=== PATIENT | female | born 1945 | race Two or more races ===

== ENCOUNTER 2016-10-02 12:48 | Emergency (ER) | payer OTHER ==
--- NOTE | 2016-10-02 13:08 | PDOC ---
History of Present Illness - General Chief Complaint: Lethargy Stated Complaint: WEAKNESS Time Seen by Provider: 10/02/16 13:06 History Source: Patient Exam Limitations: No Limitations - History of Present Illness Initial Comments: 10/02/16 13:20 71y F hx of dm, hl, arthritis presents with lethargy. Per son, the pt had been complaining of L leg pain for the past 2 days (consistent with chronic arthritic pain), and has bee nhaving difficulty sleeping, he saw her around 9am and she made breakfast and was ok, later, she called and was crying, and his sister went to find her very lethargic. The pt states she is sleepy because she hasnt slept in 2 days - denies taking any medications prior to coming in, denies any current pain/discofmort including headache, dizziness, n/v, cp, abd pain, bcak pain, dirrhea, melena, bpr. Past History - Past Medical History Allergies/Adverse Reactions: Allergies Allergy/AdvReac Type Severity Reaction Status Date / Time No Known Allergies Allergy Verified 03/20/16 17:01 Home Medications: Ambulatory Orders Albuterol Sulfate [Proair Hfa -] 1 - 2 inh PO TID PRN 04/20/15 Ropinirole HCl 2 tab PO BID 04/20/15 Rosuvastatin Calcium [Crestor] 10 mg PO DAILY 04/20/15 Aspirin Coated [Ecotrin -] 81 mg PO DAILY tablet.ec 03/22/16 Gabapentin 100 mg PO DAILY 10/02/16 Prednisone [Deltasone] 20 mg PO DAILY 10/02/16 Quetiapine Fumarate [Seroquel] 100 tab PO DAILY 10/02/16 Sitagliptin Phos/Metformin HCl [Janumet 50-1,000 mg Tablet] 1 each PO DAILY 06/10 Zolpidem Tartrate 10 mg PO HS PRN 10/02/16 Anemia: No Asthma: No Cancer: No Cardiac Disorders: Yes CVA: No COPD: No CHF: No Dementia: No Diabetes: Yes GI Disorders: No Disorders: No HTN: Yes Hypercholesterolemia: Yes Liver Disease: No Suicide Attempt (Hx): No Seizures: No Thyroid Disease: No - Surgical History Abdominal Surgery: No Appendectomy: No Cardiac Surgery: No Cholecystectomy: No Lung Surgery: No Neurologic Surgery: No Orthopedic Surgery: Yes (r knee replacement 03/11/14) - Psycho/Social/Smoking Cessation Hx Anxiety: No Suicidal Ideation: No Smoking Status: No Smoking History: Never smoked Have you smoked in the past 12 months: No Number of Cigarettes Smoked Daily: 0 Hx Alcohol Use: No Drug/Substance Use Hx: No Substance Use Type: None Hx Substance Use Treatment: No Review of Systems - Review of Systems Able to Perform ROS?: Yes Comments:: 10/02/16 13:23 limited due to the patients clinical condition, but pt has no complaints Constitutional - reported: sleepiness no reported Fever, Chills, weakness, HEENT: no reported vision changes, sore throat Respiratory: no reported cough, sob, hemoptysis Cardiac: no reported chest pain, palpitations, light headedness, leg swelling Abd/GI: no reported abd pain, nausea, vomiting, blood per rectum, melena, diarrhea : no reported dysuria, frequency, discharge Musculskelatal - no reported back pain, joint swelling skin - no reported bruising, erythema, rash neurological: no reported headache, numbness, focal weakness, tingling, ataxia, weakness hematologic: no reported anemia, easy bruising, easy bleeding *Physical Exam - Physical Exam Comments: 10/02/16 13:23 GENERAL: The patient is somnolent but easily arousable to verbal stimulus. HEAD: Normocephalic, atraumatic. EYES: extraocular movements intact, sclera anicteric, conjunctiva clear, pupils 2mm and eaqually reqctive to light ENT: Normal voice, dry mucous membranes. NECK: Normal range of motion, supple LUNGS: Breath sounds equal, clear to auscultation bilaterally. No wheezes, no rhonchi, no rales. HEART: Regular rate and rhythm, normal S1 and S2 without murmur, rub or gallop. ABDOMEN: Soft, nontender, normoactive bowel sounds. No guarding, no rebound. . No CVA tenderness EXTREMITIES: Normal range of motion, no edema. No clubbing or cyanosis. No cords, erythema, or tenderness. NEUROLOGICAL: No facial assymetry, Normal speech, movin gall 4 extremities spontaneously and symmetrically, sensatio nintact and symmetric bilaterally. PSYCH: Normal mood, normal affect. SKIN: Warm, Dry, normal turgor, Heart Score/ECG Review - ECG Impressions Comment:: 10/02/16 18:00 Twelve-lead EKG was performed and reviewed by me. There is normal sinus rhythm with a normal rate. Rate of 85 The axis is normal. The intervals are normal. There is normal R wave progression There are no ST or T wave abnormalities. Impression: Normal twelve-lead EKG ED Treatment Course - LABORATORY CBC & Chemistry Diagram: 10/02/16 13:27 10/02/16 13:27 Medical Decision Making - Medical Decision Making 10/02/16 13:24 differential for sypmtoms include sleepy due to lack of sleep - also consider possible intracranial event, will obtian ct head to r/o cva/hemorrhage will give fluids will ck labs including cbc, cmp, ammonia, vbg will send tox screen maria ines give pt narcan as pt does take percocet for her pain. 10/02/16 16:11 no response to narcan pt alittle bit more awake now - states she took an extra dose of ropiranol for restless leg syndrome. (took 4mg once around 10 and once around 12) - labs reviewed and are normal vitals normal case reported to OR [facility] spoke to marcia santillan recommended supportive care, observation for 6 hrs after ingestion if still ams will admit for obs, 10/02/16 17:41 pt alert and oriented now will d/c the pt with pmd fu return precuation swerediscussed instructions not to take extra doses of meds I discussed the physical exam findings, ancillary test results and final diagnoses with the patient. I answered all of the patient's questions. The patient was satisfied with the care received and felt comfortable with the discharge plan and treatment plan. The patient will call their primary care physician within 24 hours to arrange follow-up and will return to the Emergency Department with any new, persistent or worsening symptoms. 10/02/16 17:44 *DC/Admit/Observation/Transfer Diagnosis at time of Disposition: Medication overdose Qualifiers: Encounter type: initial encounter Injury intent: accidental or unintentional Qualified Code(s): T50.901A - Poisoning by unspecified drugs, medicaments and biological substances, accidental (unintentional), initial encounter - Discharge Dispostion Disposition: HOME Condition at time of disposition: Improved Admit: No - Referrals Referrals: Basilio Machado MD [Primary Care Provider] - - Patient Instructions Printed Discharge Instructions: DI for Safely Taking and Storing Medications - - Adults Additional Instructions: Do not take extra doses of medications without instruction from your physician follow up with dr. Sevilla for reevalutaion of your restless leg syndrome
[2016-10-02 13:09] VITALS: TEMP 97.6
[2016-10-02 13:10] VITALS: BMI 36.6
[2016-10-02] MEDS ORDERED: SODIUM CHLORIDE 500 ML IV STA (13:19)
[2016-10-02] MEDS ORDERED: NALOXONE HCL 0.4 MG/ML VIAL IVPUSH ONE (13:25)
[2016-10-02] MEDS ORDERED: NALOXONE HCL 0.4 MG/ML VIAL ONE (13:49)
[2016-10-02 14:00] LABS: VENOUS PH 7.36 (7.31-7.41)
[2016-10-02 14:04] LABS: BASOPHIL 0.9 % (0-2.0); EOSINOPHIL 1.5 % (0-4.5); MCH 28.9 pg (25.7-33.7); MCHC 32.7 g/dl (32.0-36.0); MEAN CELL VOLUME 88.2 fl (80-96); MEAN PLT VOLUME 8.3 fl (7.5-11.1); NEUTROPHILS 66.8 % (42.8-82.8); PLATELET COUNT 201 K/MM3 (134-434); RDW 16.2 % (11.6-15.6); WHITE BLOOD COUNT 6.5 K/mm3 (4.0-10.0)
[2016-10-02 14:23] LABS: INR 0.96 (0.82-1.09); PROTHROMBIN TIME (PATIENT) 10.6 SEC (9.98-11.88)
[2016-10-02 14:28] LABS: URINE APPEARANCE CLEAR; URINE BILIRUBIN NEGATIVE (NEGATIVE); URINE BLOOD NEGATIVE (NEGATIVE); URINE COLOR STRAW; URINE GLUCOSE (UA) NEGATIVE (NEGATIVE); URINE KETONE NEGATIVE (NEGATIVE); URINE LEUK ESTERASE NEGATIVE (NEGATIVE); URINE NITRITE NEGATIVE (NEGATIVE); URINE PROTEIN NEGATIVE (NEGATIVE); URINE UROBILINOGEN NEGATIVE E.U./dl (0.2-1.0)
[2016-10-02 14:32] LABS: ALBUMIN 3.4 g/dl (3.4-5.0); ANION GAP 10 (8-16); BILIRUBIN,TOTAL 0.2 mg/dL (0.2-1.0); CALCIUM 8.4 mg/dL (8.5-10.1); CO2 27 mmol/L (21-32); CREATININE 0.6 mg/dL (0.55-1.02); GLUCOSE,RANDOM 144 mg/dL (74-106); SGOT/AST 14 U/L (15-37); SGPT/ALT 20 U/L (12-78); TOT PROT 6.4 g/dl (6.4-8.2)
[2016-10-02 14:34] LABS: ALK PHOS 76 U/L (45-117); TROPONIN I < 0.02 ng/ml (0.00-0.05)
[2016-10-02 14:43] LABS: URINE MARIJUANA THC NEGATIVE ng/ml (CUTOFF=50)
[2016-10-02 17:06] VITALS: BP 110/69; PULSE 81
--- NOTE | 2016-10-02 17:19 | EKG ---
Test Reason : Blood Pressure : / mmHG Vent. Rate : 085 BPM Atrial Rate : 085 BPM P-R Int : 158 ms QRS Dur : 084 ms QT Int : 384 ms P-R-T Axes : 040 005 022 degrees QTc Int : 456 ms NORMAL SINUS RHYTHM NORMAL ECG WHEN COMPARED WITH ECG OF 21-MAR-2016 11:48, NO SIGNIFICANT CHANGE WAS FOUND Confirmed by SHANNAN REICO MD ([id number]) on 10/02/2016 5:19:07 PM Referred By: Confirmed By:SHANNAN RECIO MD
== END 2016-10-02 18:14 | disposition home or self-care (01) ==
LOC: JER 12:48
PROC: 3E033GC Introduction of Other Therapeutic Substance into Peripheral Vein, Percutaneous Approach (ICD-10-PCS; principal; 2016-10-02)
DX: T42.8X1A Poisoning by antiparkinsonism drugs and other central muscle-tone depressants, accidental (unintentional), initial encounter (principal); R53.1 Weakness; I10 Essential (primary) hypertension; E11.9 Type 2 diabetes mellitus without complications; Z79.84 Long term (current) use of oral hypoglycemic drugs; E78.00 Pure hypercholesterolemia, unspecified; Y92.018 Other place in single-family (private) house as the place of occurrence of the external cause
CPT/HCPCS: 36415; 70450-TC; 80053; 80307; 81003; 82140; 82550; 82803; 84484; 85025; 85610; 93005; 93010; 96374; 99283-25

== ENCOUNTER 2017-02-05 14:45 | Emergency (ER) | payer OTHER ==
--- NOTE | 2017-02-05 14:56 | PDOC ---
History of Present Illness - General Chief Complaint: Urinary Problem Stated Complaint: HEMATURIA, BURNING ON URINATION Time Seen by Provider: 02/05/17 14:51 History Source: Patient Exam Limitations: No Limitations - History of Present Illness Initial Comments: 02/05/17 16:26 71y F hx of dm, hl, arthritis presents with suprapubicpain. Pt endorses some dysuria since yesteday w/o associated fever/chills. pt does endorse chronic L back pain and L leg pain but this is chronic and attributed to her arthritis. pt denies any n/v, cp, sob, cough, diarrhea. Past History - Past Medical History Allergies/Adverse Reactions: Allergies Allergy/AdvReac Type Severity Reaction Status Date / Time No Known Allergies Allergy Verified 02/05/17 14:54 Home Medications: Ambulatory Orders Ropinirole HCl 2 tab PO TID 04/20/15 Rosuvastatin Calcium [Crestor] 10 mg PO DAILY 04/20/15 Aspirin Coated [Ecotrin -] 81 mg PO DAILY tablet.ec 03/22/16 Prednisone [Deltasone] 5 mg PO ASDIR 10/02/16 Sitagliptin Phos/Metformin HCl [Janumet 50-1,000 mg Tablet] 1 each PO BID Nitrofurantoin Monohyd/M-Cryst [Macrobid -] 100 mg PO BID #10 capsule 02/05/17 Anemia: No Asthma: No Cancer: No Cardiac Disorders: Yes CVA: No COPD: No CHF: No Dementia: No Diabetes: Yes GI Disorders: No Disorders: No HTN: Yes Hypercholesterolemia: Yes Liver Disease: No Suicide Attempt (Hx): No Seizures: No Thyroid Disease: No - Surgical History Abdominal Surgery: No Appendectomy: No Cardiac Surgery: No Cholecystectomy: No Lung Surgery: No Neurologic Surgery: No Orthopedic Surgery: Yes (r knee replacement 03/11/14) - Psycho/Social/Smoking Cessation Hx Anxiety: No Suicidal Ideation: No Smoking Status: No Smoking History: Never smoked Have you smoked in the past 12 months: No Number of Cigarettes Smoked Daily: 0 Hx Alcohol Use: No Drug/Substance Use Hx: No Substance Use Type: None Hx Substance Use Treatment: No Review of Systems - Review of Systems Able to Perform ROS?: Yes Comments:: 02/05/17 16:27 Constitutional - no reported Fever, Chills, HEENT: no reported vision changes, sore throat Respiratory: no reported cough, sob, hemoptysis Cardiac: no reported chest pain, palpitations, light headedness, leg swelling Abd/GI: no reported abd pain, nausea, vomiting, blood per rectum, melena, diarrhea : + dysuria, frequency no reporteddischarge Musculskelatal - no reported back pain, joint swelling skin - no reported bruising, erythema, rash neurological: no reported headache, numbness, focal weakness, tingling, ataxia, hematologic: no reported anemia, easy bruising, easy bleeding *Physical Exam - Physical Exam Comments: 02/05/17 16:28 GENERAL: The patient is awake, alert, and fully oriented, Nontoxic - in no acute distress. HEAD: Normocephalic, atraumatic. EYES: extraocular movements intact, sclera anicteric, conjunctiva clear. ENT: Normal voice, Moist mucous membranes. NECK: Normal range of motion, supple LUNGS: Breath sounds equal, clear to auscultation bilaterally. No wheezes, no rhonchi, no rales. HEART: Regular rate and rhythm, normal S1 and S2 without murmur, rub or gallop. ABDOMEN: mild suprapubic tenderness, no CVA tenderness, no erbound/guarding EXTREMITIES: Normal range of motion, no edema. No clubbing or cyanosis. No cords, erythema, or tenderness. NEUROLOGICAL: No facial assymetry, Normal speech, PSYCH: Normal mood, normal affect. SKIN: Warm, Dry, normal turgor, Medical Decision Making - Medical Decision Making 02/05/17 16:28 ua c/w uti no systenomic complaints will dc with macrobid and pmd fu return percautions were discussed I discussed the physical exam findings, ancillary test results and final diagnoses with the patient. I answered all of the patient's questions. The patient was satisfied with the care received and felt comfortable with the discharge plan and treatment plan. The patient will call their primary care physician within 24 hours to arrange follow-up and will return to the Emergency Department with any new, persistent or worsening symptoms. *DC/Admit/Observation/Transfer Diagnosis at time of Disposition: Urinary tract infection Qualifiers: Urinary tract infection type: acute cystitis Hematuria presence: with hematuria Qualified Code(s): N30.01 - Acute cystitis with hematuria - Discharge Dispostion Disposition: HOME Condition at time of disposition: Improved Admit: No - Prescriptions Prescriptions: Nitrofurantoin Monohyd/M-Cryst [Macrobid -] 100 mg PO BID #10 capsule - Referrals Referrals: Kaiser Bertrand MD [Staff Physician] - - Patient Instructions Printed Discharge Instructions: DI for Urinary Tract Infection (UTI) Additional Instructions: Return to the emergency department immediately with ANY new, persistent or worsening symptoms including any back pain, fevers, chills or any other concerns. Take antibiotics as prescribed You MUST call and follow up with your doctor tomorrow for further evaluation of your symptoms. Results were discussed with you. Please make sure your doctor reviews the results of your emergency evaluation. If you had any xrays during your visit, it was read preliminarily by myself, a Radiologist will review it and if there are any additional findings we will call you. Print Language: SETSWANA
[2017-02-05 15:02] VITALS: BP 154/81; PULSE 93; TEMP 99.2; BMI 38.4
[2017-02-05 15:09] LABS: URINE APPEARANCE Slightly; URINE BILIRUBIN Negative (NEGATIVE); URINE GLUCOSE (UA) Negative (NEGATIVE); URINE KETONE Negative (NEGATIVE); URINE NITRITE Negative (NEGATIVE); URINE PROTEIN Trace (NEGATIVE); URINE UROBILINOGEN 0.2 E.U/dl (0.2-1.0)
[2017-02-05 15:10] LABS: URINE BLOOD 3+ (NEGATIVE); URINE COLOR YELLOW; URINE LEUK ESTERASE 2+ (NEGATIVE)
[2017-02-05 15:28] LABS: URINE RBC 50-80 /hpf (0-3)
[2017-02-05] MEDS ORDERED: NITROFURANTOIN MACROCRYSTAL 50 MG CAPSULE (FP) ONE (16:26)
[2017-02-05] MEDS ORDERED: NITROFURANTOIN MACROCRYSTAL 50 MG CAPSULE (FP) PO SCH (16:30)
== END 2017-02-05 16:40 | disposition home or self-care (01) ==
LOC: FER 14:45
DX: N30.01 Acute cystitis with hematuria (principal); I10 Essential (primary) hypertension
CPT/HCPCS: 81003; 81015; 87086; 87186; 99284-25

== ENCOUNTER 2017-02-13 20:38 | Emergency (ER) | payer OTHER ==
[2017-02-13 20:44] VITALS: TEMP 97.6; BMI 38.4
--- NOTE | 2017-02-13 21:13 | PDOC ---
History of Present Illness - General History Source: Patient Exam Limitations: No Limitations - History of Present Illness Initial Comments: 02/13/17 21:18 Patient is a 71 year old female with a significant medical history of DM, hypertension, hyperlipidemia and arthritis who presents to the ED with bilateral lower extremity pain. Patient reports squeezing and stabbing pain. She states that she has been taking tylenol and motrin without any relief. Patient states that the pain radiates to the lower back. No fever, chills, nausea, vomiting or abdominal pain. No recent trauma or recent travel. PCP - Dr. Machado <Peg Lo - Last Filed: 02/13/17 21:24> - General History Source: Patient <Santana Burroughs - Last Filed: 02/14/17 00:59> - General Chief Complaint: Pain, Acute Stated Complaint: PAIN Time Seen by Provider: 02/13/17 21:11 Past History <Peg Lo - Last Filed: 02/13/17 21:24> - Past Medical History Anemia: No Asthma: No Cancer: No Cardiac Disorders: Yes CVA: No COPD: No CHF: No Dementia: No Diabetes: Yes GI Disorders: No Disorders: No HTN: Yes Hypercholesterolemia: Yes Liver Disease: No Suicide Attempt (Hx): No Seizures: No Thyroid Disease: No Other medical history: arthritis - Surgical History Abdominal Surgery: No Appendectomy: No Cardiac Surgery: No Cholecystectomy: No Lung Surgery: No Neurologic Surgery: No Orthopedic Surgery: Yes (r knee replacement 03/11/14) - Psycho/Social/Smoking Cessation Hx Anxiety: No Suicidal Ideation: No Smoking Status: No Smoking History: Former smoker Have you smoked in the past 12 months: No Number of Cigarettes Smoked Daily: 0 If you are a former smoker, when did you quit?: 15 yrs Information on smoking cessation initiated: No Hx Alcohol Use: No Drug/Substance Use Hx: No Substance Use Type: None Hx Substance Use Treatment: No <Santana Burroughs - Last Filed: 02/14/17 00:59> - Past Medical History Allergies/Adverse Reactions: Allergies Allergy/AdvReac Type Severity Reaction Status Date / Time No Known Allergies Allergy Verified 02/13/17 20:45 Home Medications: Ambulatory Orders Ropinirole HCl 2 tab PO TID 04/20/15 Rosuvastatin Calcium [Crestor] 10 mg PO DAILY 04/20/15 Aspirin Coated [Ecotrin -] 81 mg PO DAILY tablet.ec 03/22/16 Prednisone [Deltasone] 5 mg PO ASDIR 10/02/16 Sitagliptin Phos/Metformin HCl [Janumet 50-1,000 mg Tablet] 1 each PO BID Nitrofurantoin Monohyd/M-Cryst [Macrobid -] 100 mg PO BID #10 capsule 02/05/17 Ibuprofen 800 mg PO TID #30 tablet 02/14/17 Oxycodone HCl/Acetaminophen [Percocet 5-325 mg Tablet] 1 - 2 tab PO Q6H #20 tablet MDD 4 02/14/17 Review of Systems - Review of Systems Able to Perform ROS?: Yes Comments:: 02/13/17 21:18 CONSTITUTIONAL: Absent: fever, chills, diaphoresis, generalized weakness, malaise, loss of appetite HEENT: Absent: rhinorrhea, nasal congestion, throat pain, throat swelling, difficulty swallowing, mouth swelling, ear pain, eye pain, visual Changes CARDIOVASCULAR: Absent: chest pain, syncope, palpitations, irregular heart rate, lightheadedness , peripheral edema RESPIRATORY: Absent: cough, shortness of breath, dyspnea with exertion, orthopnea, wheezing, stridor, hemoptysis GASTROINTESTINAL: Absent: abdominal pain, abdominal distension, nausea, vomiting, diarrhea, constipation, melena, hematochezia GENITOURINARY: Absent: dysuria, frequency, urgency, hesitancy, hematuria, flank pain, genital pain MUSCULOSKELETAL: Present: lower extremity pain, back pain Absent: myalgia, arthralgia, joint swelling SKIN: Absent: rash, itching, pallor HEMATOLOGIC/IMMUNOLOGIC: Absent: easy bleeding, easy bruising, lymphadenopathy, frequent infections ENDOCRINE: Absent: unexplained weight gain, unexplained weight loss, heat intolerance, cold intolerance NEUROLOGIC: Absent: headache, focal weakness or paresthesias, dizziness, unsteady gait, seizure, mental status changes, bladder or bowel incontinence PSYCHIATRIC: Absent: anxiety, depression, suicidal or homicidal ideation, hallucinations. <Peg Lo - Last Filed: 02/13/17 21:24> *Physical Exam - Vital Signs Last Vital Signs Temp Pulse Resp BP Pulse Ox 97.6 F 102 H 20 161/119 98 02/13/17 20:39 02/13/17 20:39 02/13/17 20:39 02/13/17 20:39 02/13/17 20:39 - Physical Exam Comments: 02/13/17 21:18 GENERAL: Well developed, well nourished. Awake and alert. In no acute distress. HEENT: Normocephalic, atraumatic. PERRLA, EOMI. No conjunctival pallor. Sclerae are non -icteric. Moist mucous membranes. Oropharynx is clear. NECK: Supple. Full ROM. No JVD. Carotid pulses 2+ and symmetric, without bruits. No thyromegaly. No lymphadenopathy. CARDIOVASCULAR: Regular rate and rhythm. No murmurs, rubs, or gallops. Distal pulses are 2+ and symmetric. PULMONARY: No evidence of respiratory distress. Lungs clear to auscultation bilaterally. No wheezing, rales or rhonchi. ABDOMINAL: (+)Morbidly obese. Soft. Non-tender. Non-distended. No rebound or guarding. No organomegaly. Normoactive bowel sounds. MUSCULOSKELETAL (+)Midline tenderness region LS 3-4-5. Normal range of motion at all joints. No bony deformities. No CVA tenderness. EXTREMITIES: (+)Neither leg is erythematous, no ecchymosis, (+)Non pitting edema bilaterally at the ankles No cyanosis. No clubbing. No calf tenderness. SKIN: Warm and dry. Normal capillary refill. No rashes. No jaundice. NEUROLOGICAL: Alert, awake, appropriate. Cranial nerves 2-12 intact. No deficits to light touch and temperature in face, upper extremities and lower extremities. No motor deficits in the in face, upper extremities and lower extremities. Normoreflexic in the upper and lower extremities. Normal speech. Toes are downgoing bilaterally. PSYCHIATRIC: Cooperative. Good eye contact. Appropriate mood and affect. <Peg Lo - Last Filed: 02/13/17 21:24> - Vital Signs Last Vital Signs Temp Pulse Resp BP Pulse Ox 97.6 F 102 H 20 161/119 98 02/13/17 20:39 02/13/17 20:39 02/13/17 20:39 02/13/17 20:39 02/13/17 20:39 <Santana Burroughs - Last Filed: 02/14/17 00:59> ED Treatment Course - LABORATORY CBC & Chemistry Diagram: 02/13/17 21:42 02/13/17 21:42 <Santana Burroughs - Last Filed: 02/14/17 00:59> Medical Decision Making - Medical Decision Making 02/14/17 00:57 Dr. Burroughs: The scribe's documentation has been prepared under my direction and personally reviewed by me in its entirery. I confirm that the note above accurately reflects all work, treatment, procedures, and medical decision making performed by me. PT with multiple herniated / bulging disc. Pt advised to follow up with her pcp for documentation improvement specialist <Santana Burroughs - Last Filed: 02/14/17 00:59> *DC/Admit/Observation/Transfer - Attestations Scribe Attestion: 02/13/17 21:24 Documentation prepared by DELMAR Booth, acting as medical administrative for Santana Burroughs DO. <Peg Lo - Last Filed: 02/13/17 21:24> - Discharge Dispostion Admit: No <Santana Burroughs - Last Filed: 02/14/17 00:59> Diagnosis at time of Disposition: Lumbar herniated disc - Discharge Dispostion Disposition: HOME Condition at time of disposition: Stable - Prescriptions Prescriptions: Ibuprofen 800 mg PO TID #30 tablet Oxycodone HCl/Acetaminophen [Percocet 5-325 mg Tablet] 1 - 2 tab PO Q6H #20 tablet MDD 4 - Referrals Referrals: Basilio Machado MD [Primary Care Provider] - Kristian Arzate MD [Staff Physician] - - Patient Instructions Printed Discharge Instructions: DI for Herniated Disc Additional Instructions: Please follow up with your pcp for a spine doctor. TAke medication as directed. Avoid alcohol when taking Percocet
[2017-02-13] MEDS ORDERED: GABAPENTIN 300 MG CAPSULE (FP) PO ONE (21:19)
[2017-02-13] MEDS ORDERED: GABAPENTIN 100 MG CAPSULE (FP) ONE (22:09)
[2017-02-13 22:17] LABS: BASOPHIL 0.8 % (0-2.0); EOSINOPHIL 1.1 % (0-4.5); MCH 28.7 pg (25.7-33.7); MCHC 32.5 g/dl (32.0-36.0); MEAN CELL VOLUME 88.1 fl (80-96); MEAN PLT VOLUME 8.5 fl (7.5-11.1); NEUTROPHILS 66.6 % (42.8-82.8); PLATELET COUNT 245 K/MM3 (134-434); RDW 16.6 % (11.6-15.6)
[2017-02-13 22:20] LABS: URINE APPEARANCE CLEAR; URINE BILIRUBIN NEGATIVE (NEGATIVE); URINE COLOR STRAW; URINE GLUCOSE (UA) NEGATIVE (NEGATIVE); URINE KETONE NEGATIVE (NEGATIVE); URINE NITRITE NEGATIVE (NEGATIVE); URINE PROTEIN NEGATIVE (NEGATIVE); URINE UROBILINOGEN NEGATIVE E.U./dl (0.2-1.0)
[2017-02-13 22:22] LABS: URINE BLOOD 1+ (NEGATIVE); URINE LEUK ESTERASE 2+ (NEGATIVE)
[2017-02-13 22:24] LABS: URINE RBC 6 /hpf (0-3); URINE WBC 8 /hpf (3-5)
[2017-02-13 22:26] LABS: INR 0.95 (0.82-1.09); PROTHROMBIN TIME (PATIENT) 10.4 SEC (9.98-11.88)
[2017-02-13 23:03] LABS: ALBUMIN 3.5 g/dl (3.4-5.0); ANION GAP 9 (8-16); CALCIUM 8.1 mg/dL (8.5-10.1); CO2 25 mmol/L (21-32); CREATININE 0.8 mg/dL (0.55-1.02); GLUCOSE,RANDOM 173 mg/dL (74-106); MAGNESIUM 1.9 mg/dL (1.8-2.4); SGOT/AST 18 U/L (15-37); SGPT/ALT 25 U/L (12-78)
[2017-02-13 23:07] LABS: ALK PHOS 87 U/L (45-117); BILIRUBIN,TOTAL 0.2 mg/dL (0.2-1.0); TOT PROT 6.9 g/dl (6.4-8.2); TROPONIN I < 0.02 ng/ml (0.00-0.05)
[2017-02-13] MEDS ORDERED: IBUPROFEN 400 MG TABLET (FP) PO ONE ×2 (23:55→23:59)
[2017-02-14 01:13] VITALS: BP 143/87; PULSE 78
== END 2017-02-14 01:13 | disposition home or self-care (01) ==
LOC: JER 20:38
DX: M51.26 Other intervertebral disc displacement, lumbar region (principal); I10 Essential (primary) hypertension; E11.9 Type 2 diabetes mellitus without complications; Z79.84 Long term (current) use of oral hypoglycemic drugs; E78.5 Hyperlipidemia, unspecified; M12.9 Arthropathy, unspecified
CPT/HCPCS: 36415; 72131-TC; 80053; 81003; 81015; 82550; 83735; 84484; 85025; 85610; 93970-TC; 99282-25

== ENCOUNTER → 2017-05-05 | Emergency (ER) | payer OTHER ==
[~2017-05-05] MED LIST: ACETAMINOPHEN 325 MG TABLET (FP) ONE; ACETAMINOPHEN 325 MG TABLET (FP) PO ONE; SODIUM CHLORIDE 0.9% 500 ML INFUS.BAG IV ONE; VALSARTAN 80 MG TABLET (UD) PO ONE
[2017-05-05 02:06] VITALS: TEMP 98; BMI 40.2
--- NOTE | 2017-05-05 02:19 | PDOC ---
History of Present Illness - General History Source: Patient, Old Records Exam Limitations: No Limitations - History of Present Illness Initial Comments: 05/05/17 03:00 The patient is a 71 year old female with a significant PMH of diabetes, hypertension, and hyperlipidemia, who presents to the emergency department with a racing heart and chest pain beginning at approximately 1:00AM. She describes the chest pain as non-radiating. The patient reports she tried going to sleep by laying on her side and felt her heart racing. The patient also reports noting a lesion under her left breast which she describes as painful. She discovered the lesion tonight while in the shower after awaking from the racing heart. She drove herself to the ED after becoming concerned. The patient denies cough, shortness of breath, headache and dizziness. Denies fever, chills, nausea, vomit, diarrhea and constipation. Denies dysuria, frequency, urgency and hematuria. Allergies: NKA Past surgical history: Joint replacement. Social history: No alcohol or drug use. Former cigarette use (Quit more than 12 months ago) PCP: Dr. Machado <Fabricio Mayo - Last Filed: 05/05/17 03:00> <Mesha Stevenson - Last Filed: 05/05/17 05:16> - General Chief Complaint: Chest Pain Stated Complaint: PAIN TO CHEST Time Seen by Provider: 05/05/17 02:02 Past History <Fabricio Mayo - Last Filed: 05/05/17 03:00> - Past Medical History Anemia: No Asthma: No Cancer: No Cardiac Disorders: Yes CVA: No COPD: No CHF: No Dementia: No Diabetes: Yes GI Disorders: No Disorders: No HTN: Yes Hypercholesterolemia: Yes Liver Disease: No Suicide Attempt (Hx): No Seizures: No Thyroid Disease: No - Surgical History Abdominal Surgery: No Appendectomy: No Cardiac Surgery: No Cholecystectomy: No Lung Surgery: No Neurologic Surgery: No Orthopedic Surgery: Yes (r knee replacement 03/11/14) - Immunization History Immunization Up to Date: Yes - Psycho/Social/Smoking Cessation Hx Anxiety: No Suicidal Ideation: No Smoking Status: No Smoking History: Former smoker Have you smoked in the past 12 months: No Number of Cigarettes Smoked Daily: 0 If you are a former smoker, when did you quit?: 15 yrs Information on smoking cessation initiated: No Hx Alcohol Use: No Drug/Substance Use Hx: No Substance Use Type: None Hx Substance Use Treatment: No <Lori Stevensonreen - Last Filed: 05/05/17 05:16> - Past Medical History Allergies/Adverse Reactions: Allergies Allergy/AdvReac Type Severity Reaction Status Date / Time No Known Allergies Allergy Verified 05/05/17 02:06 Home Medications: Ambulatory Orders Aspirin [Aspirin EC] 81 mg PO DAILY 05/05/17 Atorvastatin Ca [Lipitor] 40 mg PO HS 05/05/17 Gabapentin 100 mg PO BID 05/05/17 Glimepiride [Amaryl -] 4 mg PO BID 05/05/17 Prednisone 5 mg PO TID 05/05/17 Ropinirole HCl [Ropinirole ER] 4 mg PO BID 05/05/17 Tramadol HCl [Ultram] 50 mg PO TID 05/05/17 Review of Systems - Review of Systems Comments:: 05/05/17 03:00 CONSTITUTIONAL: Absent: Fevers, chills, diaphoresis, generalized weakness, malaise, loss of appetite HEENT: Absent: rhinorrhea, nasal congestion, throat pain, throat swelling, difficulty swallowing, mouth swelling, ear pain, eye pain, visual changes CARDIOVASCULAR: (+) Racing heart, (+) Chest pain. Absent: syncope, lightheadedness, peripheral edema RESPIRATORY: Absent: cough, shortness of breath, dyspnea with exertion, orthopnea, wheezing, stridor, hemoptysis GASTROINTESTINAL: Absent: abdominal pain, abdominal distension, nausea, vomiting, diarrhea, constipation, melena, hematochezia GENITOURINARY: Absent: dysuria, frequency, urgency, hesitancy, hematuria, flank pain, genital pain MUSCULOSKELETAL: Absent: myalgia, arthralgia, joint swelling SKIN: (+) Left breast lesion Absent: rash, itching, pallor HEMATOLOGIC/IMMUNOLOGIC: Absent: easy bleeding, easy bruising, lymphadenopathy, frequent infections ENDOCRINE: Absent: unexplained weight gain, unexplained weight loss, heat intolerance, cold intolerance NEUROLOGIC: Absent: headache, focal weakness or paresthesias, dizziness, unsteady gait, seizure, mental status changes, bladder or bowel incontinence PSYCHIATRIC: Absent: anxiety, depression, suicidal or homicidal ideation, hallucinations. <Fabricio Mayo - Last Filed: 05/05/17 03:00> *Physical Exam - Vital Signs Last Vital Signs Temp Pulse Resp BP Pulse Ox 98.0 F 105 H 16 182/91 100 05/05/17 02:02 05/05/17 02:02 05/05/17 02:02 05/05/17 02:02 05/05/17 02:02 - Physical Exam Comments: 05/05/17 03:01 GENERAL: Well developed, well nourished. Awake and alert. No acute distress. HEENT: (+) Dry mucous membranes Normocephalic, atraumatic. PERRLA, EOMI. No conjunctival pallor. Sclera are non- icteric. . Oropharynx is clear. NECK: Supple. Full ROM. No JVD. Carotid pulses 2+ and symmetric, without bruits. No thyromegaly. No lymphadenopathy. CARDIOVASCULAR: Regular rate and rhythm. No murmurs, rubs, or gallops. Distal pulses are 2+ and symmetric. PULMONARY: No evidence of respiratory distress. Lungs clear to auscultation bilaterally. No wheezing, rales or rhonchi. ABDOMINAL: Soft. Non-tender. Non-distended. No rebound or guarding. No organomegaly. Normoactive bowel sounds. MUSCULOSKELETAL Normal range of motion at all joints. No bony deformities or tenderness. No CVA tenderness. EXTREMITIES: No cyanosis. No clubbing. No edema. No calf tenderness. SKIN: (+) Left breast 1 cm. diameter red pimple Warm and dry. Normal capillary refill. No rashes. No jaundice. NEUROLOGICAL: Alert, awake, appropriate. Cranial nerves 2-12 intact. No deficits to light touch and temperature in face, upper extremities and lower extremities. No motor deficits in the in face, upper extremities and lower extremities. Normoreflexic in the upper and lower extremities. Normal speech. Toes are downgoing bilaterally. PSYCHIATRIC: Cooperative. Good eye contact. Appropriate mood and affect. <Fabricio Mayo - Last Filed: 05/05/17 03:00> - Vital Signs Last Vital Signs Temp Pulse Resp BP Pulse Ox 98.0 F 105 H 16 182/91 100 05/05/17 02:02 05/05/17 02:02 05/05/17 02:02 05/05/17 02:02 05/05/17 02:02 <Mesha Stevenson - Last Filed: 05/05/17 05:16> ED Treatment Course - LABORATORY CBC & Chemistry Diagram: 05/05/17 02:35 05/05/17 02:35 <Fabricio Mayo - Last Filed: 05/05/17 03:00> - LABORATORY CBC & Chemistry Diagram: 05/05/17 02:35 05/05/17 02:35 <Mesha Stevenson - Last Filed: 05/05/17 05:16> Medical Decision Making - Medical Decision Making 05/05/17 05:12 Pt comes with CP and palpitations that started tonight. She came to the ER and her HR and BP dropped here once we reassured her that her exam is normal. Pt has a small pimple/growth beneath her left breast that is stressing her out. We asked her to apply warm compresses to it. Pt has a normal (unchanged pattern on) EKG. SHe has normal labs. Her exam is also normal. Pt will be discharged home and asked to follow with PMD. <Mesha Stevenson - Last Filed: 05/05/17 05:16> *DC/Admit/Observation/Transfer - Attestations Scribe Attestion: 05/05/17 03:02 Documentation prepared by Fabricio Mayo, acting as medical device assembler for Mesha Stevenson MD. <Fabricio Mayo - Last Filed: 05/05/17 03:00> - Discharge Dispostion Admit: No <Mesha Stevenson - Last Filed: 05/05/17 05:16> Diagnosis at time of Disposition: Heart palpitations, Anxiousness - Discharge Dispostion Disposition: HOME Condition at time of disposition: Improved - Patient Instructions Printed Discharge Instructions: DI for Atypical Chest Pain, DI for Palpitations
[2017-05-05 02:59] LABS: EOSINOPHIL 1.3 % (0-4.5); INR 0.96 (0.82-1.09); MCH 29.5 pg (25.7-33.7); MCHC 32.9 g/dl (32.0-36.0); MEAN CELL VOLUME 89.5 fl (80-96); MEAN PLT VOLUME 8.6 fl (7.5-11.1); NEUTROPHILS 65.1 % (42.8-82.8); PLATELET COUNT 236 K/MM3 (134-434); PROTHROMBIN TIME (PATIENT) 10.5 SEC (9.98-11.88); RDW 15.6 % (11.6-15.6)
[2017-05-05 03:10] LABS: ALBUMIN 3.9 g/dl (3.4-5.0); ANION GAP 7 (8-16); BILIRUBIN,TOTAL 0.4 mg/dL (0.2-1.0); CALCIUM 8.5 mg/dL (8.5-10.1); CO2 32 mmol/L (21-32); GLUCOSE,RANDOM 208 mg/dL (74-106); SGOT/AST 18 U/L (15-37); SGPT/ALT 32 U/L (12-78); TOT PROT 7.2 g/dl (6.4-8.2)
[2017-05-05 03:12] LABS: ALK PHOS 91 U/L (45-117); CPK 99 IU/L (26-192); TROPONIN I < 0.02 ng/ml (0.00-0.05)
[2017-05-05 03:21] LABS: ACETONE SERUM NEGATIVE (NEGATIVE)
[2017-05-05 06:42] VITALS: BP 134/81; PULSE 97
--- NOTE | 2017-05-05 13:25 | EKG ---
Test Reason : Blood Pressure : / mmHG Vent. Rate : 102 BPM Atrial Rate : 102 BPM P-R Int : 162 ms QRS Dur : 094 ms QT Int : 362 ms P-R-T Axes : 034 -11 -01 degrees QTc Int : 471 ms SINUS TACHYCARDIA POSSIBLE LEFT ATRIAL ENLARGEMENT INFERIOR INFARCT , AGE UNDETERMINED ABNORMAL ECG WHEN COMPARED WITH ECG OF 02-OCT-2016 14:06, INFERIOR INFARCT IS NOW PRESENT NON-SPECIFIC CHANGE IN ST SEGMENT IN LATERAL LEADS CLINICAL CORRELATION IS RECOMMENDED Confirmed by TONYA HENNING MD ([id number]) on 05/05/2017 1:24:47 PM Referred By: Confirmed By:TONYA HENNING MD
== END | disposition home or self-care (01) ==
LOC: JER 01:51
PROC: 3E0337Z Introduction of Electrolytic and Water Balance Substance into Peripheral Vein, Percutaneous Approach (ICD-10-PCS; principal; 2017-05-05)
DX: R00.2 Palpitations (principal); F41.0 Panic disorder [episodic paroxysmal anxiety]; I51.9 Heart disease, unspecified; E11.9 Type 2 diabetes mellitus without complications; I10 Essential (primary) hypertension; E78.00 Pure hypercholesterolemia, unspecified; Z87.891 Personal history of nicotine dependence
CPT/HCPCS: 36415; 80053; 82009; 84443; 84484; 85025; 85610; 93005; 93010; 99282-25

== ENCOUNTER 2017-09-30 13:04 | Inpatient (IN) | payer OTHER ==
--- NOTE | 2017-09-30 13:50 | PDOC ---
History of Present Illness - General Chief Complaint: Chest Pain Stated Complaint: CHEST PAIN Time Seen by Provider: 09/30/17 13:21 History Source: Patient Exam Limitations: No Limitations - History of Present Illness Initial Comments: 09/30/17 13:56 CHIEF COMPLAINT: Chest pain HISTORY OF PRESENT ILLNESS: This is a 72-year-old female with a history of an IDDM, HTN, HLD, and obesity who presents to the ED complaining of chest pain. Pain started about one hour ago while she was at rest. She describes it as pressure. Pain originates in the left side of the chest and radiates up to the jaw and down the left arm. She denies any associated shortness of breath, diaphoresis, nausea, or any other symptoms. She took 2 x 81mg ASA priorShe reports that she last had a exercise stress test [address] Flores's office. Vital signs on arrival notable for P 99. PCP [address] Machado. Patient is a non-smoker. REVIEW OF SYSTEMS: GENERAL/CONSTITUTIONAL: No fever or chills. No weakness. No weight change. HEAD, EYES, EARS, NOSE AND THROAT: No change in vision. No ear pain or discharge. No sore throat. CARDIOVASCULAR: See HPI. RESPIRATORY: No cough, wheezing, or shortness of breath. GASTROINTESTINAL: No nausea, vomiting, diarrhea or constipation. GENITOURINARY: No dysuria, frequency, or change in urination. MUSCULOSKELETAL: No joint or muscle swelling or pain. No neck or back pain. SKIN: No rash or easy bruising. NEUROLOGIC: No headache, vertigo, loss of consciousness, or loss of sensation. PSYCHIATRIC: No depression or anxiety. ENDOCRINE: No increased thirst. No abnormal weight change. HEMATOLOGIC/LYMPHATIC: No anemia, easy bleeding, or history of blood clots. ALLERGIC/IMMUNOLOGIC: No hives or skin allergy. No latex allergy. PHYSICAL EXAM: GENERAL: The patient is awake, alert, and fully oriented, in no acute distress. ENT: Pupils equal, round and reactive to light, extraocular movements intact, sclera anicteric, conjunctiva clear. Neck supple. LUNGS: Clear to auscultation bilaterally. Normal excursion. No respiratory distress or use of accessory muscles. CV: RRR, S1/S2, no MRG. Cap refill < 2 sec. ABDOMEN: Soft, non-distended, non-tender. EXTREMITIES: Normal range of motion, no edema. No calf tenderness. NEUROLOGICAL: Normal speech, normal gait. CN II-XII grossly intact. PSYCH: Normal mood, normal affect. SKIN: Warm, dry, normal turgor, no rashes or lesions noted. Past History - Past Medical History Allergies/Adverse Reactions: Allergies Allergy/AdvReac Type Severity Reaction Status Date / Time No Known Allergies Allergy Verified 09/30/17 13:16 Home Medications: Ambulatory Orders Aspirin [Aspirin EC] 81 mg PO DAILY 05/05/17 Tramadol HCl [Ultram] 50 mg PO BID 05/05/17 Sitagliptin Phosphate [Januvia] 50 mg PO TID 09/30/17 Anemia: No Asthma: No Cancer: No Cardiac Disorders: Yes CVA: No COPD: No CHF: No Dementia: No Diabetes: Yes GI Disorders: No Disorders: No HTN: Yes Hypercholesterolemia: Yes Liver Disease: No Seizures: No Thyroid Disease: No Other medical history: arthritis - Surgical History Abdominal Surgery: No Appendectomy: No Cardiac Surgery: No Cholecystectomy: No GI Surgery: Yes (bladder 15 years ago) Lung Surgery: No Neurologic Surgery: No Orthopedic Surgery: Yes (r knee replacement 03/11/14) - Immunization History Immunization Up to Date: Yes - Suicide/Smoking/Psychosocial Hx Smoking Status: No Smoking History: Never smoked Have you smoked in the past 12 months: No Number of Cigarettes Smoked Daily: 0 If you are a former smoker, when did you quit?: 15 yrs Information on smoking cessation initiated: No Hx Alcohol Use: No Drug/Substance Use Hx: No Substance Use Type: None Hx Substance Use Treatment: No *Physical Exam - Vital Signs Last Vital Signs Temp Pulse Resp BP Pulse Ox 97.5 F L 99 H 18 123/64 99 09/30/17 13:14 09/30/17 13:14 09/30/17 13:14 09/30/17 13:14 09/30/17 13:14 Heart Score/ECG Review - History History: Moderately suspicious - Electrocardiogram EKG: Normal - Age Age: >/= 65 - Risk Factors Risk Factors Heart Score: Yes Hx Hypercholesterolemia, Yes Hx Hypertension, Yes Hx Diabetes, Yes Positive family hx of cardiac disease, Yes Hx Obesity Based on the list above the patient has:: >/=3 risk factors or Hx atherosclerotic disease - Troponin Troponin: </= normal limit - Score Heart Score - Total: 5 - ECG Intrepretation Comment:: 09/30/17 14:20 NSR, rate of 97bpm. Possible let atrial enlargement. ED Treatment Course - LABORATORY CBC & Chemistry Diagram: 09/30/17 13:51 09/30/17 13:51 - RADIOLOGY Radiology Studies Ordered: Category Date Time Status CHEST X-RAY PORTABLE* [RAD] Stat Radiology 09/30/17 13:25 Ordered Medical Decision Making - Medical Decision Making 09/30/17 14:15 A/P: 72 year old female with multiple cardiac risk factors presenting with chest pain. 1. EKG and phototypesetting equipment monitor 2. Labs including CBC, CMP, cardiac profile, PT/INR, BNP 3. CXR 4. Took ASA prior to arrival 5. Ntg paste 6. Re-assess 09/30/17 14:36 Trop neg x 1. 09/30/17 15:37 CXR: Large heart, no acute pathology. Patient continues to complain of 6/10 pain after ntg paste application. Morphine 2mg IVP given. Discussed with Dr. Flores- will place in observation with cardiology consultation. Discussed with Dr. Arzate, cardiology. 09/30/17 17:41 Patient complaining of headache. Suspect ntg side effect - Tylenol given. *DC/Admit/Observation/Transfer Diagnosis at time of Disposition: Chest pain Qualifiers: Chest pain type: unspecified Qualified Code(s): R07.9 - Chest pain, unspecified - Discharge Dispostion Condition at time of disposition: Guarded Admit: Yes - Referrals - Patient Instructions - Post Discharge Activity
[2017-09-30 13:55] LABS: BASO % 0.7 % (0-2.0); EOS % 1.4 % (0-4.5); HEMATOCRIT 37.4 % (32.4-45.2); HEMOGLOBIN 12.1 GM/dL (10.7-15.3); LYMPH % 22.6 % (8-40); MCH 29.5 pg (25.7-33.7); MCHC 32.4 g/dl (32.0-36.0); MEAN CELL VOLUME 91.2 fl (80-96); MEAN PLT VOLUME 8.6 fl (7.5-11.1); NEUT % 69.3 % (42.8-82.8); PLATELET COUNT 228 K/MM3 (134-434); WHITE BLOOD COUNT 6.3 K/mm3 (4.0-10.0)
[2017-09-30] MEDS ORDERED: NITROGLYCERIN 2% OINTMENT - 1GM PACKET TD ONE (13:56)
[2017-09-30 14:08] LABS: INR 0.98 (0.82-1.09); PROTHROMBIN TIME (PATIENT) 11.1 SEC (9.98-11.88)
[2017-09-30 14:26] LABS: ALBUMIN 3.4 g/dl (3.4-5.0); ANION GAP 8 (8-16); BILIRUBIN,TOTAL 0.3 mg/dL (0.2-1.0); BLOOD UREA NITROGEN 19 mg/dL (7-18); CALCIUM 8.4 mg/dL (8.5-10.1); CHLORIDE 102 mmol/L (98-107); CO2 28 mmol/L (21-32); CREATININE 0.8 mg/dL (0.55-1.02); GLUCOSE,RANDOM 191 mg/dL (74-106); SGPT/ALT 22 U/L (12-78); SODIUM 138 mmol/L (136-145); TOT PROT 6.6 g/dl (6.4-8.2)
[2017-09-30 14:28] LABS: ALK PHOS 68 U/L (45-117); N-TERMINAL BNP 28.97 pg/ml (5-125)
[2017-09-30 14:33] LABS: POTASSIUM 4.7 mmol/L (3.5-5.1); SGOT/AST 20 U/L (15-37)
[2017-09-30] MEDS ORDERED: morphine CARPU-JECT 4 MG/1 ML DISP.SYRIN IVPUSH ONE (14:47)
[2017-09-30] MEDS ORDERED: morphine CARPU-JECT 10 MG/1 ML DISP.SYRIN ONE (14:49)
[2017-09-30] MEDS ORDERED: ACETAMINOPHEN 325 MG TABLET (FP) PO ONE (17:41)
[2017-09-30 17:45] VITALS: BMI 37.2
[2017-09-30] MEDS ORDERED: ACETAMINOPHEN 325 MG TABLET (FP) ONE (18:07)
[2017-09-30] MEDS ORDERED: ATORVASTATIN CA 40 MG TABLET (FP) PO ONE (23:45)
[2017-09-30] MEDS: traMADol HCL 50 MG TABLET PO PRN (23:55)
--- NOTE | 2017-10-01 00:25 | CONSULT ---
Consult Consult Specialty:: endocrine Referred by:: dr.iyad ca Reason for Consultation:: diabetes mellitus - History of Present Illness Chief Complaint: chest pain History of Present Illness: 72-year-old female with a history of an IDDM, HTN, HLD, and obesity who presents to the ED complaining of chest pain. Pain started about one hour ago while she was at rest. She describes it as pressure. Pain originates in the left side of the chest and radiates up to the jaw and down the left arm. She denies nausea or vomiting hypoglycemia,blurred vision. 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 Cardio/Vascular: Yes: CAD, HTN, Hyperlipdemia Pulmonary: Yes: COPD Gastrointestinal: Yes: Gastritis, GERD Musculoskeletal: Yes: Other (S/P right total knee replacement) Endocrine: Yes: Diabetes Mellitus - Past Surgical History Past Surgical History: Yes: Joint Replacement - Alcohol/Substance Use Hx Alcohol Use: No - Smoking History Smoking history: Never smoked Have you smoked in the past 12 months: No Aproximately how many cigarettes per day: 0 If you are a former smoker, when did you quit?: 15 yrs - Social History Usual Living Arrangement: Other (lives with son in house with 12 steps to enter but none inside; she reports being previously Independent in ADLs/ IADLs without Assistive Device) Home Medications - Allergies Allergies/Adverse Reactions: Allergies Allergy/AdvReac Type Severity Reaction Status Date / Time No Known Allergies Allergy Verified 09/30/17 13:16 - Home Medications Home Medications: Ambulatory Orders Aspirin [Aspirin EC] 81 mg PO DAILY 05/05/17 Tramadol HCl [Ultram] 50 mg PO BID 05/05/17 Sitagliptin Phosphate [Januvia] 50 mg PO TID 09/30/17 Review of Systems - Review of Systems Constitutional: reports: Lethargy, Weakness HENT: reports: No Symptoms Neck: reports: Pain on Movement Cardiovascular: reports: Palpitations Respiratory: reports: Orthopnea Gastrointestinal: reports: Bloating Genitourinary: reports: Flank Pain Breasts: reports: No Symptoms Reported Musculoskeletal: reports: Joint Swelling, Muscle Cramps Integumentary: reports: No Symptoms Neurological: reports: Unsteady Gait, Weakness Endocrine: reports: Unexplained Weight Gain Physical Exam Vital Signs: Vital Signs Temperature 98.1 F 09/30/17 19:28 Pulse Rate 82 09/30/17 19:28 Respiratory Rate 18 09/30/17 19:28 Blood Pressure 107/68 09/30/17 19:28 O2 Sat by Pulse Oximetry (%) 100 09/30/17 19:28 Constitutional: Yes: Anxious Eyes: Yes: EOM Intact HENT: Yes: Normocephalic Neck: Yes: Trachea Midline Cardiovascular: Yes: Regular Rate and Rhythm Respiratory: Yes: CTA Bilaterally Gastrointestinal: Yes: Normal Bowel Sounds ...Rectal Exam: Yes: Deferred Renal/: Yes: WNL Breast(s): Yes: WNL Musculoskeletal: Yes: Joint Stiffness, Joint Swelling, Muscle Pain, Muscle Weakness Integumentary: Yes: WNL Neurological: Yes: Alert, Oriented ...Motor Strength: WNL Labs: CBC, BMP 09/30/17 13:51 09/30/17 13:51 Problem List - Problems (1) Chest pain Code(s): R07.9 - CHEST PAIN, UNSPECIFIED Qualifiers: Chest pain type: unspecified Qualified Code(s): R07.9 - Chest pain, unspecified (2) Cellulitis Code(s): L03.90 - CELLULITIS, UNSPECIFIED (3) Chest wall contusion Code(s): S20.219A - CONTUSION OF UNSPECIFIED FRONT WALL OF THORAX, INIT ENCNTR (4) Diabetes Code(s): E11.9 - TYPE 2 DIABETES MELLITUS WITHOUT COMPLICATIONS (5) HLD (hyperlipidemia) Code(s): E78.5 - HYPERLIPIDEMIA, UNSPECIFIED (6) HTN (hypertension) Code(s): I10 - ESSENTIAL (PRIMARY) HYPERTENSION (7) Heart palpitations Code(s): R00.2 - PALPITATIONS Assessment/Plan Current Active Problems Chest pain (Acute) diabetes mellitus hyperglycemia morbid obesity arthropathy diabetic Abnormal Lab Results 09/30/17 13:51 BUN 19 H D Random Glucose 191 H D Calcium 8.4 L Laboratory Results - last 24 hr 09/30/17 09/30/17 09/30/17 13:51 13:51 13:51 WBC 6.3 RBC 4.10 Hgb 12.1 Hct 37.4 MCV 91.2 MCH 29.5 MCHC 32.4 RDW 15.0 Plt Count 228 MPV 8.6 Neutrophils % 69.3 Lymphocytes % 22.6 D Monocytes % 6.0 Eosinophils % 1.4 Basophils % 0.7 PT with INR 11.10 INR 0.98 Sodium 138 Potassium 4.7 Chloride 102 Carbon Dioxide 28 Anion Gap 8 BUN 19 H D Creatinine 0.8 Creat Clearance w eGFR > 60 Random Glucose 191 H D Calcium 8.4 L Total Bilirubin 0.3 D AST 20 D ALT 22 D Alkaline Phosphatase 68 Creatine Kinase 79 Troponin I < 0.02 B-Natriuretic Peptide 28.97 Total Protein 6.6 Albumin 3.4 09/30/17 21:45 WBC RBC Hgb Hct MCV MCH MCHC RDW Plt Count MPV Neutrophils % Lymphocytes % Monocytes % Eosinophils % Basophils % PT with INR INR Sodium Potassium Chloride Carbon Dioxide Anion Gap BUN Creatinine Creat Clearance w eGFR Random Glucose Calcium Total Bilirubin AST ALT Alkaline Phosphatase Creatine Kinase 58 Troponin I < 0.02 B-Natriuretic Peptide Total Protein Albumin plan: bgma qid novolog coverage ck hbaic ck troponin as ordered othopedic consulit foot pain Current Medications Generic Name Dose Route Start Last Admin Trade Name Freq PRN Reason Stop Dose Admin Aspirin 81 mg 10/01/17 10:00 Ecotrin - PO DAILY [facility] Atorvastatin Calcium 40 mg 10/01/17 22:00 Lipitor - PO HS [facility] Heparin Sodium (Porcine) 5,000 unit 10/01/17 10:00 Heparin - SQ BID [facility] Insulin Aspart 1 vial 10/01/17 07:00 Novolog Vial Sliding Scale - SQ ACHS [facility] Protocol Metoprolol Tartrate 25 mg 10/01/17 10:00 Lopressor - PO BID [facility] Sitagliptin Phosphate 50 mg 10/01/17 06:00 Januvia - PO TID [facility] Sitagliptin Phosphate 50 mg 10/01/17 07:00 Januvia - PO 10/01/17 07:01 ONCE ONE Tramadol HCl 50 mg 09/30/17 23:18 09/30/17 23:55 Ultram - PO 50 mg BID PRN Administration PAIN
[2017-10-01] MEDS ORDERED: KETOROLAC TROMETHAMINE 30 MG/1 ML VIAL IVPUSH ONE (01:23)
[2017-10-01] MEDS ORDERED: sitaGLIPtin PHOSPHATE 50 MG TABLET PO SCH (06:00)
[2017-10-01] MEDS: INSULIN SLIDING SCALE (NOVOLOG) 1 VIAL SQ SCH ×4 (06:22→21:20)
[2017-10-01] MEDS ORDERED: sitaGLIPtin PHOSPHATE 50 MG TABLET PO ONE (07:00)
[2017-10-01 07:37] LABS: ALBUMIN 3.2 g/dl (3.4-5.0); ANION GAP 6 (8-16); BLOOD UREA NITROGEN 18 mg/dL (7-18); CALCIUM 8.2 mg/dL (8.5-10.1); CHLORIDE 106 mmol/L (98-107); CHOLESTEROL 166 mg/dL (50-200); CO2 29 mmol/L (21-32); CREATININE 0.7 mg/dL (0.55-1.02); GLUCOSE,RANDOM 119 mg/dL (74-106); POTASSIUM 4.3 mmol/L (3.5-5.1); SGOT/AST 18 U/L (15-37); SGPT/ALT 21 U/L (12-78); SODIUM 141 mmol/L (136-145); TRIGLYCERIDES 369 mg/dL (35-160)
[2017-10-01 07:44] LABS: ALK PHOS 66 U/L (45-117); BILIRUBIN,TOTAL 0.4 mg/dL (0.2-1.0); HDL CHOLESTEROL 35 mg/dL (40-60); LDL CHOLESTEROL (ONLY SJRH) 78 mg/dL (5-100); TOT PROT 6.3 g/dl (6.4-8.2)
[2017-10-01 08:05] LABS: EOS % 1.6 % (0-4.5); HEMATOCRIT 37.1 % (32.4-45.2); HEMOGLOBIN 11.8 GM/dL (10.7-15.3); LYMPH % 35.4 % (8-40); MCH 28.8 pg (25.7-33.7); MCHC 31.7 g/dl (32.0-36.0); MEAN CELL VOLUME 90.8 fl (80-96); MEAN PLT VOLUME 8.8 fl (7.5-11.1); MONO % 5.8 % (3.8-10.2); NEUT % 56.2 % (42.8-82.8); PLATELET COUNT 210 K/MM3 (134-434); RBC 4.09 M/mm3 (3.60-5.2); RDW 14.9 % (11.6-15.6); WHITE BLOOD COUNT 5.5 K/mm3 (4.0-10.0)
--- NOTE | 2017-10-01 08:42 | CON.ORTH ---
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 Cardio/Vascular: Yes: CAD, HTN, Hyperlipdemia Pulmonary: Yes: COPD Gastrointestinal: Yes: Gastritis, GERD Musculoskeletal: Yes: Other (S/P right total knee replacement) Endocrine: Yes: Diabetes Mellitus - Past Surgical History Past Surgical History: Yes: Joint Replacement - Alcohol/Substance Use Hx Alcohol Use: No - Smoking History Smoking history: Never smoked Have you smoked in the past 12 months: No Aproximately how many cigarettes per day: 0 If you are a former smoker, when did you quit?: 15 yrs - Social History Usual Living Arrangement: Other (lives with son in house with 12 steps to enter but none inside; she reports being previously Independent in ADLs/ IADLs without Assistive Device) Home Medications - Allergies Allergies/Adverse Reactions: Allergies Allergy/AdvReac Type Severity Reaction Status Date / Time No Known Allergies Allergy Verified 09/30/17 13:16 - Home Medications Home Medications: Ambulatory Orders Aspirin [Aspirin EC] 81 mg PO DAILY 05/05/17 Tramadol HCl [Ultram] 50 mg PO BID 05/05/17 Sitagliptin Phosphate [Januvia] 50 mg PO TID 09/30/17 Physical Exam for Ortho Vital Signs: Vital Signs Temperature 97.9 F 10/01/17 06:00 Pulse Rate 78 10/01/17 06:00 Respiratory Rate 20 10/01/17 06:00 Blood Pressure 106/72 10/01/17 06:00 O2 Sat by Pulse Oximetry (%) 100 10/01/17 03:09 Labs: CBC, BMP 10/01/17 05:40 10/01/17 05:40 INR, PTT INR 0.98 (0.82-1.09) 09/30/17 13:51 - Lower Extremity Foot: Yes: Left, Pain, Tenderness, Other (noted numbness/tingling in left foot) Assessment/Plan 72-year-old female with a history of an IDDM, HTN, HLD, and obesity admitted for chest pain. c/o left foot pain for the [past month. No history of trauma or injury. Also notes numbness and tingling into left foot. a/p- left foot pain- diabetic xrays of left foot Podiatry consult PT joanne cantor d/w Dr. Lassiter
[2017-10-01] MEDS: traMADol HCL 50 MG TABLET PO PRN ×2 (09:23→21:20)
[2017-10-01] MEDS ORDERED: REGADENOSON 0.4 MG/5 ML PRE-FILLED SYRINGE IVPUSH ONE ×2 (10:45→11:16)
--- NOTE | 2017-10-01 12:12 | EKG ---
Test Reason : Blood Pressure : / mmHG Vent. Rate : 083 BPM Atrial Rate : 083 BPM P-R Int : 176 ms QRS Dur : 092 ms QT Int : 372 ms P-R-T Axes : 040 003 017 degrees QTc Int : 437 ms NORMAL SINUS RHYTHM NORMAL ECG WHEN COMPARED WITH ECG OF 30-SEP-2017 13:10, NO SIGNIFICANT CHANGE WAS FOUND Confirmed by SHANNAN RECIO MD ([id number]) on 10/01/2017 12:11:55 PM Referred By: NYASIA STAFFORD Confirmed By:SHANNAN RECIO MD
[2017-10-01] MEDS: HEPARIN NA (PORCINE) 5,000 UNITS/ML 1ML VIAL SQ SCH ×2 (12:23→21:19)
[2017-10-01] MEDS: ASPIRIN COATED 81 MG TABLET.EC PO SCH (12:23)
[2017-10-01] MEDS: METOPROLOL TARTRATE 25 MG TABLET (FP) PO SCH ×2 (12:23→21:18)
--- NOTE | 2017-10-01 12:37 | EKG ---
Test Reason : Blood Pressure : / mmHG Vent. Rate : 097 BPM Atrial Rate : 097 BPM P-R Int : 152 ms QRS Dur : 088 ms QT Int : 354 ms P-R-T Axes : 036 004 021 degrees QTc Int : 449 ms NORMAL SINUS RHYTHM POSSIBLE LEFT ATRIAL ENLARGEMENT BORDERLINE ECG WHEN COMPARED WITH ECG OF 05-MAY-2017 02:03, NO SIGNIFICANT CHANGE WAS FOUND Confirmed by SHANNAN RECIO MD ([id number]) on 10/01/2017 12:37:13 PM Referred By: Confirmed By:SHANNAN RECIO MD
--- NOTE | 2017-10-01 14:11 | HP ---
Admitting History and Physical - Admission History of Present Illness: - History of Present Illness Chief Complaint: chest pain History of Present Illness: 72-year-old female with a history of an IDDM, HTN, HLD, and obesity who presents to the ED complaining of chest pain. Pain started about one hour ago while she was at rest. She describes it as pressure. Pain originates in the left side of the chest and radiates up to the jaw and down the left arm. She denies nausea or vomiting hypoglycemia,blurred vision. 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 Cardio/Vascular: Yes: CAD, HTN, Hyperlipdemia Pulmonary: Yes: COPD Gastrointestinal: Yes: Gastritis, GERD Musculoskeletal: Yes: Other (S/P right total knee replacement) Endocrine: Yes: Diabetes Mellitus - Past Surgical History Past Surgical History: Yes: Joint Replacement patient admitted to telemetry floor and to got a stress test History Source: Patient - Past Medical History HAND BENDER: Yes: Vertigo Cardiovascular: Yes: CAD, HTN, Hyperlipdemia Pulmonary: Yes: COPD Gastrointestinal: Yes: Gastritis, GERD Musculoskeletal: Yes: Other (S/P right total knee replacement) Endocrine: Yes: Diabetes Mellitus - Past Surgical History Past Surgical History: Yes: Joint Replacement - Smoking History Smoking history: Never smoked Have you smoked in the past 12 months: No Aproximately how many cigarettes per day: 0 If you are a former smoker, when did you quit?: 15 yrs - Alcohol/Substance Use Hx Alcohol Use: No Home Medications - Allergies Allergies/Adverse Reactions: Allergies Allergy/AdvReac Type Severity Reaction Status Date / Time No Known Allergies Allergy Verified 09/30/17 13:16 - Home Medications Home Medications: Ambulatory Orders Aspirin [Aspirin EC] 81 mg PO DAILY 05/05/17 Tramadol HCl [Ultram] 50 mg PO BID 05/05/17 Sitagliptin Phosphate [Januvia] 50 mg PO TID 09/30/17 Review of Systems - Review of Systems Cardiovascular: reports: Other (no chest pain no SOB) Physical Examination Vital Signs: Vital Signs Temperature 97.5 F L 10/01/17 08:00 Pulse Rate 86 10/01/17 12:31 Respiratory Rate 18 10/01/17 12:31 Blood Pressure 148/86 10/01/17 12:31 O2 Sat by Pulse Oximetry (%) 100 10/01/17 03:09 Constitutional: Yes: Calm Neck: Yes: Trachea Midline Cardiovascular: Yes: Regular Rate and Rhythm, S1, S2 Respiratory: Yes: CTA Bilaterally Gastrointestinal: Yes: Normal Bowel Sounds, Soft Neurological: Yes: Alert, Oriented Labs: CBC, BMP 10/01/17 05:40 10/01/17 05:40 Imaging - Results Chest X-ray: Report Reviewed X-ray: Report Reviewed Problem List - Problems (1) Chest pain Assessment/Plan: telemetry stres test done - possible subtle mild intensity ischemia awaiting cardio to see patient asa,liptor and metoprolol Code(s): R07.9 - CHEST PAIN, UNSPECIFIED Qualifiers: Chest pain type: unspecified Qualified Code(s): R07.9 - Chest pain, unspecified (2) HLD (hyperlipidemia) Assessment/Plan: statin Code(s): E78.5 - HYPERLIPIDEMIA, UNSPECIFIED (3) HTN (hypertension) Assessment/Plan: continue current medication Code(s): I10 - ESSENTIAL (PRIMARY) HYPERTENSION (4) Diabetes Assessment/Plan: hgba1c noted endo consult bgm insulin januvia 100mg daily left foot numbness -podiatry to see patent Code(s): E11.9 - TYPE 2 DIABETES MELLITUS WITHOUT COMPLICATIONS
--- NOTE | 2017-10-01 14:53 | CON.CARD ---
Consult Consult Specialty:: Cardiology Referred by:: Dr Flores Reason for Consultation:: cp - History of Present Illness Chief Complaint: chest pain History of Present Illness: She is a 72 year old woman history of HTN, NIDDM, obesity, chol, exsmoker who presented to the ER 09/30/17 with chest pain at rest lasting over an hour left upper chest, shoulder, upper arm, and back. ECG and jana were negative. now without symptoms, exercise tolerance is good. Nuclear Stress test 10/01/17 small area of inferobasal ischemia EF 72%. 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 Cardio/Vascular: Yes: CAD, HTN, Hyperlipdemia Pulmonary: Yes: COPD Gastrointestinal: Yes: Gastritis, GERD Musculoskeletal: Yes: Other (S/P right total knee replacement) Endocrine: Yes: Diabetes Mellitus - Past Surgical History Past Surgical History: Yes: Joint Replacement - Alcohol/Substance Use Hx Alcohol Use: No - Smoking History Smoking history: Never smoked Have you smoked in the past 12 months: No Aproximately how many cigarettes per day: 0 If you are a former smoker, when did you quit?: 15 yrs - Social History Usual Living Arrangement: Other (lives with son in house with 12 steps to enter but none inside; she reports being previously Independent in ADLs/ IADLs without Assistive Device) Home Medications - Allergies Allergies/Adverse Reactions: Allergies Allergy/AdvReac Type Severity Reaction Status Date / Time No Known Allergies Allergy Verified 09/30/17 13:16 - Home Medications Home Medications: Ambulatory Orders Aspirin [Aspirin EC] 81 mg PO DAILY 05/05/17 Tramadol HCl [Ultram] 50 mg PO BID 05/05/17 Sitagliptin Phosphate [Januvia] 50 mg PO TID 09/30/17 Family Disease History - Family Disease History Family History: Unable to Obtain Review of Systems - Review of Systems Constitutional: reports: No Symptoms HENT: reports: No Symptoms Neck: reports: No Symptoms Cardiovascular: reports: Chest Pain Respiratory: reports: No Symptoms Gastrointestinal: reports: No Symptoms Genitourinary: reports: No Symptoms Vital Signs: Vital Signs Temperature 97.9 F 10/01/17 13:25 Pulse Rate 77 10/01/17 13:25 Respiratory Rate 20 10/01/17 13:25 Blood Pressure 115/67 10/01/17 13:25 O2 Sat by Pulse Oximetry (%) 96 10/01/17 11:09 Constitutional: Yes: No Distress, Obese Eyes: Yes: Conjunctiva Clear, EOM Intact HENT: Yes: Atraumatic, Normocephalic Neck: Yes: Supple, Trachea Midline Respiratory: Yes: CTA Bilaterally Gastrointestinal: Yes: Normal Bowel Sounds, Soft JVD: No Carotid Bruit: No PMI: Non-Displaced Heart Sounds: Yes: S1, S2 Musculoskeletal: Yes: WNL Edema: No Peripheral Pulses WNL: Yes - Other Data Labs, Other Data: CBC, BMP 10/01/17 05:40 10/01/17 05:40 INR, PTT INR 0.98 (0.82-1.09) 09/30/17 13:51 Troponin, BNP 09/30/17 10/01/17 21:45 05:40 Troponin I < 0.02 < 0.02 Troponin, BNP 09/30/17 10/01/17 21:45 05:40 Troponin I < 0.02 < 0.02 Imaging - Results Chest X-ray: Report Reviewed (holly) EKG: Report Reviewed (normal ECG) Problem List - Problems (1) Chest pain Assessment/Plan: the pain is atypical for angina, ECG negative. Troponin negative for ACS. The small area of ischemia likely represents artifact. There is no need for further cardiac testing. Will follow as outpatient. Code(s): R07.9 - CHEST PAIN, UNSPECIFIED Qualifiers: Chest pain type: unspecified Qualified Code(s): R07.9 - Chest pain, unspecified
[2017-10-01] MEDS ORDERED: ATORVASTATIN CA 40 MG TABLET (FP) PO SCH (22:00)
[2017-10-02] MEDS ORDERED: ACETAMINOPHEN 325 MG TABLET (FP) PO ONE (04:16)
[2017-10-02] MEDS: traMADol HCL 50 MG TABLET PO PRN (05:48)
[2017-10-02] MEDS: INSULIN SLIDING SCALE (NOVOLOG) 1 VIAL SQ SCH ×2 (06:03→11:08)
[2017-10-02] MEDS ORDERED: sitaGLIPtin PHOSPHATE 100 MG TABLET (FP) PO SCH (07:00)
--- NOTE | 2017-10-02 09:36 | DS ---
Physical Examination Vital Signs: Vital Signs Temperature 98.1 F 10/02/17 05:53 Pulse Rate 80 10/02/17 05:53 Respiratory Rate 16 10/02/17 05:53 Blood Pressure 112/65 10/02/17 05:53 O2 Sat by Pulse Oximetry (%) 96 10/02/17 03:00 Cardiovascular: Yes: Regular Rate and Rhythm Respiratory: Yes: Regular, CTA Bilaterally Gastrointestinal: Yes: Normal Bowel Sounds, Soft Labs: CBC, BMP 10/01/17 05:40 10/01/17 05:40 Discharge Summary Reason For Visit: CHEST PAIN Current Active Problems Chest pain (Acute) Hospital Course: - Problems (1) Chest pain Assessment/Plan: telemetry stres test done - possible subtle mild intensity ischemia cardio CONSULT NOTED--NO FURTHER TESTING asa,liptor and metoprolol Code(s): R07.9 - CHEST PAIN, UNSPECIFIED Qualifiers: Chest pain type: unspecified Qualified Code(s): R07.9 - Chest pain, unspecified (2) HLD (hyperlipidemia) Assessment/Plan: statin Code(s): E78.5 - HYPERLIPIDEMIA, UNSPECIFIED (3) HTN (hypertension) Assessment/Plan: continue current medication Code(s): I10 - ESSENTIAL (PRIMARY) HYPERTENSION (4) Diabetes Assessment/Plan: hgba1c noted endo consult bgm insulin januvia 100mg daily left foot numbness -podiatry to see patent Code(s): E11.9 - TYPE 2 DIABETES MELLITUS WITHOUT COMPLICATIONS (5) Discogenic Disease Assessment/Plan: increase pain meds gabapentin outpatient follow up Condition: Improved - Instructions Referrals: Basilio Machado MD [Primary Care Provider] - Disposition: HOME - Home Medications Comprehensive Discharge Medication List: Ambulatory Orders Aspirin [Aspirin EC] 81 mg PO DAILY 05/05/17 Tramadol HCl [Ultram] 50 mg PO BID 05/05/17 Sitagliptin Phosphate [Januvia] 50 mg PO TID 09/30/17
[2017-10-02] MEDS ORDERED: traMADol HCL 50 MG TABLET PO PRN (09:41)
[2017-10-02] MEDS: METOPROLOL TARTRATE 25 MG TABLET (FP) PO SCH (09:41)
[2017-10-02] MEDS: ASPIRIN COATED 81 MG TABLET.EC PO SCH (09:41)
[2017-10-02] MEDS: HEPARIN NA (PORCINE) 5,000 UNITS/ML 1ML VIAL SQ SCH (09:42)
[2017-10-02 10:28] VITALS: BP 118/78; PULSE 76; TEMP 97.5
[2017-10-02] MEDS ORDERED: GABAPENTIN 100 MG CAPSULE (FP) PO SCH (14:00)
== END 2017-10-02 12:13 | disposition home or self-care (01) | DRG 313 ==
LOC: JER 13:04 → JERBED 15:47 → J4S 21:28 → OBSVTOIN 23:19
PROVIDERS: ADMIT Family Medicine; ATTEND Family Medicine
DX: R07.9 Chest pain, unspecified (principal); E78.5 Hyperlipidemia, unspecified; I10 Essential (primary) hypertension; Z68.37 Body mass index [BMI] 37.0-37.9, adult; E66.01 Morbid (severe) obesity due to excess calories; E11.65 Type 2 diabetes mellitus with hyperglycemia; E11.618 Type 2 diabetes mellitus with other diabetic arthropathy; R00.2 Palpitations
CPT/HCPCS: 36415; 71045-TC; 72125-TC; 73630-TC-LT; 78452-TC; 80053; 80061; 82550; 82962; 83036; 83721; 83880; 84443; 84484; 85025; 85610; 93005; 93010; 93017; 99284-25; A9502; G0378; J1644

== ENCOUNTER 2018-01-19 07:49 | Observation (INO) | payer OTHER | END 2018-01-21 15:22 | disposition home or self-care (01) | LOC: FER 07:49 → FM/S 14:27 | PROVIDERS: ADMIT Hospitalist | PROC: 3E0333Z Introduction of Anti-inflammatory into Peripheral Vein, Percutaneous Approach (ICD-10-PCS; principal; 2018-01-19) | PROC: 3E033GC Introduction of Other Therapeutic Substance into Peripheral Vein, Percutaneous Approach (ICD-10-PCS; 2018-01-19) | PROC: 3E0337Z Introduction of Electrolytic and Water Balance Substance into Peripheral Vein, Percutaneous Approach (ICD-10-PCS; 2018-01-19) | PROC: 3E013VG Introduction of Insulin into Subcutaneous Tissue, Percutaneous Approach (ICD-10-PCS; 2018-01-19) | PROC: 3E013GC Introduction of Other Therapeutic Substance into Subcutaneous Tissue, Percutaneous Approach (ICD-10-PCS; 2018-01-19) | CPT/HCPCS: 36415; 70450-TC; 70544-TC; 70547-TC; 70551-TC; 80053; 81003; 81015; 82962; 83735; 84484; 85025; 87086; 93005; 96361; 96365; 96372; 96375; 97116-GP; 97161-GP; 99284-25; G0378; J7030 ==

== ENCOUNTER 2018-01-31 15:26 | Emergency (ER) | payer OTHER ==
[2018-01-31 15:35] VITALS: BP 118/71; PULSE 68; TEMP 98.2; BMI 37.8
--- NOTE | 2018-01-31 15:36 | PDOC ---
Rapid Medical Evaluation Chief Complaint: Eye Problem Time Seen by Provider: 01/31/18 15:33 Medical Evaluation: Allergies Allergy/AdvReac Type Severity Reaction Status Date / Time No Known Allergies Allergy Verified 01/19/18 07:51 01/31/18 15:33 Pt c/o: right eye with possible piece of glass. no blurry vision pt on exam: noted tearing from right eye. No visible foreign body Pt ordered for: none p to proceed to the ED Discharge Disposition - Diagnosis Eye pain - Referrals - Patient Instructions - Post Discharge Activity
[2018-01-31] MEDS ORDERED: ERYTHROMYCIN 0.5% OPHTHALMIC OINTMENT 3.5 GM TUBE OS ONE (16:29)
[2018-01-31] MEDS ORDERED: ERYTHROMYCIN 0.5% OPHTHALMIC OINTMENT 3.5 GM TUBE ONE (16:31)
--- NOTE | 2018-01-31 16:51 | PDOC ---
History of Present Illness - General Chief Complaint: Eye Problem Stated Complaint: EYE INJURY Time Seen by Provider: 01/31/18 15:33 History Source: Patient Exam Limitations: No Limitations - History of Present Illness Initial Comments: 01/31/18 16:59 Patient states was washing a glass yesterday when it broke and states felt something bowels up and strike her right eye. States washed with water but woke up this morning with some erythema and some foreign body sensation. States feels something at approximately 11:00 however visual acuity is within normal limits. No drainage from eye, not exquisite pain. 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 Timing/Duration: unsure Severity: moderate Associated Symptoms: reports: denies symptoms Past History - Travel Traveled outside of the country in the last 30 days: No Close contact w/someone who was outside of country & ill: No - Past Medical History Allergies/Adverse Reactions: Allergies Allergy/AdvReac Type Severity Reaction Status Date / Time No Known Allergies Allergy Verified 01/31/18 15:35 Home Medications: Ambulatory Orders Aspirin [Aspirin EC] 81 mg PO DAILY 05/05/17 Gabapentin [Neurontin -] 100 mg PO TID #90 capsule 10/02/17 Metoprolol Tartrate [Lopressor -] 25 mg PO BID #60 tablet 10/02/17 Sitagliptin Phosphate [Januvia -] 100 mg PO DAILY@0700 #30 ud 10/02/17 Atorvastatin Ca [Lipitor] 80 mg PO HS 01/19/18 Ropinirole HCl 2 mg PO PRN 01/19/18 traMADol HCL [Ultram -] 50 mg PO TID PRN MDD 4 01/19/18 Meclizine HCl [Antivert -] 25 mg PO Q8H PRN #30 tablet 01/21/18 Polyethylene Glycol 3350 [Miralax 119 gm Btl -] 17 gm PO DAILY bottle 01/21/18 Erythromycin 0.5% Eye Ointment [Erythromycin 0.5% Eye Ointment -] 1 applic OD TID #1 tube 01/31/18 Ibuprofen 400 mg PO Q6H PRN #30 tablet 01/31/18 Anemia: No Asthma: No Cancer: No Cardiac Disorders: Yes CVA: No COPD: No CHF: No Dementia: No Diabetes: Yes GI Disorders: No Disorders: No HTN: Yes Hypercholesterolemia: Yes Liver Disease: No Seizures: No Thyroid Disease: No - Surgical History Abdominal Surgery: No Appendectomy: No Cardiac Surgery: No Cholecystectomy: No GI Surgery: Yes (bladder 15 years ago) Lung Surgery: No Neurologic Surgery: No Orthopedic Surgery: Yes (r knee replacement 03/11/14) - Immunization History Immunization Up to Date: Yes - Suicide/Smoking/Psychosocial Hx Smoking Status: No Smoking History: Never smoked Have you smoked in the past 12 months: No Number of Cigarettes Smoked Daily: 0 If you are a former smoker, when did you quit?: 15 yrs Information on smoking cessation initiated: No Hx Alcohol Use: No Drug/Substance Use Hx: No Substance Use Type: None Hx Substance Use Treatment: No Review of Systems - Review of Systems Able to Perform ROS?: Yes Is the patient limited Greenlandic proficient: Yes Constitutional: Yes: Symptoms Reported HEENTM: Yes: See HPI, Eye Pain, Tearing. No: Symptoms Reported, Recent change in vision, Double Vision Respiratory: Yes: See HPI. No: Symptoms reported All Other Systems: Reviewed and Negative *Physical Exam - Vital Signs Last Vital Signs Temp Pulse Resp BP Pulse Ox 98.2 F 68 16 118/71 100 01/31/18 15:30 01/31/18 15:30 01/31/18 15:30 01/31/18 15:30 01/31/18 15:30 - Physical Exam General Appearance: Yes: Nourished, Appropriately Dressed. No: Apparent Distress HEENT: positive: DAMARIS, Normal ENT Inspection, TMs Normal, Pharynx Normal Neck: positive: Supple, Carotid bruit. 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 Sleep of eyelid did not reveal any foreign body. Erythromycin ointment applied, and patient encouraged to follow up tomorrow with ophthalmology for thorough evaluation and examination. 01/31/18 17:06 *DC/Admit/Observation/Transfer Diagnosis at time of Disposition: Eye pain Qualifiers: Laterality: right Qualified Code(s): H57.11 - Ocular pain, right eye - Discharge Dispostion Disposition: HOME Condition at time of disposition: Stable Decision to Admit order: No - Referrals Referrals: Zaheer Burr MD [Non Staff, Medical] - Nabil Chinchilla MD [Staff Physician] - - Patient Instructions Printed Discharge Instructions: DI for Corneal Foreign Body-Eye Additional Instructions: Rest, avoid rubbing eyes Wash hands, use eye drops as directed, wash hands after use May use eye lubricating drops as often as needed erythromycin ointment, one thin film 3 times a day for 5 days Tylenol or ibuprofen for pain relief Followup with ophthalmology in one to 2 days for thorough exam Return to emergency department for worsened pain, swelling, vision problems. - Post Discharge Activity
[2018-01-31] MEDS ORDERED: TETANUS AND DIPHTHERIA TOXOID 0.5 ML DISP.SYRIN IM ONE (16:52)
== END 2018-01-31 17:12 | disposition home or self-care (01) ==
LOC: JERFT 15:26
PROC: 3E0234Z Introduction of Serum, Toxoid and Vaccine into Muscle, Percutaneous Approach (ICD-10-PCS; principal; 2018-01-31)
PROC: 4A07X0Z Measurement of Visual Acuity, External Approach (ICD-10-PCS; 2018-01-31)
DX: H57.11 Ocular pain, right eye (principal); I10 Essential (primary) hypertension; E11.9 Type 2 diabetes mellitus without complications; Z79.84 Long term (current) use of oral hypoglycemic drugs; E78.00 Pure hypercholesterolemia, unspecified; Z96.651 Presence of right artificial knee joint
CPT/HCPCS: 99281-25

== ENCOUNTER 2018-10-30 03:00 | Emergency (ER) | payer OTHER ==
[2018-10-30 03:46] VITALS: TEMP 97.9; BMI 36.6
--- NOTE | 2018-10-30 04:34 | PDOC ---
Attending Attestation - HPI HPI: 10/30/18 05:22 The patient is a 73 year old female, with a significant past medical history of HTN, HLD, DM, and discogenic disease, who presents to the emergency department with, right flank pain radiating to the right groin and down the right leg onsetting suddenly at 1:30am. Patient endorses recent diagnosis of UTI and is currently on Augmentin. She denies recent hematuria. She denies recent chest pain or shortness of breath. Allergies: NKDA Past surgical history: Joint replacement. Primary Care Physician: Dr. Machado. - Physicial Exam PE: 10/30/18 05:22 Agree with resident exam. - Medical Decision Making 10/30/18 06:53 EXAM: CT abdomen and pelvis without contrast HISTORY: Right flank and right lower quadrant pain COMPARISON: None. FINDINGS: No bowel obstruction or inflammation. Sigmoid diverticulosis. Negative for diverticulitis or colitis. There is some sludge or small stones in a noninflamed appendix. Abundant stool noted in the colon particularly the right colon. No urinary tract stone or obstruction. Mildly enlarged borderline fatty fatty liver. Normal spleen. Normal pancreas No obvious gallbladder abnormalities. There is some calcification in the right adrenal gland. Normal left adrenal. No free intraperitoneal air or free fluid. Osseous structures are intact. There is scoliosis. One or more of the following dose reduction techniques were used: automated exposure control, adjustment of the mA and/or kV according to patient size, use of iterative reconstructive technique. Read by: Wellington Vogt MD <Trey Virk - Last Filed: 10/30/18 06:53> - Resident Resident Name: Alex Subramanian - ED Attending Attestation I have performed the following: I have examined & evaluated the patient, The case was reviewed & discussed with the resident, I agree w/resident's findings & plan - Medical Decision Making 73-year-old female complaining of right flank pain radiating into the right thigh There is no associated trauma CT scan noted as above Patient did drive to the emergency department, steroids given for likely musculoskeletal/radicular cause of pain with a prescription for Valium and PCP follow-up Patient agrees with the plan 10/30/18 19:46 <Liz Luu - Last Filed: 10/30/18 19:47> Attestations - Attestations 10/30/18 05:22 Documentation prepared by Trey Virk, acting as medical center director for Liz Luu DO. <Trey Virk - Last Filed: 10/30/18 06:53>
--- NOTE | 2018-10-30 04:37 | PDOC ---
History of Present Illness - General Chief Complaint: Pain, Acute Stated Complaint: R SIDED PAIN Time Seen by Provider: 10/30/18 04:27 History Source: Patient Exam Limitations: No Limitations - History of Present Illness Initial Comments: 10/30/18 04:37 The patient is a 73F with a PMH hypertension, diabetes, hyperlipidemia, discogenic disease who presents to the ER with sudden onset R flank pain. The patient states that she woke up this morning around 0130 with sharp R flank pain which radiates to her pelvis. She states the pain is constant, atraumatic, with intermittent spurts of increasing pain severity. She denies any exacerbating or alleviating factors. She denies pain like this in the past, hematuria, dysuria. Past History - Past Medical History Allergies/Adverse Reactions: Allergies Allergy/AdvReac Type Severity Reaction Status Date / Time No Known Allergies Allergy Verified 10/30/18 03:46 Home Medications: Ambulatory Orders Aspirin [Aspirin EC] 81 mg PO DAILY 05/05/17 Gabapentin [Neurontin -] 100 mg PO TID #90 capsule 10/02/17 Metoprolol Tartrate [Lopressor -] 25 mg PO BID #60 tablet 10/02/17 Sitagliptin Phosphate [Januvia -] 100 mg PO DAILY@0700 #30 ud 10/02/17 Atorvastatin Ca [Lipitor] 80 mg PO HS 01/19/18 Ropinirole HCl 2 mg PO PRN 01/19/18 traMADol HCL [Ultram -] 50 mg PO TID PRN MDD 4 01/19/18 Meclizine HCl [Antivert -] 25 mg PO Q8H PRN #30 tablet 01/21/18 Polyethylene Glycol 3350 [Miralax 119 gm Btl -] 17 gm PO DAILY bottle 01/21/18 Erythromycin 0.5% Eye Ointment [Erythromycin 0.5% Eye Ointment -] 1 applic OD TID #1 tube 01/31/18 Ibuprofen 400 mg PO Q6H PRN #30 tablet 01/31/18 Diazepam [Valium] 2 mg PO BID PRN 3 Days #6 tablet MDD 2 10/30/18 Methylprednisolone [Medrol Dose Thierry] 4 mg PO ASDIR #21 tablet 10/30/18 Anemia: No Asthma: No Cancer: No Cardiac Disorders: Yes CVA: No COPD: No CHF: No Dementia: No Diabetes: Yes GI Disorders: No Disorders: No HTN: Yes Hypercholesterolemia: Yes Liver Disease: No Seizures: No Thyroid Disease: No - Surgical History Abdominal Surgery: No Appendectomy: No Cardiac Surgery: No Cholecystectomy: No GI Surgery: Yes (bladder 15 years ago) Lung Surgery: No Neurologic Surgery: No Orthopedic Surgery: Yes (r knee replacement 03/11/14) - Immunization History Immunization Up to Date: Yes - Suicide/Smoking/Psychosocial Hx Smoking Status: No Smoking History: Never smoked Have you smoked in the past 12 months: No Number of Cigarettes Smoked Daily: 0 If you are a former smoker, when did you quit?: 15 yrs Information on smoking cessation initiated: No Hx Alcohol Use: No Drug/Substance Use Hx: No Substance Use Type: None Hx Substance Use Treatment: No Review of Systems - Review of Systems Able to Perform ROS?: Yes Comments:: 10/30/18 04:41 GENERAL/CONSTITUTIONAL: No fever or chills. No weakness. HEAD, EYES, EARS, NOSE AND THROAT: No change in vision. No ear pain or discharge. No sore throat. CARDIOVASCULAR: No chest pain, palpitations, or lightheadedness. RESPIRATORY: No cough, wheezing, shortness of breath, or hemoptysis. GASTROINTESTINAL: Positive for nausea and abdominal pain. No vomiting, diarrhea , or constipation. GENITOURINARY: No dysuria, frequency, hematuria, or change in urination. MUSCULOSKELETAL: No joint or muscle swelling or pain. No neck or back pain. SKIN: No rash or lesions. NEUROLOGIC: No headache, numbness, tingling, focal weakness, loss of consciousness, or change in strength/sensation. ENDOCRINE: No increased thirst. No abnormal weight change. HEMATOLOGIC/LYMPHATIC: No anemia, easy bleeding, or history of blood clots. ALLERGIC/IMMUNOLOGIC: No hives or skin allergy. Is the patient limited Telugu proficient: No *Physical Exam - Vital Signs Last Vital Signs Temp Pulse Resp BP Pulse Ox 97.9 F 93 H 19 123/79 97 10/30/18 03:00 10/30/18 03:00 10/30/18 03:00 10/30/18 03:00 10/30/18 03:00 - Physical Exam Comments: 10/30/18 04:42 GENERAL: Well developed, well nourished. Awake and alert. Uncomfortable appearing. HEENT: Normocephalic, atraumatic. Hearing grossly normal. Moist mucous membranes. PERRLA, EOMI. No conjunctival pallor. Sclera are non-icteric. NECK: Supple. Full ROM. No JVD. CARDIOVASCULAR: Regular rate and rhythm. No murmurs, rubs, or gallops. PULMONARY: No evidence of respiratory distress. Lungs clear to auscultation bilaterally. No wheezing, rales or rhonchi. ABDOMINAL: Soft. Non-tender. Non-distended. No rebound or guarding. GENITOURINARY: R CVA tenderness. MUSCULOSKELETAL: Normal range of motion at all joints. No bony deformities or tenderness. EXTREMITIES: No cyanosis. No clubbing. No edema. No calf tenderness or swelling. SKIN: Warm and dry. Normal capillary refill. No rashes. No jaundice. NEUROLOGICAL: Alert, awake, appropriate. Cranial nerves 2-12 grossly intact. Normal speech. PSYCHIATRIC: Cooperative. Good eye contact. Appropriate mood and affect. Moderate Sedation - Procedure Monitoring Vital Signs: Procedure Monitoring Vital Signs Temperature 97.9 F 10/30/18 03:00 Pulse Rate 93 H 10/30/18 03:00 Respiratory Rate 10/30/18 03:00 Blood Pressure 123/79 10/30/18 03:00 O2 Sat by Pulse Oximetry (%) 97 10/30/18 03:00 ED Treatment Course - LABORATORY CBC & Chemistry Diagram: 10/30/18 05:20 10/30/18 05:03 Medical Decision Making - Medical Decision Making 10/30/18 04:44 The patient is a 73F with a PMH of hypertension, diabetes, hyperlipidemia, discogenic disease who presents to the ER with complaints of R flank pain radiating to her pelvis, concerning for AAA, nephrolithiasis, and septic stone. The patient states that she was started on antibiotics "1-3 days ago" for a UTI from her PCP, Dr. Machado. The patient is uncomfortable appearing on exam. Will give pain medication and CTAP to r/o stone and evaluate aorta. Of note, pt is normotensive. 10/30/18 06:22 CBC, CMP WNL. UA shows 1+ LE, but patient is on augmentin currently. Pending CTAP. 10/30/18 07:11 CTAP negative. Pt likely has inflammation of iliopsoas. Will give decadron and d /c with medrol dose pack and valium with PCP f/u. *DC/Admit/Observation/Transfer Diagnosis at time of Disposition: Flank pain - Discharge Dispostion Disposition: HOME Condition at time of disposition: Stable Decision to Admit order: No - Prescriptions Prescriptions: Diazepam [Valium] 2 mg PO BID PRN 3 Days #6 tablet MDD 2 PRN Reason: Lower Back Pain Methylprednisolone [Medrol Dose Thierry] 4 mg PO ASDIR #21 tablet - Referrals Referrals: Basilio Machado MD [Primary Care Provider] - - Patient Instructions Printed Discharge Instructions: DI for Flank Pain Additional Instructions: Please follow up with your primary care physician in 2-3 days. Please return to the ER if you have any signs or symptoms of chest pain, shortness of breath, uncontrollable fever, chills, nausea, vomiting, numbness, tingling, or weakness in any part of your body, changes in vision, or slurred speech. Please take your medications as prescribed. Please return to the ER if symptoms persist, worsen, or new symptoms arise. - Post Discharge Activity
[2018-10-30] MEDS ORDERED: ACETAMINOPHEN 1000 MG/100 ML VIAL (NON FORMULARY) IVPB ONE (04:39)
[2018-10-30] MEDS ORDERED: ACETAMINOPHEN INJECTION 100 ML IVPB ONE (04:57)
[2018-10-30 05:39] LABS: BLOOD UREA NITROGEN 15 mg/dL (7-18); CHLORIDE 105 mmol/L (98-107); CO2 27 mmol/L (21-32); CREATININE 0.6 mg/dL (0.55-1.3); GLUCOSE,RANDOM 122 mg/dL (74-106); POTASSIUM 4.3 mmol/L (3.5-5.1); SODIUM 139 mmol/L (136-145)
[2018-10-30 05:40] LABS: ALBUMIN 3.8 g/dl (3.4-5.0); ALK PHOS 87 U/L (45-117); ANION GAP 7 MMOL/L (8-16); BILIRUBIN,TOTAL 0.4 mg/dL (0.2-1); CALCIUM 8.5 mg/dL (8.5-10.1); SGOT/AST 23 U/L (15-37); SGPT/ALT 17 U/L (13-61); TOT PROT 7.4 g/dl (6.4-8.2)
[2018-10-30 05:54] LABS: URINE APPEARANCE CLEAR; URINE BILIRUBIN NEGATIVE (<2.0 mg/dL); URINE COLOR LTYELLOW; URINE GLUCOSE (UA) 3+ (NEGATIVE); URINE KETONE NEGATIVE (NEGATIVE); URINE LEUK ESTERASE 1+ (NEGATIVE); URINE NITRITE NEGATIVE (NEGATIVE); URINE PROTEIN NEGATIVE (NEGATIVE); URINE UROBILINOGEN NEGATIVE mg/dL (0.2-1.0)
[2018-10-30 05:58] LABS: BASO % 1.1 % (0-2.0); EOS % 1.9 % (0-4.5); LYMPH % 21.8 % (8-40); MCH 30.3 pg (25.7-33.7); MCHC 34.1 g/dl (32.0-36.0); MEAN PLT VOLUME 8.3 fl (7.5-11.1); MONO % 6.8 % (3.8-10.2); NEUT % 68.4 % (42.8-82.8); PLATELET COUNT 236 K/MM3 (134-434); RBC 4.27 M/mm3 (3.60-5.2); WHITE BLOOD COUNT 8.3 K/mm3 (4.0-10.0)
[2018-10-30 05:59] LABS: EPI CELLS RARE /HPF (FEW); URINE BACTERIA RARE /hpf (NONE SEEN); URINE MUCUS RARE
[2018-10-30] MEDS ORDERED: DEXAMETHASONE SOD PHOSPHATE 10 MG/1 ML VIAL IVPUSH ONE (07:03)
[2018-10-30] MEDS ORDERED: DEXAMETHASONE SOD PHOSPHATE 10 MG/1 ML VIAL ONE (07:17)
[2018-10-30 08:10] VITALS: BP 122/70; PULSE 84
--- NOTE | 2018-10-30 11:36 | EKG ---
Test Reason : Blood Pressure : / mmHG Vent. Rate : 087 BPM Atrial Rate : 087 BPM P-R Int : 160 ms QRS Dur : 090 ms QT Int : 380 ms P-R-T Axes : 040 001 020 degrees QTc Int : 457 ms NORMAL SINUS RHYTHM POSSIBLE LEFT ATRIAL ENLARGEMENT BORDERLINE ECG WHEN COMPARED WITH ECG OF 19-JAN-2018 07:58, NO SIGNIFICANT CHANGE WAS FOUND Confirmed by WILDER CABRALES, KOLTON ([id number]) on 10/30/2018 11:36:32 AM Referred By: Confirmed By:KOLTON HDZ MD
== END 2018-10-30 08:10 | disposition home or self-care (01) ==
LOC: JER 03:00
PROC: 3E033NZ Introduction of Analgesics, Hypnotics, Sedatives into Peripheral Vein, Percutaneous Approach (ICD-10-PCS; principal; 2018-10-30)
PROC: 3E0333Z Introduction of Anti-inflammatory into Peripheral Vein, Percutaneous Approach (ICD-10-PCS; 2018-10-30)
DX: R10.31 Right lower quadrant pain (principal); Z87.440 Personal history of urinary (tract) infections; I10 Essential (primary) hypertension; E78.00 Pure hypercholesterolemia, unspecified; E11.9 Type 2 diabetes mellitus without complications; Z79.84 Long term (current) use of oral hypoglycemic drugs
CPT/HCPCS: 36415; 74176-TC; 80053; 81003; 81015; 85025; 93005; 93010; 96374; 96375; 99282-25; J0131; J1100

== ENCOUNTER 2019-02-26 06:23 | Day surgery (SDC) | payer OTHER | END 2019-02-26 11:40 | disposition home or self-care (01) | LOC: JASU-SURG 06:23 ==

== ENCOUNTER 2019-03-24 13:28 | Emergency (ER) | payer OTHER ==
[2019-03-24 13:34] VITALS: BP 122/69; PULSE 88; TEMP 97.8; BMI 34.9
--- NOTE | 2019-03-24 13:35 | PDOC ---
Rapid Medical Evaluation Chief Complaint: Pain, Acute Time Seen by Provider: 03/24/19 13:30 Medical Evaluation: Allergies Allergy/AdvReac Type Severity Reaction Status Date / Time No Known Allergies Allergy Verified 02/26/19 06:55 03/24/19 13:30 I have performed a brief in-person evaluation of this patient. The patient presents with a chief complaint of: left great toe injury- tripped, uncertain mechanism Pertinent physical exam findings: Swollen/ ecchymosis to dorsum great left toe I have ordered the following: Toe Xray The patient will proceed to the ED for further evaluation. Discharge Disposition - Diagnosis Injury of toe Qualifiers: Encounter type: initial encounter Laterality: left Qualified Code(s): S99.922A - Unspecified injury of left foot, initial encounter - Referrals - Patient Instructions - Post Discharge Activity
--- NOTE | 2019-03-24 14:21 | PDOC ---
History of Present Illness - General Chief Complaint: Pain, Acute Stated Complaint: LT. FOOT PAIN/FALL Time Seen by Provider: 03/24/19 13:30 History Source: Patient (Left great toe pain) Exam Limitations: No Limitations - History of Present Illness Associated Symptoms: denies: weakness Past History - Travel Traveled outside of the country in the last 30 days: No Close contact w/someone who was outside of country & ill: No - Past Medical History Allergies/Adverse Reactions: Allergies Allergy/AdvReac Type Severity Reaction Status Date / Time No Known Allergies Allergy Verified 03/24/19 13:34 Home Medications: Ambulatory Orders Amitriptyline HCl [Elavil -] 25 mg PO DAILY 02/26/19 Aspirin [Aspirin EC] 81 mg PO DAILY 02/26/19 Atorvastatin Ca [Lipitor] 40 mg PO HS 02/26/19 Famotidine [Pepcid -] 20 mg PO BID 02/26/19 Hydrocodone/Acetaminophen [Hydrocodone-Acetamin 5-325 mg] 1 - 2 tab PO TID PRN # 25 tablet MDD 6 02/26/19 Meclizine HCl [Antivert -] 25 mg PO TID 02/26/19 Ropinirole HCl [Requip -] 2 mg PO BID 02/26/19 Ropinirole HCl [Requip Xl] 2 mg PO HS 02/26/19 Sitagliptin Phos/Metformin HCl [Janumet 50-500 mg Tablet] 1 each PO BID Tramadol HCl [Ultram] 50 mg PO BID 02/26/19 Anemia: No Asthma: No Cancer: No Cardiac Disorders: Yes CVA: No COPD: No CHF: No Dementia: No Diabetes: Yes GI Disorders: No Disorders: No HTN: Yes Hypercholesterolemia: Yes Kidney Stones: Yes Liver Disease: No Seizures: No Thyroid Disease: No - Surgical History Abdominal Surgery: No Appendectomy: No Cardiac Surgery: No Cholecystectomy: No GI Surgery: Yes (bladder 15 years ago) Lung Surgery: No Neurologic Surgery: No Orthopedic Surgery: Yes (r knee replacement 03/11/14) - Immunization History Immunization Up to Date: Yes - Suicide/Smoking/Psychosocial Hx Smoking Status: No Smoking History: Never smoked Have you smoked in the past 12 months: No Number of Cigarettes Smoked Daily: 0 If you are a former smoker, when did you quit?: 15 yrs Hx Alcohol Use: No Drug/Substance Use Hx: No Substance Use Type: None Hx Substance Use Treatment: No Review of Systems - Review of Systems Constitutional: No: Chills, Fever Musculoskeletal: Yes: Joint Pain (left great toe pain). No: Gout, Joint Swelling, Muscle Pain, Muscle Weakness Neurological: No: Unsteady Gait, Dizziness *Physical Exam - Vital Signs Last Vital Signs Temp Pulse Resp BP Pulse Ox 97.8 F 88 16 122/69 97 03/24/19 13:30 03/24/19 13:30 03/24/19 13:30 03/24/19 13:30 03/24/19 13:30 - Physical Exam General Appearance: Yes: Nourished Extremity: positive: Normal Capillary Refill, Tender (L great toe with ecchymosis in dorsum aspect, FROM but limited d/t pain, distal pulse intact. 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, Fully Oriented, Alert, Normal Mood/ Affect, Normal Response, Motor Strength /5 Medical Decision Making - Medical Decision Making 03/24/19 14:20 Left great toe pain s/p bumped it 2 days ago, no LOC or head trauma exam with contused L great toe xray neg for fx post op shoe given motrin prn pain podiatry number provider *DC/Admit/Observation/Transfer Diagnosis at time of Disposition: Injury of toe Qualifiers: Encounter type: initial encounter Laterality: left Qualified Code(s): S99.922A - Unspecified injury of left foot, initial encounter - Discharge Dispostion Disposition: HOME Condition at time of disposition: Stable Decision to Admit order: No - Referrals Referrals: Neville Carmen MD [Staff Physician] - - Patient Instructions Printed Discharge Instructions: Toe Sprain Additional Instructions: Your preliminary xray report was negative for acute fracture. If the official reports reads otherwise you will be contact wear hard sole shoe that was provided for comfort for a few days Please take Motrin or Tylenol for pain Follow up with podiatry if pain persist more than 2 weeks Return to the ER If worsening symptoms occurs. - Post Discharge Activity
== END 2019-03-24 14:20 | disposition home or self-care (01) ==
LOC: JERFT 13:28
DX: S90.112A Contusion of left great toe without damage to nail, initial encounter (principal); W22.8XXA Striking against or struck by other objects, initial encounter; Y93.89 Activity, other specified; Y92.89 Other specified places as the place of occurrence of the external cause; Y99.8 Other external cause status; I10 Essential (primary) hypertension; E78.00 Pure hypercholesterolemia, unspecified; E11.9 Type 2 diabetes mellitus without complications; Z79.84 Long term (current) use of oral hypoglycemic drugs
CPT/HCPCS: 73660-TC-LT-FY; 99281-25

== ENCOUNTER 2019-05-10 11:51 | Emergency (ER) | payer OTHER | END 2019-05-10 14:59 | disposition home or self-care (01) | LOC: FER 11:51 ==

== ENCOUNTER 2019-05-12 11:43 | Inpatient (IN) | payer OTHER ==
--- NOTE | 2019-05-12 12:33 | PDOC ---
History of Present Illness - General Chief Complaint: Revisit,Wound Recheck Stated Complaint: REVISIT Time Seen by Provider: 05/12/19 12:16 - History of Present Illness Initial Comments: 05/12/19 12:31 73 y/o F on out patient ABX for ingrown toenail which was excised but now starting to drain Past History - Past Medical History Allergies/Adverse Reactions: Allergies Allergy/AdvReac Type Severity Reaction Status Date / Time No Known Allergies Allergy Verified 05/12/19 11:55 Home Medications: Ambulatory Orders Amitriptyline HCl [Elavil -] 25 mg PO DAILY 02/26/19 Aspirin [Aspirin EC] 81 mg PO DAILY 02/26/19 Atorvastatin Ca [Lipitor] 40 mg PO HS 02/26/19 Famotidine [Pepcid -] 20 mg PO BID 02/26/19 Hydrocodone/Acetaminophen [Hydrocodone-Acetamin 5-325 mg] 1 - 2 tab PO TID PRN # 25 tablet MDD 6 02/26/19 Meclizine HCl [Antivert -] 25 mg PO TID 02/26/19 Ropinirole HCl [Requip -] 2 mg PO BID 02/26/19 Ropinirole HCl [Requip Xl] 2 mg PO HS 02/26/19 Sitagliptin Phos/Metformin HCl [Janumet 50-500 mg Tablet] 1 each PO BID Tramadol HCl [Ultram] 50 mg PO BID 02/26/19 Acetaminophen W/ Codeine #3 [Tylenol # 3 -] 1 tab PO Q8H PRN #12 tablet MDD 3 Amoxicillin/Potassium Clav [Augmentin 875-125 Tablet] 1 each PO BID #14 tablet 05/10/19 Bifidobacterium Infantis [Align] 10.5 mg PO DAILY #10 tab.chew 05/10/19 Anemia: No Asthma: No Cancer: No Cardiac Disorders: Yes CVA: No COPD: No CHF: No Dementia: No Diabetes: Yes GI Disorders: No Disorders: No HTN: Yes Hypercholesterolemia: Yes Kidney Stones: Yes Liver Disease: No Seizures: No Thyroid Disease: No - Surgical History Abdominal Surgery: No Appendectomy: No Cardiac Surgery: No Cholecystectomy: No GI Surgery: Yes (bladder 15 years ago) Lung Surgery: No Neurologic Surgery: No Orthopedic Surgery: Yes (r knee replacement 6/18/14) - Immunization History Immunization Up to Date: Yes - Suicide/Smoking/Psychosocial Hx Smoking Status: No Smoking History: Never smoked Have you smoked in the past 12 months: No Number of Cigarettes Smoked Daily: 0 If you are a former smoker, when did you quit?: 15 yrs Hx Alcohol Use: No Drug/Substance Use Hx: No Substance Use Type: None Hx Substance Use Treatment: No Review of Systems - Review of Systems Musculoskeletal: Yes: See HPI *Physical Exam - Vital Signs Last Vital Signs Temp Pulse Resp BP Pulse Ox 97.9 F 88 16 119/64 96 05/12/19 11:51 05/12/19 11:51 05/12/19 11:51 05/12/19 11:51 05/12/19 11:51 - Physical Exam Comments: 05/12/19 12:31 Great toe is erythemic and there is some purulence that may be expressed from the medial aspect of the nail fold no gross sensory motor deficits Medical Decision Making - Medical Decision Making 05/12/19 12:32 And is a 73-year-old diabetic failing outpatient therapy with Augmentin for an ingrown toenail which was excised. She will be admitted to the hospitalist service.I've discussed this case with our emergency room attending who agrees with the plan *DC/Admit/Observation/Transfer Diagnosis at time of Disposition: Toe infection - Referrals Referrals: Basilio Machado MD [Primary Care Provider] - - Patient Instructions - Post Discharge Activity
--- NOTE | 2019-05-12 13:25 | PDOC ---
History of Present Illness - General Chief Complaint: Revisit,Wound Recheck Stated Complaint: REVISIT Time Seen by Provider: 05/12/19 12:16 History Source: Patient Exam Limitations: No Limitations - History of Present Illness Initial Comments: 05/12/19 14:07 Patient is a 73F with history of PMH of HTN, HLD, DM, migraines, RLS, and cervical spinal stenosis/disc disease here today complaining of pain and wound to her left great toe. Patient was seen in the ED two days ago for similar complaint where she denied inpatient treatment and asked to go home. Given augmentin as outpatient, symptoms have continued and the patient has come back for further treatment. Denies nausea, vomiting, fevers, chills. Denies chest pain and shortness of breath. Past History - Past Medical History Allergies/Adverse Reactions: Allergies Allergy/AdvReac Type Severity Reaction Status Date / Time No Known Allergies Allergy Verified 05/12/19 11:55 Home Medications: Ambulatory Orders Amitriptyline HCl [Elavil -] 25 mg PO DAILY 02/26/19 Aspirin [Aspirin EC] 81 mg PO DAILY 02/26/19 Atorvastatin Ca [Lipitor] 40 mg PO HS 02/26/19 Famotidine [Pepcid -] 20 mg PO BID 02/26/19 Hydrocodone/Acetaminophen [Hydrocodone-Acetamin 5-325 mg] 1 - 2 tab PO TID PRN # 25 tablet MDD 6 02/26/19 Meclizine HCl [Antivert -] 25 mg PO TID 02/26/19 Ropinirole HCl [Requip -] 2 mg PO BID 02/26/19 Ropinirole HCl [Requip Xl] 2 mg PO HS 02/26/19 Sitagliptin Phos/Metformin HCl [Janumet 50-500 mg Tablet] 1 each PO BID Tramadol HCl [Ultram] 50 mg PO BID 02/26/19 Acetaminophen W/ Codeine #3 [Tylenol # 3 -] 1 tab PO Q8H PRN #12 tablet MDD 3 Amoxicillin/Potassium Clav [Augmentin 875-125 Tablet] 1 each PO BID #14 tablet 05/10/19 Bifidobacterium Infantis [Align] 10.5 mg PO DAILY #10 tab.chew 05/10/19 Anemia: No Asthma: No Cancer: No Cardiac Disorders: Yes CVA: No COPD: No CHF: No Dementia: No Diabetes: Yes GI Disorders: No Disorders: No HTN: Yes Hypercholesterolemia: Yes Kidney Stones: Yes Liver Disease: No Seizures: No Thyroid Disease: No - Surgical History Abdominal Surgery: No Appendectomy: No Cardiac Surgery: No Cholecystectomy: No GI Surgery: Yes (bladder 15 years ago) Lung Surgery: No Neurologic Surgery: No Orthopedic Surgery: Yes (r knee replacement 03/11/14) - Immunization History Immunization Up to Date: Yes - Suicide/Smoking/Psychosocial Hx Smoking Status: No Smoking History: Never smoked Have you smoked in the past 12 months: No Number of Cigarettes Smoked Daily: 0 If you are a former smoker, when did you quit?: 15 yrs Hx Alcohol Use: No Drug/Substance Use Hx: No Substance Use Type: None Hx Substance Use Treatment: No Review of Systems - Review of Systems Able to Perform ROS?: Yes Comments:: 05/12/19 14:13 GENERAL/CONSTITUTIONAL: No fever or chills. No weakness. HEAD, EYES, EARS, NOSE AND THROAT: No change in vision. No sore throat. CARDIOVASCULAR: No chest pain or shortness of breath RESPIRATORY: No cough, wheezing, or hemoptysis. GASTROINTESTINAL: No nausea, vomiting, diarrhea or constipation. GENITOURINARY: No dysuria, frequency, or change in urination. MUSCULOSKELETAL: +L toe pain. No neck or back pain. SKIN: No rash NEUROLOGIC: No headache, vertigo, loss of consciousness, or change in strength/ sensation. ENDOCRINE: No increased thirst. No abnormal weight change HEMATOLOGIC/LYMPHATIC: No anemia, easy bleeding, or history of blood clots. ALLERGIC/IMMUNOLOGIC: No hives or skin allergy. *Physical Exam - Vital Signs Last Vital Signs Temp Pulse Resp BP Pulse Ox 97.9 F 88 16 119/64 96 05/12/19 11:51 05/12/19 11:51 05/12/19 11:51 05/12/19 11:51 05/12/19 11:51 - Physical Exam Comments: 05/12/19 14:13 GENERAL: Awake, alert, and fully oriented, in no acute distress L FOOT: Erythematous and swollen L great toe, cap refill normal. Sensation intact. HEAD: No signs of trauma, normocephalic, atraumatic EYES: PERRLA, EOMI, sclera anicteric, conjunctiva clear ENT: Auricles normal inspection, hearing grossly normal, nares patent, oropharynx clear without exudates. Moist mucosa NECK: Normal ROM, supple, no lymphadenopathy, JVD, or masses LUNGS: No distress, speaks full sentences, clear to auscultation bilaterally HEART: Regular rate and rhythm, normal S1 and S2, no murmurs, rubs or gallops, peripheral pulses normal and equal bilaterally. ABDOMEN: Soft, nontender, normoactive bowel sounds. No guarding, no rebound. No masses EXTREMITIES: Normal inspection, Normal range of motion, no edema. No clubbing or cyanosis. NEUROLOGICAL: Cranial nerves II through XII grossly intact. Normal speech, no focal sensorimotor deficits SKIN: Warm, Dry, normal turgor, no rashes or lesions noted. Medical Decision Making - Medical Decision Making 05/12/19 14:14 Patient is 73F with history of HTN, HLD, DM, migraines, RLS, and cervical spinal stenosis/disc disease here today with diabetic wound. Vitals normal and stable. Will evaluate with cbc, cmp, x-rays of foot. Will treat with vanc and zosyn. Case d/w Ora, accepted to [facility] service. *DC/Admit/Observation/Transfer Diagnosis at time of Disposition: Toe infection - Discharge Dispostion Condition at time of disposition: Stable Decision to Admit order: Yes - Referrals Referrals: Basilio Machado MD [Primary Care Provider] - - Patient Instructions - Post Discharge Activity
[2019-05-12] MEDS ORDERED: PIPERACILLIN/TAZOB 4.5 GM 4.5 GM in DEXTROSE 5%-WATER 100 ML IVPB ONE (13:29)
[2019-05-12] MEDS ORDERED: VANCOMYCIN 1 GM in D5W (PRE-DOCKED) 1,000 MG/250 ML IVPB ONE (13:29)
--- NOTE | 2019-05-12 13:52 | PDOC ---
Attending Attestation - Resident Resident Name: Kristian Wharton - ED Attending Attestation I have performed the following: I have examined & evaluated the patient, The case was reviewed & discussed with the resident, I agree w/resident's findings & plan, Exceptions are as noted - HPI HPI: 05/12/19 13:54 Ms. Barker is a 73 yo F h/o HTN, HLD, DM, migraines, RLS, and cervical spinal stenosis/disc disease, presented to the ED with a complaint of toe pain. Pt was seen in the ER 2 days ago for the same but was unable to stay for admission She has noted purulent drainage from the left great toe She was started on Augmentin for this Pt continues to note drainage from the toe No fever or chills Toe is swollen and tender PAST MEDICAL HISTORY: Hypertension Hyperlipidemia Diabetes Migraines RLS Cervical spinal stenosis and disc disease PAST SURGICAL HISTORY: None reported Social History: denies ETOH, Drugs, Cigarettes NKDA - Physicial Exam PE: 05/12/19 14:02 PE: GENERAL: The patient is in no acute distress. HEAD: Normal EYES: PERRLA, EOMI, sclera anicteric, conjunctiva clear. ENT: Moist mucous membranes. NECK: Normal range of motion, supple LUNGS: Breath sounds equal, clear to auscultation bilaterally. No wheezes, and no crackles. HEART: Regular rate and rhythm, normal S1 and S2 without murmur, rub or gallop. ABDOMEN: Soft, nontender, no guarding, no rebound EXTREMITIES: Normal range of motion, no edema. No erythema, or tenderness. NEUROLOGICAL: Cranial nerves II through XII grossly intact. Normal speech. No focal neurological deficits. MUSCULOSKELETAL: Great toe swollen, tender to palpation, expressible purulence at the sides of her nails SKIN: No erythema, lacerations, Warm, Dry, normal turgor 05/10/19 12:09 - Medical Decision Making 05/12/19 14:02 73 yo F presenting with a complaint of great toe pain and swelling and drainage Pt could not stay for admission 2 days ago Pt came back to the ER for assessment No systemic signs of illness will do labs Will do EKG will give Vanco and Zosyn Will admit 05/14/19 08:02 Laboratory Tests 05/10/19 05/10/19 05/12/19 13:09 13:09 14:26 WBC 8.4 7.2 Hgb 13.0 12.9 Hct 40.0 39.4 Plt Count 243 245 BUN 20.0 H Creatinine 0.8 05/12/19 14:26 WBC Hgb Hct Plt Count BUN 18.2 H Creatinine 0.7 clinical impression: toe infection in a diabetic, initial presentation failure of outpatient antibiotics, initial presentation *DC/Admit/Observation/Transfer Diagnosis at time of Disposition: Toe infection - Discharge Dispostion Condition at time of disposition: Stable Decision to Admit order: Yes - Referrals - Patient Instructions - Post Discharge Activity
[2019-05-12] MEDS ORDERED: PIPERACILLIN/TAZOB 4.5 GM 4.5 GM/100 ML BAG IVPB ONE (14:06)
[2019-05-12 14:52] LABS: BASO % 0.8 % (0-2.0); EOS % 1.4 % (0-4.5); HEMATOCRIT 39.4 % (32.4-45.2); HEMOGLOBIN 12.9 GM/dL (10.7-15.3); LYMPH % 23.4 % (8-40); MCH 29.4 pg (25.7-33.7); MCHC 32.8 g/dl (32.0-36.0); MEAN CELL VOLUME 89.7 fl (80-96); MEAN PLT VOLUME 8.9 fl (7.5-11.1); MONO % 4.9 % (3.8-10.2); NEUT % 69.5 % (42.8-82.8); PLATELET COUNT 245 K/MM3 (134-434); RDW 15.2 % (11.6-15.6); WHITE BLOOD COUNT 7.2 K/mm3 (4.0-10.0)
--- NOTE | 2019-05-12 14:59 | HP ---
Admitting History and Physical - Primary Care Physician PCP: Basilio Machado - Admission Chief Complaint: came in for toe sweling History of Present Illness: Ms. Barker is a 73 yo F h/o HTN, HLD, DM, migraines, RLS, and cervical spinal stenosis/disc disease, presented to the ED with a complaint of toe pain. 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 Cardiovascular: Yes: CAD, HTN, Hyperlipdemia Pulmonary: Yes: COPD Gastrointestinal: Yes: Gastritis, GERD Musculoskeletal: Yes: Other (S/P right total knee replacement) Endocrine: Yes: Diabetes Mellitus - Past Surgical History Past Surgical History: Yes: Joint Replacement - Smoking History Smoking history: Never smoked Have you smoked in the past 12 months: No Aproximately how many cigarettes per day: 0 If you are a former smoker, when did you quit?: 15 yrs - Alcohol/Substance Use Hx Alcohol Use: No Home Medications - Allergies Allergies/Adverse Reactions: Allergies Allergy/AdvReac Type Severity Reaction Status Date / Time No Known Allergies Allergy Verified 05/12/19 11:55 - Home Medications Home Medications: Ambulatory Orders Amitriptyline HCl [Elavil -] 25 mg PO DAILY 02/26/19 Aspirin [Aspirin EC] 81 mg PO DAILY 02/26/19 Atorvastatin Ca [Lipitor] 40 mg PO HS 02/26/19 Famotidine [Pepcid -] 20 mg PO BID 02/26/19 Hydrocodone/Acetaminophen [Hydrocodone-Acetamin 5-325 mg] 1 - 2 tab PO TID PRN # 25 tablet MDD 6 02/26/19 Meclizine HCl [Antivert -] 25 mg PO TID 02/26/19 Ropinirole HCl [Requip -] 2 mg PO BID 02/26/19 Ropinirole HCl [Requip Xl] 2 mg PO HS 02/26/19 Sitagliptin Phos/Metformin HCl [Janumet 50-500 mg Tablet] 1 each PO BID Tramadol HCl [Ultram] 50 mg PO BID 02/26/19 Acetaminophen W/ Codeine #3 [Tylenol # 3 -] 1 tab PO Q8H PRN #12 tablet MDD 3 Amoxicillin/Potassium Clav [Augmentin 875-125 Tablet] 1 each PO BID #14 tablet 05/10/19 Bifidobacterium Infantis [Align] 10.5 mg PO DAILY #10 tab.chew 05/10/19 Review of Systems - Review of Systems Musculoskeletal: reports: Joint Swelling (erythema) Physical Examination Vital Signs: Vital Signs Temperature 97.9 F 05/12/19 11:51 Pulse Rate 88 05/12/19 11:51 Respiratory Rate 16 05/12/19 11:51 Blood Pressure 119/64 05/12/19 11:51 O2 Sat by Pulse Oximetry (%) 96 05/12/19 11:51 Constitutional: Yes: Calm Cardiovascular: Yes: Regular Rate and Rhythm, S1, S2 Respiratory: Yes: CTA Bilaterally Gastrointestinal: Yes: Normal Bowel Sounds, Soft Extremities: Yes: Other (left great toe swollen erythematous) Problem List - Problems (1) Toe infection Assessment/Plan: iv abx ID mri of foot r/o osteo podairty consult crp ,esr Code(s): L08.9 - LOCAL INFECTION OF THE SKIN AND SUBCUTANEOUS TISSUE, UNSP (2) Diabetes Assessment/Plan: bgm [id number] endocrine sliding scale Code(s): E11.9 - TYPE 2 DIABETES MELLITUS WITHOUT COMPLICATIONS Qualifiers: Diabetes mellitus type: type 2 (3) Hyperlipidemia Assessment/Plan: statin lpid panel check GFR Code(s): E78.5 - HYPERLIPIDEMIA, UNSPECIFIED
[2019-05-12 15:17] LABS: ALBUMIN 3.7 g/dl (3.4-5.0); BILIRUBIN,TOTAL 0.3 mg/dL (0.2-1); BLOOD UREA NITROGEN 18.2 mg/dL (7-18); CALCIUM 8.9 mg/dL (8.5-10.1); CREATININE 0.7 mg/dL (0.55-1.3); POTASSIUM 4.7 mmol/L (3.5-5.1)
[2019-05-12] MEDS ORDERED: VANCOMYCIN 1 GRAM (PRE-DOCKED) 1,000 MG/250 ML BAG IVPB ONE (15:41)
[2019-05-12] MEDS: INSULIN SLIDING SCALE (NOVOLOG) 1 VIAL SQ SCH ×2 (16:44→22:47)
[2019-05-12] MEDS: AMITRIPTYLINE HCL 25 MG TABLET (FP) PO SCH (22:45)
[2019-05-12] MEDS: ATORVASTATIN CA 40 MG TABLET (FP) PO SCH (22:45)
[2019-05-12] MEDS: HEPARIN NA (PORCINE) 5,000 UNITS/ML 1ML VIAL SQ SCH (22:45)
[2019-05-12] MEDS: ACETAMINOPHEN 325 MG TABLET (FP) PO PRN (23:18)
[2019-05-13 02:54] VITALS: BMI 36.9
[2019-05-13] MEDS: INSULIN SLIDING SCALE (NOVOLOG) 1 VIAL SQ SCH ×4 (06:24→22:10)
[2019-05-13] MEDS: ACETAMINOPHEN 325 MG TABLET (FP) PO PRN (06:27)
[2019-05-13 07:48] LABS: HEMATOCRIT 38.6 % (32.4-45.2); HEMOGLOBIN 12.7 GM/dL (10.7-15.3); MCH 29.6 pg (25.7-33.7); MCHC 32.9 g/dl (32.0-36.0); MEAN CELL VOLUME 89.8 fl (80-96); MEAN PLT VOLUME 8.8 fl (7.5-11.1); PLATELET COUNT 210 K/MM3 (134-434); RDW 15.2 % (11.6-15.6); WHITE BLOOD COUNT 5.6 K/mm3 (4.0-10.0)
[2019-05-13 08:11] LABS: ALBUMIN 3.4 g/dl (3.4-5.0); ALK PHOS 74 U/L (45-117); AMYLASE 64 U/L (25-115); ANION GAP 7 MMOL/L (8-16); BILIRUBIN,TOTAL 0.6 mg/dL (0.2-1); BLOOD UREA NITROGEN 17.7 mg/dL (7-18); CHLORIDE 102 mmol/L (98-107); CO2 30 mmol/L (21-32); CREATININE 0.6 mg/dL (0.55-1.3); GLUCOSE,RANDOM 143 mg/dL (74-106); LIPASE 242 U/L (73-393); MAGNESIUM 2.5 mg/dL (1.8-2.4); PHOSPHOROUS 4.4 mg/dL (2.5-4.9); POTASSIUM 4.1 mmol/L (3.5-5.1); SGOT/AST 14 U/L (15-37); SGPT/ALT 17 U/L (13-61); SODIUM 140 mmol/L (136-145); TOT PROT 6.3 g/dl (6.4-8.2)
--- NOTE | 2019-05-13 08:20 | PN ---
Progress Note, Physician Chief Complaint: AWAKE ALERT EVENTS REVIEWED FEELS BETTER - Current Medication List Current Medications: Active Medications Acetaminophen (Tylenol -) 650 mg PO Q6H PRN PRN Reason: PAIN OR FEVER Last Admin: 05/13/19 06:27 Dose: 650 mg Amitriptyline HCl (Elavil -) 25 mg PO HS [facility] Last Admin: 05/12/19 22:45 Dose: 25 mg Atorvastatin Calcium (Lipitor -) 40 mg PO [facility] Last Admin: 05/12/19 22:45 Dose: 40 mg Heparin Sodium (Porcine) (Heparin -) 5,000 unit SQ BID [facility] Last Admin: 05/12/19 22:45 Dose: 5,000 unit Insulin Aspart (Novolog Vial Sliding Scale -) 1 vial SQ ACHS [facility]; Protocol Last Admin: 05/13/19 06:24 Dose: Not Given AWAKE ALERT - Objective Vital Signs: Vital Signs Temperature 97.5 F L 05/13/19 04:00 Pulse Rate 74 05/13/19 04:00 Respiratory Rate 18 05/13/19 04:00 Blood Pressure 124/75 05/13/19 04:00 O2 Sat by Pulse Oximetry (%) 98 05/12/19 20:04 Constitutional: Yes: Mild Distress HENT: Yes: WNL Neck: Yes: WNL Cardiovascular: Yes: Regular Rate and Rhythm Respiratory: Yes: WNL Genitourinary: Yes: WNL Musculoskeletal: Yes: WNL Extremities: Yes: WNL Integumentary: Yes: Other (TOE INFECTION WITH PURELENT PUS DISCHARGE) Neurological: Yes: Numbness ...Motor Strength: LLE, RLE Psychiatric: Yes: WNL Labs: CBC, BMP 05/13/19 05:38 Problem List - Problems (1) Toe infection Code(s): L08.9 - LOCAL INFECTION OF THE SKIN AND SUBCUTANEOUS TISSUE, UNSP (2) Anxiousness Code(s): F41.9 - ANXIETY DISORDER, UNSPECIFIED (3) Cellulitis Code(s): L03.90 - CELLULITIS, UNSPECIFIED (4) Diabetes Code(s): E11.9 - TYPE 2 DIABETES MELLITUS WITHOUT COMPLICATIONS Qualifiers: Diabetes mellitus type: type 2 (5) Neuropathic arthritis Code(s): M14.60 - CHARCOT'S JOINT, UNSPECIFIED SITE Assessment/Plan IV ABX PER ID PODIATRY EVAL AND WORKUP IN PROGRESS XANAX BEFORE MRI FOR ANXIETY DVT PROPHYLAXIS OOB TO CHAIR BGM CHECKS
[2019-05-13] MEDS: traMADol HCL 50 MG TABLET PO PRN ×2 (10:06→23:23)
[2019-05-13] MEDS: HEPARIN NA (PORCINE) 5,000 UNITS/ML 1ML VIAL SQ SCH ×2 (10:08→22:06)
[2019-05-13] MEDS ORDERED: INSULIN (NOVOLOG) ASPART 100 UNITS/ML 10ML VIAL ONE (12:13)
--- NOTE | 2019-05-13 12:40 | PN ---
Progress Note (short form) - Note Progress Note: ID CONSULT DICTATED CELLULITIS L GREAT TOE DIABETES MELLITUS AWAIT C/S PODIATRY EVALUATION EMPIRIC VANCOMYCIN/ CEFTRIAXONE
--- NOTE | 2019-05-13 14:13 | CONS ---
INFECTIOUS DISEASE CONSULTATION DATE OF CONSULTATION: DATE OF DICTATION: 05/13/2019 HISTORY: The patient is a 73-year-old diabetic female who was evaluated for cellulitis of the left great toe. The patient reports sustaining trauma to her left foot approximately 1 month ago. She was seen in the emergency room where an x-ray of the toe was performed and was negative for fracture or dislocation. She reports seeing a vendor quality supervisor in [place] for trimming of her toenails. She subsequently developed erythema, warmth, and swelling of the left great toe. She also noted some purulent drainage from around the toenail bed. She had presented to the emergency room on May 10, 2019. She was advised admission, however, was unable to stay due to personal reasons. She was prescribed Augmentin. Despite the Augmentin, she reports worsening left great toe pain, erythema, and swelling. She is now admitted for further evaluation. She denies prior history of serious soft tissue infection requiring hospitalization or history of MRSA. She denies any associated fever or chills. PAST MEDICAL HISTORY: Positive for diabetes mellitus, peripheral neuropathy, restless leg syndrome, spinal stenosis, hyperlipidemia, migraine headache. PAST SURGICAL HISTORY: Status post right total knee replacement. ALLERGIES: No known allergies. MEDICATIONS: Include Tylenol, Elavil, Lipitor, Tramadol, vancomycin, Zosyn. SOCIAL HISTORY: She lives in the community. Nonsmoker. Nondrinker. No recent hospital admissions. SYSTEMS REVIEW: Neurologic: No loss of consciousness, seizure activity, focal weakness. Cardiac: Negative chest pain or palpitations. Respiratory: Negative cough or sputum production. Gastrointestinal: Negative vomiting or diarrhea. Genitourinary: Negative for urinary tract infection. LABORATORY DATA: White count 5.6, hematocrit 38.6, platelets 210, ESR 22, BUN 17, creatinine 0.6. C-reactive protein 1.2. Cultures pending. X-ray of the toe, no evidence of osteomyelitis. PHYSICAL EXAMINATION: General: On examination, the patient is awake and alert in no acute distress. Vital Signs: Temperature 98.3, blood pressure 110/64, pulse 82 regular, respirations 20 per minute. HEENT: Sclerae anicteric. Heart: Sounds S1, S2. Lungs: Clear. Abdomen: Obese, soft, nontender. Extremities: Examination of the left foot, there is swelling of the left great toe with erythema. It is tender to touch, slightly warm. No purulent drainage is noted. IMPRESSION: 1. Cellulitis, left great toe. 2. Diabetes mellitus. PLAN: Await cultures. Empiric antibiotic coverage with vancomycin, ceftriaxone. Podiatry evaluation. Thank you for the kind referral. VANGIE BRAVO M.D. [id number]
[2019-05-13] MEDS ORDERED: DEXTROSE 5%-WATER 100 ML IVPB ONE (14:17)
[2019-05-13] MEDS: VANCOMYCIN 1 GRAM (PRE-DOCKED) 1,000 MG/250 ML BAG IVPB SCH (14:27)
[2019-05-13] MEDS: CEFTRIAXONE 2 GM in DEXTROSE 5%-WATER 100 ML IVPB SCH (14:27)
--- NOTE | 2019-05-13 20:17 | CONSULT ---
Consult Consult Specialty:: Podiatry Reason for Consultation:: Infected painful big toe left - History of Present Illness Chief Complaint: Left big toe pain. History of Present Illness: Ingrown nail procedure done in [place] 3 weeks ago. No follow up until this Sunday with PMD. Patient states PUS draining from it. 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 Cardio/Vascular: Yes: CAD, HTN, Hyperlipdemia Pulmonary: Yes: COPD Gastrointestinal: Yes: Gastritis, GERD Musculoskeletal: Yes: Other (S/P right total knee replacement) Endocrine: Yes: Diabetes Mellitus - Past Surgical History Past Surgical History: Yes: Joint Replacement - Alcohol/Substance Use Hx Alcohol Use: No - Smoking History Smoking history: Never smoked Have you smoked in the past 12 months: No Aproximately how many cigarettes per day: 0 If you are a former smoker, when did you quit?: 15 yrs - Social History Usual Living Arrangement: Other (lives with son in house with 12 steps to enter but none inside; she reports being previously Independent in ADLs/ IADLs without Assistive Device) Home Medications - Allergies Allergies/Adverse Reactions: Allergies Allergy/AdvReac Type Severity Reaction Status Date / Time No Known Allergies Allergy Verified 05/12/19 11:55 - Home Medications Home Medications: Ambulatory Orders Amitriptyline HCl [Elavil -] 25 mg PO DAILY 02/26/19 Aspirin [Aspirin EC] 81 mg PO DAILY 02/26/19 Atorvastatin Ca [Lipitor] 40 mg PO HS 02/26/19 Famotidine [Pepcid -] 20 mg PO BID 02/26/19 Tramadol HCl [Ultram] 50 mg PO BID 02/26/19 Amoxicillin/Potassium Clav [Augmentin 875-125 Tablet] 1 each PO BID #14 tablet 05/10/19 Glimepiride 2 mg PO DAILY 05/12/19 Physical Exam Vital Signs: Vital Signs Temperature 98.3 F 05/13/19 10:00 Pulse Rate 82 05/13/19 10:00 Respiratory Rate 8 L 05/13/19 10:00 Blood Pressure 110/64 05/13/19 10:00 O2 Sat by Pulse Oximetry (%) 98 05/13/19 09:00 Extremities: Yes: Other (+red swollen left big toe, no pus noted, +weak pulses b /l, -ulceration,) Labs: CBC, BMP 05/13/19 05:37 05/13/19 05:38 Assessment/Plan r/o om left hallux pvd Vascular consult. MRI left foot. ID on case. Will follow.
[2019-05-13] MEDS: ATORVASTATIN CA 40 MG TABLET (FP) PO SCH (22:06)
[2019-05-13] MEDS: AMITRIPTYLINE HCL 25 MG TABLET (FP) PO SCH (22:06)
--- NOTE | 2019-05-13 22:13 | CON.NEURO ---
Consult - History of Present Illness History of Present Illness: Neurology coverage for DR OSEGUERA 73 yo F h/o HTN, HLD, DM, migraines, RLS, and cervical spinal stenosis/disc disease, presented to the ED with a complaint of toe pain. Pt was seen in the ER 2 days ago for the same but was unable to stay for admission and sent home with augmentin She has noted purulent drainage from the left great toe , no fever at home. Admitted for cellulitis, on IVABX; HX of DM , unaware of a1c; =longstanding low back pain ; denies any focal weakness LE; numbness of feet . 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 Cardio/Vascular: Yes: CAD, HTN, Hyperlipdemia Pulmonary: Yes: COPD Gastrointestinal: Yes: Gastritis, GERD Musculoskeletal: Yes: Other (S/P right total knee replacement) Endocrine: Yes: Diabetes Mellitus - Past Surgical History Past Surgical History: Yes: Joint Replacement - Alcohol/Substance Use Hx Alcohol Use: No - Smoking History Smoking history: Never smoked Have you smoked in the past 12 months: No Aproximately how many cigarettes per day: 0 If you are a former smoker, when did you quit?: 15 yrs - Social History Usual Living Arrangement: Other (lives with son in house with 12 steps to enter but none inside; she reports being previously Independent in ADLs/ IADLs without Assistive Device) Home Medications - Allergies Allergies/Adverse Reactions: Allergies Allergy/AdvReac Type Severity Reaction Status Date / Time No Known Allergies Allergy Verified 05/12/19 11:55 - Home Medications Home Medications: Ambulatory Orders Amitriptyline HCl [Elavil -] 25 mg PO DAILY 02/26/19 Aspirin [Aspirin EC] 81 mg PO DAILY 02/26/19 Atorvastatin Ca [Lipitor] 40 mg PO HS 02/26/19 Famotidine [Pepcid -] 20 mg PO BID 02/26/19 Tramadol HCl [Ultram] 50 mg PO BID 02/26/19 Amoxicillin/Potassium Clav [Augmentin 875-125 Tablet] 1 each PO BID #14 tablet 05/10/19 Glimepiride 2 mg PO DAILY 05/12/19 Physical Exam-Neuro Vital Signs: Vital Signs Temperature 97.9 F 05/13/19 20:41 Pulse Rate 86 05/13/19 20:41 Respiratory Rate 16 05/13/19 20:41 Blood Pressure 111/71 05/13/19 20:41 O2 Sat by Pulse Oximetry (%) 98 05/13/19 09:00 Labs: CBC, BMP 05/13/19 05:37 05/13/19 05:38 - Neuro Exam Level Of Consciousness: Yes: Alert, Oriented to Person (eomi, no facila, motor 5 /5, no weakness in TA /EHL, inversion, eversion, reflexes reduced , no sesnory level, + PVD chnages RLE ) Problem List - Problems (1) Diabetic neuropathy Code(s): E11.40 - TYPE 2 DIABETES MELLITUS WITH DIABETIC NEUROPATHY, UNSP (2) Toe infection Code(s): L08.9 - LOCAL INFECTION OF THE SKIN AND SUBCUTANEOUS TISSUE, UNSP (3) Diabetes Code(s): E11.9 - TYPE 2 DIABETES MELLITUS WITHOUT COMPLICATIONS Qualifiers: Diabetes mellitus type: type 2 Assessment/Plan 73 yo F h/o HTN, HLD, DM, migraines, RLS, and cervical spinal stenosis/disc disease, presented to the ED with a complaint of toe pain. Pt was seen in the ER 2 days ago for the same but was unable to stay for admission and sent home with augmentin She has noted purulent drainage from the left great toe , no fever at home. Admitted for cellulitis, on IVABX; HX of DM , unaware of a1c; =longstanding low back pain ; denies any focal weakness LE; numbness of feet . AP : DM , with cellulitis, on IV ABX ID and podiatry FU likely underlying DM neuropathy DM control no acute neurological issues FU DR OSEGUERA as outpt DR SCHUMACHER
--- NOTE | 2019-05-14 01:05 | CONSULT ---
Consult Consult Specialty:: endocrine Referred by:: dr.moizuddin merchant Reason for Consultation:: diabetes mellitus uncontrolled - History of Present Illness Chief Complaint: toe infected History of Present Illness: 73 yo F h/o T2 DM,HTN, HLD, migraines, RLS, and cervical spinal stenosis/disc disease, presented with a complaint of toe pain. Pt was seen in the ER 2 days ago for the same but was unable to stay for admission and sent home with augmentin,how ever pain and swelling as well as purulent drainage was worse which prompted return to ed and admission. she has elevated sugars,muscle and joint pain. 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 Cardio/Vascular: Yes: CAD, HTN, Hyperlipdemia Pulmonary: Yes: COPD Gastrointestinal: Yes: Gastritis, GERD Musculoskeletal: Yes: Other (S/P right total knee replacement) Endocrine: Yes: Diabetes Mellitus - Past Surgical History Past Surgical History: Yes: Joint Replacement - Alcohol/Substance Use Hx Alcohol Use: No - Smoking History Smoking history: Never smoked Have you smoked in the past 12 months: No Aproximately how many cigarettes per day: 0 If you are a former smoker, when did you quit?: 15 yrs - Social History Usual Living Arrangement: Other (lives with son in house with 12 steps to enter but none inside; she reports being previously Independent in ADLs/ IADLs without Assistive Device) Home Medications - Allergies Allergies/Adverse Reactions: Allergies Allergy/AdvReac Type Severity Reaction Status Date / Time No Known Allergies Allergy Verified 05/12/19 11:55 - Home Medications Home Medications: Ambulatory Orders Amitriptyline HCl [Elavil -] 25 mg PO DAILY 02/26/19 Aspirin [Aspirin EC] 81 mg PO DAILY 02/26/19 Atorvastatin Ca [Lipitor] 40 mg PO HS 02/26/19 Famotidine [Pepcid -] 20 mg PO BID 02/26/19 Tramadol HCl [Ultram] 50 mg PO BID 02/26/19 Amoxicillin/Potassium Clav [Augmentin 875-125 Tablet] 1 each PO BID #14 tablet 05/10/19 Glimepiride 2 mg PO DAILY 05/12/19 Review of Systems - Review of Systems Constitutional: reports: Lethargy, Weakness Eyes: reports: No Symptoms HENT: reports: No Symptoms Neck: reports: Pain on Movement Cardiovascular: reports: Edema, Shortness of Breath Gastrointestinal: reports: Bloating, Constipation Genitourinary: reports: No Symptoms Breasts: reports: No Symptoms Reported Musculoskeletal: reports: Extremity Pain, Muscle Pain, Muscle Cramps, Muscle Weakness Neurological: reports: Unsteady Gait, Weakness Endocrine: reports: Unexplained Weight Gain Physical Exam Vital Signs: Vital Signs Temperature 97.9 F 05/13/19 20:41 Pulse Rate 86 05/13/19 20:41 Respiratory Rate 16 05/13/19 20:41 Blood Pressure 111/71 05/13/19 20:41 O2 Sat by Pulse Oximetry (%) 98 05/13/19 21:00 Constitutional: Yes: Anxious Eyes: Yes: EOM Intact HENT: Yes: Normocephalic Neck: Yes: Trachea Midline Cardiovascular: Yes: Regular Rate and Rhythm Respiratory: Yes: CTA Bilaterally Gastrointestinal: Yes: Normal Bowel Sounds ...Rectal Exam: Yes: Deferred Renal/: Yes: WNL Musculoskeletal: Yes: Back Pain, Joint Stiffness, Joint Swelling, Muscle Pain Extremities: Yes: Delayed Capillary Refill Edema: LLE: 1+, RLE: 2+ Neurological: Yes: Alert, Oriented Labs: CBC, BMP 05/13/19 05:37 05/13/19 05:38 Problem List - Problems (1) Diabetic neuropathy Code(s): E11.40 - TYPE 2 DIABETES MELLITUS WITH DIABETIC NEUROPATHY, UNSP (2) Hyperlipidemia Code(s): E78.5 - HYPERLIPIDEMIA, UNSPECIFIED (3) Toe infection Code(s): L08.9 - LOCAL INFECTION OF THE SKIN AND SUBCUTANEOUS TISSUE, UNSP (4) Anxiousness Code(s): F41.9 - ANXIETY DISORDER, UNSPECIFIED (5) Chest pain Code(s): R07.9 - CHEST PAIN, UNSPECIFIED Qualifiers: Chest pain type: unspecified Qualified Code(s): R07.9 - Chest pain, unspecified (6) Chest wall contusion Code(s): S20.219A - CONTUSION OF UNSPECIFIED FRONT WALL OF THORAX, INIT ENCNTR (7) Diabetes Code(s): E11.9 - TYPE 2 DIABETES MELLITUS WITHOUT COMPLICATIONS Qualifiers: Diabetes mellitus type: type 2 Assessment/Plan Current Active Problems Diabetic neuropathy (Acute) Hyperlipidemia (Acute) Toe infection (Acute) Abnormal Lab Results 05/13/19 05/13/19 05:38 05:38 Anion Gap 7 L Random Glucose 143 H Magnesium 2.5 H AST 14 L C-Reactive Protein 1.2 H Total Protein 6.3 L Laboratory Results - last 24 hr 05/13/19 05/13/19 05/13/19 05:37 05:38 05:38 WBC 5.6 RBC 4.30 Hgb 12.7 Hct 38.6 MCV 89.8 MCH 29.6 MCHC 32.9 RDW 15.2 Plt Count 210 MPV 8.8 ESR Sodium 140 Potassium 4.1 Chloride 102 Carbon Dioxide 30 Anion Gap 7 L BUN 17.7 Creatinine 0.6 Est GFR (CKD-EPI)AfAm 104.80 Est GFR (CKD-EPI)NonAf 90.42 POC Glucometer Random Glucose 143 H Calcium 9.0 Phosphorus 4.4 Magnesium 2.5 H Total Bilirubin 0.6 AST 14 L ALT 17 Alkaline Phosphatase 74 Troponin I < 0.02 C-Reactive Protein 1.2 H Total Protein 6.3 L Albumin 3.4 Total Amylase 64 Lipase 242 TSH 1.11 05/13/19 05/13/19 05/13/19 06:23 06:23 12:08 WBC RBC Hgb Hct MCV MCH MCHC RDW Plt Count MPV ESR 22 Sodium Potassium Chloride Carbon Dioxide Anion Gap BUN Creatinine Est GFR (CKD-EPI)AfAm Est GFR (CKD-EPI)NonAf POC Glucometer 152 164 Random Glucose Calcium Phosphorus Magnesium Total Bilirubin AST ALT Alkaline Phosphatase Troponin I C-Reactive Protein Total Protein Albumin Total Amylase Lipase TSH 05/13/19 05/13/19 17:40 20:53 WBC RBC Hgb Hct MCV MCH MCHC RDW Plt Count MPV ESR Sodium Potassium Chloride Carbon Dioxide Anion Gap BUN Creatinine Est GFR (CKD-EPI)AfAm Est GFR (CKD-EPI)NonAf POC Glucometer 179 271 Random Glucose Calcium Phosphorus Magnesium Total Bilirubin AST ALT Alkaline Phosphatase Troponin I C-Reactive Protein Total Protein Albumin Total Amylase Lipase TSH plan: hba1c bgm coverage scale metformin 500mg bid januvia 100mg day glimiperide 4mg day
[2019-05-14] MEDS: VANCOMYCIN 1 GRAM (PRE-DOCKED) 1,000 MG/250 ML BAG IVPB SCH ×2 (01:24→14:07)
[2019-05-14] MEDS: ACETAMINOPHEN 325 MG TABLET (FP) PO PRN (01:25)
[2019-05-14] MEDS ORDERED: PT OWN MED DRAWER 7, Y5N ONE (06:25)
[2019-05-14] MEDS: GLIMEPIRIDE 4 MG TABLET (FP) PO SCH (07:01)
[2019-05-14] MEDS: sitaGLIPtin PHOSPHATE 50 MG TABLET PO SCH (07:01)
[2019-05-14] MEDS: metFORMIN HCL 500 MG TABLET (FP) PO SCH ×2 (07:01→17:48)
[2019-05-14] MEDS: INSULIN SLIDING SCALE (NOVOLOG) 1 VIAL SQ SCH ×4 (07:05→21:34)
--- NOTE | 2019-05-14 08:37 | PN ---
Progress Note, Physician Chief Complaint: AWAKE ALERT C/O PAIN TO TOE - Current Medication List Current Medications: Active Medications Acetaminophen (Tylenol -) 650 mg PO Q6H PRN PRN Reason: PAIN OR FEVER Last Admin: 05/14/19 01:25 Dose: 650 mg Alprazolam (Xanax -) 1 mg PO ONCE ONE Stop: 05/13/19 14:46 Amitriptyline HCl (Elavil -) 25 mg PO [facility] Last Admin: 05/13/19 22:06 Dose: 25 mg Atorvastatin Calcium (Lipitor -) 40 mg PO [facility] Last Admin: 05/13/19 22:06 Dose: 40 mg Glimepiride (Amaryl -) 4 mg PO DAILY@0700 [facility] Last Admin: 05/14/19 07:01 Dose: 4 mg Heparin Sodium (Porcine) (Heparin -) 5,000 unit SQ BID [facility] Last Admin: 05/13/19 22:06 Dose: 5,000 unit Vancomycin HCl (Vancomycin (Pre-Docked)) 1,000 mg in 250 mls @ 166.667 mls/hr IVPB Q12H [facility]; Protocol Last Admin: 05/14/19 01:24 Dose: 166.667 mls/hr Ceftriaxone Sodium 2 gm/ (Dextrose) 100 mls @ 100 mls/hr IVPB DAILY [facility]; Protocol Last Admin: 05/13/19 14:27 Dose: 100 mls/hr Insulin Aspart (Novolog Vial Sliding Scale -) 1 vial SQ ACHS [facility]; Protocol Last Admin: 05/14/19 07:05 Dose: 2 units Metformin HCl (Glucophage -) 500 mg PO BID@0700,1630 [facility] Last Admin: 05/14/19 07:01 Dose: 500 mg Sitagliptin Phosphate (Januvia -) 50 mg PO DAILY@0700 [facility] Last Admin: 05/14/19 07:01 Dose: 50 mg Tramadol HCl (Ultram -) 50 mg PO Q6H PRN PRN Reason: PAIN LEVEL 7 - 10 Last Admin: 05/13/19 23:23 Dose: 50 mg - Objective Vital Signs: Vital Signs Temperature 97.8 F 05/14/19 06:00 Pulse Rate 72 05/14/19 06:00 Respiratory Rate 20 05/14/19 06:00 Blood Pressure 100/60 05/14/19 06:00 O2 Sat by Pulse Oximetry (%) 98 08/20/19 21:00 Constitutional: Yes: Mild Distress Eyes: Yes: WNL HENT: Yes: WNL Neck: Yes: WNL Cardiovascular: Yes: WNL Respiratory: Yes: WNL Gastrointestinal: Yes: WNL Genitourinary: Yes: WNL Musculoskeletal: Yes: Joint Swelling Extremities: Yes: Other Edema: Yes Integumentary: Yes: Other Wound/Incision: Yes: Open to air, Draining, Reddened Neurological: Yes: Numbness, Paresthesia, Pre-Existing Deficit ...Motor Strength: LLE, RLE Psychiatric: Yes: WNL Labs: CBC, BMP 05/13/19 05:37 05/13/19 05:38 Problem List - Problems (1) Toe infection Code(s): L08.9 - LOCAL INFECTION OF THE SKIN AND SUBCUTANEOUS TISSUE, UNSP (2) Anxiousness Code(s): F41.9 - ANXIETY DISORDER, UNSPECIFIED (3) Cellulitis Code(s): L03.90 - CELLULITIS, UNSPECIFIED (4) Diabetes Code(s): E11.9 - TYPE 2 DIABETES MELLITUS WITHOUT COMPLICATIONS Qualifiers: Diabetes mellitus type: type 2 (5) Neuropathic arthritis Code(s): M14.60 - CHARCOT'S JOINT, UNSPECIFIED SITE Assessment/Plan MRI PENDING R/O OSTEOMYELITIS IV ABX PODIATRY F/U DVT PROPHYLAXIS OOB TO CHAIR DM CONTROL PAIN CONTROL
[2019-05-14] MEDS ORDERED: DEXTROSE 5%-WATER 100 ML IVPB ONE (10:31)
[2019-05-14] MEDS: CEFTRIAXONE 2 GM in DEXTROSE 5%-WATER 100 ML IVPB SCH (10:35)
[2019-05-14] MEDS: HEPARIN NA (PORCINE) 5,000 UNITS/ML 1ML VIAL SQ SCH ×2 (10:36→21:23)
--- NOTE | 2019-05-14 11:44 | PN ---
Progress Note, Physician History of Present Illness: C/O L GREAT TOE PAIN NO F/C PODIATRY EVAL APPRECIATED - Current Medication List Current Medications: Active Medications Acetaminophen (Tylenol -) 650 mg PO Q6H PRN PRN Reason: PAIN OR FEVER Last Admin: 05/14/19 01:25 Dose: 650 mg Alprazolam (Xanax -) 1 mg PO ONCE ONE Stop: 05/13/19 14:46 Amitriptyline HCl (Elavil -) 25 mg PO [facility] Last Admin: 05/13/19 22:06 Dose: 25 mg Atorvastatin Calcium (Lipitor -) 40 mg PO [facility] Last Admin: 05/13/19 22:06 Dose: 40 mg Glimepiride (Amaryl -) 4 mg PO DAILY@0700 [facility] Last Admin: 05/14/19 07:01 Dose: 4 mg Heparin Sodium (Porcine) (Heparin -) 5,000 unit SQ BID [facility] Last Admin: 05/14/19 10:36 Dose: 5,000 unit Vancomycin HCl (Vancomycin (Pre-Docked)) 1,000 mg in 250 mls @ 166.667 mls/hr IVPB Q12H [facility]; Protocol Last Admin: 05/14/19 01:24 Dose: 166.667 mls/hr Ceftriaxone Sodium 2 gm/ (Dextrose) 100 mls @ 100 mls/hr IVPB DAILY [facility]; Protocol Last Admin: 05/14/19 10:35 Dose: 100 mls/hr Insulin Aspart (Novolog Vial Sliding Scale -) 1 vial SQ ACHS [facility]; Protocol Last Admin: 05/14/19 07:05 Dose: 2 units Metformin HCl (Glucophage -) 500 mg PO BID@0700,1630 [facility] Last Admin: 05/14/19 07:01 Dose: 500 mg Sitagliptin Phosphate (Januvia -) 50 mg PO DAILY@0700 [facility] Last Admin: 05/14/19 07:01 Dose: 50 mg Tramadol HCl (Ultram -) 50 mg PO Q6H PRN PRN Reason: PAIN LEVEL 7 - 10 Last Admin: 05/13/19 23:23 Dose: 50 mg - Objective Vital Signs: Vital Signs Temperature 97.8 F 05/14/19 06:00 Pulse Rate 72 05/14/19 06:00 Respiratory Rate 20 05/14/19 06:00 Blood Pressure 100/60 05/14/19 06:00 O2 Sat by Pulse Oximetry (%) 98 05/13/19 21:00 Constitutional: Yes: No Distress, Obese Cardiovascular: Yes: Regular Rate and Rhythm, S1, S2 Respiratory: Yes: CTA Bilaterally Gastrointestinal: Yes: Normal Bowel Sounds, Soft. No: Tenderness Extremities: Yes: Other (+ ERYTHEMA L GREAT TOE, MEDIAL ASPECT) Labs: CBC, BMP 05/13/19 05:37 05/13/19 05:38 Assessment/Plan CELLULITIS, GREAT TOE DIABETES MELLITUS CONTINUE CEFTRIAXONE/ VANCOMYCIN
--- NOTE | 2019-05-14 12:33 | CONSULT ---
- Consultation REQUESTING PROVIDER: CONSULT REQUEST: We have been asked to surgically evaluate this patient for (). PCP:Gibson Anderson HISTORY OF PRESENT ILLNESS: 72 y/o F w/ PMHx HTN, HLD, DM, migraines, GERD/gastritis, RLS, and cervical spinal stenosis/disc disease, admitted for evaluation of L toe pain. Pt reports she fell in her home at the end of February causing trauma to her toe. Pt was seen in ED at [facility] on 03/24 at which time an xray did not show a fracture, pt was d/c' ed with an offloading shoe and instructed to f/u with DPM. Pt reports she went to [place] a few days later and began to note worsening erythema and edema. Pt was seen by a DPM in [place] and had intervention on an ingrown toenail on her toe. When she returned she noted further pain and swelling and was again seen in [facility] ED (05/10) at which time she was to be admitted, however pt had family coming to stay with her and declined admission. Pt was d/c'ed with Augmentin 875mg bid x 7 days. Reports taking abx as directed, however developed drainage from toe and returned to ED on 05/12. Denies fever/chills, n/v/d, h/o vascular issues or interventions, tobacco abuse. PMHx: as above PSHx: Other (S/P right total knee replacement) Home Medications Medication Instructions Recorded Amitriptyline HCl [Elavil -] 25 mg PO DAILY 02/26/19 Aspirin [Aspirin EC] 81 mg PO DAILY 02/26/19 Atorvastatin Ca [Lipitor] 40 mg PO HS 02/26/19 Famotidine [Pepcid -] 20 mg PO BID 02/26/19 Tramadol HCl [Ultram] 50 mg PO BID 02/26/19 Amoxicillin/Potassium Clav 1 each PO BID #14 tablet 05/10/19 [Augmentin 875-125 Tablet] Glimepiride 2 mg PO DAILY 05/12/19 Allergies Allergy/AdvReac Type Severity Reaction Status Date / Time No Known Allergies Allergy Verified 05/12/19 11:55 REVIEW OF SYSTEMS: CONSTITUTIONAL: Absent: fever, chills CARDIOVASCULAR: Absent: chest pain, syncope RESPIRATORY: Absent: cough, shortness of breath GASTROINTESTINAL: Absent: abdominal pain PHYSICAL EXAM: GENERAL: Awake, alert, and fully oriented, in no acute distress. HEAD: Normal with no signs of trauma. LUNGS: Unlabored on RA LOWER EXTREMITIES: R foot with no ulcerations. L foot with mild edema of great toe, no open ulcers, no drainage visualized. No ecchymosis noted, mild erythema extending to DIP. + onychomycosis Vasc: 2+ b/l dp, 1+ b/l PT Vital Signs Temperature 97.8 F 05/14/19 06:00 Pulse Rate 72 05/14/19 06:00 Respiratory Rate 20 05/14/19 06:00 Blood Pressure 100/60 05/14/19 06:00 O2 Sat by Pulse Oximetry (%) 98 05/13/19 21:00 Lab Results WBC 5.6 K/mm3 (4.0-10.0) 05/13/19 05:37 RBC 4.30 M/mm3 (3.60-5.2) 05/13/19 05:37 Hgb 12.7 GM/dL (10.7-15.3) 05/13/19 05:37 Hct 38.6 % (32.4-45.2) 05/13/19 05:37 MCV 89.8 fl (80-96) 05/13/19 05:37 MCHC 32.9 g/dl (32.0-36.0) 05/13/19 05:37 RDW 15.2 % (11.6-15.6) 05/13/19 05:37 Plt Count 210 K/MM3 (134-434) 05/13/19 05:37 Sodium 140 mmol/L (136-145) 05/13/19 05:38 Potassium 4.1 mmol/L (3.5-5.1) 05/13/19 05:38 Chloride 102 mmol/L (98-107) 05/13/19 05:38 Carbon Dioxide 30 mmol/L (21-32) 05/13/19 05:38 Anion Gap 7 MMOL/L (8-16) L 05/13/19 05:38 BUN 17.7 mg/dL (7-18) 05/13/19 05:38 Creatinine 0.6 mg/dL (0.55-1.3) 05/13/19 05:38 Random Glucose 143 mg/dL (74-106) H 05/13/19 05:38 Calcium 9.0 mg/dL (8.5-10.1) 05/13/19 05:38 Foot xray 05/12): No osteomyelitis. A/P: 72 y/o F w/ PMHx HTN, HLD, DM, migraines, GERD/gastritis, RLS, and cervical spinal stenosis/disc disease, admitted for evaluation of L toe pain s/ p trauma 1 month ago. Pt with mild cellulitis of L great toe Palpable pedal pulses Afebrile, no leukocytosis -No acute vascular intervention -Glucose control -Plan per podiatry d/w attending Dr Lizarraga
--- NOTE | 2019-05-14 12:56 | PN ---
Progress Note (short form) - Note Progress Note: FUV left big toe. +cellulitis left hallux, -drainage, +improved tender r/o om ingrown nail? Awaiting MRI result. Awaiting vascular. Will follow.
[2019-05-14 14:41] LABS: PH,URINE 5.5 (5.0-8.0); URINE APPEARANCE CLEAR; URINE BILIRUBIN NEGATIVE (NEGATIVE); URINE COLOR YELLOW; URINE GLUCOSE (UA) 3+ (NEGATIVE); URINE KETONE NEGATIVE (NEGATIVE); URINE LEUK ESTERASE NEGATIVE (NEGATIVE); URINE NITRITE NEGATIVE (NEGATIVE); URINE PROTEIN NEGATIVE (NEGATIVE); URINE UROBILINOGEN 0.2 mg/dL (0.2-1.0)
--- NOTE | 2019-05-14 16:54 | CONSULT ---
Consult Consult Specialty:: Rheumatology - History of Present Illness History of Present Illness: 73 y/o female with history of HTN, HLD, DM, migraine headache, and chronic neck and low back pain, admitted with cellulitis of the left 1st toe. Consult requested for evaluation of fibromyalgia. The patient has a 6 - 7 year history of chronic low back and neck pain. She reports diffuse pain in anterior aspect of thighs and legs, electric -shock like and continuous pain. The pain can be present all day, improves slightly with walking few steps and it is not better with sitting or laying down. Her walking is limited to short idtances by back pain. She also reports burning sensation in toes. She denies diffuse aches and pains in trunk or arms. A CT of the lumbar spine (02/13/17) was reported with significant degenerative changes and central canal stenosis at T12-L1, L3-4 and L4-5. 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 Cardio/Vascular: Yes: CAD, HTN, Hyperlipdemia Pulmonary: Yes: COPD Gastrointestinal: Yes: Gastritis, GERD Musculoskeletal: Yes: Other (S/P right total knee replacement) Endocrine: Yes: Diabetes Mellitus - Past Surgical History Past Surgical History: Yes: Joint Replacement - Alcohol/Substance Use Hx Alcohol Use: No - Smoking History Smoking history: Never smoked Have you smoked in the past 12 months: No Aproximately how many cigarettes per day: 0 If you are a former smoker, when did you quit?: 15 yrs - Social History Usual Living Arrangement: Other (lives with son in house with 12 steps to enter but none inside; she reports being previously Independent in ADLs/ IADLs without Assistive Device) Home Medications - Allergies Allergies/Adverse Reactions: Allergies Allergy/AdvReac Type Severity Reaction Status Date / Time No Known Allergies Allergy Verified 05/12/19 11:55 - Home Medications Home Medications: Ambulatory Orders Amitriptyline HCl [Elavil -] 25 mg PO DAILY 02/26/19 Aspirin [Aspirin EC] 81 mg PO DAILY 02/26/19 Atorvastatin Ca [Lipitor] 40 mg PO HS 02/26/19 Famotidine [Pepcid -] 20 mg PO BID 02/26/19 Tramadol HCl [Ultram] 50 mg PO BID 02/26/19 Amoxicillin/Potassium Clav [Augmentin 875-125 Tablet] 1 each PO BID #14 tablet 05/10/19 Glimepiride 2 mg PO DAILY 05/12/19 Review of Systems - Review of Systems Constitutional: reports: Malaise Eyes: reports: No Symptoms HENT: reports: No Symptoms Neck: reports: Pain on Movement Cardiovascular: reports: No Symptoms Respiratory: reports: No Symptoms Gastrointestinal: reports: No Symptoms Musculoskeletal: reports: Other (See HPI) Physical Exam Vital Signs: Vital Signs Temperature 97.5 F L 05/14/19 15:00 Pulse Rate 92 H 05/14/19 15:00 Respiratory Rate 05/14/19 15:00 Blood Pressure 133/78 05/14/19 15:00 O2 Sat by Pulse Oximetry (%) 98 05/14/19 09:00 Constitutional: Yes: Mild Distress Eyes: Yes: WNL HENT: Yes: WNL Neck: Yes: WNL Cardiovascular: Yes: WNL Respiratory: Yes: WNL Gastrointestinal: Yes: WNL Musculoskeletal: Yes: Other (Mild tenderness in the left shoulder over grater tuberosity (rotator cuff tendonitis) with limitation in active abduction, however passive range of movement was normal. No active joints and straight leg raising was negative. She did not have tenderness in fibrositic tender points.) Labs: CBC, BMP 05/13/19 05:37 05/13/19 05:38 Laboratory Tests 05/13/19 05/13/19 05/13/19 05:38 05:38 06:23 ESR 22 Hemoglobin A1c % Calcium 9.0 Phosphorus 4.4 Magnesium 2.5 H Total Bilirubin 0.6 AST 14 L ALT 17 Alkaline Phosphatase 74 Troponin I < 0.02 C-Reactive Protein 1.2 H Total Protein 6.3 L Albumin 3.4 Total Amylase 64 Lipase 242 TSH 1.11 Urine Color Urine Appearance Urine pH Ur Specific B[place]orn Urine Protein Urine Glucose (UA) Urine Ketones Urine Blood Urine Nitrite Urine Bilirubin Urine Urobilinogen Ur Leukocyte Esterase 05/14/19 05/14/19 07:13 14:00 ESR Hemoglobin A1c % 8.5 H Calcium Phosphorus Magnesium Total Bilirubin AST ALT Alkaline Phosphatase Troponin I C-Reactive Protein Total Protein Albumin Total Amylase Lipase TSH Urine Color Yellow Urine Appearance Clear Urine pH 5.5 Ur Specific [place] 1.024 Urine Protein Negative Urine Glucose (UA) 3+ H Urine Ketones Negative Urine Blood Negative Urine Nitrite Negative Urine Bilirubin Negative Urine Urobilinogen 0.2 Ur Leukocyte Esterase Negative Problem List - Problems (1) Spinal stenosis, lumbar region without neurogenic claudication Assessment/Plan: Pain in legs is probably related to both spinal stenosis and diabetic neuropathy. She does not have inflammatory arthritis and does not have fibromyalgia. Conservative treatment. Code(s): M48.061 - SPINAL STENOSIS, LUMBAR REGION WITHOUT NEUROGENIC DHRUV (2) Diabetic neuropathy Code(s): E11.40 - TYPE 2 DIABETES MELLITUS WITH DIABETIC NEUROPATHY, UNSP
[2019-05-14] MEDS ORDERED: ALPRAZolam 2 MG TABLET PO ONE (18:00)
[2019-05-14] MEDS: ATORVASTATIN CA 40 MG TABLET (FP) PO SCH (21:23)
[2019-05-14] MEDS: AMITRIPTYLINE HCL 25 MG TABLET (FP) PO SCH (21:23)
[2019-05-14] MEDS: traMADol HCL 50 MG TABLET PO PRN (21:31)
[2019-05-15] MEDS: VANCOMYCIN 1 GRAM (PRE-DOCKED) 1,000 MG/250 ML BAG IVPB SCH ×2 (01:31→14:11)
[2019-05-15] MEDS ORDERED: PT OWN MED DRAWER 7, Y5N ONE (06:01)
[2019-05-15] MEDS: metFORMIN HCL 500 MG TABLET (FP) PO SCH ×2 (06:50→17:40)
[2019-05-15] MEDS: GLIMEPIRIDE 4 MG TABLET (FP) PO SCH (06:51)
[2019-05-15] MEDS: sitaGLIPtin PHOSPHATE 50 MG TABLET PO SCH (06:51)
[2019-05-15] MEDS: INSULIN SLIDING SCALE (NOVOLOG) 1 VIAL SQ SCH ×4 (06:52→21:30)
[2019-05-15] MEDS: traMADol HCL 50 MG TABLET PO PRN ×2 (06:57→15:17)
[2019-05-15] MEDS ORDERED: DEXTROSE 5%-WATER 100 ML IVPB ONE (09:37)
[2019-05-15] MEDS: HEPARIN NA (PORCINE) 5,000 UNITS/ML 1ML VIAL SQ SCH ×2 (09:56→21:29)
[2019-05-15] MEDS: CEFTRIAXONE 2 GM in DEXTROSE 5%-WATER 100 ML IVPB SCH (09:56)
--- NOTE | 2019-05-15 14:08 | PN ---
Progress Note, Physician Chief Complaint: patient seen and examined - Current Medication List Current Medications: Active Medications Acetaminophen (Tylenol -) 650 mg PO Q6H PRN PRN Reason: PAIN OR FEVER Last Admin: 05/14/19 01:25 Dose: 650 mg Amitriptyline HCl (Elavil -) 25 mg PO [facility] Last Admin: 05/14/19 21:23 Dose: 25 mg Atorvastatin Calcium (Lipitor -) 40 mg PO [facility] Last Admin: 05/14/19 21:23 Dose: 40 mg Glimepiride (Amaryl -) 4 mg PO DAILY@0700 [facility] Last Admin: 05/15/19 06:51 Dose: 4 mg Heparin Sodium (Porcine) (Heparin -) 5,000 unit SQ BID [facility] Last Admin: 05/15/19 09:56 Dose: 5,000 unit Vancomycin HCl (Vancomycin (Pre-Docked)) 1,000 mg in 250 mls @ 166.667 mls/hr IVPB Q12H [facility]; Protocol Last Admin: 05/15/19 01:31 Dose: 166.667 mls/hr Ceftriaxone Sodium 2 gm/ (Dextrose) 100 mls @ 100 mls/hr IVPB DAILY [facility]; Protocol Last Admin: 05/15/19 09:56 Dose: 100 mls/hr Insulin Aspart (Novolog Vial Sliding Scale -) 1 vial SQ ACHS [facility]; Protocol Last Admin: 05/15/19 12:08 Dose: Not Given Metformin HCl (Glucophage -) 500 mg PO BID@0700,1630 [facility] Last Admin: 05/15/19 06:50 Dose: 500 mg Sitagliptin Phosphate (Januvia -) 50 mg PO DAILY@0700 [facility] Last Admin: 05/15/19 06:51 Dose: 50 mg Tramadol HCl (Ultram -) 50 mg PO Q6H PRN PRN Reason: PAIN LEVEL 7 - 10 Last Admin: 05/15/19 06:57 Dose: 50 mg - Objective Vital Signs: Vital Signs Temperature 98.4 F 05/15/19 09:00 Pulse Rate 87 05/15/19 09:00 Respiratory Rate 18 05/15/19 09:00 Blood Pressure 131/85 05/15/19 09:00 O2 Sat by Pulse Oximetry (%) 98 05/15/19 09:00 Constitutional: Yes: Calm Cardiovascular: Yes: Regular Rate and Rhythm, S1, S2 Respiratory: Yes: CTA Bilaterally Gastrointestinal: Yes: Normal Bowel Sounds, Soft Extremities: Yes: Other (swelling and erythema noted) Labs: CBC, BMP 05/13/19 05:37 05/13/19 05:38 Problem List - Problems (1) Toe infection Assessment/Plan: iv abx ID on board mri of foot -soft tissue edema/ osteo podairty on board crp ,esr Code(s): L08.9 - LOCAL INFECTION OF THE SKIN AND SUBCUTANEOUS TISSUE, UNSP (2) Diabetes Assessment/Plan: bgm hgba1c endocrine consult for metformin and glucophage sliding scale Code(s): E11.9 - TYPE 2 DIABETES MELLITUS WITHOUT COMPLICATIONS Qualifiers: Diabetes mellitus type: type 2 (3) Hyperlipidemia Assessment/Plan: statin lpid panel check GFR Code(s): E78.5 - HYPERLIPIDEMIA, UNSPECIFIED
--- NOTE | 2019-05-15 16:04 | PN ---
Progress Note (short form) - Note Progress Note: FUV left big toe. +improved cellulitis left hallux, -drainage, +improved tender, +om om IVABX as per ID. HBO consult ordered. will follow.
[2019-05-15] MEDS: AMITRIPTYLINE HCL 25 MG TABLET (FP) PO SCH (21:29)
[2019-05-15] MEDS: ATORVASTATIN CA 40 MG TABLET (FP) PO SCH (21:29)
--- NOTE | 2019-05-16 01:11 | PN ---
Progress Note, Physician Chief Complaint: MRI REPORT NOTED FAMILY AWARE OF OSTEO INVOLVED TOE - Current Medication List Current Medications: Active Medications Acetaminophen (Tylenol -) 650 mg PO Q6H PRN PRN Reason: PAIN OR FEVER Last Admin: 05/14/19 01:25 Dose: 650 mg Amitriptyline HCl (Elavil -) 25 mg PO HS [facility] Last Admin: 05/15/19 21:29 Dose: 25 mg Atorvastatin Calcium (Lipitor -) 40 mg PO [facility] Last Admin: 05/15/19 21:29 Dose: 40 mg Glimepiride (Amaryl -) 4 mg PO DAILY@0700 [facility] Last Admin: 05/15/19 06:51 Dose: 4 mg Heparin Sodium (Porcine) (Heparin -) 5,000 unit SQ BID [facility] Last Admin: 05/15/19 21:29 Dose: 5,000 unit Vancomycin HCl (Vancomycin (Pre-Docked)) 1,000 mg in 250 mls @ 166.667 mls/hr IVPB Q12H [facility]; Protocol Last Admin: 05/15/19 14:11 Dose: 166.667 mls/hr Ceftriaxone Sodium 2 gm/ (Dextrose) 100 mls @ 100 mls/hr IVPB DAILY [facility]; Protocol Last Admin: 05/15/19 09:56 Dose: 100 mls/hr Insulin Aspart (Novolog Vial Sliding Scale -) 1 vial SQ ACHS [facility]; Protocol Last Admin: 05/15/19 21:30 Dose: 2 units Metformin HCl (Glucophage -) 500 mg PO BID@0700,1630 [facility] Last Admin: 05/15/19 17:40 Dose: 500 mg Sitagliptin Phosphate (Januvia -) 50 mg PO DAILY@0700 [facility] Last Admin: 05/15/19 06:51 Dose: 50 mg Tramadol HCl (Ultram -) 50 mg PO Q6H PRN PRN Reason: PAIN LEVEL 7 - 10 Last Admin: 05/15/19 15:17 Dose: 50 mg - Objective Vital Signs: Vital Signs Temperature 98 F 05/15/19 20:56 Pulse Rate 96 H 05/15/19 20:56 Respiratory Rate 18 05/15/19 20:56 Blood Pressure 134/77 05/15/19 20:56 O2 Sat by Pulse Oximetry (%) 98 05/15/19 09:00 Constitutional: Yes: Calm Eyes: Yes: EOM Intact HENT: Yes: Normocephalic Neck: Yes: Trachea Midline Cardiovascular: Yes: Regular Rate and Rhythm Respiratory: Yes: CTA Bilaterally Gastrointestinal: Yes: Normal Bowel Sounds ...Rectal Exam: Yes: Deferred Musculoskeletal: Yes: WNL Edema: LLE: 1+ Integumentary: Yes: Onychomycosis, Venous Stasis Changes Wound/Incision: Yes: Open to air Neurological: Yes: Alert, Oriented Labs: CBC, BMP 05/13/19 05:37 05/13/19 05:38 Problem List - Problems (1) Diabetic neuropathy Code(s): E11.40 - TYPE 2 DIABETES MELLITUS WITH DIABETIC NEUROPATHY, UNSP (2) Hyperlipidemia Code(s): E78.5 - HYPERLIPIDEMIA, UNSPECIFIED (3) Toe infection Code(s): L08.9 - LOCAL INFECTION OF THE SKIN AND SUBCUTANEOUS TISSUE, UNSP (4) Anxiousness Code(s): F41.9 - ANXIETY DISORDER, UNSPECIFIED (5) Chest pain Code(s): R07.9 - CHEST PAIN, UNSPECIFIED Qualifiers: Chest pain type: unspecified Qualified Code(s): R07.9 - Chest pain, unspecified (6) Chest wall contusion Code(s): S20.219A - CONTUSION OF UNSPECIFIED FRONT WALL OF THORAX, INIT ENCNTR (7) Diabetes Code(s): E11.9 - TYPE 2 DIABETES MELLITUS WITHOUT COMPLICATIONS Qualifiers: Diabetes mellitus type: type 2 Assessment/Plan Current Active Problems OSTEOMYELITIS GREAT LTOE Diabetic neuropathy (Acute) Hyperlipidemia (Acute) Spinal stenosis, lumbar region without neurogenic claudication (Acute) Toe infection (Acute) Laboratory Results - last 24 hr 05/15/19 05/15/19 05/15/19 05:22 11:54 17:25 POC Glucometer 161 147 176 05/15/19 21:17 POC Glucometer 226 PLAN: WILL NEED IV ANTIOBITICS / ? NEED HYPERBARIC OXYGEN JANUMET GLIMIPERIDE
[2019-05-16] MEDS: traMADol HCL 50 MG TABLET PO PRN ×3 (01:20→23:19)
[2019-05-16] MEDS: VANCOMYCIN 1 GRAM (PRE-DOCKED) 1,000 MG/250 ML BAG IVPB SCH ×2 (01:27→13:30)
[2019-05-16] MEDS ORDERED: PT OWN MED DRAWER 7, Y5N ONE ×2 (06:50→10:53)
[2019-05-16] MEDS: metFORMIN HCL 500 MG TABLET (FP) PO SCH ×2 (07:00→18:11)
[2019-05-16] MEDS: GLIMEPIRIDE 4 MG TABLET (FP) PO SCH (07:01)
[2019-05-16] MEDS: INSULIN SLIDING SCALE (NOVOLOG) 1 VIAL SQ SCH ×4 (07:01→21:50)
[2019-05-16] MEDS ORDERED: INSULIN (NOVOLOG) ASPART 100 UNITS/ML 10ML VIAL ONE ×2 (07:11→21:08)
--- NOTE | 2019-05-16 08:05 | PN ---
Progress Note (short form) - Note Progress Note: FUV left big toe. +improved cellulitis left hallux, -drainage, +improved tender, +om om IVABX as per ID. HBO consult ordered. Dr. cardoza covering over weekend.
[2019-05-16 09:42] LABS: BASO % 1.1 % (0-2.0); EOS % 1.4 % (0-4.5); HEMOGLOBIN 13.3 GM/dL (10.7-15.3); LYMPH % 24.9 % (8-40); MCH 29.8 pg (25.7-33.7); MCHC 33.2 g/dl (32.0-36.0); MEAN CELL VOLUME 89.7 fl (80-96); MEAN PLT VOLUME 8.7 fl (7.5-11.1); MONO % 5.6 % (3.8-10.2); PLATELET COUNT 223 K/MM3 (134-434); RBC 4.46 M/mm3 (3.60-5.2); RDW 15.4 % (11.6-15.6); WHITE BLOOD COUNT 6.2 K/mm3 (4.0-10.0)
[2019-05-16 10:14] LABS: ALBUMIN 3.6 g/dl (3.4-5.0); BILIRUBIN,TOTAL 0.4 mg/dL (0.2-1); CALCIUM 8.9 mg/dL (8.5-10.1); CREATININE 0.7 mg/dL (0.55-1.3); POTASSIUM 4.3 mmol/L (3.5-5.1)
[2019-05-16] MEDS ORDERED: DEXTROSE 5%-WATER 100 ML IVPB ONE (10:53)
[2019-05-16] MEDS: CEFTRIAXONE 2 GM in DEXTROSE 5%-WATER 100 ML IVPB SCH (10:59)
[2019-05-16] MEDS: HEPARIN NA (PORCINE) 5,000 UNITS/ML 1ML VIAL SQ SCH ×2 (10:59→21:47)
--- NOTE | 2019-05-16 12:27 | PN ---
Progress Note, Physician History of Present Illness: C/O L GREAT TOE PAIN NO F/C MRI SUGGESTIVE OF OSTEOMYELITIS - Current Medication List Current Medications: Active Medications Acetaminophen (Tylenol -) 650 mg PO Q6H PRN PRN Reason: PAIN OR FEVER Last Admin: 05/14/19 01:25 Dose: 650 mg Amitriptyline HCl (Elavil -) 25 mg PO HS [facility] Last Admin: 05/15/19 21:29 Dose: 25 mg Atorvastatin Calcium (Lipitor -) 40 mg PO [facility] Last Admin: 05/15/19 21:29 Dose: 40 mg Glimepiride (Amaryl -) 4 mg PO DAILY@0700 [facility] Last Admin: 05/16/19 07:01 Dose: 4 mg Heparin Sodium (Porcine) (Heparin -) 5,000 unit SQ BID [facility] Last Admin: 05/16/19 10:59 Dose: 5,000 unit Vancomycin HCl (Vancomycin (Pre-Docked)) 1,000 mg in 250 mls @ 166.667 mls/hr IVPB Q12H [facility]; Protocol Last Admin: 05/16/19 01:27 Dose: 166.667 mls/hr Ceftriaxone Sodium 2 gm/ (Dextrose) 100 mls @ 100 mls/hr IVPB DAILY [facility]; Protocol Last Admin: 05/16/19 10:59 Dose: 100 mls/hr Insulin Aspart (Novolog Vial Sliding Scale -) 1 vial SQ ACHS [facility]; Protocol Last Admin: 05/16/19 07:01 Dose: Not Given Metformin HCl (Glucophage -) 1,000 mg PO BID@0700,1630 [facility] Last Admin: 05/16/19 07:00 Dose: 1,000 mg Sitagliptin Phosphate (Januvia -) 100 mg PO DAILY@0700 [facility] Last Admin: 05/16/19 07:00 Dose: 100 mg Tramadol HCl (Ultram -) 50 mg PO Q6H PRN PRN Reason: PAIN LEVEL 7 - 10 Last Admin: 05/16/19 01:20 Dose: 50 mg - Objective Vital Signs: Vital Signs Temperature 98 F 05/16/19 05:51 Pulse Rate 80 05/16/19 05:51 Respiratory Rate 18 05/16/19 05:51 Blood Pressure 131/78 05/16/19 05:51 O2 Sat by Pulse Oximetry (%) 98 05/15/19 21:00 Constitutional: Yes: Obese Cardiovascular: Yes: Regular Rate and Rhythm, S1, S2 Respiratory: Yes: CTA Bilaterally Gastrointestinal: Yes: Normal Bowel Sounds, Soft, Abdomen, Obese. No: Tenderness Extremities: Yes: Other (DECREASED ERYTHEMA GREAT TOE) Labs: CBC, BMP 05/16/19 08:48 05/16/19 08:48 Assessment/Plan CELLULITIS, GREAT TOE ? OSTEOMYELITIS DIABETES MELLITUS CONTINUE CEFTRIAXONE/ VANCOMYCIN ? BONE BX FOR CULTURE VS. EMPIRIC TX
--- NOTE | 2019-05-16 14:16 | PN ---
Progress Note, Physician Chief Complaint: patient seen and examined constipated - Current Medication List Current Medications: Active Medications Acetaminophen (Tylenol -) 650 mg PO Q6H PRN PRN Reason: PAIN OR FEVER Last Admin: 05/14/19 01:25 Dose: 650 mg Amitriptyline HCl (Elavil -) 25 mg PO [facility] Last Admin: 05/15/19 21:29 Dose: 25 mg Atorvastatin Calcium (Lipitor -) 40 mg PO [facility] Last Admin: 05/15/19 21:29 Dose: 40 mg Glimepiride (Amaryl -) 4 mg PO DAILY@0700 [facility] Last Admin: 05/16/19 07:01 Dose: 4 mg Heparin Sodium (Porcine) (Heparin -) 5,000 unit SQ BID [facility] Last Admin: 05/16/19 10:59 Dose: 5,000 unit Vancomycin HCl (Vancomycin (Pre-Docked)) 1,000 mg in 250 mls @ 166.667 mls/hr IVPB Q12H [facility]; Protocol Last Admin: 05/16/19 13:30 Dose: 166.667 mls/hr Ceftriaxone Sodium 2 gm/ (Dextrose) 100 mls @ 100 mls/hr IVPB DAILY [facility]; Protocol Last Admin: 05/16/19 10:59 Dose: 100 mls/hr Insulin Aspart (Novolog Vial Sliding Scale -) 1 vial SQ ACHS [facility]; Protocol Last Admin: 05/16/19 12:59 Dose: Not Given Metformin HCl (Glucophage -) 1,000 mg PO BID@0700,1630 [facility] Last Admin: 05/16/19 07:00 Dose: 1,000 mg Polyethylene Glycol (Miralax (For Daily Use) -) 17 gm PO DAILY [facility] Sitagliptin Phosphate (Januvia -) 100 mg PO DAILY@0700 [facility] Last Admin: 05/16/19 07:00 Dose: 100 mg Tramadol HCl (Ultram -) 50 mg PO Q6H PRN PRN Reason: PAIN LEVEL 7 - 10 Last Admin: 05/16/19 13:34 Dose: 50 mg - Objective Vital Signs: Vital Signs Temperature 98 F 05/16/19 05:51 Pulse Rate 80 05/16/19 05:51 Respiratory Rate 18 05/16/19 05:51 Blood Pressure 131/78 05/16/19 05:51 O2 Sat by Pulse Oximetry (%) 98 05/15/19 21:00 Constitutional: Yes: Calm Cardiovascular: Yes: Regular Rate and Rhythm, S1, S2 Respiratory: Yes: CTA Bilaterally Gastrointestinal: Yes: Normal Bowel Sounds, Soft Extremities: Yes: Other (great toe swelling and erythema reduced) Labs: CBC, BMP 05/16/19 08:48 05/16/19 08:48 Problem List - Problems (1) Toe infection Assessment/Plan: iv abx ID on board mri of foot -soft tissue edema/ osteo podairty on board- possible bone biopsy crp ,esr Code(s): L08.9 - LOCAL INFECTION OF THE SKIN AND SUBCUTANEOUS TISSUE, UNSP (2) Diabetes Assessment/Plan: bgm hgba1c 8.5 endocrine consult for metformin and glucophage sliding scale Code(s): E11.9 - TYPE 2 DIABETES MELLITUS WITHOUT COMPLICATIONS Qualifiers: Diabetes mellitus type: type 2 (3) Hyperlipidemia Assessment/Plan: change to crestor 40mg hs add lovaza 2 gm bid lpid panel noted GFR ok Code(s): E78.5 - HYPERLIPIDEMIA, UNSPECIFIED
[2019-05-16] MEDS: ACETAMINOPHEN 325 MG TABLET (FP) PO PRN (14:51)
[2019-05-16] MEDS: POLYETHYLENE GLYCOL 3350 119 GM BTL PO SCH (14:51)
[2019-05-16] MEDS: GABAPENTIN 100 MG CAPSULE (FP) PO SCH ×2 (16:09→21:46)
--- NOTE | 2019-05-16 18:06 | PN ---
Progress Note, Physician Chief Complaint: pain in toe - Current Medication List Current Medications: Active Medications Acetaminophen (Tylenol -) 650 mg PO Q6H PRN PRN Reason: PAIN OR FEVER Last Admin: 05/16/19 14:51 Dose: 650 mg Amitriptyline HCl (Elavil -) 25 mg PO HS [facility] Last Admin: 05/15/19 21:29 Dose: 25 mg Gabapentin (Neurontin -) 100 mg PO TID [facility] Last Admin: 05/16/19 16:09 Dose: 100 mg Glimepiride (Amaryl -) 4 mg PO DAILY@0700 [facility] Last Admin: 05/16/19 07:01 Dose: 4 mg Heparin Sodium (Porcine) (Heparin -) 5,000 unit SQ BID [facility] Last Admin: 05/16/19 10:59 Dose: 5,000 unit Vancomycin HCl (Vancomycin (Pre-Docked)) 1,000 mg in 250 mls @ 166.667 mls/hr IVPB Q12H [facility]; Protocol Last Admin: 05/16/19 13:30 Dose: 166.667 mls/hr Ceftriaxone Sodium 2 gm/ (Dextrose) 100 mls @ 100 mls/hr IVPB DAILY [facility]; Protocol Last Admin: 05/16/19 10:59 Dose: 100 mls/hr Insulin Aspart (Novolog Vial Sliding Scale -) 1 vial SQ ACHS [facility]; Protocol Last Admin: 05/16/19 12:59 Dose: Not Given Metformin HCl (Glucophage -) 1,000 mg PO BID@0700,1630 [facility] Last Admin: 05/16/19 07:00 Dose: 1,000 mg [id number] Ethyl Esters (Lovaza -) 2 gm PO BID [facility] Polyethylene Glycol (Miralax (For Daily Use) -) 17 gm PO DAILY [facility] Last Admin: 05/16/19 14:51 Dose: 17 grams Rosuvastatin Calcium (Crestor -) 40 mg PO [facility] Sitagliptin Phosphate (Januvia -) 100 mg PO DAILY@0700 [facility] Last Admin: 05/16/19 07:00 Dose: 100 mg Tramadol HCl (Ultram -) 50 mg PO Q6H PRN PRN Reason: PAIN LEVEL 7 - 10 Last Admin: 05/16/19 13:34 Dose: 50 mg - Objective Vital Signs: Vital Signs Temperature 98.3 F 05/16/19 17:11 Pulse Rate 97 H 05/16/19 17:11 Respiratory Rate 20 05/16/19 17:11 Blood Pressure 144/98 05/16/19 17:11 O2 Sat by Pulse Oximetry (%) 98 05/15/19 21:00 Constitutional: Yes: Calm Eyes: Yes: EOM Intact HENT: Yes: Normocephalic Neck: Yes: Trachea Midline Cardiovascular: Yes: Regular Rate and Rhythm Respiratory: Yes: CTA Bilaterally Gastrointestinal: Yes: Normal Bowel Sounds ...Rectal Exam: Yes: Deferred Genitourinary: Yes: WNL Breast(s): Yes: WNL Musculoskeletal: Yes: Back Pain, Joint Stiffness, Muscle Pain Extremities: Yes: WNL Edema: LLE: 1+ Peripheral Pulses WNL: Yes Wound/Incision: Yes: Open to air Neurological: Yes: Alert, Oriented Labs: CBC, BMP 05/16/19 08:48 05/16/19 08:48 Problem List - Problems (1) Diabetic neuropathy Code(s): E11.40 - TYPE 2 DIABETES MELLITUS WITH DIABETIC NEUROPATHY, UNSP Qualifiers: Diabetes mellitus type: type 2 (2) Hyperlipidemia Code(s): E78.5 - HYPERLIPIDEMIA, UNSPECIFIED (3) Toe infection Code(s): L08.9 - LOCAL INFECTION OF THE SKIN AND SUBCUTANEOUS TISSUE, UNSP (4) Anxiousness Code(s): F41.9 - ANXIETY DISORDER, UNSPECIFIED (5) Chest pain Code(s): R07.9 - CHEST PAIN, UNSPECIFIED Qualifiers: Chest pain type: unspecified Qualified Code(s): R07.9 - Chest pain, unspecified (6) Chest wall contusion Code(s): S20.219A - CONTUSION OF UNSPECIFIED FRONT WALL OF THORAX, INIT ENCNTR (7) Diabetes Code(s): E11.9 - TYPE 2 DIABETES MELLITUS WITHOUT COMPLICATIONS Qualifiers: Diabetes mellitus type: type 2 Assessment/Plan Current Active Problems Diabetic neuropathy (Acute) Hyperlipidemia (Acute) Spinal stenosis, lumbar region without neurogenic claudication (Acute) Toe infection (Acute) Abnormal Lab Results 05/16/19 08:48 BUN 19.0 H Random Glucose 156 H Triglycerides 660 H Cholesterol 223 H HDL Cholesterol 35 L Laboratory Results - last 24 hr 05/15/19 05/16/19 05/16/19 21:17 06:46 08:48 WBC 6.2 RBC 4.46 Hgb 13.3 Hct 40.0 MCV 89.7 MCH 29.8 MCHC 33.2 RDW 15.4 Plt Count 223 MPV 8.7 Absolute Neuts (auto) 4.2 Neutrophils % 67.0 Lymphocytes % 24.9 Monocytes % 5.6 Eosinophils % 1.4 Basophils % 1.1 Nucleated RBC % 0 Sodium Potassium Chloride Carbon Dioxide Anion Gap BUN Creatinine Est GFR (CKD-EPI)AfAm Est GFR (CKD-EPI)NonAf POC Glucometer 226 156 Random Glucose Calcium Total Bilirubin AST ALT Alkaline Phosphatase Total Protein Albumin Triglycerides Cholesterol Total LDL Cholesterol HDL Cholesterol 05/16/19 05/16/19 08:48 12:58 WBC RBC Hgb Hct MCV MCH MCHC RDW Plt Count MPV Absolute Neuts (auto) Neutrophils % Lymphocytes % Monocytes % Eosinophils % Basophils % Nucleated RBC % Sodium 139 Potassium 4.3 Chloride 102 Carbon Dioxide 29 Anion Gap 8 BUN 19.0 H Creatinine 0.7 Est GFR (CKD-EPI)AfAm 99.62 Est GFR (CKD-EPI)NonAf 85.95 POC Glucometer 165 Random Glucose 156 H Calcium 8.9 Total Bilirubin 0.4 AST 20 ALT 24 Alkaline Phosphatase 82 Total Protein 7.0 Albumin 3.6 Triglycerides 660 H Cholesterol 223 H Total LDL Cholesterol 90 HDL Cholesterol 35 L plan: glimiperide 4mg daily januvia 100mg metformin 1gm bid
[2019-05-16] MEDS: AMITRIPTYLINE HCL 25 MG TABLET (FP) PO SCH (21:46)
[2019-05-16] MEDS: OMEGA-3 ACID ETHYL ESTERS (FATTY-ACIDS) 1 GM CAPSULE (FP) PO SCH (21:56)
[2019-05-16] MEDS ORDERED: ROSUVASTATIN CA 40 MG TABLET PO SCH (22:00)
[2019-05-17] MEDS: VANCOMYCIN 1 GRAM (PRE-DOCKED) 1,000 MG/250 ML BAG IVPB SCH ×2 (00:23→16:11)
[2019-05-17] MEDS: ACETAMINOPHEN 325 MG TABLET (FP) PO PRN (00:54)
[2019-05-17] MEDS: metFORMIN HCL 500 MG TABLET (FP) PO SCH ×2 (06:04→16:55)
[2019-05-17] MEDS: GABAPENTIN 100 MG CAPSULE (FP) PO SCH ×3 (06:04→21:59)
[2019-05-17] MEDS: GLIMEPIRIDE 4 MG TABLET (FP) PO SCH (06:05)
[2019-05-17] MEDS: INSULIN SLIDING SCALE (NOVOLOG) 1 VIAL SQ SCH ×4 (06:20→21:47)
[2019-05-17] MEDS ORDERED: GLIMEPIRIDE 2 MG TABLET (FP) PO SCH (07:00)
--- NOTE | 2019-05-17 09:12 | PN ---
Progress Note (short form) - Note Progress Note: FUV Left big toe +improved cellulitis left hallux -drainage + improved +om IVABX as per ID
[2019-05-17] MEDS ORDERED: PT OWN MED DRAWER 7, Y5N ONE (10:00)
[2019-05-17] MEDS ORDERED: DEXTROSE 5%-WATER 100 ML IVPB ONE (10:00)
[2019-05-17] MEDS: CEFTRIAXONE 2 GM in DEXTROSE 5%-WATER 100 ML IVPB SCH (10:18)
[2019-05-17] MEDS: HEPARIN NA (PORCINE) 5,000 UNITS/ML 1ML VIAL SQ SCH ×2 (10:18→21:59)
--- NOTE | 2019-05-17 10:22 | PN ---
Progress Note, Physician - Current Medication List Current Medications: Active Medications Acetaminophen (Tylenol -) 650 mg PO Q6H PRN PRN Reason: PAIN OR FEVER Last Admin: 05/17/19 00:54 Dose: 650 mg Amitriptyline HCl (Elavil -) 25 mg PO HS [facility] Last Admin: 05/16/19 21:46 Dose: 25 mg Gabapentin (Neurontin -) 100 mg PO TID [facility] Last Admin: 05/17/19 06:04 Dose: 100 mg Glimepiride (Amaryl -) 4 mg PO DAILY@0700 [facility] Last Admin: 05/17/19 06:05 Dose: 4 mg Heparin Sodium (Porcine) (Heparin -) 5,000 unit SQ BID [facility] Last Admin: 05/16/19 21:47 Dose: 5,000 unit Vancomycin HCl (Vancomycin (Pre-Docked)) 1,000 mg in 250 mls @ 166.667 mls/hr IVPB Q12H [facility]; Protocol Last Admin: 05/17/19 00:23 Dose: 166.667 mls/hr Ceftriaxone Sodium 2 gm/ (Dextrose) 100 mls @ 100 mls/hr IVPB DAILY [facility]; Protocol Last Admin: 05/16/19 10:59 Dose: 100 mls/hr Insulin Aspart (Novolog Vial Sliding Scale -) 1 vial SQ ACHS [facility]; Protocol Last Admin: 05/17/19 06:20 Dose: Not Given Metformin HCl (Glucophage -) 1,000 mg PO BID@0700,1630 [facility] Last Admin: 05/17/19 06:04 Dose: 1,000 mg Tvewi-2-Fyka Ethyl Esters (Lovaza -) 2 gm PO BID [facility] Last Admin: 05/16/19 21:56 Dose: 2 gm Polyethylene Glycol (Miralax (For Daily Use) -) 17 gm PO DAILY [facility] Last Admin: 05/16/19 14:51 Dose: 17 grams Rosuvastatin Calcium (Crestor -) 40 mg PO [facility] Sitagliptin Phosphate (Januvia -) 100 mg PO DAILY@0700 [facility] Last Admin: 05/17/19 06:05 Dose: 100 mg Tramadol HCl (Ultram -) 50 mg PO Q6H PRN PRN Reason: PAIN LEVEL 7 - 10 Last Admin: 05/16/19 23:19 Dose: 50 mg - Objective Vital Signs: Vital Signs Temperature 98.0 F 05/16/19 21:52 Pulse Rate 93 H 05/16/19 21:52 Respiratory Rate 18 05/16/19 21:52 Blood Pressure 131/85 05/16/19 21:52 O2 Sat by Pulse Oximetry (%) 98 05/16/19 20:57 Cardiovascular: Yes: Regular Rate and Rhythm Respiratory: Yes: Regular, CTA Bilaterally Gastrointestinal: Yes: Normal Bowel Sounds, Soft Extremities: Yes: Erythema, Other (tenderness) Edema: Yes Labs: CBC, BMP 05/16/19 08:48 05/16/19 08:48 Assessment/Plan - Problems (1) Toe infection Assessment/Plan: iv abx ID on board mri of foot -soft tissue edema/ osteo podairty on board- possible bone biopsy crp ,esr Code(s): L08.9 - LOCAL INFECTION OF THE SKIN AND SUBCUTANEOUS TISSUE, UNSP (2) Diabetes Assessment/Plan: bgm hgba1c 8.5 endocrine consult for metformin and glucophage sliding scale Code(s): E11.9 - TYPE 2 DIABETES MELLITUS WITHOUT COMPLICATIONS Qualifiers: Diabetes mellitus type: type 2 (3) Hyperlipidemia Assessment/Plan: change to crestor 40mg hs add lovaza 2 gm bid lpid panel noted GFR ok Code(s): E78.5 - HYPERLIPIDEMIA, UNSPECIFIED
[2019-05-17] MEDS: POLYETHYLENE GLYCOL 3350 119 GM BTL PO SCH (10:24)
[2019-05-17] MEDS: traMADol HCL 50 MG TABLET PO PRN ×2 (11:33→22:47)
[2019-05-17] MEDS: OMEGA-3 ACID ETHYL ESTERS (FATTY-ACIDS) 1 GM CAPSULE (FP) PO SCH ×2 (11:41→22:47)
--- NOTE | 2019-05-17 21:27 | PN ---
Progress Note, Physician Chief Complaint: recent events have her worried about toe infection blood sugars improved - Current Medication List Current Medications: Active Medications Acetaminophen (Tylenol -) 650 mg PO Q6H PRN PRN Reason: PAIN OR FEVER Last Admin: 05/17/19 00:54 Dose: 650 mg Amitriptyline HCl (Elavil -) 25 mg PO HS [facility] Last Admin: 05/16/19 21:46 Dose: 25 mg Gabapentin (Neurontin -) 100 mg PO TID [facility] Last Admin: 05/17/19 15:09 Dose: 100 mg Glimepiride (Amaryl -) 4 mg PO DAILY@0700 [facility] Last Admin: 05/17/19 06:05 Dose: 4 mg Heparin Sodium (Porcine) (Heparin -) 5,000 unit SQ BID [facility] Last Admin: 05/17/19 10:18 Dose: 5,000 unit Vancomycin HCl (Vancomycin (Pre-Docked)) 1,000 mg in 250 mls @ 166.667 mls/hr IVPB Q12H [facility]; Protocol Last Admin: 05/17/19 16:11 Dose: 166.667 mls/hr Ceftriaxone Sodium 2 gm/ (Dextrose) 100 mls @ 100 mls/hr IVPB DAILY [facility]; Protocol Last Admin: 05/17/19 10:18 Dose: 100 mls/hr Insulin Aspart (Novolog Vial Sliding Scale -) 1 vial SQ ACHS [facility]; Protocol Last Admin: 05/17/19 16:55 Dose: Not Given Metformin HCl (Glucophage -) 1,000 mg PO BID@0700,1630 [facility] Last Admin: 05/17/19 16:55 Dose: 1,000 mg Ptbwr-8-[id number] Ethyl Esters (Lovaza -) 2 gm PO BID [facility] Last Admin: 05/17/19 11:41 Dose: Not Given Polyethylene Glycol (Miralax (For Daily Use) -) 17 gm PO DAILY [facility] Last Admin: 05/17/19 10:24 Dose: 17 grams Rosuvastatin Calcium (Crestor -) 40 mg PO [facility] Sitagliptin Phosphate (Januvia -) 100 mg PO DAILY@0700 [facility] Last Admin: 05/17/19 06:05 Dose: 100 mg Tramadol HCl (Ultram -) 50 mg PO Q6H PRN PRN Reason: PAIN LEVEL 7 - 10 Last Admin: 05/17/19 11:33 Dose: 50 mg - Objective Vital Signs: Vital Signs Temperature 98.2 F 05/17/19 16:30 Pulse Rate 96 H 05/17/19 16:30 Respiratory Rate 20 05/17/19 16:30 Blood Pressure 139/78 05/17/19 16:30 O2 Sat by Pulse Oximetry (%) 98 05/17/19 09:00 Constitutional: Yes: Calm Eyes: Yes: EOM Intact HENT: Yes: Normocephalic Neck: Yes: Trachea Midline Respiratory: Yes: CTA Bilaterally Gastrointestinal: Yes: Normal Bowel Sounds ...Rectal Exam: Yes: Deferred Musculoskeletal: Yes: Joint Stiffness, Joint Swelling, Muscle Pain Extremities: Yes: Delayed Capillary Refill Edema: No Wound/Incision: Yes: Dressing Dry and Intact Neurological: Yes: Alert, Oriented Labs: CBC, BMP 05/16/19 08:48 05/16/19 08:48 Problem List - Problems (1) Diabetic neuropathy Code(s): E11.40 - TYPE 2 DIABETES MELLITUS WITH DIABETIC NEUROPATHY, UNSP Qualifiers: Diabetes mellitus type: type 2 (2) Hyperlipidemia Code(s): E78.5 - HYPERLIPIDEMIA, UNSPECIFIED Qualifiers: Hyperlipidemia type: moderate mixed hyperlipidemia not requiring statin therapy Qualified Code(s): E78.2 - Mixed hyperlipidemia (3) Toe infection Code(s): L08.9 - LOCAL INFECTION OF THE SKIN AND SUBCUTANEOUS TISSUE, UNSP (4) Anxiousness Code(s): F41.9 - ANXIETY DISORDER, UNSPECIFIED (5) Chest pain Code(s): R07.9 - CHEST PAIN, UNSPECIFIED Qualifiers: Chest pain type: unspecified Qualified Code(s): R07.9 - Chest pain, unspecified (6) Chest wall contusion Code(s): S20.219A - CONTUSION OF UNSPECIFIED FRONT WALL OF THORAX, INIT ENCNTR (7) Diabetes Code(s): E11.9 - TYPE 2 DIABETES MELLITUS WITHOUT COMPLICATIONS Qualifiers: Diabetes mellitus type: type 2 Assessment/Plan Current Active Problems Diabetic neuropathy (Acute) Hyperlipidemia (Acute) Spinal stenosis, lumbar region without neurogenic claudication (Acute) Toe infection (Acute) Abnormal Lab Results Laboratory Results - last 24 hr 05/17/19 05/17/19 12:01 16:43 79 191 Laboratory Tests 05/14/19 05/16/19 05/16/19 07:13 06:46 12:58 POC Glucometer 156 165 Hemoglobin A1c % 8.5 H 05/16/19 05/16/19 05/17/19 18:10 21:45 06:04 POC Glucometer 88 135 138 Hemoglobin A1c % 05/17/19 05/17/19 12:01 16:43 POC Glucometer 79 191 Hemoglobin A1c % plan: [id number] bid januvia 100mg daily amaryl 4mg /day
[2019-05-17] MEDS: AMITRIPTYLINE HCL 25 MG TABLET (FP) PO SCH (21:59)
[2019-05-17] MEDS: ROSUVASTATIN CA 20 MG TABLET (FP) PO SCH (22:00)
[2019-05-18] MEDS: VANCOMYCIN 1 GRAM (PRE-DOCKED) 1,000 MG/250 ML BAG IVPB SCH ×2 (02:15→12:34)
[2019-05-18] MEDS ORDERED: PT OWN MED DRAWER 7, Y5N ONE (06:43)
[2019-05-18] MEDS: GABAPENTIN 100 MG CAPSULE (FP) PO SCH ×3 (06:47→21:28)
[2019-05-18] MEDS: metFORMIN HCL 500 MG TABLET (FP) PO SCH ×2 (06:47→17:36)
[2019-05-18] MEDS: GLIMEPIRIDE 4 MG TABLET (FP) PO SCH (06:48)
[2019-05-18] MEDS: INSULIN SLIDING SCALE (NOVOLOG) 1 VIAL SQ SCH ×4 (06:48→22:24)
[2019-05-18] MEDS ORDERED: DEXTROSE 5%-WATER 100 ML IVPB ONE (09:35)
[2019-05-18] MEDS: OMEGA-3 ACID ETHYL ESTERS (FATTY-ACIDS) 1 GM CAPSULE (FP) PO SCH ×2 (09:40→21:28)
[2019-05-18] MEDS: POLYETHYLENE GLYCOL 3350 119 GM BTL PO SCH (09:40)
[2019-05-18] MEDS: HEPARIN NA (PORCINE) 5,000 UNITS/ML 1ML VIAL SQ SCH ×2 (09:41→21:28)
[2019-05-18] MEDS: CEFTRIAXONE 2 GM in DEXTROSE 5%-WATER 100 ML IVPB SCH (09:41)
--- NOTE | 2019-05-18 11:53 | PN ---
Progress Note, Physician Chief Complaint: Osteomyelitis HLD History of Present Illness: Previous notes and events reviewed awake and alert NAD complain of pain to L great toe, tender on palpation denies chest pain or SOB - Current Medication List Current Medications: Active Medications Acetaminophen (Tylenol -) 650 mg PO Q6H PRN PRN Reason: PAIN OR FEVER Last Admin: 05/17/19 00:54 Dose: 650 mg Amitriptyline HCl (Elavil -) 25 mg PO HS [facility] Last Admin: 05/17/19 21:59 Dose: 25 mg Gabapentin (Neurontin -) 100 mg PO TID [facility] Last Admin: 05/18/19 06:47 Dose: 100 mg Glimepiride (Amaryl -) 4 mg PO DAILY@0700 [facility] Last Admin: 05/18/19 06:48 Dose: 4 mg Heparin Sodium (Porcine) (Heparin -) 5,000 unit SQ BID [facility] Last Admin: 05/18/19 09:41 Dose: 5,000 unit Vancomycin HCl (Vancomycin (Pre-Docked)) 1,000 mg in 250 mls @ 166.667 mls/hr IVPB Q12H [facility]; Protocol Last Admin: 05/18/19 02:15 Dose: 166.667 mls/hr Ceftriaxone Sodium 2 gm/ (Dextrose) 100 mls @ 100 mls/hr IVPB DAILY [facility]; Protocol Last Admin: 05/18/19 09:41 Dose: 100 mls/hr Insulin Aspart (Novolog Vial Sliding Scale -) 1 vial SQ ACHS [facility]; Protocol Last Admin: 05/18/19 06:48 Dose: Not Given Metformin HCl (Glucophage -) 1,000 mg PO BID@0700,1630 [facility] Last Admin: 05/18/19 06:47 Dose: 1,000 mg Kfcmx-7-Yxll Ethyl Esters (Lovaza -) 2 gm PO BID [facility] Last Admin: 05/18/19 09:40 Dose: 2 gm Polyethylene Glycol (Miralax (For Daily Use) -) 17 gm PO DAILY [facility] Last Admin: 05/18/19 09:40 Dose: 17 grams Rosuvastatin Calcium (Crestor -) 40 mg PO HS [facility] Last Admin: 05/17/19 22:00 Dose: 40 mg Sitagliptin Phosphate (Januvia -) 100 mg PO DAILY@0700 [facility] Last Admin: 05/18/19 06:48 Dose: 100 mg Tramadol HCl (Ultram -) 50 mg PO Q6H PRN PRN Reason: PAIN LEVEL 7 - 10 Last Admin: 05/17/19 22:47 Dose: 50 mg - Objective Vital Signs: Vital Signs Temperature 97.8 F 05/18/19 06:00 Pulse Rate 84 05/18/19 06:00 Respiratory Rate 20 05/18/19 06:00 Blood Pressure 105/63 05/18/19 06:00 O2 Sat by Pulse Oximetry (%) 98 05/17/19 09:00 Constitutional: Yes: No Distress, Calm Eyes: Yes: Conjunctiva Clear HENT: Yes: Atraumatic Cardiovascular: Yes: Regular Rate and Rhythm Respiratory: Yes: Regular, CTA Bilaterally Gastrointestinal: Yes: Normal Bowel Sounds, Soft Musculoskeletal: Yes: WNL Extremities: Yes: Other (L great toe swelling) Edema: No Neurological: Yes: Alert, Oriented Psychiatric: Yes: Alert, Oriented Labs: CBC, BMP 05/16/19 08:48 05/16/19 08:48 Microbiology 05/12/19 14:26 Blood - Peripheral Venous Blood Culture - Final NO GROWTH AFTER 5 DAYS INCUBATION 05/12/19 14:26 Blood - Peripheral Venous Blood Culture - Final NO GROWTH AFTER 5 DAYS INCUBATION 05/14/19 15:15 Urine - Urine Clean Catch Urine Culture - Final NO GROWTH OBTAINED Problem List - Problems (1) Hyperlipidemia Assessment/Plan: -Lovaza and Crestor Code(s): E78.5 - HYPERLIPIDEMIA, UNSPECIFIED Qualifiers: Hyperlipidemia type: moderate mixed hyperlipidemia not requiring statin therapy Qualified Code(s): E78.2 - Mixed hyperlipidemia (2) Toe infection Assessment/Plan: -ID, Vascular, Podiatry on board -Vancomycin, Ceftriaxone -afebrile -no leukocytosis -MRI shows diffuse bone marrow edema of the proximal phalanx of the hallux with more focal area of increased T2 signal distally with mild deformity and mild bone marrow edema of the distal phalanx, bone marrow edema is nonspecific and could be due to the fracture which is questionably seen on xray involving distal aspect of the proximal phalanx with periosteal reaction, however in setting of an adjacent soft tissue infectious process the bone marrow edema and periosteal reaction likely represent osteomyelitis and the faint bone marrow edema of the distal phalanx in the setting of an infectious process is suspicious for osteomyelitis -will need PICC line placed for jail antibiotic therapy -pain control Code(s): L08.9 - LOCAL INFECTION OF THE SKIN AND SUBCUTANEOUS TISSUE, UNSP (3) Diabetes Assessment/Plan: -BGM ACHS -Januvia, Amaryl, Metformin -ISS -HgA1c 8.5% -diabetic diet Code(s): E11.9 - TYPE 2 DIABETES MELLITUS WITHOUT COMPLICATIONS Qualifiers: Diabetes mellitus type: type 2 (4) Diabetic neuropathy Assessment/Plan: -Neurontin Code(s): E11.40 - TYPE 2 DIABETES MELLITUS WITH DIABETIC NEUROPATHY, UNSP Qualifiers: Diabetes mellitus type: type 2 Assessment/Plan see problem list DVT ppx PICC line placement for d/c
[2019-05-18] MEDS: traMADol HCL 50 MG TABLET PO PRN ×2 (12:33→21:26)
[2019-05-18] MEDS: ACETAMINOPHEN 325 MG TABLET (FP) PO PRN (15:12)
--- NOTE | 2019-05-18 19:16 | CONSULT ---
Consult Consult Specialty:: orthopedics - History of Present Illness History of Present Illness: 73y/o female c/o right hand pain x2 months s/p small finger trigger finger release. She also underwent a Carpal tunnel release and trigger thumb release at the same time performed by Dr. Appiah. She c/o pain near the incision site of the small finger. She denies any clicking or locking. She states she is going to a SNF soon for IV ABX and wanted to do therapy for the hand. - History Source History Provided By: Patient, Medical Record - Past Medical History [employer]: Yes: Vertigo Cardio/Vascular: Yes: CAD, HTN, Hyperlipdemia Pulmonary: Yes: COPD Gastrointestinal: Yes: Gastritis, GERD Musculoskeletal: Yes: Other (S/P right total knee replacement) Endocrine: Yes: Diabetes Mellitus - Past Surgical History Past Surgical History: Yes: Joint Replacement - Alcohol/Substance Use Hx Alcohol Use: No - Smoking History Smoking history: Never smoked Have you smoked in the past 12 months: No Aproximately how many cigarettes per day: 0 If you are a former smoker, when did you quit?: 15 yrs - Social History Usual Living Arrangement: Other (lives with son in house with 12 steps to enter but none inside; she reports being previously Independent in ADLs/ IADLs without Assistive Device) Home Medications - Allergies Allergies/Adverse Reactions: Allergies Allergy/AdvReac Type Severity Reaction Status Date / Time No Known Allergies Allergy Verified 05/12/19 11:55 - Home Medications Home Medications: Ambulatory Orders Amitriptyline HCl [Elavil -] 25 mg PO DAILY 02/26/19 Aspirin [Aspirin EC] 81 mg PO DAILY 02/26/19 Atorvastatin Ca [Lipitor] 40 mg PO HS 02/26/19 Famotidine [Pepcid -] 20 mg PO BID 02/26/19 Tramadol HCl [Ultram] 50 mg PO BID 02/26/19 Amoxicillin/Potassium Clav [Augmentin 875-125 Tablet] 1 each PO BID #14 tablet 05/10/19 Glimepiride 2 mg PO DAILY 05/12/19 Review of Systems - Review of Systems Constitutional: reports: No Symptoms Eyes: reports: No Symptoms HENT: reports: No Symptoms Neck: reports: No Symptoms Cardiovascular: reports: No Symptoms Respiratory: reports: No Symptoms Gastrointestinal: reports: No Symptoms Genitourinary: reports: No Symptoms Breasts: reports: No Symptoms Reported Musculoskeletal: reports: Extremity Pain Integumentary: reports: No Symptoms Neurological: reports: No Symptoms Endocrine: reports: No Symptoms Hematology/Lymphatic: reports: No Symptoms Physical Exam Vital Signs: Vital Signs Temperature 97.5 F L 05/18/19 16:30 Pulse Rate 99 H 05/18/19 16:30 Respiratory Rate 18 05/18/19 16:30 Blood Pressure 127/75 05/18/19 16:30 O2 Sat by Pulse Oximetry (%) 98 05/17/19 09:00 Constitutional: Yes: Well Nourished, No Distress, Calm HENT: Yes: Atraumatic, Normocephalic Musculoskeletal: Yes: Other (Right hand: Healed surgical incisons from small and thumb TFR. Also healed CTR incision. There is mild tenderness along the small finger surgical incision. No triggering. She is able to activly flex and extend the fingers fully. Flexor and extensor tendons intact. No erythema or ecchymosis. No evidence of flexor tenosynovitis. NVID.) Labs: CBC, BMP 05/16/19 08:48 05/16/19 08:48 Assessment/Plan #1 s/p small, thumb TFR and CTR, right -Discussed today's findings and treatment options with the patent. I have recommended therapy when she goes to the SNF. She will contact the office to have a prescription faxed when she goes. If she continues to have pain or any other problems after another month she will f/u with Dr. Appiah as an outpatient.
[2019-05-18] MEDS: ROSUVASTATIN CA 20 MG TABLET (FP) PO SCH (21:28)
[2019-05-18] MEDS: AMITRIPTYLINE HCL 25 MG TABLET (FP) PO SCH (21:28)
[2019-05-19] MEDS: VANCOMYCIN 1 GRAM (PRE-DOCKED) 1,000 MG/250 ML BAG IVPB SCH ×2 (01:24→15:01)
[2019-05-19] MEDS ORDERED: PT OWN MED DRAWER 7, Y5N ONE (06:32)
[2019-05-19] MEDS: metFORMIN HCL 500 MG TABLET (FP) PO SCH ×2 (06:34→16:41)
[2019-05-19] MEDS: GABAPENTIN 100 MG CAPSULE (FP) PO SCH ×2 (06:34→15:01)
[2019-05-19] MEDS: INSULIN SLIDING SCALE (NOVOLOG) 1 VIAL SQ SCH ×3 (06:35→16:40)
[2019-05-19] MEDS: GLIMEPIRIDE 4 MG TABLET (FP) PO SCH (06:35)
--- NOTE | 2019-05-19 08:05 | PN ---
Progress Note, Physician - Current Medication List Current Medications: Active Medications Acetaminophen (Tylenol -) 650 mg PO Q6H PRN PRN Reason: PAIN OR FEVER Last Admin: 05/18/19 15:12 Dose: 650 mg Amitriptyline HCl (Elavil -) 25 mg PO HS [facility] Last Admin: 05/18/19 21:28 Dose: 25 mg Gabapentin (Neurontin -) 100 mg PO TID [facility] Last Admin: 05/19/19 06:34 Dose: 100 mg Glimepiride (Amaryl -) 4 mg PO DAILY@0700 [facility] Last Admin: 05/19/19 06:35 Dose: 4 mg Heparin Sodium (Porcine) (Heparin -) 5,000 unit SQ BID [facility] Last Admin: 05/18/19 21:28 Dose: 5,000 unit Vancomycin HCl (Vancomycin (Pre-Docked)) 1,000 mg in 250 mls @ 166.667 mls/hr IVPB Q12H [facility]; Protocol Last Admin: 05/19/19 01:24 Dose: 166.667 mls/hr Ceftriaxone Sodium 2 gm/ (Dextrose) 100 mls @ 100 mls/hr IVPB DAILY [facility]; Protocol Last Admin: 05/18/19 09:41 Dose: 100 mls/hr Insulin Aspart (Novolog Vial Sliding Scale -) 1 vial SQ ACHS [facility]; Protocol Last Admin: 05/19/19 06:35 Dose: Not Given Metformin HCl (Glucophage -) 1,000 mg PO BID@0700,1630 [facility] Last Admin: 05/19/19 06:34 Dose: 1,000 mg Zciyu-7-Torg Ethyl Esters (Lovaza -) 2 gm PO BID [facility] Last Admin: 05/18/19 21:28 Dose: 2 gm Polyethylene Glycol (Miralax (For Daily Use) -) 17 gm PO DAILY [facility] Last Admin: 05/18/19 09:40 Dose: 17 grams Rosuvastatin Calcium (Crestor -) 40 mg PO HS [facility] Last Admin: 05/18/19 21:28 Dose: 40 mg Sitagliptin Phosphate (Januvia -) 100 mg PO DAILY@0700 [facility] Last Admin: 05/19/19 06:35 Dose: 100 mg Tramadol HCl (Ultram -) 50 mg PO Q6H PRN PRN Reason: PAIN LEVEL 7 - 10 Last Admin: 05/18/19 21:26 Dose: 50 mg - Objective Vital Signs: Vital Signs Temperature 97.7 F 05/19/19 06:30 Pulse Rate 83 05/19/19 06:30 Respiratory Rate 20 05/19/19 06:30 Blood Pressure 109/71 05/19/19 06:30 O2 Sat by Pulse Oximetry (%) 97 05/18/19 21:00 Labs: CBC, BMP 05/16/19 08:48 05/16/19 08:48 Problem List - Problems (1) Toe infection Code(s): L08.9 - LOCAL INFECTION OF THE SKIN AND SUBCUTANEOUS TISSUE, UNSP (2) Anxiousness Code(s): F41.9 - ANXIETY DISORDER, UNSPECIFIED (3) Cellulitis Code(s): L03.90 - CELLULITIS, UNSPECIFIED (4) Diabetes Code(s): E11.9 - TYPE 2 DIABETES MELLITUS WITHOUT COMPLICATIONS Qualifiers: Diabetes mellitus type: type 2 (5) Neuropathic arthritis Code(s): M14.60 - CHARCOT'S JOINT, UNSPECIFIED SITE
[2019-05-19 08:29] LABS: HEMATOCRIT 38.5 % (32.4-45.2); HEMOGLOBIN 12.8 GM/dL (10.7-15.3); MCH 29.8 pg (25.7-33.7); MCHC 33.2 g/dl (32.0-36.0); MEAN CELL VOLUME 89.7 fl (80-96); MEAN PLT VOLUME 8.9 fl (7.5-11.1); PLATELET COUNT 194 K/MM3 (134-434); RBC 4.29 M/mm3 (3.60-5.2); RDW 15.1 % (11.6-15.6); WHITE BLOOD COUNT 5.4 K/mm3 (4.0-10.0)
[2019-05-19 09:07] LABS: ALBUMIN 3.5 g/dl (3.4-5.0); BILIRUBIN,TOTAL 0.3 mg/dL (0.2-1); BLOOD UREA NITROGEN 13.8 mg/dL (7-18); CALCIUM 8.9 mg/dL (8.5-10.1); CREATININE 0.6 mg/dL (0.55-1.3); TOT PROT 6.8 g/dl (6.4-8.2)
[2019-05-19] MEDS ORDERED: DEXTROSE 5%-WATER 100 ML IVPB ONE (09:20)
[2019-05-19] MEDS: OMEGA-3 ACID ETHYL ESTERS (FATTY-ACIDS) 1 GM CAPSULE (FP) PO SCH (09:31)
[2019-05-19] MEDS: POLYETHYLENE GLYCOL 3350 119 GM BTL PO SCH (09:31)
[2019-05-19] MEDS: CEFTRIAXONE 2 GM in DEXTROSE 5%-WATER 100 ML IVPB SCH (09:31)
[2019-05-19] MEDS: HEPARIN NA (PORCINE) 5,000 UNITS/ML 1ML VIAL SQ SCH (09:31)
[2019-05-19] MEDS: traMADol HCL 50 MG TABLET PO PRN (09:31)
--- NOTE | 2019-05-19 10:56 | CON.ORTH ---
Consult Reason for Consultation:: right hand pain - Past Medical History [employer]: Yes: Vertigo Cardio/Vascular: Yes: CAD, HTN, Hyperlipdemia Pulmonary: Yes: COPD Gastrointestinal: Yes: Gastritis, GERD Musculoskeletal: Yes: Other (S/P right total knee replacement) Endocrine: Yes: Diabetes Mellitus - Past Surgical History Past Surgical History: Yes: Joint Replacement - Alcohol/Substance Use Hx Alcohol Use: No - Smoking History Smoking history: Never smoked Have you smoked in the past 12 months: No Aproximately how many cigarettes per day: 0 If you are a former smoker, when did you quit?: 15 yrs - Social History Usual Living Arrangement: Other (lives with son in house with 12 steps to enter but none inside; she reports being previously Independent in ADLs/ IADLs without Assistive Device) Home Medications - Allergies Allergies/Adverse Reactions: Allergies Allergy/AdvReac Type Severity Reaction Status Date / Time No Known Allergies Allergy Verified 05/12/19 11:55 - Home Medications Home Medications: Ambulatory Orders Amitriptyline HCl [Elavil -] 25 mg PO DAILY 02/26/19 Aspirin [Aspirin EC] 81 mg PO DAILY 02/26/19 Atorvastatin Ca [Lipitor] 40 mg PO HS 02/26/19 Famotidine [Pepcid -] 20 mg PO BID 02/26/19 Tramadol HCl [Ultram] 50 mg PO BID 02/26/19 Amoxicillin/Potassium Clav [Augmentin 875-125 Tablet] 1 each PO BID #14 tablet 05/10/19 Glimepiride 2 mg PO DAILY 05/12/19 Physical Exam for Ortho Vital Signs: Vital Signs Temperature 98.3 F 05/19/19 09:30 Pulse Rate 95 H 05/19/19 09:30 Respiratory Rate 18 05/19/19 09:30 Blood Pressure 157/76 05/19/19 09:30 O2 Sat by Pulse Oximetry (%) 97 05/18/19 21:00 Labs: CBC, BMP 05/19/19 07:30 05/19/19 07:30 - Upper Extremity Hand: Yes: Right, Other (well healed incisions, mild ttp over right small incision, minimal swelling, lacks 5 degrees of flexion in all fingers, nvi) Assessment/Plan 72 y/o F w/ PMHx HTN, HLD, DM, migraines, GERD/gastritis, RLS, and cervical spinal stenosis/disc disease, admitted for evaluation of L toe infection. She is 2.5 months s/p right CTR and right small trigger finger release. Overall she is doing well but would like PT/OT for her hand and UE. a/p 2.5 s/p right ctr, right 5th trigger release PT/OT eval ROM exercises continue PT/OT in SNF f/u as outpt d/w Dr. Appiah
[2019-05-19] MEDS: ACETAMINOPHEN 325 MG TABLET (FP) PO PRN (15:00)
--- NOTE | 2019-05-19 15:27 | PN ---
Progress Note, Physician History of Present Illness: C/O L GREAT TOE PAIN NO TOE DRAINAGE NO F/C - Current Medication List Current Medications: Active Medications Acetaminophen (Tylenol -) 650 mg PO Q6H PRN PRN Reason: PAIN OR FEVER Last Admin: 05/19/19 15:00 Dose: 650 mg Amitriptyline HCl (Elavil -) 25 mg PO HS [facility] Last Admin: 05/18/19 21:28 Dose: 25 mg Gabapentin (Neurontin -) 100 mg PO TID [facility] Last Admin: 05/19/19 15:01 Dose: 100 mg Glimepiride (Amaryl -) 4 mg PO DAILY@0700 [facility] Last Admin: 05/19/19 06:35 Dose: 4 mg Heparin Sodium (Porcine) (Heparin -) 5,000 unit SQ BID [facility] Last Admin: 05/19/19 09:31 Dose: 5,000 unit Vancomycin HCl (Vancomycin (Pre-Docked)) 1,000 mg in 250 mls @ 166.667 mls/hr IVPB Q12H [facility]; Protocol Last Admin: 05/19/19 15:01 Dose: 166.667 mls/hr Ceftriaxone Sodium 2 gm/ (Dextrose) 100 mls @ 100 mls/hr IVPB DAILY [facility]; Protocol Last Admin: 05/19/19 09:31 Dose: 100 mls/hr Insulin Aspart (Novolog Vial Sliding Scale -) 1 vial SQ ACHS [facility]; Protocol Last Admin: 05/19/19 11:13 Dose: Not Given Metformin HCl (Glucophage -) 1,000 mg PO BID@0700,1630 [facility] Last Admin: 05/19/19 06:34 Dose: 1,000 mg Sexah-5-Koth Ethyl Esters (Lovaza -) 2 gm PO BID [facility] Last Admin: 05/19/19 09:31 Dose: 2 gm Polyethylene Glycol (Miralax (For Daily Use) -) 17 gm PO DAILY [facility] Last Admin: 05/19/19 09:31 Dose: 17 grams Rosuvastatin Calcium (Crestor -) 40 mg PO HS [facility] Last Admin: 05/18/19 21:28 Dose: 40 mg Sitagliptin Phosphate (Januvia -) 100 mg PO DAILY@0700 [facility] Last Admin: 05/19/19 06:35 Dose: 100 mg Tramadol HCl (Ultram -) 50 mg PO Q6H PRN PRN Reason: PAIN LEVEL 7 - 10 Last Admin: 05/19/19 09:31 Dose: 50 mg - Objective Vital Signs: Vital Signs Temperature 98.3 F 05/19/19 09:30 Pulse Rate 95 H 05/19/19 09:30 Respiratory Rate 18 05/19/19 09:30 Blood Pressure 157/76 05/19/19 09:30 O2 Sat by Pulse Oximetry (%) 97 05/18/19 21:00 Constitutional: Yes: No Distress Eyes: Yes: Conjunctiva Clear Cardiovascular: Yes: Regular Rate and Rhythm, S1, S2 Respiratory: Yes: CTA Bilaterally Gastrointestinal: Yes: Normal Bowel Sounds, Soft. No: Tenderness Extremities: Yes: Other (+ L TOE ERYTHEMA DECREASED SWELLING) Labs: CBC, BMP 05/19/19 07:30 05/19/19 07:30 Assessment/Plan CELLULITIS, GREAT TOE + OSTEOMYELITIS DIABETES MELLITUS CONTINUE CEFTRIAXONE/ VANCOMYCIN DAY # 8 NEEDS ADDITIONAL 5W COURSE OF ABOVE
[2019-05-19 17:03] VITALS: BP 147/90; PULSE 93; TEMP 98.6
--- NOTE | 2019-05-19 17:23 | DS ---
Physical Examination Vital Signs: Vital Signs Temperature 98.6 F 05/19/19 17:03 Pulse Rate 93 H 05/19/19 17:03 Respiratory Rate 20 05/19/19 17:03 Blood Pressure 147/90 05/19/19 17:03 O2 Sat by Pulse Oximetry (%) 97 05/18/19 21:00 Constitutional: Yes: No Distress Eyes: Yes: WNL HENT: Yes: WNL, Tonsillar Exudate Cardiovascular: Yes: Regular Rate and Rhythm Respiratory: Yes: WNL Gastrointestinal: Yes: WNL Renal/: Yes: WNL Musculoskeletal: Yes: Muscle Weakness Extremities: Yes: WNL Edema: No Peripheral Pulses WNL: Yes Integumentary: Yes: Pressure Ulcer Wound/Incision: Yes: Open to air, Excoriated, Unapproximated Neurological: Yes: Numbness, Pre-Existing Deficit ...Motor Strength: LLE Psychiatric: Yes: WNL Labs: CBC, BMP 05/19/19 07:30 05/19/19 07:30 Discharge Summary Reason For Visit: INFECTION OF TOE Current Active Problems Diabetic neuropathy (Acute) Hyperlipidemia (Acute) Spinal stenosis, lumbar region without neurogenic claudication (Acute) Toe infection (Acute) Procedures: Principal: MRI FOOT Hospital Course: IV AB PICC LINE FOR OSTEOMYELITIS OF LEFT BIG TOE TRANSFERRING [facility] FOR 4- 6 WEEKS Condition: Stable - Instructions Diet, Activity, Other Instructions: ADA Disposition: RETIREMENT FACILITY - Home Medications Comprehensive Discharge Medication List: Ambulatory Orders Amitriptyline HCl [Elavil -] 25 mg PO DAILY 02/26/19 Aspirin [Aspirin EC] 81 mg PO DAILY 02/26/19 Atorvastatin Ca [Lipitor] 40 mg PO HS 02/26/19 Famotidine [Pepcid -] 20 mg PO BID 02/26/19 Tramadol HCl [Ultram] 50 mg PO BID 02/26/19 Amoxicillin/Potassium Clav [Augmentin 875-125 Tablet] 1 each PO BID #14 tablet 05/10/19 Glimepiride 2 mg PO DAILY 05/12/19
== END 2019-05-19 18:37 | DRG 638 ==
LOC: JERFT 11:43 → JER 11:43 → JERBED 14:04 → J8W 18:20
PROVIDERS: ADMIT Family Medicine; ATTEND Family Medicine
PROC: 02HV33Z Insertion of Infusion Device into Superior Vena Cava, Percutaneous Approach (ICD-10-PCS; principal; 2019-05-19)
PROC: B518ZZA Fluoroscopy of Superior Vena Cava, Guidance (ICD-10-PCS; 2019-05-19)
DX: E11.69 Type 2 diabetes mellitus with other specified complication (principal); M86.9 Osteomyelitis, unspecified; L03.032 Cellulitis of left toe; E11.42 Type 2 diabetes mellitus with diabetic polyneuropathy; E11.610 Type 2 diabetes mellitus with diabetic neuropathic arthropathy; E11.65 Type 2 diabetes mellitus with hyperglycemia; I10 Essential (primary) hypertension; G25.81 Restless legs syndrome; E78.5 Hyperlipidemia, unspecified; Z96.651 Presence of right artificial knee joint; G43.909 Migraine, unspecified, not intractable, without status migrainosus; M48.02 Spinal stenosis, cervical region; Z87.891 Personal history of nicotine dependence; I25.10 Atherosclerotic heart disease of native coronary artery without angina pectoris; J44.9 Chronic obstructive pulmonary disease, unspecified; K21.9 Gastro-esophageal reflux disease without esophagitis; Z79.84 Long term (current) use of oral hypoglycemic drugs; M48.061 Spinal stenosis, lumbar region without neurogenic claudication
CPT/HCPCS: 36415; 36569; 71046-TC-FY; 73630-TC-LT; 73718-TC-LT; 77001-TC-FY; 80048; 80053; 80061; 81003; 82150; 82962; 83036; 83690; 83721; 83735; 84100; 84443; 84484; 85025; 85027; 85651; 86140; 87040; 87086; 93971-TC; 99282-25; 99283-25; C1751; G0480; J1644

== ENCOUNTER 2019-07-20 17:27 | Inpatient (IN) | payer OTHER ==
--- NOTE | 2019-07-20 17:40 | PDOC ---
History of Present Illness - General Stated Complaint: PAIN Time Seen by Provider: 07/20/19 17:37 - History of Present Illness Initial Comments: 07/20/19 17:40 73F PMH HTN, HLD, DM c/o 3 days of lower back, bilateral inguinal crease and posterior leg electricity like pain. The patient seen in the ED yesterday where she had labwork and imaging that was unremarkable. The patient was prescribed percocet and last took it 3 hours ago. She reports that when she has a bowel movement or urinates she has pain in the legs and back. Moving and sitting up make the pain worse. She reports that the pain is so severe that she cannot walk. She called Dr. Machado who recommended she come to the ED and be admitted for MRI. ROS GENERAL/CONSTITUTIONAL: No fever or chills. No weakness. CARDIOVASCULAR: No chest pain or shortness of breath RESPIRATORY: No cough, wheezing, or hemoptysis. GASTROINTESTINAL: No nausea, vomiting, diarrhea or constipation. GENITOURINARY: No dysuria, frequency, or change in urination. MUSCULOSKELETAL: No joint or muscle swelling or pain. No neck, + back pain. SKIN: No rash NEUROLOGIC: No headache, vertigo, loss of consciousness, or change in strength/ sensation. PE GENERAL: Awake, alert, and fully oriented, in no acute distress HEAD: No signs of trauma, normocephalic, atraumatic EYES: PERRLA, EOMI, sclera anicteric, conjunctiva clear ENT: oropharynx clear without exudates. Moist mucosa NECK: Normal ROM, supple LUNGS: No distress, speaks full sentences, clear to auscultation bilaterally HEART: Regular rate and rhythm, normal S1 and S2, no murmurs, rubs or gallops, peripheral pulses normal and equal bilaterally. ABDOMEN: Soft, +tenderness in the inguinal crease. No guarding, no rebound. No masses BACK: + lumbar paraspinal tenderness, + lumbar tenderness, no step offs EXTREMITIES : Normal inspection, Normal range of motion, no edema. No clubbing or cyanosis. NEUROLOGICAL: Cranial nerves II through XII grossly intact. Normal speech, no focal sensorimotor deficits SKIN: Warm, Dry, normal turgor, no rashes or lesions noted RECTAL: good rectal tone MDM DDX including but not limited to: spinal stenosis vs disc herniation sciatica msk ED Course: imaging and pain control labs amd prelim imaging unremarkable patient cannot walk due to pain wilfredo for admission and possible PT, further pain control Claire Erickson, PGY2 Emergency Medicine Past History - Past Medical History Allergies/Adverse Reactions: Allergies Allergy/AdvReac Type Severity Reaction Status Date / Time No Known Allergies Allergy Verified 07/19/19 13:06 Home Medications: Ambulatory Orders Amitriptyline HCl [Elavil -] 25 mg PO DAILY 02/26/19 Aspirin [Aspirin EC] 81 mg PO DAILY 02/26/19 Atorvastatin Ca [Lipitor] 40 mg PO HS 02/26/19 Famotidine [Pepcid -] 20 mg PO BID 02/26/19 Glimepiride 2 mg PO DAILY 05/12/19 Oxycodone HCl/Acetaminophen [Percocet 5-325 mg Tablet] 1 - 2 tab PO Q4H PRN #20 tablet MDD 6 07/19/19 hydrOXYzine PAMOATE [Vistaril -] 25 mg PO QID PRN #20 capsule 07/19/19 Anemia: No Asthma: No Cancer: No Cardiac Disorders: Yes CVA: No COPD: No CHF: No Dementia: No Diabetes: Yes GI Disorders: Yes (GERD GASTRITIS) Disorders: No HTN: Yes Hypercholesterolemia: Yes Kidney Stones: Yes Liver Disease: No Seizures: No Thyroid Disease: No - Surgical History Abdominal Surgery: No Appendectomy: No Cardiac Surgery: No Cholecystectomy: No GI Surgery: Yes (bladder 15 years ago) Lung Surgery: No Neurologic Surgery: No Orthopedic Surgery: Yes (r knee replacement 03/11/14) - Immunization History Immunization Up to Date: Yes - Psycho Social/Smoking Cessation Hx Smoking Status: No Smoking History: Former smoker Have you smoked in the past 12 months: No Number of Cigarettes Smoked Daily: 0 If you are a former smoker, when did you quit?: 15 yrs Hx Alcohol Use: No Drug/Substance Use Hx: No Substance Use Type: None Hx Substance Use Treatment: No ED Treatment Course - LABORATORY CBC & Chemistry Diagram: 07/23/19 09:15 07/23/19 06:45 Discharge - Discharge Information Problems reviewed: Yes Clinical Impression/Diagnosis: Inability to walk Back pain Qualifiers: Back pain location: low back pain Chronicity: chronic Back pain laterality: bilateral Condition: Stable - Admission Yes - Follow up/Referral - Patient Discharge Instructions - Post Discharge Activity
[2019-07-20] MEDS ORDERED: LIDOCAINE 5% TOPICAL PATCH TP ONE (17:49)
[2019-07-20] MEDS ORDERED: METHOCARBAMOL 500 MG TABLET PO ONE (17:49)
[2019-07-20] MEDS ORDERED: ACETAMINOPHEN 1000 MG/100 ML VIAL (NON FORMULARY) IVPB ONE (17:57)
[2019-07-20] MEDS ORDERED: METHOCARBAMOL 500 MG TABLET ONE (18:14)
[2019-07-20] MEDS ORDERED: LIDOCAINE 5% TOPICAL PATCH ONE (18:15)
[2019-07-20] MEDS ORDERED: ACETAMINOPHEN INJECTION 100 ML IVPB ONE (18:16)
[2019-07-20] MEDS ORDERED: morphine CARPU-JECT 2 MG/1 ML DISP.SYRIN IVPUSH ONE (18:23)
--- NOTE | 2019-07-20 18:48 | PDOC ---
Attending Attestation - Resident Resident Name: Claire Erickson - ED Attending Attestation I have performed the following: I have examined & evaluated the patient, The case was reviewed & discussed with the resident, I agree w/resident's findings & plan, Exceptions are as noted - HPI HPI: 07/20/19 18:44 73-year-old female history of hypertension diabetes and hyperlipidemia cervical spine stenosis chronic back pain here today complaining of worsening lower abdominal and inguinal crease pain. Patient states she was seen in the ED at [facility] yesterday was evaluated for this lower inguinal pain with a CT abdomen pelvis which was essentially unremarkable there is no hernias noted. She had basic lab work and a UA done at that time which was unremarkable. Since that time the patient has had severe pain in bilateral inguinal creases radiating down to her legs extended nervelike or shocks electricity-like pain. She states that she took Percocet prior with no relief she has been unable to walk secondary to pain today is brought here by ambulance with her family. Patient states when she sits in the toilet to defecate her pain is worse denies any difficulty with urination or bowel or bladder incontinence. Denies any new weakness or numbness in her lower extremities does not have any history of fever or recent trauma - Physicial Exam PE: 07/20/19 18:45 Awake alert no acute distress lungs are clear bilaterally heart is regular without any murmurs rubs or gallops abdomen is soft and nontender there is no rebound no guarding there is no palpable lower abdominal hernia noted. Patient has 5 out of 5 lower extremity strength sensation is intact no saddle anesthesia noted. 2+ symmetric pulses bilaterally are logically she is awake alert oriented sensation intact and good strength throughout skin is warm and dry - Medical Decision Making 07/20/19 18:46 73-year-old female history of hypertension hyperlipidemia diabetes obesity cervical spine stenosis and chronic back pain here today complaining of worsening lower abdominal inguinal crease pain that is electric-like in nature. Differential includes UTI radiated pain from pelvic or hip joint disease. It is possible this could be a radicular pain from thoracic or lumbar spinal disease. Review of previous chart shows the patient has had MRI of her cervical spine she is also had CT of her thoracic and lumbar spine which multiple levels degenerative changes and some disc bulging previously. Patient is unable to walk due to her pain despite taking Percocet at home will likely require admission for physical therapy and possible rehab placement in addition will possibly require an MRI of her lumbosacral spine and lower thoracic spine. Review of patient's CT abdomen pelvis day prior shows fatty liver otherwise no causes for her pain
[2019-07-20 19:17] LABS: BASO % 0.7 % (0-2.0); EOS % 1.3 % (0-4.5); HEMOGLOBIN 11.8 GM/dL (10.7-15.3); LYMPH % 21.8 % (8-40); MCH 28.8 pg (25.7-33.7); MCHC 31.8 g/dl (32.0-36.0); MEAN CELL VOLUME 90.7 fl (80-96); MEAN PLT VOLUME 8.8 fl (7.5-11.1); MONO % 5.5 % (3.8-10.2); NEUT % 70.7 % (42.8-82.8); PLATELET COUNT 247 K/MM3 (134-434); RBC 4.08 M/mm3 (3.60-5.2); RDW 15.6 % (11.6-15.6); WHITE BLOOD COUNT 6.6 K/mm3 (4.0-10.0)
[2019-07-20 19:22] LABS: URINE APPEARANCE CLEAR; URINE BILIRUBIN NEGATIVE (NEGATIVE); URINE COLOR YELLOW; URINE GLUCOSE (UA) 3+ (NEGATIVE); URINE KETONE NEGATIVE (NEGATIVE); URINE LEUK ESTERASE NEGATIVE (NEGATIVE); URINE NITRITE NEGATIVE (NEGATIVE); URINE PROTEIN NEGATIVE (NEGATIVE); URINE UROBILINOGEN 0.2 mg/dL (0.2-1.0)
[2019-07-20 19:40] LABS: ALBUMIN 3.7 g/dl (3.4-5.0); BILIRUBIN,TOTAL 0.2 mg/dL (0.2-1); BLOOD UREA NITROGEN 20.2 mg/dL (7-18); CALCIUM 8.8 mg/dL (8.5-10.1); POTASSIUM 4.6 mmol/L (3.5-5.1); TOT PROT 6.8 g/dl (6.4-8.2)
[2019-07-20] MEDS ORDERED: MORPHINE SULFATE 2 MG/ML VIAL ONE (20:44)
--- NOTE | 2019-07-20 21:42 | PDOC ---
*Physical Exam - Vital Signs Last Vital Signs Temp Pulse Resp BP Pulse Ox 97.3 F L 77 17 109/66 96 07/20/19 20:40 07/20/19 20:40 07/20/19 20:40 07/20/19 20:40 07/20/19 20:40 ED Treatment Course - LABORATORY CBC & Chemistry Diagram: 07/20/19 18:50 07/20/19 18:50 - ADDITIONAL ORDERS Additional order review: Laboratory Results 07/20/19 07/20/19 18:50 18:50 Sodium 137 Potassium 4.6 Chloride 105 Carbon Dioxide 29 Anion Gap 4 L BUN 20.2 H Creatinine 1.0 Est GFR (CKD-EPI)AfAm 64.73 Est GFR (CKD-EPI)NonAf 55.85 Random Glucose 142 H Calcium 8.8 Total Bilirubin 0.2 AST 14 L ALT 19 Alkaline Phosphatase 59 Total Protein 6.8 Albumin 3.7 Urine Color Yellow Urine Appearance Clear Urine pH 5.0 Ur Specific Baldwin 1.036 H Urine Protein Negative Urine Glucose (UA) 3+ H Urine Ketones Negative Urine Blood Negative Urine Nitrite Negative Urine Bilirubin Negative Urine Urobilinogen 0.2 Ur Leukocyte Esterase Negative 07/20/19 18:50 RBC 4.08 MCV 90.7 MCHC 31.8 L RDW 15.6 MPV 8.8 Neutrophils % 70.7 Lymphocytes % 21.8 Monocytes % 5.5 Eosinophils % 1.3 Basophils % 0.7 - Medications Given in the ED: ED Medications Discontinued Medications Generic Name Dose Route Start Last Admin Trade Name Nuria PRN Reason Stop Dose Admin Acetaminophen 1,000 mg 07/20/19 17:57 07/20/19 18:53 Ofirmev Injection - IVPB 07/20/19 17:58 1,000 mg ONCE ONE Administration Lidocaine 1 patch 07/20/19 17:49 07/20/19 18:45 Lidoderm Patch - TP 07/20/19 17:50 1 patch ONCE ONE Administration Methocarbamol 500 mg 07/20/19 17:49 07/20/19 18:46 Robaxin - PO 07/20/19 17:50 500 mg ONCE ONE Administration Morphine Sulfate 2 mg 07/20/19 18:23 07/20/19 20:50 Morphine Injection - IVPUSH 07/20/19 18:24 2 mg ONCE ONE Administration Medical Decision Making - Medical Decision Making 07/20/19 21:41 Pt signed out to me; her CT scan was read and now she will be admitted to the hospitalist team for inability to ambulate: Patient Name: WILLIE PEREZ THIS IS A PRELIMINARY REPORT FROM IMAGING DRAPERY OPERATOR DATE OF SERVICE: 2019-07-20 19:42:42 IMAGES: [id number] EXAM: CT thoracic and lumbar spine noncontrast HISTORY: Rule out fracture COMPARISON: None. FINDINGS: Thoracic spineNo fracture or subluxation. Bony alignment is normal The vertebral body heights and disc spaces are preserved There is mild dextro curvature possibly related to positioning Mild degenerative changes The unenhanced paraspinal soft tissues are grossly normal Lumbar spineThere is mild dextroscoliosis Bony alignment is maintained No fracture or subluxation. The vertebral body heights are preserved Moderate degenerative changes The unenhanced paraspinal soft tissues are grossly normal Discharge - Discharge Information Problems reviewed: Yes Clinical Impression/Diagnosis: Back pain, Inability to walk Condition: Stable - Follow up/Referral - Patient Discharge Instructions - Post Discharge Activity
--- NOTE | 2019-07-20 22:13 | HP ---
Admitting History and Physical - Primary Care Physician PCP: [facility] - Admission Chief Complaint: Lumbar Pain, Unable to Ambulate History of Present Illness: This is a 73 y/o woman with a PMHx of CAD, HTN, HLD, DM, COPD, Migraines, RLS, GERD, Cervical Spinal Stenosis, Disc Disease. Who presents to the ED with her family for severe lumbar pain with radiation to lower legs, unable to ambulate x today. Patient was seen in the ED yesterday, for flank pain with radiation to inguinal region- CTAP- neg, d/cd with Percocet, Vistaril was told to f/u with Spine Surgeon- Dr Rodriguez. Per the patient's family her pain is severe, making it difficult to ambulate. Per the family the patient spoke with Dr. Machado who suggests the patient be admitted and have a MRI. 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 Cardiovascular: Yes: CAD, HTN, Hyperlipdemia Pulmonary: Yes: COPD Gastrointestinal: Yes: Gastritis, GERD Musculoskeletal: Yes: Other (S/P right total knee replacement Disc Disease) Endocrine: Yes: Diabetes Mellitus - Past Surgical History Past Surgical History: Yes: Joint Replacement - Smoking History Smoking history: Former smoker Have you smoked in the past 12 months: No Aproximately how many cigarettes per day: 0 If you are a former smoker, when did you quit?: 15 yrs - Alcohol/Substance Use Hx Alcohol Use: No History of Substance Use: reports: None - Social History Usual Living Arrangement: Yes: With Spouse ADL: Independent History of Recent Travel: No Home Medications - Allergies Allergies/Adverse Reactions: Allergies Allergy/AdvReac Type Severity Reaction Status Date / Time No Known Allergies Allergy Verified 07/19/19 13:06 - Home Medications Home Medications: Ambulatory Orders Amitriptyline HCl [Elavil -] 25 mg PO DAILY 02/26/19 Aspirin [Aspirin EC] 81 mg PO DAILY 02/26/19 Atorvastatin Ca [Lipitor] 40 mg PO HS 02/26/19 Famotidine [Pepcid -] 20 mg PO BID 02/26/19 Glimepiride 2 mg PO DAILY 05/12/19 Oxycodone HCl/Acetaminophen [Percocet 5-325 mg Tablet] 1 - 2 tab PO Q4H PRN #20 tablet MDD 6 07/19/19 hydrOXYzine PAMOATE [Vistaril -] 25 mg PO QID PRN #20 capsule 07/19/19 Family Medical History Family Hx Cardiac Disorders: Mother, Father Review of Systems - Review of Systems Constitutional: reports: No Symptoms Eyes: reports: No Symptoms HENT: reports: No Symptoms Neck: reports: No Symptoms Cardiovascular: reports: No Symptoms Respiratory: reports: No Symptoms Gastrointestinal: reports: No Symptoms Genitourinary: reports: No Symptoms Breasts: reports: No Symptoms Reported Musculoskeletal: reports: Back Pain Integumentary: reports: No Symptoms Neurological: reports: Unsteady Gait Endocrine: reports: No Symptoms Hematology/Lymphatic: reports: No Symptoms Psychiatric: reports: No Symptoms Pain Intensity: 10 Physical Examination Vital Signs: Vital Signs Temperature 97.3 F L 07/20/19 20:40 Pulse Rate 77 07/20/19 20:40 Respiratory Rate 17 07/20/19 20:40 Blood Pressure 109/66 07/20/19 20:40 O2 Sat by Pulse Oximetry (%) 96 07/20/19 20:40 Constitutional: Yes: Mild Distress, Obese Eyes: Yes: WNL, Conjunctiva Clear, EOM Intact, PERRL HENT: Yes: WNL, Atraumatic, Normocephalic Neck: Yes: WNL, Supple, Trachea Midline Cardiovascular: Yes: WNL, Regular Rate and Rhythm, S1, S2 Respiratory: Yes: WNL, Regular, CTA Bilaterally Gastrointestinal: Yes: WNL, Normal Bowel Sounds, Soft, Abdomen, Obese ...Rectal Exam: Yes: WNL Renal/: Yes: WNL Breast(s): Yes: WNL Musculoskeletal: Yes: Back Pain Extremities: Yes: WNL Edema: No Peripheral Pulses WNL: Yes Neurological: Yes: WNL, Alert, Oriented, Cran Nerves II-XII Intact. No: Ataxia ...Motor Strength: WNL Psychiatric: Yes: WNL, Alert, Oriented Labs: CBC, BMP 07/20/19 18:50 07/20/19 18:50 Imaging - Results Cat Scan: Image Reviewed EKG: Pending Problem List - Problems (1) Back pain Assessment/Plan: Lumbar CT image, report reviewed Appreciate Ortho consult Morphine Sulfate prn Tylenol prn Monitor vitals Fall Precautions Code(s): M54.9 - DORSALGIA, UNSPECIFIED (2) Inability to walk Assessment/Plan: see above Patient ambulated with assistance to the bathroom Pt eval Fall Precautions Code(s): R26.2 - DIFFICULTY IN WALKING, NOT ELSEWHERE CLASSIFIED (3) Spinal stenosis, lumbar region without neurogenic claudication Code(s): M48.061 - SPINAL STENOSIS, LUMBAR REGION WITHOUT NEUROGENIC DHRUV (4) Diabetes Assessment/Plan: stable BGMs Continue home meds Code(s): E11.9 - TYPE 2 DIABETES MELLITUS WITHOUT COMPLICATIONS Qualifiers: Diabetes mellitus type: type 2 (5) HLD (hyperlipidemia) Assessment/Plan: stable Continue Lipitor Monitor LFTs Code(s): E78.5 - HYPERLIPIDEMIA, UNSPECIFIED (6) HTN (hypertension) Assessment/Plan: stable Continue home meds Monitor renal function Code(s): I10 - ESSENTIAL (PRIMARY) HYPERTENSION Assessment/Plan This is a 73 y/o woman with a PMHx of CAD, HTN, HLD, DM, COPD, Migraines, GERD, RLS, Cervical Spinal Stenosis, Disc Disease. Admitted for Intractable Back Pain , Unable to Ambulate for further evaluation of their emergent condition. Plan: See Problem List FEN PO fluid as tolerated Replete lytes prn Low Na Diet DVT ppx OOB SCDs Heparin SQ Code Status: Full Code Dispo: Requires Inpatient Care Visit type - Emergency Visit Emergency Visit: Yes ED Registration Date: 07/20/19 Care time: The patient presented to the Emergency Department on the above date and was hospitalized for further evaluation of their emergent condition. - New Patient This patient is new to me today: Yes Date on this admission: 07/21/19 - Critical Care Critical Care patient: No
[2019-07-21] MEDS: MORPHINE SULFATE 2 MG/ML VIAL IVPUSH PRN ×4 (01:56→21:37)
[2019-07-21] MEDS: ACETAMINOPHEN 325 MG TABLET (FP) PO PRN (06:01)
[2019-07-21] MEDS: GLIMEPIRIDE 2 MG TABLET (FP) PO SCH (06:02)
[2019-07-21 07:32] LABS: BASO % 0.8 % (0-2.0); EOS % 1.7 % (0-4.5); HEMATOCRIT 36.4 % (32.4-45.2); HEMOGLOBIN 11.8 GM/dL (10.7-15.3); LYMPH % 23.1 % (8-40); MCH 29.2 pg (25.7-33.7); MCHC 32.3 g/dl (32.0-36.0); MEAN CELL VOLUME 90.3 fl (80-96); MEAN PLT VOLUME 8.7 fl (7.5-11.1); MONO % 5.3 % (3.8-10.2); NEUT % 69.1 % (42.8-82.8); PLATELET COUNT 233 K/MM3 (134-434); RBC 4.03 M/mm3 (3.60-5.2); RDW 15.4 % (11.6-15.6); WHITE BLOOD COUNT 5.7 K/mm3 (4.0-10.0)
[2019-07-21 08:04] LABS: BLOOD UREA NITROGEN 14.4 mg/dL (7-18); CALCIUM 8.9 mg/dL (8.5-10.1); CREATININE 0.7 mg/dL (0.55-1.3); POTASSIUM 4.3 mmol/L (3.5-5.1)
[2019-07-21] MEDS: HEPARIN NA (PORCINE) 5,000 UNITS/ML 1ML VIAL SQ SCH ×2 (09:43→21:15)
[2019-07-21] MEDS: FAMOTIDINE 20 MG TABLET PO SCH ×2 (09:45→21:15)
[2019-07-21] MEDS: ASPIRIN COATED 81 MG TABLET.EC PO SCH (09:45)
--- NOTE | 2019-07-21 10:16 | PN ---
Progress Note, Physician Chief Complaint: Lower Back Pain Difficulty Ambulating History of Present Illness: Previous notes and events reviewed awake and alert NAD complain of lower back pain radiating to lower abdomen UC pending denies chest pain or SOB - Current Medication List Current Medications: Active Medications Acetaminophen (Tylenol -) 650 mg PO Q6H PRN PRN Reason: PAIN LEVEL 4 - 6 Last Admin: 07/21/19 06:01 Dose: 650 mg Amitriptyline HCl (Elavil -) 25 mg PO HS [facility] Aspirin (Ecotrin -) 81 mg PO DAILY [facility] Last Admin: 07/21/19 09:45 Dose: 81 mg Atorvastatin Calcium (Lipitor -) 40 mg PO HS [facility] Famotidine (Pepcid -) 20 mg PO BID [facility] Last Admin: 07/21/19 09:45 Dose: 20 mg Glimepiride (Amaryl -) 2 mg PO AM [facility] Last Admin: 07/21/19 06:02 Dose: 2 mg Heparin Sodium (Porcine) (Heparin -) 5,000 unit SQ BID [facility] Last Admin: 07/21/19 09:43 Dose: 5,000 unit Insulin Aspart (Novolog Vial Sliding Scale -) 1 vial SQ [facility]; Protocol Miscellaneous (Lidoderm Patch Removal) 1 each MC DAILY@2200 [facility] Morphine Sulfate (Morphine Sulfate) 2 mg IVPUSH Q6H PRN PRN Reason: PAIN LEVEL 7 - 10 Last Admin: 07/21/19 09:42 Dose: 2 mg - Objective Vital Signs: Vital Signs Temperature 98.2 F 07/21/19 06:00 Pulse Rate 70 07/21/19 06:00 Respiratory Rate 18 07/21/19 06:00 Blood Pressure 125/77 07/21/19 06:00 O2 Sat by Pulse Oximetry (%) 95 07/21/19 05:00 Constitutional: Yes: No Distress, Calm, Obese Eyes: Yes: Conjunctiva Clear HENT: Yes: Atraumatic Cardiovascular: Yes: Regular Rate and Rhythm Respiratory: Yes: Regular, CTA Bilaterally Gastrointestinal: Yes: Normal Bowel Sounds, Soft, Abdomen, Obese, Tenderness ( lower abdomen) Musculoskeletal: Yes: Back Pain, Muscle Weakness Extremities: Yes: WNL Edema: No Neurological: Yes: Alert, Oriented Psychiatric: Yes: Alert, Oriented Labs: CBC, BMP 07/21/19 06:52 07/21/19 06:52 Problem List - Problems (1) Back pain Assessment/Plan: -Orthopedic and Neurosurgery consult -pain control -PT -Lumbar CT scan shows multilevel degenerative scoliosis of the thoracolumbosacral spine -Fall Precautions - pending Code(s): M54.9 - DORSALGIA, UNSPECIFIED (2) Inability to walk Assessment/Plan: -PT -Fall precautions -Orthopedic and Neurosurgery consult -Lumbar CT scan shows multilevel degenerative scoliosis of the thoracolumbosacral spine Code(s): R26.2 - DIFFICULTY IN WALKING, NOT ELSEWHERE CLASSIFIED (3) Diabetes Assessment/Plan: -[facility] ACHS -ISS -Amaryl Code(s): E11.9 - TYPE 2 DIABETES MELLITUS WITHOUT COMPLICATIONS Qualifiers: Diabetes mellitus type: type 2 (4) HLD (hyperlipidemia) Assessment/Plan: -Atorvastatin Code(s): E78.5 - HYPERLIPIDEMIA, UNSPECIFIED (5) HTN (hypertension) Assessment/Plan: -monitor BP -low Na diet Code(s): I10 - ESSENTIAL (PRIMARY) HYPERTENSION Assessment/Plan see problem list dvt ppx
[2019-07-21] MEDS ORDERED: INSULIN (NOVOLOG) ASPART 100 UNITS/ML 10ML VIAL ONE (11:50)
[2019-07-21] MEDS: INSULIN SLIDING SCALE (NOVOLOG) 1 VIAL SQ SCH ×3 (13:50→21:23)
--- NOTE | 2019-07-21 15:34 | CONSULT ---
Consult - text type - Consultation Consultation Note: FULL CONSULT DICTATED IMP: LBP AND ABDOMINAL PAIN. NO ACUTE ORTHOPEDIC PATHOLOGY - CHRONIC DEGENERATIVE CHANGES LS SPINE PLAN: ANALGESICS, PT, GI CONSULT
--- NOTE | 2019-07-21 15:46 | EKG ---
Test Reason : Blood Pressure : / mmHG Vent. Rate : 075 BPM Atrial Rate : 075 BPM P-R Int : 184 ms QRS Dur : 104 ms QT Int : 394 ms P-R-T Axes : 050 013 035 degrees QTc Int : 439 ms NORMAL SINUS RHYTHM NORMAL ECG WHEN COMPARED WITH ECG OF 30-OCT-2018 05:41, NO SIGNIFICANT CHANGE WAS FOUND Confirmed by SHANNAN RECIO MD ([id number]) on 07/21/2019 3:46:31 PM Referred By: Confirmed By:SHANNAN RECIO MD
[2019-07-21] MEDS: LIDOCAINE PATCH REMOVAL MC SCH ×3 (19:41→21:14)
--- NOTE | 2019-07-21 19:59 | CONS ---
ORTHOPAEDIC CONSULTATION DATE OF CONSULTATION: 07/21/2019 HISTORY: Patient is a 73 -year-old female complaining of lower back pain and abdominal pain for a few days. No specific fall or trauma. No radiating pain down the legs. No bowel or bladder complaints, fever, or chills. Patient is status post total knee replacement many years ago. PHYSICAL EXAMINATION: EXTREMITIES: She has good range of motion bilateral hips, knees, ankles, and toes. Well-healed midline incision on the right. No swelling, ecchymosis, erythema. Excellent stability. Neurovascularly intact. Negative femoral stress test. Straight leg raise sign. MUSCULOSKELETAL: Some mild paraspinal tenderness in the lower lumbar region increased with flexion and extension. X-rays reviewed show multilevel degenerative disk disease of her thoracolumbar spine but no acute fractures, dislocations. IMPRESSION: Degenerative disk disease, chronic. No acute orthopaedic conditions. PLAN: Patient has a lot of complaints anteriorly in her abdomen. I would recommend a GI consult. As far as her back is concerned, out of bed, analgesics, physical therapy, and we will follow. PAZ BLANCHARD M.D. [id number]
[2019-07-21] MEDS: ATORVASTATIN CA 40 MG TABLET (FP) PO SCH (21:15)
[2019-07-21] MEDS: AMITRIPTYLINE HCL 25 MG TABLET (FP) PO SCH (21:15)
[2019-07-21] MEDS ORDERED: MELATONIN 5 MG TABLETS PO ONE (21:29)
--- NOTE | 2019-07-21 23:23 | CONSULT ---
Consult Consult Specialty:: ENDOCRINE Referred by:: ROB ARMIJO Reason for Consultation:: DMT2 - History of Present Illness Chief Complaint: BACK AND BELLY PAIN History of Present Illness: 73-year-old female history of dm T2,osteomeylitis left great toe sp rx s6 weeks iv antibiotics,hypertension and hyperlipidemia cervical spine stenosis chronic back pain here today complaining of worsening lower abdominal and inguinal crease pain. Patient states she was seen in the ED at [facility] yesterday was evaluated for this lower inguinal pain with a CT abdomen pelvis which was essentially unremarkable there is no hernias noted. pain is severe 9/10 sharp, radiating to groin,feeling unable to sit or stand,walk or feel relief despite taking narcotics for pain the pain returns worse each time,denies nausea vomiting or diarhea. 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 Cardio/Vascular: Yes: CAD, HTN, Hyperlipdemia Pulmonary: Yes: COPD Gastrointestinal: Yes: Gastritis, GERD Musculoskeletal: Yes: Other (S/P right total knee replacement Disc Disease) Endocrine: Yes: Diabetes Mellitus - Past Surgical History Past Surgical History: Yes: Joint Replacement - Alcohol/Substance Use Hx Alcohol Use: No History of Substance Use: reports: None - Smoking History Smoking history: Former smoker Have you smoked in the past 12 months: No Aproximately how many cigarettes per day: 0 If you are a former smoker, when did you quit?: 15 yrs - Social History Usual Living Arrangement: Other (lives with son in house with 12 steps to enter but none inside; she reports being previously Independent in ADLs/ IADLs without Assistive Device) ADL: Independent History of Recent Travel: No Home Medications - Allergies Allergies/Adverse Reactions: Allergies Allergy/AdvReac Type Severity Reaction Status Date / Time No Known Allergies Allergy Verified 07/19/19 13:06 - Home Medications Home Medications: Ambulatory Orders Amitriptyline HCl [Elavil -] 25 mg PO DAILY 02/26/19 Aspirin [Aspirin EC] 81 mg PO DAILY 02/26/19 Atorvastatin Ca [Lipitor] 40 mg PO HS 02/26/19 Famotidine [Pepcid -] 20 mg PO BID 02/26/19 Glimepiride 2 mg PO DAILY 05/12/19 Oxycodone HCl/Acetaminophen [Percocet 5-325 mg Tablet] 1 - 2 tab PO Q4H PRN #20 tablet MDD 6 07/19/19 hydrOXYzine PAMOATE [Vistaril -] 25 mg PO QID PRN #20 capsule 07/19/19 Review of Systems - Review of Systems Constitutional: reports: Lethargy, Loss of Appetite Eyes: reports: No Symptoms HENT: reports: No Symptoms Neck: reports: No Symptoms Cardiovascular: reports: Shortness of Breath Respiratory: reports: Exercise Intolerance, SOB on Exertion Gastrointestinal: reports: Bloating, Constipation Genitourinary: reports: Frequency Breasts: reports: No Symptoms Reported Musculoskeletal: reports: Decreased ROM, Joint Swelling, Muscle Pain, Muscle Weakness Neurological: reports: Unsteady Gait, Weakness Endocrine: reports: Unexplained Weight Gain Physical Exam Vital Signs: Vital Signs Temperature 98.1 F 07/21/19 22:00 Pulse Rate 79 07/21/19 22:00 Respiratory Rate 20 07/21/19 22:00 Blood Pressure 126/79 07/21/19 22:00 O2 Sat by Pulse Oximetry (%) 98 07/21/19 21:00 Constitutional: Yes: Anxious Eyes: Yes: EOM Intact HENT: Yes: Normocephalic Neck: Yes: Trachea Midline Cardiovascular: Yes: Regular Rate and Rhythm Respiratory: Yes: CTA Bilaterally Gastrointestinal: Yes: Normal Bowel Sounds ...Rectal Exam: Yes: Deferred Renal/: Yes: WNL Musculoskeletal: Yes: Back Pain, Joint Stiffness, Joint Swelling, Muscle Pain, Muscle Weakness Extremities: Yes: Delayed Capillary Refill Edema: No Integumentary: Yes: Onychomycosis Neurological: Yes: Alert, Oriented Labs: CBC, BMP 07/21/19 06:52 07/21/19 06:52 Problem List - Problems (1) Back pain Problems reviewed: Yes Code(s): M54.9 - DORSALGIA, UNSPECIFIED Qualifiers: Back pain location: low back pain Chronicity: chronic Back pain laterality: bilateral (2) Inability to walk Problems reviewed: Yes Code(s): R26.2 - DIFFICULTY IN WALKING, NOT ELSEWHERE CLASSIFIED (3) Anxiousness Problems reviewed: Yes Code(s): F41.9 - ANXIETY DISORDER, UNSPECIFIED (4) Cellulitis Problems reviewed: Yes Code(s): L03.90 - CELLULITIS, UNSPECIFIED (5) Diabetes Problems reviewed: Yes Code(s): E11.9 - TYPE 2 DIABETES MELLITUS WITHOUT COMPLICATIONS Qualifiers: Diabetes mellitus type: type 2 (6) Diabetic neuropathy Problems reviewed: Yes Code(s): E11.40 - TYPE 2 DIABETES MELLITUS WITH DIABETIC NEUROPATHY, UNSP Qualifiers: Diabetes mellitus type: type 2 Assessment/Plan Current Active Problems Back pain (Acute) Inability to walk (Acute) DM T2,NEUROPATHY OSTEOMYELITIS TOE HTN HLD Abnormal Lab Results 07/21/19 06:52 Anion Gap 7 L Random Glucose 147 H Laboratory Results - last 24 hr 07/21/19 07/21/19 07/21/19 06:52 06:52 11:59 WBC 5.7 RBC 4.03 Hgb 11.8 Hct 36.4 MCV 90.3 MCH 29.2 MCHC 32.3 RDW 15.4 Plt Count 233 MPV 8.7 Absolute Neuts (auto) 3.9 Neutrophils % 69.1 Lymphocytes % 23.1 Monocytes % 5.3 Eosinophils % 1.7 Basophils % 0.8 Nucleated RBC % 0 Sodium 140 Potassium 4.3 Chloride 105 Carbon Dioxide 27 Anion Gap 7 L BUN 14.4 Creatinine 0.7 Est GFR (CKD-EPI)AfAm 99.62 Est GFR (CKD-EPI)NonAf 85.95 POC Glucometer 89 Random Glucose 147 H Calcium 8.9 07/21/19 07/21/19 16:12 21:19 WBC RBC Hgb Hct MCV MCH MCHC RDW Plt Count MPV Absolute Neuts (auto) Neutrophils % Lymphocytes % Monocytes % Eosinophils % Basophils % Nucleated RBC % Sodium Potassium Chloride Carbon Dioxide Anion Gap BUN Creatinine Est GFR (CKD-EPI)AfAm Est GFR (CKD-EPI)NonAf POC Glucometer 134 142 Random Glucose Calcium Laboratory Tests 05/14/19 07:13 Hemoglobin A1c % 8.5 H PLAN BGM QID NOVOLOG SCALE GI CONSULT NEUROLOGY EVALUATION AMYLASE/LIPASE LEVEMIR 15 UNITS DAILY
[2019-07-22] MEDS: MORPHINE SULFATE 2 MG/ML VIAL IVPUSH PRN ×3 (04:23→21:52)
[2019-07-22] MEDS: GLIMEPIRIDE 2 MG TABLET (FP) PO SCH (06:25)
[2019-07-22] MEDS: INSULIN SLIDING SCALE (NOVOLOG) 1 VIAL SQ SCH ×4 (06:25→22:35)
[2019-07-22 07:51] LABS: HEMOGLOBIN 12.4 GM/dL (10.7-15.3); MCH 29.3 pg (25.7-33.7); MCHC 32.7 g/dl (32.0-36.0); MEAN CELL VOLUME 89.7 fl (80-96); MEAN PLT VOLUME 8.4 fl (7.5-11.1); PLATELET COUNT 254 K/MM3 (134-434); RBC 4.23 M/mm3 (3.60-5.2); RDW 15.3 % (11.6-15.6); WHITE BLOOD COUNT 6.9 K/mm3 (4.0-10.0)
--- NOTE | 2019-07-22 07:55 | CON.GI ---
Consult Consult Specialty:: GI Referred by:: Dr Basilio Machado Reason for Consultation:: Abdominal Pain - History of Present Illness Chief Complaint: Abdominal Pain History of Present Illness: Patient is a 73 y/o female with past medical history of CAD, HTN, HLD, DM, COPD , Migraines, RLS, GERD, Cervical Spinal Stenosis, Disc Disease. Consult was placed for abdominal pain. Patient states to having sharp, non-radiating lower abdominal pain x 3 days. Denies nausea, vomiting, diarrhea or constipation associated with abdominal pain. Denies loss in appetite, rectal bleeding, melena. States losing 5-6lbs in 1 week. 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 Cardio/Vascular: Yes: CAD, HTN, Hyperlipdemia Pulmonary: Yes: COPD Gastrointestinal: Yes: Gastritis, GERD Musculoskeletal: Yes: Other (S/P right total knee replacement Disc Disease) Endocrine: Yes: Diabetes Mellitus - Past Surgical History Past Surgical History: Yes: Joint Replacement - Alcohol/Substance Use Hx Alcohol Use: No History of Substance Use: reports: None - Smoking History Smoking history: Former smoker Have you smoked in the past 12 months: No Aproximately how many cigarettes per day: 0 If you are a former smoker, when did you quit?: 15 yrs - Social History Usual Living Arrangement: Other (lives with son in house with 12 steps to enter but none inside; she reports being previously Independent in ADLs/ IADLs without Assistive Device) ADL: Independent History of Recent Travel: No Home Medications - Allergies Allergies/Adverse Reactions: Allergies Allergy/AdvReac Type Severity Reaction Status Date / Time No Known Allergies Allergy Verified 07/19/19 13:06 - Home Medications Home Medications: Ambulatory Orders Amitriptyline HCl [Elavil -] 25 mg PO DAILY 02/26/19 Aspirin [Aspirin EC] 81 mg PO DAILY 02/26/19 Atorvastatin Ca [Lipitor] 40 mg PO HS 02/26/19 Famotidine [Pepcid -] 20 mg PO BID 02/26/19 Glimepiride 2 mg PO DAILY 05/12/19 Oxycodone HCl/Acetaminophen [Percocet 5-325 mg Tablet] 1 - 2 tab PO Q4H PRN #20 tablet MDD 6 07/19/19 hydrOXYzine PAMOATE [Vistaril -] 25 mg PO QID PRN #20 capsule 07/19/19 Family Medical History Family Hx Cancer: Brother (colon cancer) Review of Systems - Review of Systems Constitutional: reports: No Symptoms Eyes: reports: No Symptoms HENT: reports: No Symptoms Neck: reports: No Symptoms Cardiovascular: reports: No Symptoms Respiratory: reports: No Symptoms Gastrointestinal: reports: Abdominal Pain Genitourinary: reports: No Symptoms Breasts: reports: No Symptoms Reported Musculoskeletal: reports: No Symptoms Integumentary: reports: No Symptoms Neurological: reports: No Symptoms Endocrine: reports: No Symptoms Hematology/Lymphatic: reports: No Symptoms Psychiatric: reports: No Symptoms Physical Exam-GI Vital Signs: Vital Signs Temperature 98.2 F 07/22/19 07:16 Pulse Rate 76 07/22/19 07:16 Respiratory Rate 20 07/22/19 07:16 Blood Pressure 130/87 07/22/19 07:16 O2 Sat by Pulse Oximetry (%) 98 07/21/19 21:00 Constitutional: Yes: No Distress, Calm Eyes: Yes: Conjunctiva Clear HENT: Yes: Atraumatic Cardiovascular: Yes: Regular Rate and Rhythm Respiratory: Yes: Regular, CTA Bilaterally Gastrointestinal Inspection: Yes: WNL. No: Ascites, Distention, Hernia, Scars, Other ...Auscultate: Yes: Normoactive Bowel Sounds. No: Hyperactive Bowel Sounds, Hypoactive Bowel Sounds, No Bowel Sounds, Other ...Palpate: Yes: Soft, Tenderness (lower abdomen). No: Firm/Rigid, Guarding, Hepatomegaly, Mass, Pulsatile Mass, Splenomegaly, Tenderness, Epigastium, Tenderness, Rebound, Other ...Percussion: Yes: Tympanitic. No: Dullness, Fluid Wave, Other Neurological: Yes: Alert, Oriented Psychiatric: Yes: Alert, Oriented Problem List - Problems (1) Abdominal pain Assessment/Plan: >R/O pain secondary to neuropathic pain >Abdominal CT scan with contrast >if CT scan negative will do further GI work-up as outpatient Code(s): R10.9 - UNSPECIFIED ABDOMINAL PAIN
[2019-07-22 08:07] LABS: ALBUMIN 3.8 g/dl (3.4-5.0); BILIRUBIN,TOTAL 0.3 mg/dL (0.2-1); BLOOD UREA NITROGEN 17.5 mg/dL (7-18); CALCIUM 9.5 mg/dL (8.5-10.1); CREATININE 0.7 mg/dL (0.55-1.3); POTASSIUM 3.9 mmol/L (3.5-5.1); TOT PROT 7.1 g/dl (6.4-8.2)
[2019-07-22] MEDS: ASPIRIN COATED 81 MG TABLET.EC PO SCH (09:37)
[2019-07-22] MEDS: HEPARIN NA (PORCINE) 5,000 UNITS/ML 1ML VIAL SQ SCH ×2 (09:37→21:51)
[2019-07-22] MEDS: FAMOTIDINE 20 MG TABLET PO SCH ×2 (09:37→21:51)
[2019-07-22] MEDS: LIDOCAINE 5% TOPICAL PATCH TP SCH (09:38)
--- NOTE | 2019-07-22 13:17 | PN ---
Progress Note, Physician Chief Complaint: Lower Back Pain Difficulty Ambulating Abdominal Pain History of Present Illness: Previous notes and events reviewed awake and alert NAD sts lower back pain is the same UC neg lower abdominal pain-Abd/Pelvic CT scan pending - Current Medication List Current Medications: Active Medications Acetaminophen (Tylenol -) 650 mg PO Q6H PRN PRN Reason: PAIN LEVEL 4 - 6 Last Admin: 07/21/19 06:01 Dose: 650 mg Amitriptyline HCl (Elavil -) 25 mg PO HS [facility] Last Admin: 07/21/19 21:15 Dose: 25 mg Aspirin (Ecotrin -) 81 mg PO DAILY [facility] Last Admin: 07/22/19 09:37 Dose: 81 mg Atorvastatin Calcium (Lipitor -) 40 mg PO HS [facility] Last Admin: 07/21/19 21:15 Dose: 40 mg Famotidine (Pepcid -) 20 mg PO BID [facility] Last Admin: 07/22/19 09:37 Dose: 20 mg Glimepiride (Amaryl -) 2 mg PO AM [facility] Last Admin: 07/22/19 06:25 Dose: Not Given Heparin Sodium (Porcine) (Heparin -) 5,000 unit SQ BID [facility] Last Admin: 07/22/19 09:37 Dose: 5,000 unit Insulin Aspart (Novolog Vial Sliding Scale -) 1 vial SQ [facility]; Protocol Last Admin: 07/22/19 13:03 Dose: 4 units Lidocaine (Lidoderm Patch -) 1 patch TP DAILY [facility] Last Admin: 07/22/19 09:38 Dose: 1 patch Miscellaneous (Lidoderm Patch Removal) 1 each MC DAILY@2200 [facility] Last Admin: 07/21/19 21:14 Dose: Not Given Miscellaneous (Lidoderm Patch Removal) 1 each MC DAILY@2200 [facility] Last Admin: 07/21/19 21:14 Dose: Not Given Morphine Sulfate (Morphine Sulfate) 2 mg IVPUSH Q6H PRN PRN Reason: PAIN LEVEL 7 - 10 Last Admin: 07/22/19 13:02 Dose: 2 mg - Objective Vital Signs: Vital Signs Temperature 98.2 F 07/22/19 09:50 Pulse Rate 74 07/22/19 09:50 Respiratory Rate 20 07/22/19 09:50 Blood Pressure 136/82 07/22/19 09:50 O2 Sat by Pulse Oximetry (%) 98 07/21/19 21:00 Constitutional: Yes: No Distress, Calm, Obese Eyes: Yes: Conjunctiva Clear HENT: Yes: Atraumatic Cardiovascular: Yes: Regular Rate and Rhythm Respiratory: Yes: Regular, CTA Bilaterally Gastrointestinal: Yes: Normal Bowel Sounds, Soft, Abdomen, Obese, Tenderness ( lower abdomen) Musculoskeletal: Yes: Back Pain, Muscle Weakness Extremities: Yes: WNL Edema: Yes Edema: LLE: Trace, RLE: Trace Neurological: Yes: Alert, Oriented Psychiatric: Yes: Alert, Oriented Labs: CBC, BMP 07/22/19 07:20 07/22/19 07:20 Microbiology 07/20/19 18:50 Urine - Urine Clean Catch Urine Culture - Final Normal Urogenital Drea - ....Imaging Cat Scan: Pending Problem List - Problems (1) Back pain Assessment/Plan: -Orthopedic and Neurosurgery consult -pain control -PT -Lumbar CT scan shows multilevel degenerative scoliosis of the thoracolumbosacral spine -Fall Precautions -UC neg -Lumbar/Thoracic MRI ordered Code(s): M54.9 - DORSALGIA, UNSPECIFIED Qualifiers: Back pain location: low back pain Chronicity: chronic Back pain laterality: bilateral (2) Inability to walk Assessment/Plan: -PT -Fall precautions -Orthopedic and Neurosurgery consult -Lumbar CT scan shows multilevel degenerative scoliosis of the thoracolumbosacral spine -Lumbar/Thoracic MRI pending Code(s): R26.2 - DIFFICULTY IN WALKING, NOT ELSEWHERE CLASSIFIED (3) Diabetes Assessment/Plan: -BGM ACHS -ISS -Amaryl Code(s): E11.9 - TYPE 2 DIABETES MELLITUS WITHOUT COMPLICATIONS Qualifiers: Diabetes mellitus type: type 2 (4) HLD (hyperlipidemia) Assessment/Plan: -Atorvastatin Code(s): E78.5 - HYPERLIPIDEMIA, UNSPECIFIED (5) HTN (hypertension) Assessment/Plan: -monitor BP -low Na diet Code(s): I10 - ESSENTIAL (PRIMARY) HYPERTENSION (6) Abdominal pain Assessment/Plan: -GI on board -pending official read of Abdomen/Pelvic CT scan Code(s): R10.9 - UNSPECIFIED ABDOMINAL PAIN Assessment/Plan see problem list dvt ppx
[2019-07-22] MEDS: ACETAMINOPHEN 325 MG TABLET (FP) PO PRN (15:13)
--- NOTE | 2019-07-22 19:30 | CONSULT ---
Consult - text type - Consultation Consultation Note: NEUROLOGY CONSULTATION is greatly appreciated: This 73 yo RH woman with H/O HTN, DM, Chol, ASHD and cervocal and lumbosacral spondylosis is well know to me over many years with Migraine Headaches, Restless Limbs Syndrome (RLS) and Chronic low back pain. Maintained on: Amitriptyline 25 mg; Aspirin 81; Atorvastatin; Famotidine; Glimepiride; Oxycodone; Vistaril. Not on Ropinirole or pramipexole. Most recently on IV antibiotics x 6 weeks for osteomyelitis of the left great toe. Pt describes acute worsening of Mid-back pain last with radiation to the abdomen and "down both legs" with numbess, tingling. Unable to stand or walk due to Increased pain in her back. CT of Thoracic and LS spines- diffuse DJD without vertebral collapse. MERI: Sitting up at edge of bed in NAD. ++Mid to lower thoracic palpation tenderness. Obese. No bruits, Cor Reg. S?P B/L TKR with downward displacement of the right patella. NEURO: Awake, alert. MS/Speech: Normal CN II-XII: normal Motor: No drift. Normal strength, including ankle dorsiflexion. Reduced R KJ and AJ (but present on the left. Toes downgoing. Coord: No FTN dystaxia Sensory: Normal vibration in the feet Gait: Stands with assist but increased focal mid-back pain IMP: Essentially normal neurological exam R/O thoracic vertebral collapse, Acute HNP and vertebral osteo/discitis. Migraine TOURE's/RLS SUGGEST: MRI of thoracic and LS spines. Check ESR, CRP, Fe++, TIBC, Ferritin Resume pramipexole 0.25 mg after breakfast and dinner and gradually increase as necessary Avoid antihistamines (will worsen RLS) Continue amitrityline for migraine prophylaxis. Thank you very much, Wellington Sevilla MD
[2019-07-22] MEDS: PRAMIPEXOLE DIHYDROCHLORIDE 0.25 MG TABLET PO SCH (21:50)
[2019-07-22] MEDS: AMITRIPTYLINE HCL 25 MG TABLET (FP) PO SCH (21:50)
[2019-07-22] MEDS: LIDOCAINE PATCH REMOVAL MC SCH ×2 (21:51)
[2019-07-22] MEDS: ATORVASTATIN CA 40 MG TABLET (FP) PO SCH (21:51)
[2019-07-23] MEDS: INSULIN SLIDING SCALE (NOVOLOG) 1 VIAL SQ SCH ×4 (06:13→21:00)
[2019-07-23] MEDS: PRAMIPEXOLE DIHYDROCHLORIDE 0.25 MG TABLET PO SCH ×3 (06:13→21:01)
[2019-07-23] MEDS: GLIMEPIRIDE 2 MG TABLET (FP) PO SCH (06:14)
--- NOTE | 2019-07-23 07:52 | PN.GI ---
GI Progress Note Subjective: Patient continues to have lower abdominal pain described as sharp "needle" like. Denies nausea, vomiting, diarrhea, rectal bleeding, melena. Abdominal CT scan shows Hepatosplenomegaly with diffuse fatty infiltration of the liver. - Objective Vital Signs: Vital Signs Temperature 97.9 F 07/23/19 06:00 Pulse Rate 72 07/23/19 06:00 Respiratory Rate 20 07/23/19 06:00 Blood Pressure 129/76 07/23/19 06:00 O2 Sat by Pulse Oximetry (%) 98 07/22/19 21:00 Constitutional: No Distress, Calm, Obese Eyes: Yes: Conjunctiva Clear HENT: Yes: Atraumatic Cardiovascular: Yes: Regular Rate and Rhythm Respiratory: Yes: Regular, CTA Bilaterally Gastrointestinal Inspection: Yes: WNL. No: Ascites, Distention, Hernia, Scars, Other ...Auscultate: Yes: Hypoactive Bowel Sounds. No: Normoactive Bowel Sounds, Hyperactive Bowel Sounds, No Bowel Sounds, Other ...Palpate: Yes: Soft, Tenderness (lower abdomen), Tenderness, Epigastium. No: Firm/Rigid, Guarding, Hepatomegaly, Mass, Pulsatile Mass, Splenomegaly, Tenderness, Rebound, Other ...Percussion: Yes: Tympanitic. No: Dullness, Fluid Wave, Other Neurological: Yes: Alert, Oriented Psychiatric: Yes: Alert, Oriented Problem List - Problems (1) Abdominal pain Assessment/Plan: >R/O pain secondary to neuropathic pain >Abdominal CT scan with contrast results reviewed >follow up as outpatient for chronic liver workup Code(s): R10.9 - UNSPECIFIED ABDOMINAL PAIN
[2019-07-23 07:58] LABS: ALBUMIN 3.7 g/dl (3.4-5.0); BILIRUBIN,TOTAL 0.3 mg/dL (0.2-1); BLOOD UREA NITROGEN 20.5 mg/dL (7-18); CALCIUM 8.9 mg/dL (8.5-10.1); CREATININE 0.7 mg/dL (0.55-1.3); POTASSIUM 4.3 mmol/L (3.5-5.1); TOT PROT 7.2 g/dl (6.4-8.2)
[2019-07-23] MEDS: traMADol HCL 50 MG TABLET PO PRN ×2 (08:32→16:34)
--- NOTE | 2019-07-23 09:03 | PN ---
Progress Note, Physician - Current Medication List Current Medications: Active Medications Acetaminophen (Tylenol -) 650 mg PO Q6H PRN PRN Reason: PAIN LEVEL 4 - 6 Last Admin: 07/22/19 15:13 Dose: 650 mg Amitriptyline HCl (Elavil -) 25 mg PO HS [facility] Last Admin: 07/22/19 21:50 Dose: 25 mg Aspirin (Ecotrin -) 81 mg PO DAILY [facility] Last Admin: 07/22/19 09:37 Dose: 81 mg Atorvastatin Calcium (Lipitor -) 40 mg PO HS [facility] Last Admin: 07/22/19 21:51 Dose: 40 mg Famotidine (Pepcid -) 20 mg PO BID [facility] Last Admin: 07/22/19 21:51 Dose: 20 mg Glimepiride (Amaryl -) 2 mg PO AM [facility] Last Admin: 07/23/19 06:14 Dose: 2 mg Heparin Sodium (Porcine) (Heparin -) 5,000 unit SQ BID [facility] Last Admin: 07/22/19 21:51 Dose: 5,000 unit Insulin Aspart (Novolog Vial Sliding Scale -) 1 vial SQ ACHS [facility]; Protocol Last Admin: 07/23/19 06:13 Dose: 2 units Lidocaine (Lidoderm Patch -) 1 patch TP DAILY [facility] Last Admin: 07/22/19 09:38 Dose: 1 patch Miscellaneous (Lidoderm Patch Removal) 1 each MC DAILY@2200 [facility] Last Admin: 07/22/19 21:51 Dose: 1 each Miscellaneous (Lidoderm Patch Removal) 1 each MC DAILY@2200 [facility] Last Admin: 07/22/19 21:51 Dose: Not Given Morphine Sulfate (Morphine Sulfate) 2 mg IVPUSH Q6H PRN PRN Reason: PAIN LEVEL 7 - 10 Last Admin: 07/22/19 21:52 Dose: 2 mg Pramipexole Dihydrochloride (Mirapex -) 0.25 mg PO TID [facility] Last Admin: 07/23/19 06:13 Dose: 0.25 mg Tramadol HCl (Ultram -) 50 mg PO Q6H PRN PRN Reason: PAIN 4 - 6; IF TYLENOL NT WRK Last Admin: 07/23/19 08:32 Dose: 50 mg - Objective Vital Signs: Vital Signs Temperature 97.9 F 07/23/19 06:00 Pulse Rate 72 07/23/19 06:00 Respiratory Rate 20 07/23/19 06:00 Blood Pressure 129/76 07/23/19 06:00 O2 Sat by Pulse Oximetry (%) 98 07/22/19 21:00 Cardiovascular: Yes: S1, S2 Respiratory: Yes: Regular, CTA Bilaterally Gastrointestinal: Yes: Normal Bowel Sounds, Soft Genitourinary: No: Hematuria Labs: CBC, BMP 07/23/19 06:45 07/23/19 06:45 Assessment/Plan - Problems (1) Back pain Assessment/Plan: -Orthopedic and Neurosurgery consult -pain control -PT -Lumbar CT scan shows multilevel degenerative scoliosis of the thoracolumbosacral spine -Fall Precautions -UC neg -Lumbar/Thoracic MRI ordered Code(s): M54.9 - DORSALGIA, UNSPECIFIED Qualifiers: Back pain location: low back pain Chronicity: chronic Back pain laterality: bilateral (2) Inability to walk Assessment/Plan: -PT -Fall precautions -Orthopedic and Neurosurgery consult -Lumbar CT scan shows multilevel degenerative scoliosis of the thoracolumbosacral spine -Lumbar/Thoracic MRI pending Code(s): R26.2 - DIFFICULTY IN WALKING, NOT ELSEWHERE CLASSIFIED (3) Diabetes Assessment/Plan: -BGM ACHS -ISS -Amaryl Code(s): E11.9 - TYPE 2 DIABETES MELLITUS WITHOUT COMPLICATIONS Qualifiers: Diabetes mellitus type: type 2 (4) HLD (hyperlipidemia) Assessment/Plan: -Atorvastatin Code(s): E78.5 - HYPERLIPIDEMIA, UNSPECIFIED (5) HTN (hypertension) Assessment/Plan: -monitor BP -low Na diet Code(s): I10 - ESSENTIAL (PRIMARY) HYPERTENSION (6) Abdominal pain Assessment/Plan: -GI on board -Abdomen/Pelvic CT scan nad -repeat UA Code(s): R10.9 - UNSPECIFIED ABDOMINAL PAIN
[2019-07-23] MEDS: LIDOCAINE 5% TOPICAL PATCH TP SCH (09:37)
[2019-07-23] MEDS: FAMOTIDINE 20 MG TABLET PO SCH ×2 (09:38→21:02)
[2019-07-23] MEDS: HEPARIN NA (PORCINE) 5,000 UNITS/ML 1ML VIAL SQ SCH ×2 (09:38→21:00)
[2019-07-23] MEDS: ASPIRIN COATED 81 MG TABLET.EC PO SCH (09:38)
[2019-07-23 09:49] LABS: HEMATOCRIT 38.9 % (32.4-45.2); HEMOGLOBIN 12.3 GM/dL (10.7-15.3); MCH 28.5 pg (25.7-33.7); MCHC 31.6 g/dl (32.0-36.0); MEAN CELL VOLUME 90.2 fl (80-96); MEAN PLT VOLUME 8.8 fl (7.5-11.1); PLATELET COUNT 245 K/MM3 (134-434); RBC 4.31 M/mm3 (3.60-5.2); RDW 15.4 % (11.6-15.6); WHITE BLOOD COUNT 5.7 K/mm3 (4.0-10.0)
[2019-07-23] MEDS ORDERED: INSULIN (NOVOLOG) ASPART 100 UNITS/ML 10ML VIAL ONE (11:38)
[2019-07-23] MEDS: MORPHINE SULFATE 2 MG/ML VIAL IVPUSH PRN ×2 (11:39→19:08)
[2019-07-23] MEDS ORDERED: DEXAMETHASONE SOD PHOSPHATE 10 MG/1 ML VIAL IM ONE (16:02)
[2019-07-23] MEDS: DEXAMETHASONE SOD PHOSPHATE 4 MG/1 ML VIAL IVPUSH SCH (21:00)
[2019-07-23] MEDS: ATORVASTATIN CA 40 MG TABLET (FP) PO SCH (21:01)
[2019-07-23] MEDS: AMITRIPTYLINE HCL 25 MG TABLET (FP) PO SCH (21:02)
[2019-07-23] MEDS: LIDOCAINE PATCH REMOVAL MC SCH ×2 (21:02→21:03)
--- NOTE | 2019-07-23 23:04 | PN ---
Progress Note, Physician Chief Complaint: back and hip pain - Current Medication List Current Medications: Active Medications Acetaminophen (Tylenol -) 650 mg PO Q6H PRN PRN Reason: PAIN LEVEL 4 - 6 Last Admin: 07/22/19 15:13 Dose: 650 mg Amitriptyline HCl (Elavil -) 25 mg PO HS [facility] Last Admin: 07/23/19 21:02 Dose: 25 mg Aspirin (Ecotrin -) 81 mg PO DAILY [facility] Last Admin: 07/23/19 09:38 Dose: 81 mg Atorvastatin Calcium (Lipitor -) 40 mg PO HS [facility] Last Admin: 07/23/19 21:01 Dose: 40 mg Dexamethasone Sodium Phosphate (Decadron Injection -) 4 mg IVPUSH Q6H-IV [facility] Last Admin: 07/23/19 21:00 Dose: 4 mg Famotidine (Pepcid -) 20 mg PO BID [facility] Last Admin: 07/23/19 21:02 Dose: 20 mg Glimepiride (Amaryl -) 2 mg PO AM [facility] Last Admin: 07/23/19 06:14 Dose: 2 mg Heparin Sodium (Porcine) (Heparin -) 5,000 unit SQ BID [facility] Last Admin: 07/23/19 21:00 Dose: 5,000 unit Insulin Aspart (Novolog Vial Sliding Scale -) 1 vial SQ [facility]; Protocol Last Admin: 07/23/19 21:00 Dose: 6 units Lidocaine (Lidoderm Patch -) 1 patch TP DAILY [facility] Last Admin: 07/23/19 09:37 Dose: 1 patch Miscellaneous (Lidoderm Patch Removal) 1 each MC DAILY@2200 [facility] Last Admin: 07/23/19 21:02 Dose: 1 each Miscellaneous (Lidoderm Patch Removal) 1 each MC DAILY@2200 [facility] Last Admin: 07/23/19 21:03 Dose: Not Given Morphine Sulfate (Morphine Sulfate) 2 mg IVPUSH Q6H PRN PRN Reason: PAIN LEVEL 7 - 10 Last Admin: 07/23/19 19:08 Dose: 2 mg Pramipexole Dihydrochloride (Mirapex -) 0.25 mg PO TID [facility] Last Admin: 07/23/19 21:01 Dose: 0.25 mg Tramadol HCl (Ultram -) 50 mg PO Q6H PRN PRN Reason: PAIN 4 - 6; IF TYLENOL NT WRK Last Admin: 07/23/19 16:34 Dose: 50 mg - Objective Vital Signs: Vital Signs Temperature 98.0 F 07/23/19 18:28 Pulse Rate 97 H 07/23/19 18:28 Respiratory Rate 18 07/23/19 18:28 Blood Pressure 127/83 07/23/19 18:28 O2 Sat by Pulse Oximetry (%) 98 07/23/19 09:00 Constitutional: Yes: Anxious Eyes: Yes: EOM Intact HENT: Yes: Normocephalic Neck: Yes: Trachea Midline Cardiovascular: Yes: Regular Rate and Rhythm Respiratory: Yes: CTA Bilaterally Gastrointestinal: Yes: Normal Bowel Sounds, Abdomen, Obese ...Rectal Exam: Yes: Deferred Genitourinary: Yes: WNL Musculoskeletal: Yes: Joint Swelling, Muscle Pain, Muscle Weakness Extremities: Yes: Delayed Capillary Refill Edema: No Neurological: Yes: Alert, Oriented Labs: CBC, BMP 07/23/19 09:15 07/23/19 06:45 Problem List - Problems (1) Back pain Code(s): M54.9 - DORSALGIA, UNSPECIFIED Qualifiers: Back pain location: low back pain Chronicity: chronic Back pain laterality: bilateral (2) Inability to walk Code(s): R26.2 - DIFFICULTY IN WALKING, NOT ELSEWHERE CLASSIFIED (3) Anxiousness Code(s): F41.9 - ANXIETY DISORDER, UNSPECIFIED (4) Cellulitis Code(s): L03.90 - CELLULITIS, UNSPECIFIED (5) Diabetes Code(s): E11.9 - TYPE 2 DIABETES MELLITUS WITHOUT COMPLICATIONS Qualifiers: Diabetes mellitus type: type 2 (6) Diabetic neuropathy Code(s): E11.40 - TYPE 2 DIABETES MELLITUS WITH DIABETIC NEUROPATHY, UNSP Qualifiers: Diabetes mellitus type: type 2 Assessment/Plan Current Active Problems Abdominal pain (Acute) Back pain (Acute) Inability to walk (Acute) dmt2 neuropathy Abnormal Lab Results 07/23/19 07/23/19 06:45 09:15 MCHC 31.6 L BUN 20.5 H Random Glucose 168 H Unsaturated IBC 291 H AST 13 L C-Reactive Protein 1.2 H Laboratory Results - last 24 hr 07/23/19 07/23/19 07/23/19 06:12 06:45 06:45 WBC Cancelled Corrected WBC (auto) Cancelled RBC Cancelled Hgb Cancelled Hct Cancelled MCV Cancelled MCH Cancelled MCHC Cancelled RDW Cancelled Plt Count Cancelled MPV Cancelled Manual Slide Review Cancelled Platelet Comment Cancelled ESR Sodium 137 Potassium 4.3 Chloride 104 Carbon Dioxide 25 Anion Gap 8 BUN 20.5 H Creatinine 0.7 Est GFR (CKD-EPI)AfAm 99.62 Est GFR (CKD-EPI)NonAf 85.95 POC Glucometer 161 Random Glucose 168 H Calcium 8.9 Iron 65 TIBC 356 Iron Saturation 18 Unsaturated IBC 291 H Total Bilirubin 0.3 AST 13 L ALT 18 Alkaline Phosphatase 59 Creatine Kinase C-Reactive Protein 1.2 H Total Protein 7.2 Albumin 3.7 07/23/19 07/23/19 07/23/19 06:45 09:15 10:11 WBC 5.7 Corrected WBC (auto) RBC 4.31 Hgb 12.3 Hct 38.9 MCV 90.2 MCH 28.5 MCHC 31.6 L RDW 15.4 Plt Count 245 MPV 8.8 Manual Slide Review Platelet Comment ESR Cancelled Sodium Potassium Chloride Carbon Dioxide Anion Gap BUN Creatinine Est GFR (CKD-EPI)AfAm Est GFR (CKD-EPI)NonAf POC Glucometer Random Glucose Calcium Iron TIBC Iron Saturation Unsaturated IBC Total Bilirubin AST ALT Alkaline Phosphatase Creatine Kinase 42 C-Reactive Protein Total Protein Albumin 07/23/19 07/23/19 07/23/19 11:12 16:33 20:55 WBC Corrected WBC (auto) RBC Hgb Hct MCV MCH MCHC RDW Plt Count MPV Manual Slide Review Platelet Comment ESR Sodium Potassium Chloride Carbon Dioxide Anion Gap BUN Creatinine Est GFR (CKD-EPI)AfAm Est GFR (CKD-EPI)NonAf POC Glucometer 161 165 280 Random Glucose Calcium Iron TIBC Iron Saturation Unsaturated IBC Total Bilirubin AST ALT Alkaline Phosphatase Creatine Kinase C-Reactive Protein Total Protein Albumin plan: bgm qid novolog glimiperide 4mg daily levemir 20 units am
[2019-07-24] MEDS: traMADol HCL 50 MG TABLET PO PRN ×2 (00:16→21:47)
[2019-07-24] MEDS: DEXAMETHASONE SOD PHOSPHATE 4 MG/1 ML VIAL IVPUSH SCH ×4 (02:35→21:10)
[2019-07-24] MEDS: PRAMIPEXOLE DIHYDROCHLORIDE 0.25 MG TABLET PO SCH ×3 (06:06→21:11)
[2019-07-24] MEDS: INSULIN SLIDING SCALE (NOVOLOG) 1 VIAL SQ SCH ×4 (06:07→21:09)
[2019-07-24] MEDS: INSULIN (LEVEMIR) 100 UNITS/ML UNITS SQ SCH (06:09)
[2019-07-24] MEDS ORDERED: INSULIN (NOVOLOG) ASPART 100 UNITS/ML 10ML VIAL ONE ×2 (06:26→16:46)
[2019-07-24] MEDS ORDERED: GLIMEPIRIDE 2 MG TABLET (FP) PO SCH (07:00)
[2019-07-24] MEDS: FAMOTIDINE 20 MG TABLET PO SCH ×2 (09:58→21:12)
[2019-07-24] MEDS: HEPARIN NA (PORCINE) 5,000 UNITS/ML 1ML VIAL SQ SCH ×2 (09:58→21:10)
[2019-07-24] MEDS: ASPIRIN COATED 81 MG TABLET.EC PO SCH (09:58)
[2019-07-24] MEDS: LIDOCAINE 5% TOPICAL PATCH TP SCH (09:58)
--- NOTE | 2019-07-24 10:00 | PN ---
Progress Note, Physician Chief Complaint: Lower Back Pain Difficulty Ambulating Abdominal Pain History of Present Illness: Previous notes and events reviewed awake and alert NAD complain of lower abdominal pain MRI results reviewed UC neg - Current Medication List Current Medications: Active Medications Acetaminophen (Tylenol -) 650 mg PO Q6H PRN PRN Reason: PAIN LEVEL 4 - 6 Last Admin: 07/22/19 15:13 Dose: 650 mg Amitriptyline HCl (Elavil -) 25 mg PO HS [facility] Last Admin: 07/23/19 21:02 Dose: 25 mg Aspirin (Ecotrin -) 81 mg PO DAILY [facility] Last Admin: 07/23/19 09:38 Dose: 81 mg Atorvastatin Calcium (Lipitor -) 40 mg PO HS [facility] Last Admin: 07/23/19 21:01 Dose: 40 mg Dexamethasone Sodium Phosphate (Decadron Injection -) 4 mg IVPUSH Q6H-IV [facility] Last Admin: 07/24/19 09:00 Dose: 4 mg Famotidine (Pepcid -) 20 mg PO BID [facility] Last Admin: 07/23/19 21:02 Dose: 20 mg Glimepiride (Amaryl -) 4 mg PO DAILY@0700 [facility] Heparin Sodium (Porcine) (Heparin -) 5,000 unit SQ BID [facility] Last Admin: 07/23/19 21:00 Dose: 5,000 unit Insulin Aspart (Novolog Vial Sliding Scale -) 1 vial SQ [facility]; Protocol Last Admin: 07/24/19 06:07 Dose: 4 units Insulin Detemir (Levemir Vial) 20 units SQ AM [facility] Last Admin: 07/24/19 06:09 Dose: 20 units Lidocaine (Lidoderm Patch -) 1 patch TP DAILY [facility] Last Admin: 07/23/19 09:37 Dose: 1 patch Miscellaneous (Lidoderm Patch Removal) 1 each MC DAILY@2200 [facility] Last Admin: 07/23/19 21:02 Dose: 1 each Miscellaneous (Lidoderm Patch Removal) 1 each MC DAILY@2200 [facility] Last Admin: 07/23/19 21:03 Dose: Not Given Morphine Sulfate (Morphine Sulfate) 2 mg IVPUSH Q6H PRN PRN Reason: PAIN LEVEL 7 - 10 Last Admin: 07/23/19 19:08 Dose: 2 mg Pramipexole Dihydrochloride (Mirapex -) 0.25 mg PO TID [facility] Last Admin: 07/24/19 06:06 Dose: 0.25 mg Tramadol HCl (Ultram -) 50 mg PO Q6H PRN PRN Reason: PAIN 4 - 6; IF TYLENOL NT [facility] Last Admin: 07/24/19 00:16 Dose: 50 mg - Objective Vital Signs: Vital Signs Temperature 97.9 F 07/24/19 06:00 Pulse Rate 80 07/24/19 06:00 Respiratory Rate 18 07/24/19 06:00 Blood Pressure 114/52 L 07/24/19 06:00 O2 Sat by Pulse Oximetry (%) 98 07/23/19 21:00 Constitutional: Yes: No Distress, Calm, Obese Eyes: Yes: Conjunctiva Clear HENT: Yes: Atraumatic Cardiovascular: Yes: Regular Rate and Rhythm Respiratory: Yes: Regular, CTA Bilaterally Gastrointestinal: Yes: Normal Bowel Sounds, Soft, Abdomen, Obese, Tenderness ( lower abdomen) Musculoskeletal: Yes: Muscle Weakness Extremities: Yes: WNL Edema: No Neurological: Yes: Alert, Oriented Psychiatric: Yes: Alert, Oriented Labs: CBC, BMP 07/23/19 09:15 07/23/19 06:45 Microbiology 07/20/19 18:50 Urine - Urine Clean Catch Urine Culture - Final Normal Urogenital Drea - ....Imaging MRI: Report Reviewed Problem List - Problems (1) Back pain Assessment/Plan: -Orthopedic and Neurosurgery consult -pain control -PT -Lumbar CT scan shows multilevel degenerative scoliosis of the thoracolumbosacral spine -Fall Precautions -UC neg -Lumbar/Thoracic MRI shows scoliosis of thoracolumbosacral spine, T11-T12 disc desiccation, loss of disc space height, anterior spondylosis, moderately severe central spinal canal stenosis observed on sagittal images secondary to broad based calcified disc facet joint athropathy, thickened ligamentum flavum, , mass effect on thoracic spinal cord, multilevel chronic discogenic disease facet joint arthopathy Code(s): M54.9 - DORSALGIA, UNSPECIFIED Qualifiers: Back pain location: low back pain Chronicity: chronic Back pain laterality: bilateral (2) Inability to walk Assessment/Plan: -PT -Fall precautions -Orthopedic and Neurosurgery consult -Lumbar CT scan shows multilevel degenerative scoliosis of the thoracolumbosacral spine -Lumbar/Thoracic MRI shows scoliosis of thoracolumbosacral spine, T11-T12 disc desiccation, loss of disc space height, anterior spondylosis, moderately severe central spinal canal stenosis observed on sagittal images secondary to broad based calcified disc facet joint athropathy, thickened ligamentum flavum, , mass effect on thoracic spinal cord, multilevel chronic discogenic disease facet joint arthopathy Code(s): R26.2 - DIFFICULTY IN WALKING, NOT ELSEWHERE CLASSIFIED (3) Diabetes Assessment/Plan: -BGM ACHS -ISS -Amaryl Code(s): E11.9 - TYPE 2 DIABETES MELLITUS WITHOUT COMPLICATIONS Qualifiers: Diabetes mellitus type: type 2 (4) HLD (hyperlipidemia) Assessment/Plan: -Atorvastatin Code(s): E78.5 - HYPERLIPIDEMIA, UNSPECIFIED (5) HTN (hypertension) Assessment/Plan: -monitor BP -low Na diet Code(s): I10 - ESSENTIAL (PRIMARY) HYPERTENSION (6) Abdominal pain Assessment/Plan: -GI on board -Abdominal CT scan shows hepatosplenomegaly with diffuse fatty infiltration of liver Code(s): R10.9 - UNSPECIFIED ABDOMINAL PAIN Assessment/Plan see problem list dvt ppx
--- NOTE | 2019-07-24 12:01 | PN ---
Progress Note (short form) - Note Progress Note: NEUROSURGERY CONSULT DICTATED Chart reviewed Imaging studies reviewed Pt examined h/o CAD, HTN, HLD, DM, COPD, GERD, Cervical Stenosis, Who presents to the ED with LBP radiating radiating to lower legs, and unable to ambulate a couple days ago. Flank pain to inguinal region. Occ B posterior thigh pain. Pain better since admission. No bowel/bladder incontinence. On iv abx for L D1 osteo recently, pending hyperbaric tx PE: AF, VSS HEENT- NC/AT; Neck- supple; Cor- RR; Lungs- CTA B; Abd- benign, obese, Ext- L big toe wound; no sign of DVT CN- intact; Motor- 5/5 except L foot/toes pain limited 4/5; Sensation- intact LT /vibration; DTR- hyporeflexic Back- tender LS junction B WBC 5.7 MRI T spine- multilevel DDD; mild T10-11 disc bulge; T11-12 broad based disc protrusion with moderate stenosis; extensive spondylosis; ? STIR hyperintensity on sagittal image only; mild T12-L1 disc bulge MRI LS spine- scoliosis, degenerative disc dz; R L2-3 > L1-2 foramenal stenosis and L L4-5 foramenal stenosis; facet hypertrophy CT T /LS spine- multilevel lower thoracic and lumbar DDD, spondylosis, scoliosis ; no acute fx Pain meds T11-12 HNP/stenosis with ? myelomalacia Lumbar scoliosis with foramenal stenosis Add neurontin No invasive pain management procedure recommended given L foot wound still pending further tx No surgical intervention recommended given improving symptoms, paucity of corresponding neurological deficits and her medical diseases When L foot infection/wound healed could consider BENITEZ for thoracic (T11-12) or lumbar (L4-5) stenosis depending on symptoms Pain management prn d/w pt and son by phone
[2019-07-24] MEDS: GABAPENTIN 100 MG CAPSULE (FP) PO SCH ×2 (13:25→21:12)
[2019-07-24 14:11] LABS: URINE APPEARANCE CLEAR; URINE BILIRUBIN NEGATIVE (NEGATIVE); URINE COLOR YELLOW; URINE GLUCOSE (UA) 3+ (NEGATIVE); URINE KETONE NEGATIVE (NEGATIVE); URINE LEUK ESTERASE NEGATIVE (NEGATIVE); URINE NITRITE NEGATIVE (NEGATIVE); URINE PROTEIN NEGATIVE (NEGATIVE); URINE UROBILINOGEN 0.2 mg/dL (0.2-1.0)
--- NOTE | 2019-07-24 14:27 | CONS ---
DATE OF CONSULTATION: 07/24/2019 REQUESTING PHYSICIAN: Gina Flores MD PEANUT SORTER: Kristian Wilkins MD, Neurosurgery. CHIEF COMPLAINT: Lower back pain, groin pain, and lumbar radiculopathy. HISTORY OF PRESENT ILLNESS: The patient is a 73-year-old, right-handed female with multiple medical conditions, including type 2 diabetes, coronary artery disease, hypercholesterolemia, hypertension, COPD, gastroesophageal reflux disease, cervical spinal stenosis, who complained of lower back pain radiating to both arms and her legs. The pain radiates down from her back to her groin, as well as down to her posterior thigh. She was not able to ambulate. Currently, she has no leg weakness, but does have some pain along the left foot where she had a recent infection. She was being treated with IV antibiotics for her osteomyelitis of her left big toe. Her pain has been better since admission and she has no bowel or bladder incontinence. She has no fever or chills. She is pending hyperbaric treatment for her left foot wound. The patient has not complained of a history of back pain previously, but does have a history of cervical spinal stenosis by report. PAST MEDICAL HISTORY: Significant for hypertension, coronary artery disease, hypercholesterolemia, diabetes, COPD, gastroesophageal reflux disease, cervical spinal stenosis, osteoarthritis, recent left foot osteomyelitis. CURRENT MEDICATIONS: Include Lidoderm patch, Decadron, Tylenol, subcutaneous heparin, Elavil, MiraLAX, Pepcid, Lipitor, insulin Levemir, Ecotrin, morphine, Ultram, Amaryl. ALLERGIES: There is no known drug allergy. FAMILY HISTORY: Noncontributory, except for osteoarthritis and spinal disease. SOCIAL HISTORY: She does not smoke or drink. She lives at home. REVIEW OF SYSTEMS: Otherwise negative for other major constitutional, head and neck, cardiovascular, pulmonary, gastrointestinal, genitourinary, endocrinological, neurological or psychological problem except for the above. PHYSICAL EXAMINATION: Vital Signs: T-maximum is 99.1, blood pressure is 122/80, with pulse rate of 95. O2 saturation 97% on room air. HEENT: Examination shows her to be normocephalic, atraumatic, anicteric. Neck: Supple with no carotid bruit. Coronary: Examination demonstrated a regular rhythm. Lungs: Clear bilaterally. Abdomen: Benign. She is somewhat obese. Extremities: Examination showed no signs of DVT. She does have a left big toe wound. There is a right anterior knee scar which is healed. Neurologic: She is awake, alert, and oriented x3. Cranial nerves examination is intact 2 through 12. Motor examination shows 5/5 strength, except for left foot and left toes dorsiflexion and planta flexion which are 4/5 limited by localized pain. Sensory examination is intact to light touch, vibratory sensation. Deep tendon reflexes are hyporeflexive throughout. There is no pathological long-tract sign. Gait was not tested for safety reasons. Cerebellar exam demonstrated intact [id number] examination. LABORATORY: Examination shows white blood cell count of 5.7, with hemoglobin of 12.3. Fingerstick is between 105-280. Serum sodium is 137, potassium is 4.3, BUN 20.5 and creatinine 0.7. Urinalysis is negative, except for 3+ glucose. IMAGING: CT scan of the thoracic spine and lumbar spine demonstrated multi- level degenerative disk disease and spondylosis with associated bridging osteophytes. There is facet hypertrophy on multiple levels. Moderate thoracic stenosis is noted at T11-T12 level. There is scoliosis of the lower thoracic and lumbar spine. There is spondylolisthesis at L4-5 and L1-2. There is no acute fracture noted. MRI of the thoracic and lumbar spine demonstrated multi-level thoracic degenerative disk disease most noticeable in the lower thoracic spine. There is T11-T12 broad-based protrusion with moderate spinal stenosis. There is a faint T2 STIR- image hyperintensity which is only seen on the sagittal but not the axial images. There T10-11 and T12-L1 degenerative disk bulge with no marked stenosis. Lumbar MRI demonstrated multi-level facet hypertrophy with associated scoliosis. There is right L1-2 and L2-3 foraminal stenosis, as well as left L4-5 foraminal stenosis secondary to scoliosis. There is no marked central stenosis in the lumbar spine. IMPRESSION: 1. T11-T12 broad-based disk protrusion with moderate stenosis and likely thoracic radiculopathy in the T12 distribution. 2. Lumbar scoliosis with right L1-L2 and L2-L3 and left L4-L5 foraminal and lateral recess stenosis with lumbar radiculopathy. 3. Diabetes. 4. Hypertension/coronary artery disease. 5. Chronic obstructive pulmonary disease. 6. Recent left foot/toe infection/osteomyelitis. RECOMMENDATIONS: The patient presents with a several-day history of increasing lower back pain and bilateral sciatica. She also has pain radiating down to her groin. She has no obvious signs of urinary tract infection, at this time, and there was no reported abdominal pathology by report on the CT scan. She does have thoracic disk protrusion at T11-12 which could cause pain radiating down to her bilateral groin. She has not had these symptoms previously. Additionally, the patient has lower back pain radiating down to the bilateral buttocks and posterior thigh which is likely the result of her lumbar disease, degenerative disk disease, and scoliosis with foraminal stenosis. Given her recent infection, and her left toe wound still needs to be treated with hyperbaric treatment, no invasive treatment is recommended at this time. A course of gabapentin is recommended. I would stop the IV steroids, given that her pain is improved, and she is diabetic. Also, she has significant neurological deficits associated with her T11-T12 stenosis. Even though there is a faint hyperintensity on the STIR images on the sagittal MRI, there is no corresponding finding on the other sequences or the axial images. In the future, if the patient has thoracic radiculopathy and the wound has been healed/and infection treated, she could consider a thoracic epidural steroid injection. For her lumbar, she can concurrently consider lumbar injection for her lumbar radiculopathy and sciatica. Given that she is diabetic, the dosing and frequency of injection will have to be carefully planned. No surgical intervention is recommended, at this time, given her age, medical condition, and ongoing treatment for her open wound of the left big toe. The above was discussed with the patient and her son at the bedside. All questions were answered. KRISTIAN WILKINS M.D. [id number] MTDD
[2019-07-24] MEDS: MORPHINE SULFATE 2 MG/ML VIAL IVPUSH PRN (16:48)
[2019-07-24] MEDS: LIDOCAINE PATCH REMOVAL MC SCH ×2 (21:11)
[2019-07-24] MEDS: ATORVASTATIN CA 40 MG TABLET (FP) PO SCH (21:11)
[2019-07-24] MEDS: AMITRIPTYLINE HCL 25 MG TABLET (FP) PO SCH (21:12)
--- NOTE | 2019-07-24 21:33 | CONSULT ---
Consult Consult Specialty:: Podiatry Reason for Consultation:: follow up om left big toe. pt seen at 4:30pm today. - History of Present Illness History of Present Illness: om left big toe. - History Source History Provided By: Medical Record - Past Medical History [employer]: Yes: Vertigo Cardio/Vascular: Yes: CAD, HTN, Hyperlipdemia Pulmonary: Yes: COPD Gastrointestinal: Yes: Gastritis, GERD Musculoskeletal: Yes: Other (S/P right total knee replacement Disc Disease) Endocrine: Yes: Diabetes Mellitus - Past Surgical History Past Surgical History: Yes: Joint Replacement - Alcohol/Substance Use Hx Alcohol Use: No History of Substance Use: reports: None - Smoking History Smoking history: Former smoker Have you smoked in the past 12 months: No Aproximately how many cigarettes per day: 0 If you are a former smoker, when did you quit?: 15 yrs - Social History Usual Living Arrangement: Other (lives with son in house with 12 steps to enter but none inside; she reports being previously Independent in ADLs/ IADLs without Assistive Device) ADL: Independent History of Recent Travel: No Home Medications - Allergies Allergies/Adverse Reactions: Allergies Allergy/AdvReac Type Severity Reaction Status Date / Time No Known Allergies Allergy Verified 07/19/19 13:06 - Home Medications Home Medications: Ambulatory Orders Amitriptyline HCl [Elavil -] 25 mg PO DAILY 02/26/19 Aspirin [Aspirin EC] 81 mg PO DAILY 02/26/19 Atorvastatin Ca [Lipitor] 40 mg PO HS 02/26/19 Famotidine [Pepcid -] 20 mg PO BID 02/26/19 Glimepiride 2 mg PO DAILY 05/12/19 Oxycodone HCl/Acetaminophen [Percocet 5-325 mg Tablet] 1 - 2 tab PO Q4H PRN #20 tablet MDD 6 07/19/19 hydrOXYzine PAMOATE [Vistaril -] 25 mg PO QID PRN #20 capsule 07/19/19 Physical Exam Vital Signs: Vital Signs Temperature 98.9 F 07/24/19 13:29 Pulse Rate 86 07/24/19 13:29 Respiratory Rate 20 07/24/19 13:29 Blood Pressure 117/72 07/24/19 13:29 O2 Sat by Pulse Oximetry (%) 97 07/24/19 09:00 Extremities: Yes: Other (om, -erythema, -tender left big toe) Labs: CBC, BMP 07/23/19 09:15 07/23/19 06:45 Assessment/Plan om left hallux Pt scheduled for hbo tx once dcd. Will follow. No intervention at this time.
[2019-07-25] MEDS: DEXAMETHASONE SOD PHOSPHATE 4 MG/1 ML VIAL IVPUSH SCH ×4 (02:38→21:32)
[2019-07-25] MEDS ORDERED: PT OWN MED DRAWER 7, Y5N ONE ×4 (05:25→12:21)
[2019-07-25] MEDS: GABAPENTIN 100 MG CAPSULE (FP) PO SCH ×3 (05:53→21:32)
[2019-07-25] MEDS: PRAMIPEXOLE DIHYDROCHLORIDE 0.25 MG TABLET PO SCH ×3 (05:53→21:32)
[2019-07-25] MEDS: INSULIN SLIDING SCALE (NOVOLOG) 1 VIAL SQ SCH ×4 (06:00→21:48)
[2019-07-25] MEDS: INSULIN (LEVEMIR) 100 UNITS/ML UNITS SQ SCH (06:00)
[2019-07-25] MEDS: GLIMEPIRIDE 4 MG TABLET (FP) PO SCH (06:22)
[2019-07-25] MEDS ORDERED: INSULIN (NOVOLOG) ASPART 100 UNITS/ML 10ML VIAL ONE ×2 (06:45→21:46)
[2019-07-25 07:52] LABS: HEMATOCRIT 36.7 % (32.4-45.2); HEMOGLOBIN 12.3 GM/dL (10.7-15.3); MCH 29.6 pg (25.7-33.7); MCHC 33.5 g/dl (32.0-36.0); MEAN CELL VOLUME 88.4 fl (80-96); MEAN PLT VOLUME 8.7 fl (7.5-11.1); PLATELET COUNT 284 K/MM3 (134-434); RBC 4.15 M/mm3 (3.60-5.2); RDW 15.3 % (11.6-15.6); WHITE BLOOD COUNT 8.6 K/mm3 (4.0-10.0)
--- NOTE | 2019-07-25 08:27 | PN ---
Progress Note (short form) - Note Progress Note: NEUROSURGERY h/o CAD, HTN, HLD, DM, COPD, GERD, Cervical Stenosis, Who presents to the ED with LBP radiating radiating to lower legs, and unable to ambulate a couple days ago. Flank pain to inguinal region. Occ B posterior thigh pain. Pain better since admission. No bowel/bladder incontinence. On iv abx for L D1 osteo recently, pending hyperbaric tx; currently eating breakfast; sitting up at bedside; c/o constipation PE: Tmax 99, AF, VSS HEENT- NC/AT; Neck- supple; Cor- RR; Lungs- CTA B; Abd- benign, obese, Ext- L big toe wound; no sign of DVT CN- intact; Motor- 5/5 except L foot/toes pain limited 4/5; Sensation- intact LT /vibration; DTR- hyporeflexic Back- tender LS junction B MRI T spine- multilevel DDD; mild T10-11 disc bulge; T11-12 broad based disc protrusion with moderate stenosis; extensive spondylosis; ? STIR hyperintensity on sagittal image only; mild T12-L1 disc bulge MRI LS spine- scoliosis, degenerative disc dz; R L2-3 > L1-2 foramenal stenosis and L L4-5 foramenal stenosis; facet hypertrophy CT T /LS spine- multilevel lower thoracic and lumbar DDD, spondylosis, scoliosis ; no acute fx Pain meds T11-12 HNP/stenosis with ? myelomalacia Lumbar scoliosis with foramenal stenosis On neurontin No invasive pain management procedure recommended given L foot wound still pending further tx No surgical intervention recommended given improving symptoms, paucity of corresponding neurological deficits and her medical diseases When L foot infection/wound healed could consider BENITEZ for thoracic (T11-12) or lumbar (L4-5) stenosis depending on symptoms Pain management prn Bowel regimen for constipation
[2019-07-25 08:35] LABS: ALBUMIN 3.5 g/dl (3.4-5.0); BILIRUBIN,TOTAL 0.2 mg/dL (0.2-1); BLOOD UREA NITROGEN 29.8 mg/dL (7-18); CALCIUM 8.8 mg/dL (8.5-10.1); CREATININE 0.7 mg/dL (0.55-1.3); POTASSIUM 4.3 mmol/L (3.5-5.1); TOT PROT 7.1 g/dl (6.4-8.2)
--- NOTE | 2019-07-25 09:08 | PN.GI ---
GI Progress Note Subjective: Patient states abdominal pain is improving. Complains of constipation. Denies nausea, vomiting, rectal bleeding. - Objective Vital Signs: Vital Signs Temperature 97.8 F 07/25/19 06:07 Pulse Rate 65 07/25/19 06:07 Respiratory Rate 20 07/25/19 06:07 Blood Pressure 125/75 07/25/19 06:07 O2 Sat by Pulse Oximetry (%) 100 07/24/19 21:00 Constitutional: No Distress, Calm Eyes: Yes: Conjunctiva Clear HENT: Yes: Atraumatic Cardiovascular: Yes: Regular Rate and Rhythm Respiratory: Yes: Regular, CTA Bilaterally Gastrointestinal Inspection: Yes: Distention. No: WNL, Ascites, Hernia, Scars, Other ...Auscultate: Yes: Hypoactive Bowel Sounds. No: Normoactive Bowel Sounds, Hyperactive Bowel Sounds, No Bowel Sounds, Other ...Palpate: Yes: Soft. No: Firm/Rigid, Guarding, Hepatomegaly, Mass, Pulsatile Mass, Splenomegaly, Tenderness, Tenderness, Epigastium, Tenderness, Rebound, Other ...Percussion: Yes: Tympanitic. No: Dullness, Fluid Wave, Other Neurological: Yes: Alert, Oriented Psychiatric: Yes: Alert, Oriented Labs: CBC, BMP 07/25/19 06:48 07/25/19 06:48 Active Medications Generic Name Dose Route Start Last Admin Trade Name Freq PRN Reason Stop Dose Admin Acetaminophen 650 mg 07/21/19 01:47 07/22/19 15:13 Tylenol - PO 650 mg Q6H PRN Administration PAIN LEVEL 4 - 6 Amitriptyline HCl 25 mg 07/21/19 22:00 07/24/19 21:12 Elavil - PO 25 mg HS [facility] Administration Aspirin 81 mg 07/21/19 10:00 07/24/19 09:58 Ecotrin - PO 81 mg DAILY [facility] Administration Atorvastatin Calcium 40 mg 07/21/19 22:00 07/24/19 21:11 Lipitor - PO 40 mg HS [facility] Administration Dexamethasone Sodium Phosphate 4 mg 07/23/19 21:00 07/25/19 08:06 Decadron Injection - IVPUSH 4 mg Q6H-IV [facility] Administration Docusate Sodium 100 mg 07/25/19 14:00 Colace - PO TID [facility] Famotidine 20 mg 07/21/19 10:00 07/24/19 21:12 Pepcid - PO 20 mg BID [facility] Administration Gabapentin 100 mg 07/24/19 14:00 07/25/19 05:53 Neurontin - PO 100 mg TID [facility] Administration Glimepiride 4 mg 07/25/19 07:00 07/25/19 06:22 Amaryl - PO 4 mg DAILY@0700 [facility] Administration Heparin Sodium (Porcine) 5,000 unit 07/21/19 10:00 07/24/19 21:10 Heparin - SQ 5,000 unit BID [facility] Administration Insulin Aspart 1 vial 07/21/19 11:00 07/25/19 06:00 Novolog Vial Sliding Scale - SQ 4 units ACHS [facility] Administration Protocol Insulin Detemir 20 units 07/24/19 07:00 07/25/19 06:00 Levemir Vial SQ 20 units AM [facility] Administration Lidocaine 1 patch 07/22/19 10:00 07/24/19 09:58 Lidoderm Patch - TP 1 patch DAILY [facility] Administration Methylnaltrexone [place] 12 mg 07/25/19 10:00 Relistor - SQ Q2D@1000 [facility] Miscellaneous 1 each 07/20/19 22:00 07/24/19 21:11 Lidoderm Patch Removal MC 1 each DAILY@2200 [facility] Administration Miscellaneous 1 each 07/21/19 22:00 07/24/19 21:11 Lidoderm Patch Removal MC Not Given DAILY@2200 [facility] Morphine Sulfate 2 mg 07/21/19 01:46 07/24/19 16:48 Morphine Sulfate IVPUSH 2 mg Q6H PRN Administration PAIN LEVEL 7 - 10 Pancrelipase 1 cap 07/25/19 12:00 Marla Hendricks 36,000 Units Capsule PO TIDCM [facility] Pramipexole Dihydrochloride 0.25 mg 07/22/19 22:00 07/25/19 05:53 Mirapex - PO 0.25 mg TID [facility] Administration Rifaximin 550 mg 07/25/19 14:00 Xifaxan - PO TID [facility] Tramadol HCl 50 mg 07/23/19 07:33 07/24/19 21:47 Ultram - PO 50 mg Q6H PRN Administration PAIN 4 - 6; IF TYLENOL NT WRK Problem List - Problems (1) Abdominal pain Assessment/Plan: >R/O pain secondary to neuropathic pain >Abdominal CT scan with contrast results reviewed >follow up as outpatient for chronic liver workup >Xifaxin and Creon Code(s): R10.9 - UNSPECIFIED ABDOMINAL PAIN (2) Constipation Assessment/Plan: >Relistor >low fiber and lactose free diet Code(s): K59.00 - CONSTIPATION, UNSPECIFIED
--- NOTE | 2019-07-25 09:18 | PN ---
Progress Note, Physician Chief Complaint: Lower Back Pain Difficulty Ambulating Abdominal Pain History of Present Illness: Previous notes and events reviewed awake and alert NAD sts abdominal pain is improving complaining of constipation - Current Medication List Current Medications: Active Medications Acetaminophen (Tylenol -) 650 mg PO Q6H PRN PRN Reason: PAIN LEVEL 4 - 6 Last Admin: 07/22/19 15:13 Dose: 650 mg Amitriptyline HCl (Elavil -) 25 mg PO HS [facility] Last Admin: 07/24/19 21:12 Dose: 25 mg Aspirin (Ecotrin -) 81 mg PO DAILY [facility] Last Admin: 07/24/19 09:58 Dose: 81 mg Atorvastatin Calcium (Lipitor -) 40 mg PO HS [facility] Last Admin: 07/24/19 21:11 Dose: 40 mg Dexamethasone Sodium Phosphate (Decadron Injection -) 4 mg IVPUSH Q6H-IV [facility] Last Admin: 07/25/19 08:06 Dose: 4 mg Docusate Sodium (Colace -) 100 mg PO TID [facility] Famotidine (Pepcid -) 20 mg PO BID [facility] Last Admin: 07/24/19 21:12 Dose: 20 mg Gabapentin (Neurontin -) 100 mg PO TID [facility] Last Admin: 07/25/19 05:53 Dose: 100 mg Glimepiride (Amaryl -) 4 mg PO DAILY@0700 [facility] Last Admin: 07/25/19 06:22 Dose: 4 mg Heparin Sodium (Porcine) (Heparin -) 5,000 unit SQ BID [facility] Last Admin: 07/24/19 21:10 Dose: 5,000 unit Insulin Aspart (Novolog Vial Sliding Scale -) 1 vial SQ [facility]; Protocol Last Admin: 07/25/19 06:00 Dose: 4 units Insulin Detemir (Levemir Vial) 20 units SQ AM [facility] Last Admin: 07/25/19 06:00 Dose: 20 units Lidocaine (Lidoderm Patch -) 1 patch TP DAILY [facility] Last Admin: 07/24/19 09:58 Dose: 1 patch Methylnaltrexone [place] (Relistor -) 12 mg SQ Q2D@1000 [facility] Miscellaneous (Lidoderm Patch Removal) 1 each MC DAILY@2200 [facility] Last Admin: 07/24/19 21:11 Dose: 1 each Miscellaneous (Lidoderm Patch Removal) 1 each MC DAILY@2200 [facility] Last Admin: 07/24/19 21:11 Dose: Not Given Morphine Sulfate (Morphine Sulfate) 2 mg IVPUSH Q6H PRN PRN Reason: PAIN LEVEL 7 - 10 Last Admin: 07/24/19 16:48 Dose: 2 mg Pancrelipase (Creon Dr 36,000 Units Capsule) 1 cap PO TIDCM [facility] Pramipexole Dihydrochloride (Mirapex -) 0.25 mg PO TID [facility] Last Admin: 07/25/19 05:53 Dose: 0.25 mg Rifaximin (Xifaxan -) 550 mg PO TID [facility] Tramadol HCl (Ultram -) 50 mg PO Q6H PRN PRN Reason: PAIN 4 - 6; IF TYLENOL NT [facility] Last Admin: 07/24/19 21:47 Dose: 50 mg - Objective Vital Signs: Vital Signs Temperature 97.8 F 07/25/19 06:07 Pulse Rate 65 07/25/19 06:07 Respiratory Rate 20 07/25/19 06:07 Blood Pressure 125/75 07/25/19 06:07 O2 Sat by Pulse Oximetry (%) 100 07/24/19 21:00 Constitutional: Yes: No Distress, Calm, Obese Eyes: Yes: Conjunctiva Clear HENT: Yes: Atraumatic Cardiovascular: Yes: Regular Rate and Rhythm Respiratory: Yes: Regular, CTA Bilaterally Gastrointestinal: Yes: Soft, Abdomen, Obese, Hypoactive Bowel Sounds Musculoskeletal: Yes: Muscle Weakness Extremities: Yes: WNL Edema: No Neurological: Yes: Alert, Oriented Psychiatric: Yes: Alert, Oriented Labs: CBC, BMP 07/25/19 06:48 07/25/19 06:48 Microbiology 07/24/19 13:00 Urine - Urine Clean Catch Urine Culture - Preliminary Non Lactose Fermenting Gnb 07/20/19 18:50 Urine - Urine Clean Catch Urine Culture - Final Normal Urogenital Drea Problem List - Problems (1) Back pain Assessment/Plan: -Orthopedic and Neurosurgeryon board -Neurosurgery recommends no surgical intervention at this time -pain control -Neurontin -PT -Lumbar CT scan shows multilevel degenerative scoliosis of the thoracolumbosacral spine -Fall Precautions -UC neg -Lumbar/Thoracic MRI shows scoliosis of thoracolumbosacral spine, T11-T12 disc desiccation, loss of disc space height, anterior spondylosis, moderately severe central spinal canal stenosis observed on sagittal images secondary to broad based calcified disc facet joint athropathy, thickened ligamentum flavum, , mass effect on thoracic spinal cord, multilevel chronic discogenic disease facet joint arthopathy Code(s): M54.9 - DORSALGIA, UNSPECIFIED Qualifiers: Back pain location: low back pain Chronicity: chronic Back pain laterality: bilateral (2) Inability to walk Assessment/Plan: -PT -Fall precautions -Orthopedic and Neurosurgery consult -Lumbar CT scan shows multilevel degenerative scoliosis of the thoracolumbosacral spine -Lumbar/Thoracic MRI shows scoliosis of thoracolumbosacral spine, T11-T12 disc desiccation, loss of disc space height, anterior spondylosis, moderately severe central spinal canal stenosis observed on sagittal images secondary to broad based calcified disc facet joint athropathy, thickened ligamentum flavum, , mass effect on thoracic spinal cord, multilevel chronic discogenic disease facet joint arthopathy Code(s): R26.2 - DIFFICULTY IN WALKING, NOT ELSEWHERE CLASSIFIED (3) Diabetes Assessment/Plan: -[facility] ACHS -ISS -Amaryl Code(s): E11.9 - TYPE 2 DIABETES MELLITUS WITHOUT COMPLICATIONS Qualifiers: Diabetes mellitus type: type 2 (4) HLD (hyperlipidemia) Assessment/Plan: -Atorvastatin Code(s): E78.5 - HYPERLIPIDEMIA, UNSPECIFIED (5) HTN (hypertension) Assessment/Plan: -monitor BP -low Na diet Code(s): I10 - ESSENTIAL (PRIMARY) HYPERTENSION (6) Abdominal pain Assessment/Plan: -GI on board -Abdominal CT scan shows hepatosplenomegaly with diffuse fatty infiltration of liver Code(s): R10.9 - UNSPECIFIED ABDOMINAL PAIN (7) Constipation Assessment/Plan: -Relistor -low fiber, lactose free diet Code(s): K59.00 - CONSTIPATION, UNSPECIFIED Assessment/Plan see problem list dvt ppx
[2019-07-25] MEDS: FAMOTIDINE 20 MG TABLET PO SCH ×2 (09:21→21:32)
[2019-07-25] MEDS: LIDOCAINE 5% TOPICAL PATCH TP SCH (09:22)
[2019-07-25] MEDS: HEPARIN NA (PORCINE) 5,000 UNITS/ML 1ML VIAL SQ SCH ×2 (09:23→21:32)
[2019-07-25] MEDS: ASPIRIN COATED 81 MG TABLET.EC PO SCH (09:23)
[2019-07-25] MEDS: Methylnaltrexone Bromide 12 MG/0.6 ML KIT SQ SCH (09:32)
[2019-07-25] MEDS ORDERED: POLYETHYLENE GLYCOL 3350 119 GM BTL PO SCH (10:00)
[2019-07-25] MEDS: LIPASE/PROTEASE/AMYLASE 36,000 UNIT CAPSULE PO SCH ×2 (12:23→18:26)
[2019-07-25] MEDS: RIFAXIMIN 550 MG TABLET (UD) PO SCH ×2 (13:44→21:31)
[2019-07-25] MEDS: DOCUSATE SODIUM 100 MG CAPSULE (FP) PO SCH ×2 (13:44→21:32)
[2019-07-25] MEDS: ATORVASTATIN CA 40 MG TABLET (FP) PO SCH (21:32)
[2019-07-25] MEDS: LIDOCAINE PATCH REMOVAL MC SCH ×2 (21:32→21:33)
[2019-07-25] MEDS: AMITRIPTYLINE HCL 25 MG TABLET (FP) PO SCH (21:32)
[2019-07-25] MEDS ORDERED: ZOLPIDEM TARTRATE 5 MG TABLET PO ONE (23:53)
[2019-07-26] MEDS: DEXAMETHASONE SOD PHOSPHATE 4 MG/1 ML VIAL IVPUSH SCH ×4 (02:14→21:18)
[2019-07-26] MEDS: traMADol HCL 50 MG TABLET PO PRN (03:01)
[2019-07-26] MEDS: PRAMIPEXOLE DIHYDROCHLORIDE 0.25 MG TABLET PO SCH ×2 (05:54→14:03)
[2019-07-26] MEDS: RIFAXIMIN 550 MG TABLET (UD) PO SCH ×3 (05:54→21:17)
[2019-07-26] MEDS: DOCUSATE SODIUM 100 MG CAPSULE (FP) PO SCH ×3 (05:54→21:17)
[2019-07-26] MEDS: GABAPENTIN 100 MG CAPSULE (FP) PO SCH ×3 (05:54→21:17)
[2019-07-26] MEDS: INSULIN (LEVEMIR) 100 UNITS/ML UNITS SQ SCH (05:59)
[2019-07-26] MEDS: GLIMEPIRIDE 4 MG TABLET (FP) PO SCH (05:59)
[2019-07-26] MEDS: INSULIN SLIDING SCALE (NOVOLOG) 1 VIAL SQ SCH ×4 (05:59→21:18)
[2019-07-26 07:08] LABS: HEMATOCRIT 38.3 % (32.4-45.2); HEMOGLOBIN 12.7 GM/dL (10.7-15.3); MCH 29.4 pg (25.7-33.7); MCHC 33.1 g/dl (32.0-36.0); MEAN CELL VOLUME 88.9 fl (80-96); MEAN PLT VOLUME 8.8 fl (7.5-11.1); PLATELET COUNT 286 K/MM3 (134-434); RBC 4.31 M/mm3 (3.60-5.2); RDW 15.3 % (11.6-15.6); WHITE BLOOD COUNT 7.4 K/mm3 (4.0-10.0)
[2019-07-26 07:16] LABS: ALBUMIN 3.8 g/dl (3.4-5.0); BILIRUBIN,TOTAL 0.3 mg/dL (0.2-1); BLOOD UREA NITROGEN 32.4 mg/dL (7-18); CREATININE 0.9 mg/dL (0.55-1.3); POTASSIUM 4.5 mmol/L (3.5-5.1); TOT PROT 7.2 g/dl (6.4-8.2)
[2019-07-26] MEDS ORDERED: PT OWN MED DRAWER 7, Y5N ONE (08:25)
[2019-07-26] MEDS: LIPASE/PROTEASE/AMYLASE 36,000 UNIT CAPSULE PO SCH ×3 (10:31→17:16)
[2019-07-26] MEDS: HEPARIN NA (PORCINE) 5,000 UNITS/ML 1ML VIAL SQ SCH ×2 (10:31→21:18)
[2019-07-26] MEDS: FAMOTIDINE 20 MG TABLET PO SCH ×2 (10:31→21:17)
[2019-07-26] MEDS: LIDOCAINE 5% TOPICAL PATCH TP SCH (10:33)
[2019-07-26] MEDS: ASPIRIN COATED 81 MG TABLET.EC PO SCH (10:33)
--- NOTE | 2019-07-26 13:57 | PN ---
Progress Note, Physician Chief Complaint: Lower Back Pain Difficulty Ambulating Abdominal Pain History of Present Illness: Previous notes and events reviewed awake and alert NAD sts lower back and extremity pain is improving complaining of constipation still, had small BM as per pt repeat UC positive - Current Medication List Current Medications: Active Medications Acetaminophen (Tylenol -) 650 mg PO Q6H PRN PRN Reason: PAIN LEVEL 4 - 6 Last Admin: 07/22/19 15:13 Dose: 650 mg Amitriptyline HCl (Elavil -) 25 mg PO [facility] Last Admin: 07/25/19 21:32 Dose: 25 mg Aspirin (Ecotrin -) 81 mg PO DAILY [facility] Last Admin: 07/26/19 10:33 Dose: 81 mg Atorvastatin Calcium (Lipitor -) 40 mg PO [facility] Last Admin: 07/25/19 21:32 Dose: 40 mg Dexamethasone Sodium Phosphate (Decadron Injection -) 4 mg IVPUSH Q6H-IV [facility] Last Admin: 07/26/19 10:31 Dose: 4 mg Docusate Sodium (Colace -) 100 mg PO TID [facility] Last Admin: 07/26/19 05:54 Dose: 100 mg Famotidine (Pepcid -) 20 mg PO BID [facility] Last Admin: 07/26/19 10:31 Dose: 20 mg Gabapentin (Neurontin -) 100 mg PO TID [facility] Last Admin: 07/26/19 05:54 Dose: 100 mg Glimepiride (Amaryl -) 4 mg PO DAILY@0700 [facility] Last Admin: 07/26/19 05:59 Dose: 4 mg Heparin Sodium (Porcine) (Heparin -) 5,000 unit SQ BID [facility] Last Admin: 07/26/19 10:31 Dose: 5,000 unit Insulin Aspart (Novolog Vial Sliding Scale -) 1 vial SQ [facility]; Protocol Last Admin: 07/26/19 11:25 Dose: 2 units Insulin Detemir (Levemir Vial) 20 units SQ AM [facility] Last Admin: 07/26/19 05:59 Dose: 20 units Lidocaine (Lidoderm Patch -) 1 patch TP DAILY [facility] Last Admin: 07/26/19 10:33 Dose: 1 patch Methylnaltrexone [place] (Relistor -) 12 mg SQ Q2D@1000 [facility] Last Admin: 07/25/19 09:32 Dose: 12 mg Miscellaneous (Lidoderm Patch Removal) 1 each MC DAILY@2200 [facility] Last Admin: 07/25/19 21:32 Dose: 1 each Miscellaneous (Lidoderm Patch Removal) 1 each MC DAILY@0 [facility] Last Admin: 07/25/19 21:33 Dose: Not Given Morphine Sulfate (Morphine Sulfate) 2 mg IVPUSH Q6H PRN PRN Reason: PAIN LEVEL 7 - 10 Last Admin: 07/24/19 16:48 Dose: 2 mg Pancrelipase (Creon Dr 36,000 Units Capsule) 1 cap PO TIDCM [facility] Last Admin: 07/26/19 10:31 Dose: 1 cap Pramipexole Dihydrochloride (Mirapex -) 0.25 mg PO TID [facility] Last Admin: 07/26/19 05:54 Dose: 0.25 mg Rifaximin (Xifaxan -) 550 mg PO TID [facility] Last Admin: 07/26/19 05:54 Dose: 550 mg Tramadol HCl (Ultram -) 50 mg PO Q6H PRN PRN Reason: PAIN 4 - 6; IF TYLENOL NT [facility] Last Admin: 07/26/19 03:01 Dose: 50 mg - Objective Vital Signs: Vital Signs Temperature 97.7 F 07/26/19 06:00 Pulse Rate 80 07/26/19 06:00 Respiratory Rate 19 07/26/19 06:00 Blood Pressure 132/78 07/26/19 06:00 O2 Sat by Pulse Oximetry (%) 96 07/25/19 21:00 Constitutional: Yes: No Distress, Calm, Obese Eyes: Yes: Conjunctiva Clear HENT: Yes: Atraumatic Cardiovascular: Yes: Regular Rate and Rhythm Respiratory: Yes: Regular, CTA Bilaterally Gastrointestinal: Yes: Normal Bowel Sounds, Soft, Abdomen, Obese Musculoskeletal: Yes: Muscle Weakness Extremities: Yes: WNL Edema: No Neurological: Yes: Alert, Oriented Psychiatric: Yes: Alert, Oriented Labs: CBC, BMP 07/26/19 06:03 07/26/19 06:03 Microbiology 07/24/19 13:00 Urine - Urine Clean Catch Urine Culture - Final Providencia Rettgeri 07/20/19 18:50 Urine - Urine Clean Catch Urine Culture - Final Normal Urogenital Drea Problem List - Problems (1) Back pain Assessment/Plan: -Orthopedic and Neurosurgeryon board -Neurosurgery recommends no surgical intervention at this time -pain control -Neurontin -PT -Lumbar CT scan shows multilevel degenerative scoliosis of the thoracolumbosacral spine -Fall Precautions -UC neg -Lumbar/Thoracic MRI shows scoliosis of thoracolumbosacral spine, T11-T12 disc desiccation, loss of disc space height, anterior spondylosis, moderately severe central spinal canal stenosis observed on sagittal images secondary to broad based calcified disc facet joint athropathy, thickened ligamentum flavum, , mass effect on thoracic spinal cord, multilevel chronic discogenic disease facet joint arthopathy -Dexamthesone Code(s): M54.9 - DORSALGIA, UNSPECIFIED Qualifiers: Back pain location: low back pain Chronicity: chronic Back pain laterality: bilateral (2) Inability to walk Assessment/Plan: -PT -Fall precautions -Orthopedic and Neurosurgery consult -Lumbar CT scan shows multilevel degenerative scoliosis of the thoracolumbosacral spine -Lumbar/Thoracic MRI shows scoliosis of thoracolumbosacral spine, T11-T12 disc desiccation, loss of disc space height, anterior spondylosis, moderately severe central spinal canal stenosis observed on sagittal images secondary to broad based calcified disc facet joint athropathy, thickened ligamentum flavum, , mass effect on thoracic spinal cord, multilevel chronic discogenic disease facet joint arthopathy Code(s): R26.2 - DIFFICULTY IN WALKING, NOT ELSEWHERE CLASSIFIED (3) Diabetes Assessment/Plan: -BGM ACHS -ISS -Amaryl Code(s): E11.9 - TYPE 2 DIABETES MELLITUS WITHOUT COMPLICATIONS Qualifiers: Diabetes mellitus type: type 2 (4) HLD (hyperlipidemia) Assessment/Plan: -Atorvastatin Code(s): E78.5 - HYPERLIPIDEMIA, UNSPECIFIED (5) HTN (hypertension) Assessment/Plan: -monitor BP -low Na diet Code(s): I10 - ESSENTIAL (PRIMARY) HYPERTENSION (6) Abdominal pain Assessment/Plan: -GI on board -Abdominal CT scan shows hepatosplenomegaly with diffuse fatty infiltration of liver Code(s): R10.9 - UNSPECIFIED ABDOMINAL PAIN (7) Constipation Assessment/Plan: -Relistor -low fiber, lactose free diet -Abdominal Xray r/o fecal impaction Code(s): K59.00 - CONSTIPATION, UNSPECIFIED Assessment/Plan see problem list dvt ppx SNF on discharge for short term rehab
--- NOTE | 2019-07-26 17:11 | PN ---
Progress Note (short form) - Note Progress Note: NEUROLOGY FOLLOW-UP: Events reviewed. Dr. Kristian Clay consultation read and appreciated. MRI of LS and thoracic spine (reviewed): Normal alignment. Mod. diffuse DJD with severe LS spinal stenosis at L4L5 Pt is slightly more comfortable on pramipexole 0.25 TID, gabapentin 100 TID, and amitriptyline 25 mg HS. She confirms that she was taking the "pink pill" (ed: pramipexole) at home with good result for pain and sleep. EXAM unchanged. Still with flexion at waist and shuffling strides c/w LS Spinal stenosis.. IMP: Severe LS spinal stenosis at L4L5 Migraine headaches. Restless Limbs syndrome (RLS). SUGGEST: Pt wishes to defer laminectomy and decompresion at L4L5 although educated that condition may slowly worsen. Continue amitriptyline 25 mg hs for migraine prophylaxis Increase pramipexole to 0.5 mg q 8 hrs Increase gabapentine to 300 mg q 8hrs Neuro f/u as outpatient. Thank you very much, Wellington Sevilla MD
[2019-07-26] MEDS ORDERED: BISACODYL 10 MG SUPP.RECT PR ONE (20:36)
[2019-07-26] MEDS ORDERED: INSULIN (NOVOLOG) ASPART 100 UNITS/ML 10ML VIAL ONE (20:48)
[2019-07-26] MEDS: AMITRIPTYLINE HCL 25 MG TABLET (FP) PO SCH (21:17)
[2019-07-26] MEDS: ATORVASTATIN CA 40 MG TABLET (FP) PO SCH (21:17)
[2019-07-26] MEDS: PRAMIPEXOLE DIHYDROCHLORIDE 0.5 MG TABLET PO SCH (21:18)
[2019-07-26] MEDS: LIDOCAINE PATCH REMOVAL MC SCH ×2 (21:18→21:31)
[2019-07-27] MEDS: ACETAMINOPHEN 325 MG TABLET (FP) PO PRN (02:03)
[2019-07-27] MEDS: DEXAMETHASONE SOD PHOSPHATE 4 MG/1 ML VIAL IVPUSH SCH ×4 (02:04→22:02)
[2019-07-27 06:07] LABS: MCHC 34.3 g/dl (32.0-36.0); MEAN CELL VOLUME 90.5 fl (80-96); MEAN PLT VOLUME 9.1 fl (7.5-11.1); PLATELET COUNT 254 K/MM3 (134-434); RDW 15.4 % (11.6-15.6)
[2019-07-27] MEDS: INSULIN SLIDING SCALE (NOVOLOG) 1 VIAL SQ SCH ×4 (06:41→22:01)
[2019-07-27] MEDS: GABAPENTIN 100 MG CAPSULE (FP) PO SCH ×3 (06:41→22:02)
[2019-07-27] MEDS: PRAMIPEXOLE DIHYDROCHLORIDE 0.5 MG TABLET PO SCH ×3 (06:41→22:03)
[2019-07-27] MEDS: RIFAXIMIN 550 MG TABLET (UD) PO SCH ×3 (06:41→22:02)
[2019-07-27] MEDS: DOCUSATE SODIUM 100 MG CAPSULE (FP) PO SCH ×3 (06:41→22:02)
[2019-07-27] MEDS: INSULIN (LEVEMIR) 100 UNITS/ML UNITS SQ SCH (06:42)
[2019-07-27] MEDS: GLIMEPIRIDE 4 MG TABLET (FP) PO SCH (06:42)
[2019-07-27 07:25] LABS: ALBUMIN 3.7 g/dl (3.4-5.0); BILIRUBIN,TOTAL 0.3 mg/dL (0.2-1); BLOOD UREA NITROGEN 30.2 mg/dL (7-18); CALCIUM 9.1 mg/dL (8.5-10.1); CREATININE 0.9 mg/dL (0.55-1.3); POTASSIUM 4.2 mmol/L (3.5-5.1); TOT PROT 6.9 g/dl (6.4-8.2)
[2019-07-27] MEDS ORDERED: PT OWN MED DRAWER 7, Y5N ONE (08:31)
[2019-07-27] MEDS: LIPASE/PROTEASE/AMYLASE 36,000 UNIT CAPSULE PO SCH ×3 (08:39→17:45)
--- NOTE | 2019-07-27 09:33 | PN ---
Progress Note, Physician Chief Complaint: AWAKE ALERT MILD-MODERATE DISTRESS C/O PAIN LEFT LEG AND TOE NO FEVER NO CHILLS - Current Medication List Current Medications: Active Medications Acetaminophen (Tylenol -) 650 mg PO Q6H PRN PRN Reason: PAIN LEVEL 4 - 6 Last Admin: 07/27/19 02:03 Dose: 650 mg Amitriptyline HCl (Elavil -) 25 mg PO [facility] Last Admin: 07/26/19 21:17 Dose: 25 mg Aspirin (Ecotrin -) 81 mg PO DAILY [facility] Last Admin: 07/26/19 10:33 Dose: 81 mg Atorvastatin Calcium (Lipitor -) 40 mg PO HS [facility] Last Admin: 07/26/19 21:17 Dose: 40 mg Dexamethasone Sodium Phosphate (Decadron Injection -) 4 mg IVPUSH BID [facility] Docusate Sodium (Colace -) 100 mg PO TID [facility] Last Admin: 07/27/19 06:41 Dose: 100 mg Famotidine (Pepcid -) 20 mg PO BID [facility] Last Admin: 07/26/19 21:17 Dose: 20 mg Gabapentin (Neurontin -) 100 mg PO TID [facility] Last Admin: 07/27/19 06:41 Dose: 100 mg Glimepiride (Amaryl -) 4 mg PO DAILY@0700 [facility] Last Admin: 07/27/19 06:42 Dose: 4 mg Heparin Sodium (Porcine) (Heparin -) 5,000 unit SQ BID [facility] Last Admin: 07/26/19 21:18 Dose: 5,000 unit Insulin Aspart (Novolog Vial Sliding Scale -) 1 vial SQ [facility]; Protocol Last Admin: 07/27/19 06:41 Dose: 10 units Insulin Detemir (Levemir Vial) 20 units SQ AM [facility] Last Admin: 07/27/19 06:42 Dose: 20 units Lidocaine (Lidoderm Patch -) 1 patch TP DAILY [facility] Last Admin: 07/26/19 10:33 Dose: 1 patch Methylnaltrexone [place] (Relistor -) 12 mg SQ Q2D@1000 [facility] Last Admin: 07/25/19 09:32 Dose: 12 mg Miscellaneous (Lidoderm Patch Removal) 1 each MC DAILY@2200 [facility] Last Admin: 07/26/19 21:18 Dose: 1 each Miscellaneous (Lidoderm Patch Removal) 1 each MC DAILY@2200 [facility] Last Admin: 07/26/19 21:31 Dose: Not Given Pancrelipase ([place] Dr 36,000 Units Capsule) 1 cap PO TIDCM [facility] Last Admin: 07/27/19 08:39 Dose: 1 cap Pramipexole Dihydrochloride (Mirapex -) 0.5 mg PO TID [facility] Last Admin: 07/27/19 06:41 Dose: 0.5 mg Rifaximin (Xifaxan -) 550 mg PO TID [facility] Last Admin: 07/27/19 06:41 Dose: 550 mg Tramadol HCl (Ultram -) 50 mg PO Q6H PRN PRN Reason: PAIN 4 - 6; IF TYLENOL NT [facility] Last Admin: 07/26/19 03:01 Dose: 50 mg - Objective Vital Signs: Vital Signs Temperature 98.2 F 07/27/19 06:31 Pulse Rate 82 07/27/19 06:31 Respiratory Rate 20 07/27/19 06:31 Blood Pressure 137/96 07/27/19 06:31 O2 Sat by Pulse Oximetry (%) 96 07/26/19 21:00 Constitutional: Yes: Mild Distress Eyes: Yes: WNL HENT: Yes: WNL Neck: Yes: WNL Cardiovascular: Yes: Regular Rate and Rhythm Respiratory: Yes: WNL Gastrointestinal: Yes: WNL Genitourinary: Yes: WNL Musculoskeletal: Yes: Back Pain, Muscle Pain Extremities: Yes: Erythema Edema: Yes Peripheral Pulses WNL: Yes Integumentary: Yes: Erythema Wound/Incision: Yes: Clean/Dry, Open to air Neurological: Yes: Pre-Existing Deficit, Weakness ...Motor Strength: LLE Psychiatric: Yes: WNL Labs: CBC, BMP 07/27/19 05:23 07/27/19 05:23 Problem List - Problems (1) Abdominal pain Code(s): R10.9 - UNSPECIFIED ABDOMINAL PAIN (2) Back pain Code(s): M54.9 - DORSALGIA, UNSPECIFIED Qualifiers: Back pain location: low back pain Chronicity: chronic Back pain laterality: bilateral (3) Diabetic neuropathy Code(s): E11.40 - TYPE 2 DIABETES MELLITUS WITH DIABETIC NEUROPATHY, UNSP Qualifiers: Diabetes mellitus type: type 2 (4) HLD (hyperlipidemia) Code(s): E78.5 - HYPERLIPIDEMIA, UNSPECIFIED (5) HTN (hypertension) Code(s): I10 - ESSENTIAL (PRIMARY) HYPERTENSION (6) Injury of toe Code(s): S99.929A - UNSPECIFIED INJURY OF UNSPECIFIED FOOT, INITIAL ENCOUNTER Qualifiers: Encounter type: subsequent encounter Laterality: left Qualified Code(s): S99.922D - Unspecified injury of left foot, subsequent encounter (7) Lumbar herniated disc Code(s): M51.26 - OTHER INTERVERTEBRAL DISC DISPLACEMENT, LUMBAR REGION (8) Osteoarthritis of knees, bilateral Code(s): M17.0 - BILATERAL PRIMARY OSTEOARTHRITIS OF KNEE (9) Spinal stenosis, lumbar region without neurogenic claudication Code(s): M48.061 - SPINAL STENOSIS, LUMBAR REGION WITHOUT NEUROGENIC DHRUV (10) Toe infection Code(s): L08.9 - LOCAL INFECTION OF THE SKIN AND SUBCUTANEOUS TISSUE, UNSP (11) Urinary tract infection Code(s): N39.0 - URINARY TRACT INFECTION, SITE NOT SPECIFIED Qualifiers: Urinary tract infection type: acute cystitis Hematuria presence: with hematuria Qualified Code(s): N30.01 - Acute cystitis with hematuria Assessment/Plan DECREASING DEXAMETHASONE TO BID THEN TAPER OFF THE NEXT FEW DAYS. WILL DISCUSS WITH DR FANTA WILKINS ABOUT LUMBAR SPINE INJECTION BGM CHECKS SSI OOB TO CHAIR CAN SHOWER HYPERBARIC CHAMBER TREATMENT FOR LEFT TOE INFECTION AGREE WITH GABAPENTIN/MIRAPEX/AMITRYPTALINE DVT PROPHYLAXIS CHECK UA C/S
[2019-07-27] MEDS: FAMOTIDINE 20 MG TABLET PO SCH ×2 (10:19→22:02)
[2019-07-27] MEDS: LIDOCAINE 5% TOPICAL PATCH TP SCH (10:19)
[2019-07-27] MEDS: ASPIRIN COATED 81 MG TABLET.EC PO SCH (10:19)
[2019-07-27] MEDS: HEPARIN NA (PORCINE) 5,000 UNITS/ML 1ML VIAL SQ SCH ×2 (10:20→22:02)
--- NOTE | 2019-07-27 10:52 | PN ---
Progress Note (short form) - Note Progress Note: NEUROSURGERY Sitting up in [employer], using walker PE: AF, VSS HEENT- NC/AT; Neck- supple; Cor- RR; Lungs- CTA B; Abd- benign, obese, Ext- L big toe wound; no sign of DVT CN- intact; Motor- 5/5 except L foot/toes pain limited 4/5; Sensation- intact LT /vibration; DTR- hyporeflexic Back- tender LS junction B MRI T spine- multilevel DDD; mild T10-11 disc bulge; T11-12 broad based disc protrusion with moderate stenosis; extensive spondylosis; ? STIR hyperintensity on sagittal image only; mild T12-L1 disc bulge MRI LS spine- scoliosis, degenerative disc dz; R L2-3 > L1-2 foramenal stenosis and L L4-5 foramenal stenosis; facet hypertrophy CT T /LS spine- multilevel lower thoracic and lumbar DDD, spondylosis, scoliosis ; no acute fx Pain meds T11-12 HNP/stenosis with ? myelomalacia Lumbar scoliosis with foramenal stenosis On neurontin No invasive pain management procedure recommended given L foot wound still pending further tx, also likelihood of exacerbating diabetic control issues No surgical intervention recommended given improving symptoms, paucity of corresponding neurological deficits and her medical diseases D/w Dr Anderson
[2019-07-27] MEDS: Methylnaltrexone Bromide 12 MG/0.6 ML KIT SQ SCH (14:06)
[2019-07-27] MEDS ORDERED: INSULIN (NOVOLOG) ASPART 100 UNITS/ML 10ML VIAL ONE (20:28)
[2019-07-27] MEDS: LIDOCAINE PATCH REMOVAL MC SCH ×2 (22:02→22:03)
[2019-07-27] MEDS: AMITRIPTYLINE HCL 25 MG TABLET (FP) PO SCH (22:02)
[2019-07-27] MEDS: ATORVASTATIN CA 40 MG TABLET (FP) PO SCH (22:02)
--- NOTE | 2019-07-27 23:08 | PN ---
Progress Note, Physician Chief Complaint: high sugars on steroids - Current Medication List Current Medications: Active Medications Acetaminophen (Tylenol -) 650 mg PO Q6H PRN PRN Reason: PAIN LEVEL 4 - 6 Last Admin: 07/27/19 02:03 Dose: 650 mg Amitriptyline HCl (Elavil -) 25 mg PO [facility] Last Admin: 07/27/19 22:02 Dose: 25 mg Aspirin (Ecotrin -) 81 mg PO DAILY [facility] Last Admin: 07/27/19 10:19 Dose: 81 mg Atorvastatin Calcium (Lipitor -) 40 mg PO [facility] Last Admin: 07/27/19 22:02 Dose: 40 mg Dexamethasone Sodium Phosphate (Decadron Injection -) 4 mg IVPUSH BID [facility] Last Admin: 07/27/19 22:02 Dose: 4 mg Docusate Sodium (Colace -) 100 mg PO TID [facility] Last Admin: 07/27/19 22:02 Dose: 100 mg Famotidine (Pepcid -) 20 mg PO BID [facility] Last Admin: 07/27/19 22:02 Dose: 20 mg Gabapentin (Neurontin -) 100 mg PO TID [facility] Last Admin: 07/27/19 22:02 Dose: 100 mg Glimepiride (Amaryl -) 4 mg PO DAILY@0700 [facility] Last Admin: 07/27/19 06:42 Dose: 4 mg Heparin Sodium (Porcine) (Heparin -) 5,000 unit SQ BID [facility] Last Admin: 07/27/19 22:02 Dose: 5,000 unit Insulin Aspart (Novolog Vial Sliding Scale -) 1 vial SQ [facility]; Protocol Last Admin: 07/27/19 22:01 Dose: 8 units Insulin Detemir (Levemir Vial) 30 units SQ AM [facility] Lidocaine (Lidoderm Patch -) 1 patch TP DAILY [facility] Last Admin: 07/27/19 10:19 Dose: 1 patch Methylnaltrexone [place] (Relistor -) 12 mg SQ Q2D@1000 [facility] Last Admin: 07/27/19 14:06 Dose: 12 mg Miscellaneous (Lidoderm Patch Removal) 1 each MC DAILY@2200 [facility] Last Admin: 07/27/19 22:02 Dose: 1 each Miscellaneous (Lidoderm Patch Removal) 1 each MC DAILY@2200 [facility] Last Admin: 07/27/19 22:03 Dose: Not Given Pancrelipase (Creon Dr 36,000 Units Capsule) 1 cap PO TIDCM [facility] Last Admin: 07/27/19 17:45 Dose: 1 cap Pramipexole Dihydrochloride (Mirapex -) 0.5 mg PO TID [facility] Last Admin: 07/27/19 22:03 Dose: 0.5 mg Rifaximin (Xifaxan -) 550 mg PO TID [facility] Last Admin: 07/27/19 22:02 Dose: 550 mg Tramadol HCl (Ultram -) 50 mg PO Q6H PRN PRN Reason: PAIN 4 - 6; IF TYLENOL NT WRK Last Admin: 07/26/19 03:01 Dose: 50 mg - Objective Vital Signs: Vital Signs Temperature 98 F 07/27/19 22:00 Pulse Rate 79 07/27/19 22:00 Respiratory Rate 22 H 07/27/19 22:00 Blood Pressure 134/90 07/27/19 22:00 O2 Sat by Pulse Oximetry (%) 96 07/27/19 09:00 Constitutional: Yes: Anxious Eyes: Yes: EOM Intact HENT: Yes: Normocephalic Neck: Yes: Trachea Midline Respiratory: Yes: CTA Bilaterally Gastrointestinal: Yes: Normal Bowel Sounds ...Rectal Exam: Yes: Deferred Genitourinary: Yes: WNL Musculoskeletal: Yes: WNL Extremities: Yes: Delayed Capillary Refill Edema: No Neurological: Yes: Alert, Oriented, Weakness Labs: CBC, BMP 07/27/19 05:23 07/27/19 05:23 Problem List - Problems (1) Back pain Code(s): M54.9 - DORSALGIA, UNSPECIFIED Qualifiers: Back pain location: low back pain Chronicity: chronic Back pain laterality: bilateral (2) Inability to walk Code(s): R26.2 - DIFFICULTY IN WALKING, NOT ELSEWHERE CLASSIFIED (3) Anxiousness Code(s): F41.9 - ANXIETY DISORDER, UNSPECIFIED (4) Cellulitis Code(s): L03.90 - CELLULITIS, UNSPECIFIED (5) Diabetes Code(s): E11.9 - TYPE 2 DIABETES MELLITUS WITHOUT COMPLICATIONS Qualifiers: Diabetes mellitus type: type 2 (6) Diabetic neuropathy Code(s): E11.40 - TYPE 2 DIABETES MELLITUS WITH DIABETIC NEUROPATHY, UNSP Qualifiers: Diabetes mellitus type: type 2 Assessment/Plan Current Active Problems Abdominal pain (Acute) Back pain (Acute) Constipation (Acute) Inability to walk (Acute) dm t 2 uncontrolled hyperglycemia diabetic neuropathy Abnormal Lab Results 07/27/19 05:23 Sodium 133 L BUN 30.2 H Random Glucose 407 H* AST 12 L Laboratory Results - last 24 hr 07/27/19 07/27/19 07/27/19 05:23 05:23 05:28 WBC 7.0 RBC 4.20 Hgb 13.0 Hct 38.0 MCV 90.5 MCH 31.0 MCHC 34.3 RDW 15.4 Plt Count 254 MPV 9.1 Sodium 133 L Potassium 4.2 Chloride 101 Carbon Dioxide 23 Anion Gap 9 BUN 30.2 H Creatinine 0.9 Est GFR (CKD-EPI)AfAm 73.52 Est GFR (CKD-EPI)NonAf 63.43 POC Glucometer 398 Random Glucose 407 H* Calcium 9.1 Total Bilirubin 0.3 AST 12 L ALT 26 Alkaline Phosphatase 62 Total Protein 6.9 Albumin 3.7 07/27/19 07/27/19 07/27/19 11:53 16:44 21:59 WBC RBC Hgb Hct MCV MCH MCHC RDW Plt Count MPV Sodium Potassium Chloride Carbon Dioxide Anion Gap BUN Creatinine Est GFR (CKD-EPI)AfAm Est GFR (CKD-EPI)NonAf POC Glucometer 200 295 332 Random Glucose Calcium Total Bilirubin AST ALT Alkaline Phosphatase Total Protein Albumin plan: bgm qid nvolog scale levemir 30units daily januvia 100mg metformin 1gm bjid glimepride 4mg am snf for rehab pt
[2019-07-28] MEDS ORDERED: PT OWN MED DRAWER 7, Y5N ONE ×2 (05:50→09:49)
[2019-07-28] MEDS: DOCUSATE SODIUM 100 MG CAPSULE (FP) PO SCH ×3 (06:09→23:00)
[2019-07-28] MEDS: GABAPENTIN 100 MG CAPSULE (FP) PO SCH ×3 (06:09→23:00)
[2019-07-28] MEDS: PRAMIPEXOLE DIHYDROCHLORIDE 0.5 MG TABLET PO SCH ×3 (06:09→23:00)
[2019-07-28] MEDS: RIFAXIMIN 550 MG TABLET (UD) PO SCH ×3 (06:10→23:00)
[2019-07-28] MEDS: GLIMEPIRIDE 4 MG TABLET (FP) PO SCH (06:10)
[2019-07-28] MEDS: INSULIN (LEVEMIR) 100 UNITS/ML UNITS SQ SCH (06:12)
[2019-07-28] MEDS: metFORMIN HCL 500 MG TABLET (FP) PO SCH ×2 (06:12→17:07)
[2019-07-28] MEDS: INSULIN SLIDING SCALE (NOVOLOG) 1 VIAL SQ SCH ×4 (06:13→23:00)
[2019-07-28 09:21] LABS: EPI CELLS 2.1 /HPF (0-5/HPF); HYALINE CASTS 3 /lpf (0-8); URINE APPEARANCE CLEAR; URINE BACTERIA 0.3 /hpf (NEGATIVE); URINE BILIRUBIN NEGATIVE (NEGATIVE); URINE COLOR YELLOW; URINE GLUCOSE (UA) 1+ (NEGATIVE); URINE KETONE NEGATIVE (NEGATIVE); URINE LEUK ESTERASE 1+ (NEGATIVE); URINE NITRITE NEGATIVE (NEGATIVE); URINE PROTEIN NEGATIVE (NEGATIVE); URINE RBC 1 /hpf (0-4); URINE UROBILINOGEN 0.2 mg/dL (0.2-1.0); URINE WBC 25 /hpf (0-5)
[2019-07-28] MEDS: ASPIRIN COATED 81 MG TABLET.EC PO SCH (09:52)
[2019-07-28] MEDS: FAMOTIDINE 20 MG TABLET PO SCH ×2 (09:52→23:00)
[2019-07-28] MEDS: LIDOCAINE 5% TOPICAL PATCH TP SCH (09:53)
[2019-07-28] MEDS: DEXAMETHASONE SOD PHOSPHATE 4 MG/1 ML VIAL IVPUSH SCH ×2 (09:53→23:00)
[2019-07-28] MEDS: HEPARIN NA (PORCINE) 5,000 UNITS/ML 1ML VIAL SQ SCH ×2 (09:53→23:00)
[2019-07-28] MEDS: LIPASE/PROTEASE/AMYLASE 36,000 UNIT CAPSULE PO SCH ×3 (09:54→17:04)
--- NOTE | 2019-07-28 10:45 | PN ---
Progress Note, Physician Chief Complaint: Lower Back Pain Difficulty Ambulating Abdominal Pain History of Present Illness: Previous notes and events reviewed awake and alert NAD sts lower back and extremity pain is improving. sts pain is like an electric shock repeat UC positive - Current Medication List Current Medications: Active Medications Acetaminophen (Tylenol -) 650 mg PO Q6H PRN PRN Reason: PAIN LEVEL 4 - 6 Last Admin: 07/27/19 02:03 Dose: 650 mg Amitriptyline HCl (Elavil -) 25 mg PO [facility] Last Admin: 07/27/19 22:02 Dose: 25 mg Aspirin (Ecotrin -) 81 mg PO DAILY [facility] Last Admin: 07/28/19 09:52 Dose: 81 mg Atorvastatin Calcium (Lipitor -) 40 mg PO [facility] Last Admin: 07/27/19 22:02 Dose: 40 mg Dexamethasone Sodium Phosphate (Decadron Injection -) 4 mg IVPUSH BID [facility] Last Admin: 07/28/19 09:53 Dose: 4 mg Docusate Sodium (Colace -) 100 mg PO TID [facility] Last Admin: 07/28/19 06:09 Dose: 100 mg Famotidine (Pepcid -) 20 mg PO BID [facility] Last Admin: 07/28/19 09:52 Dose: 20 mg Gabapentin (Neurontin -) 100 mg PO TID [facility] Last Admin: 07/28/19 06:09 Dose: 100 mg Glimepiride (Amaryl -) 4 mg PO DAILY@0700 [facility] Last Admin: 07/28/19 06:10 Dose: 4 mg Heparin Sodium (Porcine) (Heparin -) 5,000 unit SQ BID [facility] Last Admin: 07/28/19 09:53 Dose: 5,000 unit Insulin Aspart (Novolog Vial Sliding Scale -) 1 vial SQ [facility]; Protocol Last Admin: 07/28/19 06:13 Dose: 6 units Insulin Detemir (Levemir Vial) 30 units SQ AM [facility] Last Admin: 07/28/19 06:12 Dose: 30 units Lidocaine (Lidoderm Patch -) 1 patch TP DAILY [facility] Last Admin: 07/28/19 09:53 Dose: 1 patch Metformin HCl (Glucophage -) 1,000 mg PO BID@0700,1630 [facility] Last Admin: 07/28/19 06:12 Dose: 1,000 mg Methylnaltrexone [place] (Relistor -) 12 mg SQ Q2D@1000 [facility] Last Admin: 07/27/19 14:06 Dose: 12 mg Miscellaneous (Lidoderm Patch Removal) 1 each MC DAILY@2200 [facility] Last Admin: 07/27/19 22:02 Dose: 1 each Miscellaneous (Lidoderm Patch Removal) 1 each MC DAILY@2200 [facility] Last Admin: 07/27/19 22:03 Dose: Not Given Pancrelipase (Creon Dr 36,000 Units Capsule) 1 cap PO TIDCM [facility] Last Admin: 07/28/19 09:54 Dose: 1 cap Pramipexole Dihydrochloride (Mirapex -) 0.5 mg PO TID [facility] Last Admin: 07/28/19 06:09 Dose: 0.5 mg Rifaximin (Xifaxan -) 550 mg PO TID [facility] Last Admin: 07/28/19 06:10 Dose: 550 mg Sitagliptin Phosphate (Januvia -) 100 mg PO DAILY@0700 [facility] Last Admin: 07/28/19 06:12 Dose: 100 mg - Objective Vital Signs: Vital Signs Temperature 98 F 07/28/19 08:40 Pulse Rate 97 H 07/28/19 08:40 Respiratory Rate 20 07/28/19 08:40 Blood Pressure 137/81 07/28/19 08:40 O2 Sat by Pulse Oximetry (%) 96 07/28/19 08:40 Constitutional: Yes: No Distress, Calm Eyes: Yes: Conjunctiva Clear HENT: Yes: Atraumatic Cardiovascular: Yes: Regular Rate and Rhythm Respiratory: Yes: Regular, CTA Bilaterally Gastrointestinal: Yes: Normal Bowel Sounds, Soft, Abdomen, Obese Musculoskeletal: Yes: Muscle Weakness Extremities: Yes: WNL Edema: No Wound/Incision: Yes: Open to air (l foot great toe) Neurological: Yes: Alert, Oriented Psychiatric: Yes: Alert, Oriented Labs: CBC, BMP 07/27/19 05:23 07/27/19 05:23 Microbiology 07/24/19 13:00 Urine - Urine Clean Catch Urine Culture - Final Providencia Rettgeri 07/20/19 18:50 Urine - Urine Clean Catch Urine Culture - Final Normal Urogenital Drea Problem List - Problems (1) Back pain Assessment/Plan: -Orthopedic and Neurosurgeryon board -Neurosurgery recommends no surgical intervention at this time -pain control -Neurontin -PT -Lumbar CT scan shows multilevel degenerative scoliosis of the thoracolumbosacral spine -Fall Precautions -UC positive -Lumbar/Thoracic MRI shows scoliosis of thoracolumbosacral spine, T11-T12 disc desiccation, loss of disc space height, anterior spondylosis, moderately severe central spinal canal stenosis observed on sagittal images secondary to broad based calcified disc facet joint athropathy, thickened ligamentum flavum, , mass effect on thoracic spinal cord, multilevel chronic discogenic disease facet joint arthopathy -Dexamthesone tapering dose Code(s): M54.9 - DORSALGIA, UNSPECIFIED Qualifiers: Back pain location: low back pain Chronicity: chronic Back pain laterality: bilateral (2) Inability to walk Assessment/Plan: -PT -Fall precautions -Orthopedic and Neurosurgery consult -Lumbar CT scan shows multilevel degenerative scoliosis of the thoracolumbosacral spine -Lumbar/Thoracic MRI shows scoliosis of thoracolumbosacral spine, T11-T12 disc desiccation, loss of disc space height, anterior spondylosis, moderately severe central spinal canal stenosis observed on sagittal images secondary to broad based calcified disc facet joint athropathy, thickened ligamentum flavum, , mass effect on thoracic spinal cord, multilevel chronic discogenic disease facet joint arthopathy Code(s): R26.2 - DIFFICULTY IN WALKING, NOT ELSEWHERE CLASSIFIED (3) Diabetes Assessment/Plan: -BGM ACHS -ISS -Amaryl -Levemir -Sitagliptan Code(s): E11.9 - TYPE 2 DIABETES MELLITUS WITHOUT COMPLICATIONS Qualifiers: Diabetes mellitus type: type 2 (4) HLD (hyperlipidemia) Assessment/Plan: -Atorvastatin Code(s): E78.5 - HYPERLIPIDEMIA, UNSPECIFIED (5) HTN (hypertension) Assessment/Plan: -monitor BP -low Na diet Code(s): I10 - ESSENTIAL (PRIMARY) HYPERTENSION (6) Abdominal pain Assessment/Plan: -GI on board -Abdominal CT scan shows hepatosplenomegaly with diffuse fatty infiltration of liver Code(s): R10.9 - UNSPECIFIED ABDOMINAL PAIN (7) Constipation Assessment/Plan: -Relistor -low fiber, lactose free diet -Abdominal Xray reviewed Code(s): K59.00 - CONSTIPATION, UNSPECIFIED Assessment/Plan see problem list dvt ppx SNF on discharge for short term rehab
[2019-07-28 14:06] VITALS: BMI 37.6
--- NOTE | 2019-07-28 16:51 | PN ---
Progress Note (short form) - Note Progress Note: FUV left big toe nvsgi, +om left big toe, OM Upon dc should complete HBO tx for OM.
[2019-07-28] MEDS: AMITRIPTYLINE HCL 25 MG TABLET (FP) PO SCH (23:00)
[2019-07-28] MEDS: LIDOCAINE PATCH REMOVAL MC SCH ×2 (23:00)
[2019-07-28] MEDS: ATORVASTATIN CA 40 MG TABLET (FP) PO SCH (23:00)
[2019-07-29] MEDS: NYSTATIN/TRIAMCINOLONE TOPICAL OINTMENT 15 GM TUBE TP SCH ×3 (03:54→23:01)
[2019-07-29] MEDS: metFORMIN HCL 500 MG TABLET (FP) PO SCH ×2 (06:51→16:48)
[2019-07-29] MEDS: PRAMIPEXOLE DIHYDROCHLORIDE 0.5 MG TABLET PO SCH ×3 (06:51→22:12)
[2019-07-29] MEDS: GABAPENTIN 100 MG CAPSULE (FP) PO SCH ×3 (06:51→22:07)
[2019-07-29] MEDS: RIFAXIMIN 550 MG TABLET (UD) PO SCH ×3 (06:51→22:07)
[2019-07-29] MEDS: DOCUSATE SODIUM 100 MG CAPSULE (FP) PO SCH ×3 (06:54→22:07)
[2019-07-29] MEDS: INSULIN SLIDING SCALE (NOVOLOG) 1 VIAL SQ SCH ×4 (06:57→23:02)
[2019-07-29] MEDS: INSULIN (LEVEMIR) 100 UNITS/ML UNITS SQ SCH (06:59)
[2019-07-29] MEDS: GLIMEPIRIDE 4 MG TABLET (FP) PO SCH (07:11)
[2019-07-29] MEDS ORDERED: INSULIN (NOVOLOG) ASPART 100 UNITS/ML 10ML VIAL ONE (07:28)
[2019-07-29 07:38] LABS: HEMOGLOBIN 12.9 GM/dL (10.7-15.3); MCH 29.5 pg (25.7-33.7); MCHC 33.2 g/dl (32.0-36.0); MEAN CELL VOLUME 88.9 fl (80-96); MEAN PLT VOLUME 8.5 fl (7.5-11.1); PLATELET COUNT 277 K/MM3 (134-434); RBC 4.38 M/mm3 (3.60-5.2); RDW 15.6 % (11.6-15.6); WHITE BLOOD COUNT 7.8 K/mm3 (4.0-10.0)
[2019-07-29 07:43] LABS: ALBUMIN 3.5 g/dl (3.4-5.0); BILIRUBIN,TOTAL 0.4 mg/dL (0.2-1); CREATININE 0.8 mg/dL (0.55-1.3); POTASSIUM 4.4 mmol/L (3.5-5.1); TOT PROT 6.7 g/dl (6.4-8.2)
[2019-07-29] MEDS ORDERED: PT OWN MED DRAWER 7, Y5N ONE ×2 (08:28→08:55)
[2019-07-29] MEDS: ASPIRIN COATED 81 MG TABLET.EC PO SCH (08:59)
[2019-07-29] MEDS: FAMOTIDINE 20 MG TABLET PO SCH ×2 (08:59→22:07)
[2019-07-29] MEDS: LIDOCAINE 5% TOPICAL PATCH TP SCH (08:59)
[2019-07-29] MEDS: DEXAMETHASONE SOD PHOSPHATE 4 MG/1 ML VIAL IVPUSH SCH ×2 (09:00→22:07)
[2019-07-29] MEDS: LIPASE/PROTEASE/AMYLASE 36,000 UNIT CAPSULE PO SCH ×3 (09:00→16:48)
[2019-07-29] MEDS: HEPARIN NA (PORCINE) 5,000 UNITS/ML 1ML VIAL SQ SCH ×2 (09:01→22:07)
[2019-07-29] MEDS: Methylnaltrexone Bromide 12 MG/0.6 ML KIT SQ SCH (12:32)
--- NOTE | 2019-07-29 15:06 | PN ---
Progress Note (short form) - Note Progress Note: Pt seen and examined. She has an active foot infection, delaying any potential treatment/interventions of the spine. We will follow up as needed.
--- NOTE | 2019-07-29 15:35 | PN ---
Progress Note, Physician Chief Complaint: Lower Back Pain Difficulty Ambulating Abdominal Pain History of Present Illness: Previous notes and events reviewed awake and alert NAD sts lower back and extremity pain is improving ambulating well with walker repeat UC neg - Current Medication List Current Medications: Active Medications Acetaminophen (Tylenol -) 650 mg PO Q6H PRN PRN Reason: PAIN LEVEL 4 - 6 Last Admin: 07/27/19 02:03 Dose: 650 mg Amitriptyline HCl (Elavil -) 25 mg PO [facility] Last Admin: 07/28/19 23:00 Dose: 25 mg Aspirin (Ecotrin -) 81 mg PO DAILY [facility] Last Admin: 07/29/19 08:59 Dose: 81 mg Atorvastatin Calcium (Lipitor -) 40 mg PO [facility] Last Admin: 07/28/19 23:00 Dose: 40 mg Dexamethasone Sodium Phosphate (Decadron Injection -) 4 mg IVPUSH BID [facility] Stop: 07/29/19 22:00 Last Admin: 07/29/19 09:00 Dose: 4 mg Dexamethasone Sodium Phosphate (Decadron Injection -) 4 mg IVPUSH DAILY [facility] Docusate Sodium (Colace -) 100 mg PO TID [facility] Last Admin: 07/29/19 14:44 Dose: Not Given Famotidine (Pepcid -) 20 mg PO BID [facility] Last Admin: 07/29/19 08:59 Dose: 20 mg Gabapentin (Neurontin -) 100 mg PO TID [facility] Last Admin: 07/29/19 14:53 Dose: Not Given Glimepiride (Amaryl -) 4 mg PO DAILY@0700 [facility] Last Admin: 07/29/19 07:11 Dose: 4 mg Heparin Sodium (Porcine) (Heparin -) 5,000 unit SQ BID [facility] Last Admin: 07/29/19 09:01 Dose: Not Given Insulin Aspart (Novolog Vial Sliding Scale -) 1 vial SQ [facility]; Protocol Last Admin: 07/29/19 12:36 Dose: 4 units Insulin Detemir (Levemir Vial) 30 units SQ AM [facility] Last Admin: 07/29/19 06:59 Dose: 30 units Lidocaine (Lidoderm Patch -) 1 patch TP DAILY [facility] Last Admin: 07/29/19 08:59 Dose: 1 patch Metformin HCl (Glucophage -) 1,000 mg PO BID@0700,1630 [facility] Last Admin: 07/29/19 06:51 Dose: 1,000 mg Methylnaltrexone [place] (Relistor -) 12 mg SQ Q2D@1000 [facility] Last Admin: 07/29/19 12:32 Dose: 12 mg Miscellaneous (Lidoderm Patch Removal) 1 each MC DAILY@2200 [facility] Last Admin: 07/28/19 23:00 Dose: 1 each Miscellaneous (Lidoderm Patch Removal) 1 each MC DAILY@2200 [facility] Last Admin: 07/28/19 23:00 Dose: Not Given Nystatin/Triamcinolone Acetonide (Mycolog Ii Ointment -) 1 applic TP BID [facility] Stop: 08/02/19 02:14 Last Admin: 07/29/19 09:01 Dose: 1 applic Pancrelipase (Creon Dr 36,000 Units Capsule) 1 cap PO TIDCM [facility] Last Admin: 07/29/19 12:31 Dose: 1 cap Pramipexole Dihydrochloride (Mirapex -) 0.5 mg PO TID [facility] Last Admin: 07/29/19 14:44 Dose: Not Given Rifaximin (Xifaxan -) 550 mg PO TID [facility] Last Admin: 07/29/19 14:53 Dose: Not Given Sitagliptin Phosphate (Januvia -) 100 mg PO DAILY@0700 [facility] Last Admin: 07/29/19 06:51 Dose: 100 mg - Objective Vital Signs: Vital Signs Temperature 98.4 F 07/29/19 14:20 Pulse Rate 86 07/29/19 14:20 Respiratory Rate 18 07/29/19 14:20 Blood Pressure 123/77 07/29/19 14:20 O2 Sat by Pulse Oximetry (%) 96 07/29/19 08:43 Constitutional: Yes: No Distress, Calm Eyes: Yes: Conjunctiva Clear HENT: Yes: Atraumatic Cardiovascular: Yes: Regular Rate and Rhythm Respiratory: Yes: Regular, CTA Bilaterally Gastrointestinal: Yes: Normal Bowel Sounds, Soft Musculoskeletal: Yes: Muscle Weakness Extremities: Yes: WNL Edema: No Neurological: Yes: Alert, Oriented Psychiatric: Yes: Alert, Oriented Labs: CBC, BMP 07/29/19 06:45 07/29/19 06:45 Microbiology 07/28/19 07:40 Urine - Urine Clean Catch Urine Culture - Final NO GROWTH OBTAINED 07/24/19 13:00 Urine - Urine Clean Catch Urine Culture - Final Providejazia Rettgshaheed 07/20/19 18:50 Urine - Urine Clean Catch Urine Culture - Final Normal Urogenital Drea Problem List - Problems (1) Back pain Assessment/Plan: -Orthopedic and Neurosurgeryon board -Neurosurgery recommends no surgical intervention at this time -pain control -Neurontin -PT -Lumbar CT scan shows multilevel degenerative scoliosis of the thoracolumbosacral spine -Fall Precautions -UC positive then repeat UC neg -Lumbar/Thoracic MRI shows scoliosis of thoracolumbosacral spine, T11-T12 disc desiccation, loss of disc space height, anterior spondylosis, moderately severe central spinal canal stenosis observed on sagittal images secondary to broad based calcified disc facet joint athropathy, thickened ligamentum flavum, , mass effect on thoracic spinal cord, multilevel chronic discogenic disease facet joint arthopathy -Dexamthesone tapering dose Code(s): M54.9 - DORSALGIA, UNSPECIFIED Qualifiers: Back pain location: thoracic back pain Chronicity: chronic Back pain laterality: bilateral Qualified Code(s): M54.6 - Pain in thoracic spine; G89.29 - Other chronic pain (2) Inability to walk Assessment/Plan: -PT -Fall precautions -Orthopedic and Neurosurgery consult -Lumbar CT scan shows multilevel degenerative scoliosis of the thoracolumbosacral spine -Lumbar/Thoracic MRI shows scoliosis of thoracolumbosacral spine, T11-T12 disc desiccation, loss of disc space height, anterior spondylosis, moderately severe central spinal canal stenosis observed on sagittal images secondary to broad based calcified disc facet joint athropathy, thickened ligamentum flavum, , mass effect on thoracic spinal cord, multilevel chronic discogenic disease facet joint arthopathy Code(s): R26.2 - DIFFICULTY IN WALKING, NOT ELSEWHERE CLASSIFIED (3) Diabetes Assessment/Plan: -[facility] -ISS -Amaryl -Levemir -Sitagliptan Code(s): E11.9 - TYPE 2 DIABETES MELLITUS WITHOUT COMPLICATIONS Qualifiers: Diabetes mellitus type: type 2 (4) HLD (hyperlipidemia) Assessment/Plan: -Atorvastatin Code(s): E78.5 - HYPERLIPIDEMIA, UNSPECIFIED (5) HTN (hypertension) Assessment/Plan: -monitor BP -low Na diet Code(s): I10 - ESSENTIAL (PRIMARY) HYPERTENSION (6) Abdominal pain Assessment/Plan: -GI on board -Abdominal CT scan shows hepatosplenomegaly with diffuse fatty infiltration of liver Code(s): R10.9 - UNSPECIFIED ABDOMINAL PAIN (7) Constipation Assessment/Plan: -Relistor -low fiber, lactose free diet -Abdominal Xray reviewed Code(s): K59.00 - CONSTIPATION, UNSPECIFIED Assessment/Plan see problem list dvt ppx SNF on discharge for short term rehab
[2019-07-29] MEDS ORDERED: POLYETHYLENE GLYCOL 3350 119 GM BTL PO ONE (21:38)
[2019-07-29] MEDS: ACETAMINOPHEN 325 MG TABLET (FP) PO PRN (22:07)
[2019-07-29] MEDS: ATORVASTATIN CA 40 MG TABLET (FP) PO SCH (22:07)
[2019-07-29] MEDS: LIDOCAINE PATCH REMOVAL MC SCH ×2 (22:13)
[2019-07-29] MEDS: AMITRIPTYLINE HCL 25 MG TABLET (FP) PO SCH (22:14)
[2019-07-29] MEDS ORDERED: traMADol HCL 50 MG TABLET PO ONE (23:32)
--- NOTE | 2019-07-30 00:27 | PN ---
Progress Note, Physician Chief Complaint: back pain unable to get out of chair - Current Medication List Current Medications: Active Medications Acetaminophen (Tylenol -) 650 mg PO Q6H PRN PRN Reason: PAIN LEVEL 4 - 6 Last Admin: 07/29/19 22:07 Dose: 650 mg Amitriptyline HCl (Elavil -) 25 mg PO [facility] Last Admin: 07/29/19 22:14 Dose: 25 mg Aspirin (Ecotrin -) 81 mg PO DAILY [facility] Last Admin: 07/29/19 08:59 Dose: 81 mg Atorvastatin Calcium (Lipitor -) 40 mg PO [facility] Last Admin: 07/29/19 22:07 Dose: 40 mg Dexamethasone Sodium Phosphate (Decadron Injection -) 4 mg IVPUSH DAILY [facility] Docusate Sodium (Colace -) 100 mg PO TID [facility] Last Admin: 07/29/19 22:07 Dose: 100 mg Famotidine (Pepcid -) 20 mg PO BID [facility] Last Admin: 07/29/19 22:07 Dose: 20 mg Gabapentin (Neurontin -) 100 mg PO TID [facility] Last Admin: 07/29/19 22:07 Dose: 100 mg Glimepiride (Amaryl -) 4 mg PO DAILY@0700 [facility] Last Admin: 07/29/19 07:11 Dose: 4 mg Heparin Sodium (Porcine) (Heparin -) 5,000 unit SQ BID [facility] Last Admin: 07/29/19 22:07 Dose: 5,000 unit Insulin Aspart (Novolog Vial Sliding Scale -) 1 vial SQ [facility]; Protocol Last Admin: 07/29/19 23:02 Dose: 4 units Insulin Detemir (Levemir Vial) 30 units SQ AM [facility] Last Admin: 07/29/19 06:59 Dose: 30 units Lidocaine (Lidoderm Patch -) 1 patch TP DAILY [facility] Last Admin: 07/29/19 08:59 Dose: 1 patch Metformin HCl (Glucophage -) 1,000 mg PO BID@0700,1630 [facility] Last Admin: 07/29/19 16:48 Dose: 1,000 mg Methylnaltrexone [place] (Relistor -) 12 mg SQ Q2D@1000 [facility] Last Admin: 07/29/19 12:32 Dose: 12 mg Miscellaneous (Lidoderm Patch Removal) 1 each MC DAILY@2200 [facility] Last Admin: 07/29/19 22:13 Dose: Not Given Nystatin/Triamcinolone Acetonide (Mycolog Ii Ointment -) 1 applic TP BID [facility] Stop: 08/02/19 02:14 Last Admin: 07/29/19 23:01 Dose: 1 applic Pancrelipase ([place] Dr 36,000 Units Capsule) 1 cap PO TIDCM [facility] Last Admin: 07/29/19 16:48 Dose: 1 cap Pramipexole Dihydrochloride (Mirapex -) 0.5 mg PO TID [facility] Last Admin: 07/29/19 22:12 Dose: 0.5 mg Rifaximin (Xifaxan -) 550 mg PO TID [facility] Last Admin: 07/29/19 22:07 Dose: 550 mg Sitagliptin Phosphate (Januvia -) 100 mg PO DAILY@0700 [facility] Last Admin: 07/29/19 06:51 Dose: 100 mg - Objective Vital Signs: Vital Signs Temperature 98.5 F 07/29/19 19:41 Pulse Rate 81 07/29/19 19:41 Respiratory Rate 18 07/29/19 19:41 Blood Pressure 143/83 07/29/19 19:41 O2 Sat by Pulse Oximetry (%) 96 07/29/19 08:43 Constitutional: Yes: Anxious Eyes: Yes: EOM Intact HENT: Yes: Normocephalic Neck: Yes: Trachea Midline Cardiovascular: Yes: Regular Rate and Rhythm Respiratory: Yes: CTA Bilaterally Gastrointestinal: Yes: Normal Bowel Sounds ...Rectal Exam: Yes: Deferred Genitourinary: Yes: WNL Breast(s): Yes: WNL Musculoskeletal: Yes: Back Pain, Muscle Pain, Muscle Weakness Extremities: Yes: Calf Tenderness Edema: No Neurological: Yes: Alert, Oriented, Numbness, Tingling, Tremors, Weakness Labs: CBC, BMP 07/29/19 06:45 07/29/19 06:45 Problem List - Problems (1) Back pain Code(s): M54.9 - DORSALGIA, UNSPECIFIED Qualifiers: Back pain location: thoracic back pain Chronicity: chronic Back pain laterality: bilateral Qualified Code(s): M54.6 - Pain in thoracic spine; G89.29 - Other chronic pain (2) Inability to walk Code(s): R26.2 - DIFFICULTY IN WALKING, NOT ELSEWHERE CLASSIFIED (3) Anxiousness Code(s): F41.9 - ANXIETY DISORDER, UNSPECIFIED (4) Cellulitis Code(s): L03.90 - CELLULITIS, UNSPECIFIED (5) Diabetes Code(s): E11.9 - TYPE 2 DIABETES MELLITUS WITHOUT COMPLICATIONS Qualifiers: Diabetes mellitus type: type 2 (6) Diabetic neuropathy Code(s): E11.40 - TYPE 2 DIABETES MELLITUS WITH DIABETIC NEUROPATHY, UNSP Qualifiers: Diabetes mellitus type: type 2 Assessment/Plan Current Active Problems Abdominal pain (Acute) Back pain (Acute) Constipation (Acute) Inability to walk (Acute) Abnormal Lab Results 07/29/19 06:45 Sodium 134 L Anion Gap 7 L BUN 30.0 H Random Glucose 241 H AST 8 L Laboratory Results - last 24 hr 07/29/19 07/29/19 07/29/19 06:45 06:45 06:53 WBC 7.8 RBC 4.38 Hgb 12.9 Hct 39.0 MCV 88.9 MCH 29.5 MCHC 33.2 RDW 15.6 Plt Count 277 MPV 8.5 Sodium 134 L Potassium 4.4 Chloride 98 Carbon Dioxide 28 Anion Gap 7 L BUN 30.0 H Creatinine 0.8 Est GFR (CKD-EPI)AfAm 84.77 Est GFR (CKD-EPI)NonAf 73.14 POC Glucometer 225 Random Glucose 241 H Calcium 9.0 Total Bilirubin 0.4 AST 8 L ALT 24 Alkaline Phosphatase 58 Total Protein 6.7 Albumin 3.5 07/29/19 07/29/19 07/29/19 12:34 16:43 23:00 WBC RBC Hgb Hct MCV MCH MCHC RDW Plt Count MPV Sodium Potassium Chloride Carbon Dioxide Anion Gap BUN Creatinine Est GFR (CKD-EPI)AfAm Est GFR (CKD-EPI)NonAf POC Glucometer 213 130 227 Random Glucose Calcium Total Bilirubin AST ALT Alkaline Phosphatase Total Protein Albumin plan: pt rehab facilty bgm qid novolog scale levamir q am dose titrate pain management
[2019-07-30] MEDS: PRAMIPEXOLE DIHYDROCHLORIDE 0.5 MG TABLET PO SCH ×3 (05:36→22:47)
[2019-07-30] MEDS: DOCUSATE SODIUM 100 MG CAPSULE (FP) PO SCH ×3 (05:36→22:46)
[2019-07-30] MEDS: ACETAMINOPHEN 325 MG TABLET (FP) PO PRN (05:37)
[2019-07-30] MEDS: GABAPENTIN 100 MG CAPSULE (FP) PO SCH ×3 (05:37→22:47)
[2019-07-30] MEDS: RIFAXIMIN 550 MG TABLET (UD) PO SCH ×3 (05:37→22:47)
[2019-07-30] MEDS: metFORMIN HCL 500 MG TABLET (FP) PO SCH ×2 (06:26→16:37)
[2019-07-30] MEDS: traMADol HCL 50 MG TABLET PO PRN ×2 (06:27→17:51)
[2019-07-30] MEDS: GLIMEPIRIDE 4 MG TABLET (FP) PO SCH (06:27)
[2019-07-30] MEDS: INSULIN SLIDING SCALE (NOVOLOG) 1 VIAL SQ SCH ×4 (06:30→22:45)
[2019-07-30] MEDS: INSULIN (LEVEMIR) 100 UNITS/ML UNITS SQ SCH (06:30)
[2019-07-30 07:06] LABS: HEMATOCRIT 38.2 % (32.4-45.2); HEMOGLOBIN 12.7 GM/dL (10.7-15.3); MCH 29.6 pg (25.7-33.7); MCHC 33.2 g/dl (32.0-36.0); MEAN CELL VOLUME 89.3 fl (80-96); MEAN PLT VOLUME 8.5 fl (7.5-11.1); PLATELET COUNT 246 K/MM3 (134-434); RBC 4.28 M/mm3 (3.60-5.2); RDW 15.4 % (11.6-15.6); WHITE BLOOD COUNT 8.6 K/mm3 (4.0-10.0)
[2019-07-30 07:28] LABS: ALBUMIN 3.4 g/dl (3.4-5.0); BILIRUBIN,TOTAL 0.3 mg/dL (0.2-1); BLOOD UREA NITROGEN 32.2 mg/dL (7-18); CALCIUM 8.9 mg/dL (8.5-10.1); POTASSIUM 4.2 mmol/L (3.5-5.1); TOT PROT 6.4 g/dl (6.4-8.2)
[2019-07-30] MEDS: LIPASE/PROTEASE/AMYLASE 36,000 UNIT CAPSULE PO SCH ×3 (09:00→16:38)
[2019-07-30] MEDS: ASPIRIN COATED 81 MG TABLET.EC PO SCH (09:53)
[2019-07-30] MEDS: FAMOTIDINE 20 MG TABLET PO SCH ×2 (09:54→22:47)
[2019-07-30] MEDS: HEPARIN NA (PORCINE) 5,000 UNITS/ML 1ML VIAL SQ SCH ×2 (09:54→22:46)
[2019-07-30] MEDS: LIDOCAINE 5% TOPICAL PATCH TP SCH (09:54)
[2019-07-30] MEDS: NYSTATIN/TRIAMCINOLONE TOPICAL OINTMENT 15 GM TUBE TP SCH ×2 (09:56→22:47)
[2019-07-30] MEDS ORDERED: DEXAMETHASONE SOD PHOSPHATE 4 MG/1 ML VIAL IVPUSH SCH (10:00)
--- NOTE | 2019-07-30 11:04 | DS ---
"Physical Examination Vital Signs: Vital Signs Temperature 97.6 F 07/30/19 06:00 Pulse Rate 86 07/30/19 06:00 Respiratory Rate 18 07/30/19 06:00 Blood Pressure 124/74 07/30/19 06:00 O2 Sat by Pulse Oximetry (%) 99 07/29/19 21:00 Findings/Remarks: Laboratory Results - last 24 hr 07/29/19 07/29/19 07/29/19 12:34 16:43 23:00 WBC RBC Hgb Hct MCV MCH MCHC RDW Plt Count MPV Sodium Potassium Chloride Carbon Dioxide Anion Gap BUN Creatinine Est GFR (CKD-EPI)AfAm Est GFR (CKD-EPI)NonAf POC Glucometer 213 130 227 Random Glucose Calcium Total Bilirubin AST ALT Alkaline Phosphatase Total Protein Albumin 07/30/19 07/30/19 07/30/19 05:35 06:36 06:36 WBC 8.6 RBC 4.28 Hgb 12.7 Hct 38.2 MCV 89.3 MCH 29.6 MCHC 33.2 RDW 15.4 Plt Count 246 MPV 8.5 Sodium 134 L Potassium 4.2 Chloride 100 Carbon Dioxide 26 Anion Gap 8 BUN 32.2 H Creatinine 1.0 Est GFR (CKD-EPI)AfAm 64.73 Est GFR (CKD-EPI)NonAf 55.85 POC Glucometer 278 Random Glucose 308 H Calcium 8.9 Total Bilirubin 0.3 AST 9 L ALT 22 Alkaline Phosphatase 57 Total Protein 6.4 Albumin 3.4 Active Medications Generic Name Dose Route Start Last Admin Trade Name Freq PRN Reason Stop Dose Admin Acetaminophen 650 mg 07/21/19 01:47 07/30/19 05:37 Tylenol - PO 650 mg Q6H PRN Administration PAIN LEVEL 4 - 6 Amitriptyline HCl 25 mg 07/21/19 22:00 07/29/19 22:14 Elavil - PO 25 mg HS [facility] Administration Aspirin 81 mg 07/21/19 10:00 07/30/19 09:53 Ecotrin - PO 81 mg DAILY [facility] Administration Atorvastatin Calcium 40 mg 07/21/19 22:00 07/29/19 22:07 Lipitor - PO 40 mg HS [facility] Administration Dexamethasone Sodium Phosphate 4 mg 07/30/19 10:00 07/30/19 09:54 Decadron Injection - IVPUSH 4 mg DAILY [facility] Administration Docusate Sodium 100 mg 07/25/19 14:00 07/30/19 05:36 Colace - PO 100 mg TID [facility] Administration Famotidine 20 mg 07/21/19 10:00 07/30/19 09:54 Pepcid - PO 20 mg BID [facility] Administration Gabapentin 100 mg 07/24/19 14:00 07/30/19 05:37 Neurontin - PO 100 mg TID [facility] Administration Glimepiride 4 mg 07/25/19 07:00 07/30/19 06:27 Amaryl - PO 4 mg DAILY@0700 [facility] Administration Heparin Sodium (Porcine) 5,000 unit 07/21/19 10:00 07/30/19 09:54 Heparin - SQ 5,000 unit BID [facility] Administration Insulin Aspart 1 vial 07/21/19 11:00 07/30/19 06:30 Novolog Vial Sliding Scale - SQ 6 units ACHS [facility] Administration Protocol Insulin Detemir 30 units 07/27/19 23:04 07/30/19 06:30 Levemir Vial SQ 30 units AM [facility] Administration Lidocaine 1 patch 07/22/19 10:00 07/30/19 09:54 Lidoderm Patch - TP 1 patch DAILY [facility] Administration Metformin HCl 1,000 mg 07/28/19 07:00 07/30/19 06:26 Glucophage - PO 1,000 mg BID@0700,1630 [facility] Administration Methylnaltrexone [place] 12 mg 07/25/19 10:00 07/29/19 12:32 Relistor - SQ 12 mg Q2D@1000 [facility] Administration Miscellaneous 1 each 07/21/19 22:00 07/29/19 22:13 Lidoderm Patch Removal MC Not Given DAILY@2200 [facility] Nystatin/Triamcinolone Acetonide 1 applic 07/29/19 02:15 07/30/19 09:56 Mycolog Ii Ointment - TP 08/02/19 02:14 1 applic BID [facility] Administration Pancrelipase 1 cap 07/25/19 12:00 07/30/19 09:00 Marla Hendricks 36,000 Units Capsule PO 1 cap TIDCM [facility] Administration Pramipexole Dihydrochloride 0.5 mg 07/26/19 22:00 07/30/19 05:36 Mirapex - PO 0.5 mg TID [facility] Administration Rifaximin 550 mg 07/25/19 14:00 07/30/19 05:37 Xifaxan - PO 550 mg TID [facility] Administration Sitagliptin Phosphate 100 mg 07/28/19 07:00 07/30/19 06:27 Januvia - PO 100 mg DAILY@0700 [facility] Administration Tramadol HCl 50 mg 07/30/19 05:49 07/30/19 06:27 Ultram - PO 50 mg Q6H PRN Administration PAIN LEVEL 6-10 Microbiology 07/28/19 07:40 Urine - Urine Clean Catch Urine Culture - Final NO GROWTH OBTAINED 07/24/19 13:00 Urine - Urine Clean Catch Urine Culture - Final Providencia Rettgeri 07/20/19 18:50 Urine - Urine Clean Catch Urine Culture - Final Normal Urogenital Drea Constitutional: Yes: No Distress, Calm, Obese Eyes: Yes: Conjunctiva Clear HENT: Yes: Atraumatic Cardiovascular: Yes: Regular Rate and Rhythm Respiratory: Yes: Regular, CTA Bilaterally Gastrointestinal: Yes: Normal Bowel Sounds, Soft, Abdomen, Obese Musculoskeletal: Yes: Muscle Weakness Extremities: Yes: WNL Edema: No Neurological: Yes: Alert, Oriented Psychiatric: Yes: Alert, Oriented Labs: CBC, BMP 07/30/19 06:36 07/30/19 06:36 Discharge Summary Problems reviewed: Yes Reason For Visit: BACK PAIN/UNABLE TO WALK Current Active Problems Abdominal pain (Acute) Back pain (Acute) Constipation (Acute) Inability to walk (Acute) Hospital Course: This is a 73 y/o woman with a PMHx of CAD, HTN, HLD, DM, COPD, Migraines, RLS, GERD, Cervical Spinal Stenosis, Disc Disease. Who presents to the ED with her family for severe lumbar pain with radiation to lower legs, unable to ambulate x today. Patient was seen in the ED yesterday, for flank pain with radiation to inguinal region- CTAP- neg, d/cd with Percocet, Vistaril was told to f/u with Spine Surgeon- Dr Rodriguez. Per the patient's family her pain is severe, making it difficult to ambulate. Per the family the patient spoke with Dr. Machado who suggests the patient be admitted and have a MRI. Radiology:-Lumbar/Thoracic MRI shows scoliosis of thoracolumbosacral spine, T11- T12 disc desiccation, loss of disc space height, anterior spondylosis, moderately severe central spinal canal stenosis observed on sagittal images secondary to broad based calcified disc facet joint athropathy, thickened ligamentum flavum, , mass effect on thoracic spinal cord, multilevel chronic discogenic disease facet joint arthopathy While inpatient patient had evaluations by neurology and neurosurgery. No surgical interventions or spinal injections at this time due receiving hyberbaric treatment for wound to left foot. Condition: Stable - Instructions Diet, Activity, Other Instructions: Patient made aware to follow up with PMD in 1 week Patient instructed to follow up with GI Dr Vargas for further GI and chronic liver workup patient instructed to follow up with Neurology Dr Sevilla patient instructed to follow up with Neurosurgery Dr Arzate for managament of back pain patient instructed to follow up with Podiatry Dr Amezquita for wound to foot and continue hyperbaric treatment discontinue famotidine and start Pantoprazole continue with medication as prescribed return to ER if develop severe pain, respiratory distress, chest pain, altered mental status Patient is scheduled for Hyperbaric treatment on 08/01/19 at 4:00pm [facility]: This report was requested by: Lina Coello | Reference #: [id number] Referrals: Gina Flores MD [Staff Physician] - Wellington Sevilla MD [Staff Physician] - Carl Vargas MD [Staff Physician] - Kristian Arzate MD [Staff Physician] - Alcides Amezquita DPM [Staff Physician] - Disposition: [facility]/HOME HEALTH CARE - Home Medications Comprehensive Discharge Medication List: Ambulatory Orders Amitriptyline HCl [Elavil -] 25 mg PO DAILY 02/26/19 Aspirin [Aspirin EC] 81 mg PO DAILY 02/26/19 Atorvastatin Ca [Lipitor] 40 mg PO HS 02/26/19 Famotidine [Pepcid -] 20 mg PO BID 02/26/19 Glimepiride 2 mg PO DAILY 05/12/19 Oxycodone HCl/Acetaminophen [Percocet 5-325 mg Tablet] 1 - 2 tab PO Q4H PRN #20 tablet MDD 6 07/19/19 hydrOXYzine PAMOATE [Vistaril -] 25 mg PO QID PRN #20 capsule 07/19/19 Acetaminophen [Tylenol .Regular Strength -] 650 mg PO Q6H PRN tablet 07/30/19 Docusate Sodium [Colace -] 100 mg PO TID #90 capsule 07/30/19 Gabapentin [Neurontin -] 100 mg PO TID #90 capsule 07/30/19 Insulin (Levemir) [Levemir Vial] 30 units SQ AM #1 vial 07/30/19 Lidocaine 5% Patch [Lidoderm -] 1 patch TP DAILY #30 patch 07/30/19 Lipase/Protease/Amylase [Marla Hendricks 36,000 Units Capsule] 1 cap PO TIDCM #90 capsule. 07/30/19 Nystatin/Triamcinolone [place] [Mycolog II -] 1 applic TP BID #1 tube 07/30/19 Pantoprazole Sodium 40 mg PO DAILY #30 tablet. 07/30/19 Pramipexole Dihydrochloride [Mirapex -] 0.5 mg PO TID #90 tablet 07/30/19 Rifaximin [Xifaxan -] 550 mg PO TID #21 tablet 07/30/19 Sitagliptin Phosphate [Januvia -] 100 mg PO DAILY@0700 #30 tab 07/30/19 metFORMIN HCL [Glucophage -] 1,000 mg PO BID@0700,1630 #60 tablet 07/30/19 Prescription Drug Monitoring Program (I-STOP) results: I-STOP reviewed and no issues identified"
--- NOTE | 2019-07-30 11:43 | PN ---
Progress Note (short form) - Note Progress Note: FUV left big toe nvsgi, +om left big toe, OM Upon dc should complete HBO tx for OM. May go to skilled nursing for rehab. Will follow till dc.
[2019-07-30] MEDS ORDERED: PT OWN MED DRAWER 7, Y5N ONE (20:38)
[2019-07-30] MEDS ORDERED: MAG HYDROX/AL HYDROX/SIMETH 30 ML UNIT-DOSE CUP PO ONE (22:10)
[2019-07-30] MEDS: AMITRIPTYLINE HCL 25 MG TABLET (FP) PO SCH (22:46)
[2019-07-30] MEDS: LIDOCAINE PATCH REMOVAL MC SCH (22:46)
[2019-07-30] MEDS: ATORVASTATIN CA 40 MG TABLET (FP) PO SCH (22:46)
[2019-07-31] MEDS ORDERED: PT OWN MED DRAWER 7, Y5N ONE ×4 (06:01→11:33)
[2019-07-31] MEDS: INSULIN SLIDING SCALE (NOVOLOG) 1 VIAL SQ SCH ×3 (06:24→17:38)
[2019-07-31] MEDS: metFORMIN HCL 500 MG TABLET (FP) PO SCH ×2 (06:30→17:56)
[2019-07-31] MEDS: DOCUSATE SODIUM 100 MG CAPSULE (FP) PO SCH ×2 (06:30→13:10)
[2019-07-31] MEDS: GABAPENTIN 100 MG CAPSULE (FP) PO SCH ×2 (06:31→13:10)
[2019-07-31] MEDS: traMADol HCL 50 MG TABLET PO PRN (06:31)
[2019-07-31] MEDS: PRAMIPEXOLE DIHYDROCHLORIDE 0.5 MG TABLET PO SCH ×2 (06:31→13:10)
[2019-07-31] MEDS: RIFAXIMIN 550 MG TABLET (UD) PO SCH ×2 (06:31→13:10)
[2019-07-31] MEDS: GLIMEPIRIDE 4 MG TABLET (FP) PO SCH (06:31)
[2019-07-31] MEDS: INSULIN (LEVEMIR) 100 UNITS/ML UNITS SQ SCH (06:32)
[2019-07-31] MEDS: LIPASE/PROTEASE/AMYLASE 36,000 UNIT CAPSULE PO SCH ×3 (08:40→17:35)
--- NOTE | 2019-07-31 09:21 | PN ---
Progress Note, Physician Chief Complaint: Lower Back Pain Difficulty Ambulating Abdominal Pain History of Present Illness: Previous notes and events reviewed awake and alert NAD complain of dizziness which began last night-Orthostatic VS ordered denies chest pain or SOB ambulating well with walker repeat UC neg - Current Medication List Current Medications: Active Medications Acetaminophen (Tylenol -) 650 mg PO Q6H PRN PRN Reason: PAIN LEVEL 4 - 6 Last Admin: 07/30/19 05:37 Dose: 650 mg Amitriptyline HCl (Elavil -) 25 mg PO [facility] Last Admin: 07/30/19 22:46 Dose: 25 mg Aspirin (Ecotrin -) 81 mg PO DAILY [facility] Last Admin: 07/30/19 09:53 Dose: 81 mg Atorvastatin Calcium (Lipitor -) 40 mg PO [facility] Last Admin: 07/30/19 22:46 Dose: 40 mg Docusate Sodium (Colace -) 100 mg PO TID [facility] Last Admin: 07/31/19 06:30 Dose: 100 mg Famotidine (Pepcid -) 20 mg PO BID [facility] Last Admin: 07/30/19 22:47 Dose: 20 mg Gabapentin (Neurontin -) 100 mg PO TID [facility] Last Admin: 07/31/19 06:31 Dose: 100 mg Glimepiride (Amaryl -) 4 mg PO DAILY@0700 [facility] Last Admin: 07/31/19 06:31 Dose: 4 mg Heparin Sodium (Porcine) (Heparin -) 5,000 unit SQ BID [facility] Last Admin: 07/30/19 22:46 Dose: 5,000 unit Insulin Aspart (Novolog Vial Sliding Scale -) 1 vial SQ [facility]; Protocol Last Admin: 07/31/19 06:24 Dose: Not Given Insulin Detemir (Levemir Vial) 30 units SQ AM [facility] Last Admin: 07/31/19 06:32 Dose: 30 units Lidocaine (Lidoderm Patch -) 1 patch TP DAILY [facility] Last Admin: 07/30/19 09:54 Dose: 1 patch Metformin HCl (Glucophage -) 1,000 mg PO BID@0700,1630 [facility] Last Admin: 07/31/19 06:30 Dose: 1,000 mg Methylnaltrexone [place] (Relistor -) 12 mg SQ Q2D@1000 [facility] Last Admin: 07/29/19 12:32 Dose: 12 mg Miscellaneous (Lidoderm Patch Removal) 1 each MC DAILY@2200 [facility] Last Admin: 07/30/19 22:46 Dose: 1 each Nystatin/Triamcinolone Acetonide (Mycolog Ii Ointment -) 1 applic TP BID [facility] Stop: 08/02/19 02:14 Last Admin: 07/30/19 22:47 Dose: 1 applic Pancrelipase (Creon Dr 36,000 Units Capsule) 1 cap PO TIDCM [facility] Last Admin: 07/31/19 08:40 Dose: 1 cap Pramipexole Dihydrochloride (Mirapex -) 0.5 mg PO TID [facility] Last Admin: 07/31/19 06:31 Dose: 0.5 mg Rifaximin (Xifaxan -) 550 mg PO TID [facility] Last Admin: 07/31/19 06:31 Dose: 550 mg Sitagliptin Phosphate (Januvia -) 100 mg PO DAILY@0700 [facility] Last Admin: 07/31/19 06:31 Dose: 100 mg Tramadol HCl (Ultram -) 50 mg PO Q6H PRN PRN Reason: PAIN LEVEL 6-10 Last Admin: 07/31/19 06:31 Dose: 50 mg - Objective Vital Signs: Vital Signs Temperature 97.6 F 07/31/19 05:59 Pulse Rate 79 07/31/19 05:59 Respiratory Rate 20 07/31/19 05:59 Blood Pressure 107/68 07/31/19 05:59 O2 Sat by Pulse Oximetry (%) 99 07/30/19 21:00 Constitutional: Yes: No Distress, Calm Eyes: Yes: Conjunctiva Clear HENT: Yes: Atraumatic Cardiovascular: Yes: Regular Rate and Rhythm Respiratory: Yes: Regular, CTA Bilaterally Gastrointestinal: Yes: Normal Bowel Sounds, Soft, Abdomen, Obese Musculoskeletal: Yes: Muscle Weakness Extremities: Yes: WNL Edema: No Neurological: Yes: Alert, Oriented, Other (equal strength beekeeper, no facial asymmetry) Psychiatric: Yes: Alert, Oriented Labs: CBC, BMP 07/30/19 06:36 07/30/19 06:36 Microbiology 07/28/19 07:40 Urine - Urine Clean Catch Urine Culture - Final NO GROWTH OBTAINED 07/24/19 13:00 Urine - Urine Clean Catch Urine Culture - Final Providencia Rettgeri 07/20/19 18:50 Urine - Urine Clean Catch Urine Culture - Final Normal Urogenital Drea Problem List - Problems (1) Back pain Assessment/Plan: -Orthopedic and Neurosurgeryon board -Neurosurgery recommends no surgical intervention at this time -pain control -Neurontin -PT -Lumbar CT scan shows multilevel degenerative scoliosis of the thoracolumbosacral spine -Fall Precautions -UC positive then repeat UC neg -Lumbar/Thoracic MRI shows scoliosis of thoracolumbosacral spine, T11-T12 disc desiccation, loss of disc space height, anterior spondylosis, moderately severe central spinal canal stenosis observed on sagittal images secondary to broad based calcified disc facet joint athropathy, thickened ligamentum flavum, , mass effect on thoracic spinal cord, multilevel chronic discogenic disease facet joint arthopathy -Dexamthesone completed Code(s): M54.9 - DORSALGIA, UNSPECIFIED Qualifiers: Back pain location: thoracic back pain Chronicity: chronic Back pain laterality: bilateral Qualified Code(s): M54.6 - Pain in thoracic spine; G89.29 - Other chronic pain (2) Inability to walk Assessment/Plan: -PT -Fall precautions -Orthopedic and Neurosurgery consult -Lumbar CT scan shows multilevel degenerative scoliosis of the thoracolumbosacral spine -Lumbar/Thoracic MRI shows scoliosis of thoracolumbosacral spine, T11-T12 disc desiccation, loss of disc space height, anterior spondylosis, moderately severe central spinal canal stenosis observed on sagittal images secondary to broad based calcified disc facet joint athropathy, thickened ligamentum flavum, , mass effect on thoracic spinal cord, multilevel chronic discogenic disease facet joint arthopathy Code(s): R26.2 - DIFFICULTY IN WALKING, NOT ELSEWHERE CLASSIFIED (3) Diabetes Assessment/Plan: -[facility] ACHS -ISS -Amaryl -Levemir -Sitagliptan Code(s): E11.9 - TYPE 2 DIABETES MELLITUS WITHOUT COMPLICATIONS Qualifiers: Diabetes mellitus type: type 2 (4) HLD (hyperlipidemia) Assessment/Plan: -Atorvastatin Code(s): E78.5 - HYPERLIPIDEMIA, UNSPECIFIED (5) HTN (hypertension) Assessment/Plan: -monitor BP -low Na diet Code(s): I10 - ESSENTIAL (PRIMARY) HYPERTENSION (6) Abdominal pain Assessment/Plan: -GI on board -Abdominal CT scan shows hepatosplenomegaly with diffuse fatty infiltration of liver Code(s): R10.9 - UNSPECIFIED ABDOMINAL PAIN (7) Constipation Assessment/Plan: -Relistor -low fiber, lactose free diet -Abdominal Xray reviewed Code(s): K59.00 - CONSTIPATION, UNSPECIFIED Assessment/Plan see problem list dvt ppx patient will be discharged home with [facility] and PT
--- NOTE | 2019-07-31 09:27 | PN ---
Progress Note (short form) - Note Progress Note: Pt seen and examined. She c/o back pain, severe at times. She is ambulatory. Is doing P.T. NTD orthopedically at this time. She can f/u with us as an out patient as needed
[2019-07-31] MEDS: HEPARIN NA (PORCINE) 5,000 UNITS/ML 1ML VIAL SQ SCH (09:52)
[2019-07-31] MEDS: LIDOCAINE 5% TOPICAL PATCH TP SCH (09:52)
[2019-07-31] MEDS: Methylnaltrexone Bromide 12 MG/0.6 ML KIT SQ SCH (09:52)
[2019-07-31] MEDS: FAMOTIDINE 20 MG TABLET PO SCH (09:53)
[2019-07-31] MEDS: ASPIRIN COATED 81 MG TABLET.EC PO SCH (09:53)
[2019-07-31] MEDS: NYSTATIN/TRIAMCINOLONE TOPICAL OINTMENT 15 GM TUBE TP SCH (09:54)
[2019-07-31] MEDS ORDERED: MECLIZINE HCL 12.5 MG TABLET PO ONE (11:30)
--- NOTE | 2019-07-31 16:09 | PN ---
Progress Note (short form) - Note Progress Note: FUV left big toe. Going home today. Will start HBO tomorrow. nvsgi, +om left big toe, OM DC Today. Will follow in my office outpatient.
[2019-07-31 18:22] VITALS: BP 120/67; PULSE 86; TEMP 97.9
--- NOTE | 2019-07-31 18:22 | PN ---
Progress Note, Physician Chief Complaint: back pain improved willing to go home and follow with op bariatric rx - Current Medication List Current Medications: Active Medications Acetaminophen (Tylenol -) 650 mg PO Q6H PRN PRN Reason: PAIN LEVEL 4 - 6 Last Admin: 07/30/19 05:37 Dose: 650 mg Amitriptyline HCl (Elavil -) 25 mg PO HS [facility] Last Admin: 07/30/19 22:46 Dose: 25 mg Aspirin (Ecotrin -) 81 mg PO DAILY [facility] Last Admin: 07/31/19 09:53 Dose: 81 mg Atorvastatin Calcium (Lipitor -) 40 mg PO HS [facility] Last Admin: 07/30/19 22:46 Dose: 40 mg Docusate Sodium (Colace -) 100 mg PO TID [facility] Last Admin: 07/31/19 13:10 Dose: 100 mg Famotidine (Pepcid -) 20 mg PO BID [facility] Last Admin: 07/31/19 09:53 Dose: 20 mg Gabapentin (Neurontin -) 100 mg PO TID [facility] Last Admin: 07/31/19 13:10 Dose: 100 mg Glimepiride (Amaryl -) 4 mg PO DAILY@0700 [facility] Last Admin: 07/31/19 06:31 Dose: 4 mg Heparin Sodium (Porcine) (Heparin -) 5,000 unit SQ BID [facility] Last Admin: 07/31/19 09:52 Dose: 5,000 unit Insulin Aspart (Novolog Vial Sliding Scale -) 1 vial SQ [facility]; Protocol Last Admin: 07/31/19 17:38 Dose: 6 units Insulin Detemir (Levemir Vial) 30 units SQ AM [facility] Last Admin: 07/31/19 06:32 Dose: 30 units Lidocaine (Lidoderm Patch -) 1 patch TP DAILY [facility] Last Admin: 07/31/19 09:52 Dose: 1 patch Metformin HCl (Glucophage -) 1,000 mg PO BID@0700,1630 [facility] Last Admin: 07/31/19 17:56 Dose: 1,000 mg Methylnaltrexone [place] (Relistor -) 12 mg SQ Q2D@1000 [facility] Last Admin: 07/31/19 09:52 Dose: 12 mg Miscellaneous (Lidoderm Patch Removal) 1 each MC DAILY@2200 [facility] Last Admin: 07/30/19 22:46 Dose: 1 each Nystatin/Triamcinolone Acetonide (Mycolog Ii Ointment -) 1 applic TP BID [facility] Stop: 08/02/19 02:14 Last Admin: 07/31/19 09:54 Dose: 1 applic Pancrelipase (Marla Hendricks 36,000 Units Capsule) 1 cap PO TIDCM [facility] Last Admin: 07/31/19 17:35 Dose: 1 cap Pramipexole Dihydrochloride (Mirapex -) 0.5 mg PO TID [facility] Last Admin: 07/31/19 13:10 Dose: 0.5 mg Rifaximin (Xifaxan -) 550 mg PO TID [facility] Last Admin: 07/31/19 13:10 Dose: 550 mg Sitagliptin Phosphate (Januvia -) 100 mg PO DAILY@0700 [facility] Last Admin: 07/31/19 06:31 Dose: 100 mg Tramadol HCl (Ultram -) 50 mg PO Q6H PRN PRN Reason: PAIN LEVEL 6-10 Last Admin: 07/31/19 06:31 Dose: 50 mg - Objective Vital Signs: Vital Signs Temperature 97.5 F L 07/31/19 14:50 Pulse Rate 92 H 07/31/19 14:50 Respiratory Rate 20 07/31/19 14:50 Blood Pressure 132/67 07/31/19 14:50 O2 Sat by Pulse Oximetry (%) 98 07/31/19 09:00 Constitutional: Yes: Calm Eyes: Yes: EOM Intact HENT: Yes: Normocephalic Neck: Yes: Trachea Midline Cardiovascular: Yes: Regular Rate and Rhythm Respiratory: Yes: CTA Bilaterally Gastrointestinal: Yes: Normal Bowel Sounds ...Rectal Exam: Yes: Deferred Genitourinary: Yes: WNL Musculoskeletal: Yes: Joint Swelling, Muscle Pain, Muscle Weakness Extremities: Yes: Delayed Capillary Refill Edema: No Neurological: Yes: Alert, Oriented, Weakness Labs: CBC, BMP 07/30/19 06:36 07/30/19 06:36 Problem List - Problems (1) Back pain Code(s): M54.9 - DORSALGIA, UNSPECIFIED Qualifiers: Back pain location: thoracic back pain Chronicity: chronic Back pain laterality: bilateral Qualified Code(s): M54.6 - Pain in thoracic spine; G89.29 - Other chronic pain (2) Inability to walk Code(s): R26.2 - DIFFICULTY IN WALKING, NOT ELSEWHERE CLASSIFIED (3) Anxiousness Code(s): F41.9 - ANXIETY DISORDER, UNSPECIFIED (4) Cellulitis Code(s): L03.90 - CELLULITIS, UNSPECIFIED (5) Diabetes Code(s): E11.9 - TYPE 2 DIABETES MELLITUS WITHOUT COMPLICATIONS Qualifiers: Diabetes mellitus type: type 2 (6) Diabetic neuropathy Code(s): E11.40 - TYPE 2 DIABETES MELLITUS WITH DIABETIC NEUROPATHY, UNSP Qualifiers: Diabetes mellitus type: type 2 Assessment/Plan Current Active Problems dmt2 Abdominal pain (Acute) Back pain (Acute) Constipation (Acute) Inability to walk (Acute) Laboratory Results - last 24 hr 07/30/19 07/31/19 07/31/19 21:44 06:22 11:37 POC Glucometer 76 118 84 07/31/19 17:22 POC Glucometer 275 Current Medications Generic Name Dose Route Start Last Admin Trade Name Freq PRN Reason Stop Dose Admin Acetaminophen 650 mg 07/21/19 01:47 07/30/19 05:37 Tylenol - PO 650 mg Q6H PRN Administration PAIN LEVEL 4 - 6 Amitriptyline HCl 25 mg 07/21/19 22:00 07/30/19 22:46 Elavil - PO 25 mg HS [facility] Administration Aspirin 81 mg 07/21/19 10:00 07/31/19 09:53 Ecotrin - PO 81 mg DAILY [facility] Administration Atorvastatin Calcium 40 mg 07/21/19 22:00 07/30/19 22:46 Lipitor - PO 40 mg HS [facility] Administration Docusate Sodium 100 mg 07/25/19 14:00 07/31/19 13:10 Colace - PO 100 mg TID [facility] Administration Famotidine 20 mg 07/21/19 10:00 07/31/19 09:53 Pepcid - PO 20 mg BID [facility] Administration Gabapentin 100 mg 07/24/19 14:00 07/31/19 13:10 Neurontin - PO 100 mg TID [facility] Administration Glimepiride 4 mg 07/25/19 07:00 07/31/19 06:31 Amaryl - PO 4 mg DAILY@0700 [facility] Administration Heparin Sodium (Porcine) 5,000 unit 07/21/19 10:00 07/31/19 09:52 Heparin - SQ 5,000 unit BID [facility] Administration Insulin Aspart 1 vial 07/21/19 11:00 07/31/19 17:38 Novolog Vial Sliding Scale - SQ 6 units ACHS [facility] Administration Protocol Insulin Detemir 30 units 07/27/19 23:04 07/31/19 06:32 Levemir Vial SQ 30 units AM [facility] Administration Lidocaine 1 patch 07/22/19 10:00 07/31/19 09:52 Lidoderm Patch - TP 1 patch DAILY [facility] Administration Metformin HCl 1,000 mg 07/28/19 07:00 07/31/19 17:56 Glucophage - PO 1,000 mg BID@0700,1630 [facility] Administration Methylnaltrexone [place] 12 mg 07/25/19 10:00 07/31/19 09:52 Relistor - SQ 12 mg Q2D@1000 [facility] Administration Miscellaneous 1 each 07/21/19 22:00 07/30/19 22:46 Lidoderm Patch Removal MC 1 each DAILY@2200 [facility] Administration Nystatin/Triamcinolone Acetonide 1 applic 07/29/19 02:15 07/31/19 09:54 Mycolog Ii Ointment - TP 08/02/19 02:14 1 applic BID [facility] Administration Pancrelipase 1 cap 07/25/19 12:00 07/31/19 17:[address] 36,000 Units Capsule PO 1 cap TIDCM [facility] Administration Pramipexole Dihydrochloride 0.5 mg 07/26/19 22:00 07/31/19 13:10 Mirapex - PO 0.5 mg TID [facility] Administration Rifaximin 550 mg 07/25/19 14:00 07/31/19 13:10 Xifaxan - PO 550 mg TID [facility] Administration Sitagliptin Phosphate 100 mg 07/28/19 07:00 07/31/19 06:31 Januvia - PO 100 mg DAILY@0700 [facility] Administration Tramadol HCl 50 mg 07/30/19 05:49 07/31/19 06:31 Ultram - PO 50 mg Q6H PRN Administration PAIN LEVEL 6-10
== END 2019-07-31 18:00 | disposition home health service (06) | DRG 552 ==
LOC: JER 17:27 → JERBED 21:40 → OBSVTOIN 21:40 → J7W 07-21 00:30
PROVIDERS: ADMIT Internal Medicine; ATTEND Family Medicine
DX: M48.061 Spinal stenosis, lumbar region without neurogenic claudication (principal); N39.0 Urinary tract infection, site not specified; M47.24 Other spondylosis with radiculopathy, thoracic region; M41.25 Other idiopathic scoliosis, thoracolumbar region; M54.9 Dorsalgia, unspecified; R26.2 Difficulty in walking, not elsewhere classified; E11.40 Type 2 diabetes mellitus with diabetic neuropathy, unspecified; I10 Essential (primary) hypertension; E78.5 Hyperlipidemia, unspecified; R10.9 Unspecified abdominal pain; M99.72 Connective tissue and disc stenosis of intervertebral foramina of thoracic region; M99.73 Connective tissue and disc stenosis of intervertebral foramina of lumbar region; E11.69 Type 2 diabetes mellitus with other specified complication; M51.26 Other intervertebral disc displacement, lumbar region; E11.65 Type 2 diabetes mellitus with hyperglycemia; R16.1 Splenomegaly, not elsewhere classified; K76.0 Fatty (change of) liver, not elsewhere classified; K59.00 Constipation, unspecified; E66.9 Obesity, unspecified; Z68.37 Body mass index [BMI] 37.0-37.9, adult; K21.9 Gastro-esophageal reflux disease without esophagitis; G43.909 Migraine, unspecified, not intractable, without status migrainosus; G25.81 Restless legs syndrome
CPT/HCPCS: 36415; 72128-TC; 72131-TC; 72146-TC; 72148-TC; 72170-TC-FY; 74019-TC-FY; 74177-TC; 80048; 80053; 81003; 82550; 82962; 83540; 83550; 83690; 85025; 85027; 86140; 87086; 87186; 93005; 93010; 97116-GP; 97161-GP; 99283-25; 99284-25; J0131; J1100; J1644

== ENCOUNTER 2019-10-21 00:59 | Observation (INO) | payer OTHER ==
--- NOTE | 2019-10-21 03:18 | PDOC ---
History of Present Illness - General Chief Complaint: Nausea/Vomiting Stated Complaint: HIGH BP History Source: Patient Exam Limitations: No Limitations - History of Present Illness Initial Comments: 10/21/19 06:52 74 y/o woman with a PMHx of CAD, HTN, HLD, DM, COPD, Migraines, RLS, GERD, Cervical Spinal Stenosis presents to the emergency department with sudden onset of left chest wall pain at approximately 1 am while at rest. The patient states it was sharp in nature, radiating to the left lower leg from the left chest wall , with the following associative symptoms: neck pain, lightheadedness, vomiting (2x episodes without bile and blood), and SOB. Per the patient, she had her last cardiac work up 2 years ago and was normal. Denies the following: fevers, chills, abdominal pain, dysuria, hematuria, diarrhea, and leg swelling. Allergies: NKDA 10/21/19 07:29 Past History - Past Medical History Allergies/Adverse Reactions: Allergies Allergy/AdvReac Type Severity Reaction Status Date / Time No Known Allergies Allergy Verified 10/21/19 01:09 Home Medications: Ambulatory Orders Amitriptyline HCl [Elavil -] 25 mg PO DAILY 02/26/19 Aspirin [Aspirin EC] 81 mg PO DAILY 02/26/19 Atorvastatin Ca [Lipitor] 40 mg PO HS 02/26/19 Famotidine [Pepcid -] 20 mg PO BID 02/26/19 Glimepiride 2 mg PO DAILY 05/12/19 Oxycodone HCl/Acetaminophen [Percocet 5-325 mg Tablet] 1 - 2 tab PO Q4H PRN #20 tablet MDD 6 07/19/19 hydrOXYzine PAMOATE [Vistaril -] 25 mg PO QID PRN #20 capsule 07/19/19 Acetaminophen [Tylenol .Regular Strength -] 650 mg PO Q6H PRN tablet 07/30/19 Docusate Sodium [Colace -] 100 mg PO TID #90 capsule 07/30/19 Gabapentin [Neurontin -] 100 mg PO TID #90 capsule 07/30/19 Insulin (Levemir) [Levemir Vial] 30 units SQ AM #1 vial 07/30/19 Lidocaine 5% Patch [Lidoderm -] 1 patch TP DAILY #30 patch 07/30/19 Lipase/Protease/Amylase [Creon Dr 36,000 Units Capsule] 1 cap PO TIDCM #90 capsule. 07/30/19 Nystatin/Triamcinolone Top Oin [Mycolog II -] 1 applic TP BID #1 tube 07/30/19 Pantoprazole Sodium 40 mg PO DAILY #30 tablet. 07/30/19 Pramipexole Dihydrochloride [Mirapex -] 0.5 mg PO TID #90 tablet 07/30/19 Rifaximin [Xifaxan -] 550 mg PO TID #21 tablet 07/30/19 Sitagliptin Phosphate [Januvia -] 100 mg PO DAILY@0700 #30 tab 07/30/19 metFORMIN HCL [Glucophage -] 1,000 mg PO BID@0700,1630 #60 tablet 07/30/19 Tramadol HCl 50 mg PO Q6H PRN #16 tablet MDD 4 07/31/19 Anemia: No Asthma: No Cancer: No Cardiac Disorders: Yes CVA: No COPD: No CHF: No Dementia: No Diabetes: Yes GI Disorders: Yes (GERD GASTRITIS) Disorders: No HTN: Yes Hypercholesterolemia: Yes Kidney Stones: Yes Liver Disease: No Seizures: No Thyroid Disease: No - Surgical History Abdominal Surgery: No Appendectomy: No Cardiac Surgery: No Cholecystectomy: No GI Surgery: Yes (bladder 15 years ago) Lung Surgery: No Neurologic Surgery: No Orthopedic Surgery: Yes (r knee replacement 03/11/14) - Immunization History Immunization Up to Date: Yes - Psycho Social/Smoking Cessation Hx Smoking Status: No Smoking History: Former smoker Have you smoked in the past 12 months: No Number of Cigarettes Smoked Daily: 0 If you are a former smoker, when did you quit?: 1979 Information on smoking cessation initiated: No Hx Alcohol Use: No Drug/Substance Use Hx: No Substance Use Type: None Hx Substance Use Treatment: No Review of Systems - Review of Systems Able to Perform ROS?: Yes Is the patient limited French proficient: No Constitutional: No: Chills, Diaphoresis, Fever, Weakness HEENTM: No: Eye Pain, Ear Pain, Nose Pain, Throat Pain, Mouth Pain Respiratory: Yes: Shortness of Breath. No: Cough, Hemoptysis Cardiac (ROS): Yes: Chest Pain. No: Lightheadedness, Palpitations, Syncope, Chest Tightness ABD/GI: Yes: Nausea, Vomiting. No: Constipated, Diarrhea, Rectal Bleeding, Tarry Stools : No: Burning, Dysuria, Hematuria, Incontinence Musculoskeletal: Yes: Neck Pain. No: Back Pain, Joint Pain Integumentary: No: Bruising, Erythema, Rash Neurological: No: Headache Psychiatric: No: Change in Appetite Endocrine: No: Unexplained Weight Gain Hematologic/Lymphatic: No: Anemia *Physical Exam - Vital Signs Last Vital Signs Temp Pulse Resp BP Pulse Ox 97.8 F 76 20 149/74 95 10/21/19 01:04 10/21/19 01:04 10/21/19 01:04 10/21/19 01:04 10/21/19 01:04 - Physical Exam General Appearance: Yes: Nourished, Appropriately Dressed, Obese. No: Apparent Distress, Intoxicated HEENT: positive: EOMI, DAMARIS, Normal Voice, Symmetrical, Pharynx Normal, Hearing Grossly Normal. negative: Pale Conjunctivae, Scleral Icterus (R), Scleral Icterus (L), Muffled/Hoarse voice, Pharyngeal Erythema, Tonsillar Exudate, Tonsillar Erythema, Nasal Congestion, Rhinorrhea, Sinus Tenderness, Excessive drooling Neck: positive: Trachea midline, Supple. negative: Tender, Lymphadenopathy (R) , Lymphadenopathy (L), Tender lateral, Tender midline Respiratory/Chest: positive: Lungs Clear, Decreased Breath Sounds. negative: Chest Tender, Respiratory Distress, Accessory Muscle Use, Crackles, Rales, Rhonchi, Stridor, Wheezing Cardiovascular: positive: Regular Rhythm, Regular Rate, S1, S2. negative: Systolic Murmur Gastrointestinal/Abdominal: positive: Normal Bowel Sounds, Flat, Soft. negative : Tender, Guarding, Rebound Lymphatic: negative: Adenopathy Musculoskeletal: positive: Normal Inspection. negative: CVA Tenderness, Vertebral Tenderness Extremity: positive: Normal Capillary Refill, Normal Range of Motion. negative : Normal Inspection (trace b/l LE edema), Tender, Calf Tenderness Integumentary: positive: Normal Color, Dry, Warm Neurologic: positive: Alert, Normal Mood/Affect ED Treatment Course - LABORATORY CBC & Chemistry Diagram: 10/22/19 05:30 10/22/19 05:30 Medical Decision Making - Medical Decision Making 74 y/o woman with a PMHx of CAD, HTN, HLD, DM, COPD, Migraines, RLS, GERD, Cervical Spinal Stenosis presents to the emergency department with sudden onset of left chest wall pain at approximately 1 am while at rest Initial vitals; Initial Vital Signs Temp Pulse Resp BP Pulse Ox 97.8 F 76 20 149/74 95 10/21/19 01:04 10/21/19 01:04 10/21/19 01:04 10/21/19 01:04 10/21/19 01:04 Work up: Patient with a multitude of significant medical co-morbidities presents to the emergency department chest pain. Given the patients co-morbidities and presenting symptoms, will need to rule out ACS. Patient also complains, on re- assessment, of head and neck pain that was atraumatic. EKG: ventricular rate is [address] elevations or depressions. Q wave noted on lead III. Patient has no TWI in the leads. CXR negative for acute process. CT head and CT cervical spine pending. Laboratory Tests 10/21/19 10/21/19 06:00 06:00 WBC 5.9 RBC 3.88 Hgb 11.7 Hct 35.3 MCV 90.9 MCH 30.1 MCHC 33.1 RDW 15.4 Plt Count 204 MPV 9.6 D Absolute Neuts (auto) 4.2 Neutrophils % 71.6 Lymphocytes % 20.3 Monocytes % 5.3 Eosinophils % 1.7 Basophils % 1.1 Nucleated RBC % 0 Sodium 139 Potassium 4.3 Chloride 107 Carbon Dioxide 27 Anion Gap 6 L BUN 12.2 Creatinine 0.6 Est GFR (CKD-EPI)AfAm 104.07 Est GFR (CKD-EPI)NonAf 89.79 Random Glucose 183 H Calcium 8.5 Total Bilirubin 0.2 AST 23 ALT 20 Alkaline Phosphatase 67 Creatine Kinase 85 Troponin I < 0.02 B-Natriuretic Peptide 181.3 H Total Protein 6.4 Albumin 3.6 trop negative BNP negative. Patient was signed out to Dr. Rodrigez for pending CT reads. Patient likely to be admitted for ACS work up. Discharge - Discharge Information Problems reviewed: Yes Clinical Impression/Diagnosis: Chest pain Qualifiers: Chest pain type: unspecified Qualified Code(s): R07.9 - Chest pain, unspecified - Follow up/Referral - Patient Discharge Instructions - Post Discharge Activity
[2019-10-21] MEDS ORDERED: ONDANSETRON 4 MG/2 ML VIAL IVPUSH ONE (04:16)
[2019-10-21] MEDS ORDERED: FAMOTIDINE 20 MG/50 ML IVPB 20 MG/50 ML MG IVPB ONE ×2 (04:16→05:00)
[2019-10-21] MEDS ORDERED: ACETAMINOPHEN 1000 MG/100 ML VIAL (NON FORMULARY) IVPB ONE (04:16)
[2019-10-21] MEDS ORDERED: ONDANSETRON 4 MG/2 ML VIAL ONE (05:00)
[2019-10-21] MEDS ORDERED: ACETAMINOPHEN INJECTION 100 ML IVPB ONE (05:00)
--- NOTE | 2019-10-21 05:32 | PDOC ---
Attending Attestation - Resident Resident Name: Nader Ortega - ED Attending Attestation I have performed the following: I have examined & evaluated the patient, The case was reviewed & discussed with the resident, I agree w/resident's findings & plan - HPI HPI: 10/21/19 05:32 see resident hpi - Physicial Exam PE: 10/21/19 05:32 agree with resident exam - Medical Decision Making 10/21/19 05:32 74-year-old female with left-sided occipital/neck pain as well as chest pain with associated dizziness and one episode of vomiting Plan for CT scan of the head and cervical spine, EKG chest x-ray and labs including troponin Pending results will at minimum admit to medical service for serial enzymes
[2019-10-21 06:34] LABS: BASO % 1.1 % (0-2.0); EOS % 1.7 % (0-4.5); HEMATOCRIT 35.3 % (32.4-45.2); HEMOGLOBIN 11.7 GM/dL (10.7-15.3); LYMPH % 20.3 % (8-40); MCH 30.1 pg (25.7-33.7); MCHC 33.1 g/dl (32.0-36.0); MEAN CELL VOLUME 90.9 fl (80-96); MEAN PLT VOLUME 9.6 fl (7.5-11.1); MONO % 5.3 % (3.8-10.2); NEUT % 71.6 % (42.8-82.8); PLATELET COUNT 204 K/MM3 (134-434); RBC 3.88 M/mm3 (3.60-5.2); RDW 15.4 % (11.6-15.6); WHITE BLOOD COUNT 5.9 K/mm3 (4.0-10.0)
[2019-10-21 06:51] LABS: ALBUMIN 3.6 g/dl (3.4-5.0); ALK PHOS 67 U/L (45-117); ANION GAP 6 MMOL/L (8-16); BILIRUBIN,TOTAL 0.2 mg/dL (0.2-1); BLOOD UREA NITROGEN 12.2 mg/dL (7-18); CALCIUM 8.5 mg/dL (8.5-10.1); CHLORIDE 107 mmol/L (98-107); CO2 27 mmol/L (21-32); CREATININE 0.6 mg/dL (0.55-1.3); GLUCOSE,RANDOM 183 mg/dL (74-106); N-TERMINAL BNP 181.3 pg/ml (5-125); POTASSIUM 4.3 mmol/L (3.5-5.1); SGOT/AST 23 U/L (15-37); SGPT/ALT 20 U/L (13-61); SODIUM 139 mmol/L (136-145); TOT PROT 6.4 g/dl (6.4-8.2)
--- NOTE | 2019-10-21 07:52 | PDOC ---
*Physical Exam - Vital Signs Last Vital Signs Temp Pulse Resp BP Pulse Ox 98.4 F 72 19 131/68 96 10/21/19 03:30 10/21/19 03:30 10/21/19 03:30 10/21/19 03:30 10/21/19 03:30 ED Treatment Course - LABORATORY CBC & Chemistry Diagram: 10/21/19 06:00 10/21/19 06:00 - ADDITIONAL ORDERS Additional order review: Laboratory Results 10/21/19 06:00 Sodium 139 Potassium 4.3 Chloride 107 Carbon Dioxide 27 Anion Gap 6 L BUN 12.2 Creatinine 0.6 Est GFR (CKD-EPI)AfAm 104.07 Est GFR (CKD-EPI)NonAf 89.79 Random Glucose 183 H Calcium 8.5 Total Bilirubin 0.2 AST 23 ALT 20 Alkaline Phosphatase 67 Creatine Kinase 85 Troponin I < 0.02 B-Natriuretic Peptide 181.3 H Total Protein 6.4 Albumin 3.6 10/21/19 06:00 RBC 3.88 MCV 90.9 MCHC 33.1 RDW 15.4 MPV 9.6 D Neutrophils % 71.6 Lymphocytes % 20.3 Monocytes % 5.3 Eosinophils % 1.7 Basophils % 1.1 - RADIOLOGY Radiograph Interpretation: Cervical CT: EXAM#: TYPE/EXAM: RESULT: [id number] CT/CERVICAL SPINE CT W/O CONTR Reason for the study. Neck pain. CT scan of the cervical spine C-. Direct axial images were obtained from the base of the skull through T2 The study was supplemented with computer-generated sagittal, coronal reconstruction images. Comparison study CT cervical spine October 01, 2017. Findings. Inc. Of the cervical spine with mild reversal curvature. Intact odontoid. The predental space is not widened. Thickened partially calcified transverse ligament. Symmetrical articulation of atlantoaxial and occipito atlantal joints. The visualized portion of the posterior fossa, skull base, and uppermost of the thoracic spine show no abnormality. C2-C3. No evidence of central spinal canal stenosis. Facet joint arthropathy. C3-C4. Disc space narrowing. Mild posterior degenerative ridges. Facet joint arthropathy. Osteoarthritis of the right uncovertebral joint. Right neural foramina narrowing. C4-C5. Disc space narrowing. Posterior degenerative images. Facet joint arthropathy. C5-C6. Loss of disc space height. Facet joint arthropathy with no evidence of C6-C7. Loss of disc space height, anterior spondylosis. Posterior disc osteophyte complex. Central spinal canal stenosis. Anterior paraspinal vacuum phenomena. Upper thoracic spine. Normal height of vertebral bodies. Normal alignment of the spinous processes, facet joints The intraspinal contents cannot be adequately evaluated due to the beam hardening artifacts. The airways are patent. No evidence of prevertebral soft tissue swelling. Medial retropharyngeal course of the bifurcation of the left common carotid artery, proximal internal carotid artery with extrinsic compression of the posterior pharyngeal wall simulating submucosal lesion. Enlarged thyroid gland. Questionable hypodense nodule in the right lobe of the thyroid gland The lung apices are clear. Impression. No acute bony abnormality seen. Multilevel intervertebral disc space narrowing, facet joint arthropathy. C6-C7. Loss of disc space height, anterior spondylosis. Posterior disc osteophyte complex. Central spinal canal stenosis Head CT: EXAM#: TYPE/EXAM: RESULT: [id number] CT/HEAD CT WITHOUT CONTRAST History. Dizziness, vomiting. CT scan of the brain C-. Findings. Serial axial images of the brain were obtained from foramen magnum to the cranial vertex without intravenous contrast:, Sagittal reconstruction. Comparison study MRI of the brain January 21, 2018, CT brain January 19, 2018.. Age-related involutional changes. The CSF spaces unchanged from January 19, 2018. No evidence of hydrocephalus, acute subarachnoid hemorrhage, acute intra-axial or extra-axial fluid collection consistent with subdural or epidural hematoma. No mass effect , midline shift, acute ischemic changes, herniation or edema is present. Normal gomez matter white matter differentiation. The cortical sulci, sylvian fissures, perimesencephalic cisterns are not effaced. Examination of the bone windows show no fracture. The visualized paranasal sinuses and mastoid air cells are clear. Flattened pituitary gland along the floor of the sella turcica with CSF filled sella turcica Impression. No evidence of acute intracranial hemorrhage, edema, midline shift, mass effect , or skull fracture. There is no CT evidence of acute territorial infarction. - Medications Given in the ED: ED Medications Discontinued Medications Generic Name Dose Route Start Last Admin Trade Name Freq PRN Reason Stop Dose Admin Acetaminophen 1,000 mg 10/21/19 04:16 10/21/19 05:55 Ofirmev Injection - IVPB 10/21/19 04:17 1,000 mg ONCE ONE Administration Famotidine/Sodium Chloride 20 mg in 50 mls @ 100 mls/hr 10/21/19 04:16 06:14 Pepcid 20 Mg Premixed Ivpb - IVPB 10/21/19 04:45 100 mls/hr ONCE ONE Administration Ondansetron HCl 4 mg 10/21/19 04:16 10/21/19 05:55 Zofran Injection IVPUSH 10/21/19 04:17 4 mg ONCE ONE Administration Medical Decision Making - Medical Decision Making Pt. signed out to me pending CT to be admitted to hospital for ACS rule out - CT done and grossly unremarkable PCP: [facility] - Calling [facility] at 8 am 10/21/19 08:00 - Answering service says Dr. Anderson will call back [phone] 10/21/19 08:25 - Spoke with Roni Coello who accepts patient for admission Discharge - Discharge Information Problems reviewed: Yes Clinical Impression/Diagnosis: Chest pain Qualifiers: Chest pain type: unspecified Qualified Code(s): R07.9 - Chest pain, unspecified Condition: Stable - Admission Yes - Follow up/Referral Referrals: [facility] MD [Primary Care Provider] - - Patient Discharge Instructions - Post Discharge Activity
[2019-10-21] MEDS ORDERED: ACETAMINOPHEN 325 MG TABLET (FP) PO PRN (08:25)
[2019-10-21] MEDS ORDERED: PT OWN MED DRAWER 7, Y5N ONE (10:06)
[2019-10-21] MEDS ORDERED: ASPIRIN COATED 81 MG TABLET.EC ONE (10:10)
[2019-10-21] MEDS ORDERED: PANTOPRAZOLE 40 MG TABLET ONE (10:11)
[2019-10-21] MEDS ORDERED: DOCUSATE SODIUM 100 MG CAPSULE (FP) PO ONE ×2 (10:11→22:37)
[2019-10-21] MEDS ORDERED: AMITRIPTYLINE HCL 25 MG TABLET ONE (10:11)
[2019-10-21] MEDS ORDERED: LIDOCAINE 5% TOPICAL PATCH ONE (10:12)
[2019-10-21] MEDS: HEPARIN NA (PORCINE) 5,000 UNITS/ML 1ML VIAL SQ SCH ×2 (10:22→23:46)
[2019-10-21] MEDS: LIDOCAINE 5% TOPICAL PATCH TP SCH (10:22)
[2019-10-21] MEDS: AMITRIPTYLINE HCL 25 MG TABLET PO SCH (10:22)
[2019-10-21] MEDS: ASPIRIN COATED 81 MG TABLET.EC PO SCH (10:22)
[2019-10-21] MEDS: PANTOPRAZOLE 40 MG TABLET PO SCH (10:23)
--- NOTE | 2019-10-21 10:40 | CON.CARD ---
Consult Consult Specialty:: Cardiology Referred by:: Dr. Machado/Mark Reason for Consultation:: chest pain - History of Present Illness Chief Complaint: headache, chest pain History of Present Illness: 74 year old woman with a pmh HTN, HLD, DMII, COPD, Migrains, GERD, Cervical spine stenosis admitted with headaches, L sided chest pain radiating to L neg, neck pain, nausea, vomiting. Pt states that symptoms started approximately 1am. states she had been sitting on the cough and turned to the side when she felt sudden onset of pain. currently denies any chest pain. still has headache and neck pain. no sob, palpitations, pnd, orthopnea, LE edema. 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 Cardio/Vascular: Yes: HTN, Hyperlipdemia Pulmonary: Yes: COPD Gastrointestinal: Yes: Gastritis, GERD Musculoskeletal: Yes: Other (S/P right total knee replacement Disc Disease) Endocrine: Yes: Diabetes Mellitus - Past Surgical History Past Surgical History: Yes: Joint Replacement - Alcohol/Substance Use Hx Alcohol Use: No History of Substance Use: reports: None - Smoking History Smoking history: Former smoker Have you smoked in the past 12 months: No Aproximately how many cigarettes per day: 0 If you are a former smoker, when did you quit?: 1979 - Social History Usual Living Arrangement: Other (lives with son in house with 12 steps to enter but none inside; she reports being previously Independent in ADLs/ IADLs without Assistive Device) ADL: Independent History of Recent Travel: No Home Medications - Allergies Allergies/Adverse Reactions: Allergies Allergy/AdvReac Type Severity Reaction Status Date / Time No Known Allergies Allergy Verified 10/21/19 01:09 - Home Medications Home Medications: Ambulatory Orders Amitriptyline HCl [Elavil -] 25 mg PO DAILY 02/26/19 Aspirin [Aspirin EC] 81 mg PO DAILY 02/26/19 Atorvastatin Ca [Lipitor] 40 mg PO HS 02/26/19 Famotidine [Pepcid -] 20 mg PO BID 02/26/19 Glimepiride 2 mg PO DAILY 05/12/19 Oxycodone HCl/Acetaminophen [Percocet 5-325 mg Tablet] 1 - 2 tab PO Q4H PRN #20 tablet MDD 6 07/19/19 hydrOXYzine PAMOATE [Vistaril -] 25 mg PO QID PRN #20 capsule 07/19/19 Acetaminophen [Tylenol .Regular Strength -] 650 mg PO Q6H PRN tablet 07/30/19 Docusate Sodium [Colace -] 100 mg PO TID #90 capsule 07/30/19 Gabapentin [Neurontin -] 100 mg PO TID #90 capsule 07/30/19 Insulin (Levemir) [Levemir Vial] 30 units SQ AM #1 vial 07/30/19 Lidocaine 5% Patch [Lidoderm -] 1 patch TP DAILY #30 patch 07/30/19 Lipase/Protease/Amylase [Marla Hendricks 36,000 Units Capsule] 1 cap PO TIDCM #90 capsule. 07/30/19 Nystatin/Triamcinolone Top Oin [Mycolog II -] 1 applic TP BID #1 tube 07/30/19 Pantoprazole Sodium 40 mg PO DAILY #30 tablet. 07/30/19 Pramipexole Dihydrochloride [Mirapex -] 0.5 mg PO TID #90 tablet 07/30/19 Rifaximin [Xifaxan -] 550 mg PO TID #21 tablet 07/30/19 Sitagliptin Phosphate [Januvia -] 100 mg PO DAILY@0700 #30 tab 07/30/19 metFORMIN HCL [Glucophage -] 1,000 mg PO BID@0700,1630 #60 tablet 07/30/19 Tramadol HCl 50 mg PO Q6H PRN #16 tablet MDD 4 07/31/19 Family Medical History Family History: Unremarkable Review of Systems - Review of Systems Constitutional: denies: No Symptoms, Chills, Diaphoresis, Fever, Lethargy, Loss of Appetite, Malaise, Night Sweats, Unintentional Wgt. Loss, Weakness, Other Eyes: denies: No Symptoms, Blind Spots, Blurred Vision, Double Vision, Eye Pain , Floaters, Photophobia, Recent Change in Vision, Other HENT: denies: No Symptoms, Difficult Swallowing, Ear Discharge, Ear Pain, Epistaxis, Gingival Bleeding, Hearing Loss, Mouth Swelling, Nasal Congestion, Ocular Prosthesis, Throat Pain, Toothache, Ringing in Ears, Other Neck: reports: Pain on Movement, Stiffness, Tenderness. denies: No Symptoms, Decreased ROM, Lumps, Swollen Glands, Other Cardiovascular: reports: Chest Pain. denies: No Symptoms, Edema, Palpitations, Shortness of Breath, Other Respiratory: denies: No Symptoms, Cough, Exercise Intolerance, Hemoptysis, Orthopnea, PND, Snoring, SOB, SOB on Exertion, Wheezing, Other Gastrointestinal: denies: No Symptoms, Abdominal Pain, Bloating, Constipation, Diarrhea, Dysphagia, Indigestion, Melena, Nausea, Rectal Bleeding, Vomiting, Vomiting Blood, Other Genitourinary: denies: No Symptoms, Burning, Discharge, Dysuria, Flank Pain, Frequency, Hematuria, Incontinence, Lesions, Menses, Pain, Testicular Mass, Testicular Pain, Testicular Swelling, Urgency, Vaginal Bleeding, Other Breasts: denies: No Symptoms Reported, See HPI, Breast Implants, Discharge from Nipple, Lumps, Pain, Skin Changes, Other Musculoskeletal: reports: Back Pain, Extremity Pain. denies: No Symptoms, Crepitus, Decreased ROM, Joint Pain, Joint Swelling, Muscle Pain, Muscle Cramps , Muscle Weakness, Other Integumentary: denies: No Symptoms, Blister, Bruising, Change in Color, Eczema, Erythema, Incision, Lesions, Lump, Pallor, Pruritis, Rash, Wound, Other Neurological: denies: No Symptoms, Change in LOC, Change in Speech, Confusion, Dizziness, Headache, Incoordination, Numbness, Parasthesia, Pre-Existing Deficit , Seizure, Syncope, Tremors, Unsteady Gait, Weakness, Other Endocrine: denies: No Symptoms, Excessive Sweating, Flushing, Increased Hunger, Increased Thirst, Intolerance to Cold, Intolerance to Heat, Unexplained Weight Gain, Unexplained Weight Loss, Other Hematology/Lymphatic: denies: No Symptoms, Easily Bruised, Excessive Bleeding, Swollen Glands, Other Psychiatric: denies: No Symptoms, Altered Sleep Pattern, Anxiety, Depression, Hallucinations, Panic, Paranoia, Suicidal, Other Vital Signs: Vital Signs Temperature 98.4 F 10/21/19 03:30 Pulse Rate 72 10/21/19 03:30 Respiratory Rate 19 10/21/19 03:30 Blood Pressure 131/68 10/21/19 03:30 O2 Sat by Pulse Oximetry (%) 96 10/21/19 03:30 Constitutional: Yes: No Distress, Calm Eyes: Yes: Conjunctiva Clear, EOM Intact HENT: Yes: Atraumatic, Normocephalic Neck: Yes: Supple, Trachea Midline Respiratory: Yes: Regular, CTA Bilaterally. No: Rales, Rhonchi, SOB, Wheezes Gastrointestinal: Yes: Normal Bowel Sounds, Soft Cardiovascular: Yes: Regular Rate and Rhythm. No: Bradycardia, Tachycardia, Pulse Irregular, Gallop, Rub, Varicosities JVD: No Carotid Bruit: No PMI: Non-Displaced Heart Sounds: Yes: S1, S2. No: Split S2, S3, S4, Clicks, Gallop, Rub, Bruit Murmur: No: Systolic Murmur, Diastolic Murmur Musculoskeletal: Yes: Back Pain, Muscle Pain Extremities: Yes: WNL Edema: No Peripheral Pulses WNL: Yes Peripheral Pulses: 2+ Left Doralis Pedis, 2+ Right Dorsalis Pedis Neurological: Yes: Alert, Oriented Psychiatric: Yes: Alert, Oriented - Other Data Labs, Other Data: CBC, BMP 10/21/19 06:00 10/21/19 06:00 Troponin, BNP 10/21/19 06:00 Troponin I < 0.02 B-Natriuretic Peptide 181.3 H Troponin, BNP 10/21/19 06:00 Troponin I < 0.02 B-Natriuretic Peptide 181.3 H nsr 72bpm. normal ecg Echo: Report Reviewed Imaging - Results Chest X-ray: Report Reviewed, Image Reviewed EKG: Report Reviewed, Image Reviewed (NSR 72bpm. Normal ECG) Other: Report Reviewed, Image Reviewed Assessment/Plan 74 year old woman with a pmh HTN, HLD, DMII, COPD, Migrains, GERD, Cervical spine stenosis admitted with headaches, L sided chest pain radiating to L neg, neck pain, nausea, vomiting. Pt states that symptoms started approximately 1am. states she had been sitting on the cough and turned to the side when she felt sudden onset of pain. currently denies any chest pain. still has headache and neck pain. no sob, palpitations, pnd, orthopnea, LE edema. Chest pain-atypical, not c/w ACS, likely MSK pain -ECG is normal -1st set cardiac enzymes wnl -echo 01/2018 normal LV/RV function, minimal TR -NST 10/01/17 no sig ischemia -no further chest pain -recc add CK level to initial troponin -check 2nd set cardiac enzymes at 12pm -if 2nd set cardiac enzymes wnl then can dc tele -does not require additional ischemic evaluation at this time.
--- NOTE | 2019-10-21 10:40 | EKG ---
Test Reason : Blood Pressure : / mmHG Vent. Rate : 072 BPM Atrial Rate : 072 BPM P-R Int : 186 ms QRS Dur : 090 ms QT Int : 402 ms P-R-T Axes : 038 010 024 degrees QTc Int : 440 ms POOR DATA QUALITY, INTERPRETATION MAY BE ADVERSELY AFFECTED NORMAL SINUS RHYTHM NORMAL ECG Confirmed by MD MEME, ANA ([id number]) on 10/21/2019 10:39:46 AM Referred By: Confirmed By:ANA VALENTINE MD
[2019-10-21] MEDS ORDERED: traMADol HCL 50 MG TABLET ONE ×2 (10:44→16:21)
[2019-10-21] MEDS: INSULIN SLIDING SCALE (NOVOLOG) 1 VIAL SQ SCH ×3 (11:09→23:42)
[2019-10-21] MEDS: GLIMEPIRIDE 2 MG TABLET PO SCH (11:10)
[2019-10-21] MEDS: NYSTATIN/TRIAMCINOLONE TOPICAL OINTMENT 15 GM TUBE TP SCH ×2 (11:10→23:42)
[2019-10-21] MEDS: traMADol HCL 50 MG TABLET PO PRN ×2 (11:15→18:26)
[2019-10-21] MEDS: DOCUSATE SODIUM 100 MG CAPSULE (FP) PO SCH ×2 (13:25→22:39)
[2019-10-21] MEDS: PRAMIPEXOLE DIHYDROCHLORIDE 0.5 MG TABLET PO SCH ×2 (13:39→23:47)
[2019-10-21] MEDS: GABAPENTIN 100 MG CAPSULE PO SCH ×2 (13:39→22:39)
[2019-10-21] MEDS: RIFAXIMIN 550 MG TABLET (UD) PO SCH ×2 (13:39→23:42)
[2019-10-21] MEDS: LIPASE/PROTEASE/AMYLASE 36,000 UNIT CAPSULE PO SCH ×2 (13:39→17:19)
--- NOTE | 2019-10-21 15:23 | HP ---
Admitting History and Physical - Primary Care Physician PCP: Kaiser Bertrand I - Admission Chief Complaint: Chest pain History of Present Illness: Patient is a 74 y/o female with past medical history of CAD, HTN, HLD, COPD, Migraines, RLS, GERD, and Cervical Spinal stenosis. Patient presented to ER after experiencing L sided chest pain which began around 1 am at rest. Pain described as sharp and radiates to back and down to legs. SHe stated experiencing 2 episodes of vomiting accompanied with SOB, no further episodes of vomiting reported. Pain experienced in leg is described as "needle" like. Denies dizziness, palpitations, SOB. 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 Cardiovascular: Yes: HTN, Hyperlipdemia Pulmonary: Yes: COPD Gastrointestinal: Yes: Gastritis, GERD Musculoskeletal: Yes: Other (S/P right total knee replacement Disc Disease) Endocrine: Yes: Diabetes Mellitus - Past Surgical History Past Surgical History: Yes: Joint Replacement - Smoking History Smoking history: Former smoker Have you smoked in the past 12 months: No Aproximately how many cigarettes per day: 0 If you are a former smoker, when did you quit?: 1979 - Alcohol/Substance Use Hx Alcohol Use: No History of Substance Use: reports: None - Social History ADL: Independent History of Recent Travel: No Home Medications - Allergies Allergies/Adverse Reactions: Allergies Allergy/AdvReac Type Severity Reaction Status Date / Time No Known Allergies Allergy Verified 10/21/19 01:09 - Home Medications Home Medications: Ambulatory Orders Amitriptyline HCl [Elavil -] 25 mg PO DAILY 02/26/19 Aspirin [Aspirin EC] 81 mg PO DAILY 02/26/19 Atorvastatin Ca [Lipitor] 40 mg PO HS 02/26/19 Famotidine [Pepcid -] 20 mg PO BID 02/26/19 Glimepiride 2 mg PO DAILY 05/12/19 Oxycodone HCl/Acetaminophen [Percocet 5-325 mg Tablet] 1 - 2 tab PO Q4H PRN #20 tablet MDD 6 07/19/19 hydrOXYzine PAMOATE [Vistaril -] 25 mg PO QID PRN #20 capsule 07/19/19 Acetaminophen [Tylenol .Regular Strength -] 650 mg PO Q6H PRN tablet 07/30/19 Docusate Sodium [Colace -] 100 mg PO TID #90 capsule 07/30/19 Gabapentin [Neurontin -] 100 mg PO TID #90 capsule 07/30/19 Insulin (Levemir) [Levemir Vial] 30 units SQ AM #1 vial 07/30/19 Lidocaine 5% Patch [Lidoderm -] 1 patch TP DAILY #30 patch 07/30/19 Lipase/Protease/Amylase [Marla Hendricks 36,000 Units Capsule] 1 cap PO TIDCM #90 capsule. 07/30/19 Nystatin/Triamcinolone Top Oin [Mycolog II -] 1 applic TP BID #1 tube 07/30/19 Pantoprazole Sodium 40 mg PO DAILY #30 tablet. 07/30/19 Pramipexole Dihydrochloride [Mirapex -] 0.5 mg PO TID #90 tablet 07/30/19 Rifaximin [Xifaxan -] 550 mg PO TID #21 tablet 07/30/19 Sitagliptin Phosphate [Januvia -] 100 mg PO DAILY@0700 #30 tab 07/30/19 metFORMIN HCL [Glucophage -] 1,000 mg PO BID@0700,1630 #60 tablet 07/30/19 Tramadol HCl 50 mg PO Q6H PRN #16 tablet MDD 4 07/31/19 Review of Systems - Review of Systems Constitutional: reports: Weakness Eyes: reports: No Symptoms HENT: reports: No Symptoms Neck: reports: No Symptoms Cardiovascular: reports: Chest Pain Respiratory: reports: No Symptoms Gastrointestinal: reports: Abdominal Pain, Nausea, Vomiting Genitourinary: reports: No Symptoms Breasts: reports: No Symptoms Reported Musculoskeletal: reports: Back Pain, Muscle Weakness Integumentary: reports: No Symptoms Neurological: reports: No Symptoms Endocrine: reports: No Symptoms Hematology/Lymphatic: reports: No Symptoms Psychiatric: reports: No Symptoms Physical Examination Vital Signs: Vital Signs Temperature 98.4 F 10/21/19 14:30 Pulse Rate 74 10/21/19 14:30 Respiratory Rate 18 10/21/19 14:30 Blood Pressure 122/71 10/21/19 14:30 O2 Sat by Pulse Oximetry (%) 97 10/21/19 14:30 Constitutional: Yes: No Distress, Calm, Obese Eyes: Yes: Conjunctiva Clear HENT: Yes: Atraumatic Neck: Yes: Supple Cardiovascular: Yes: Regular Rate and Rhythm Respiratory: Yes: Regular, Diminished Gastrointestinal: Yes: Normal Bowel Sounds, Soft, Abdomen, Obese, Tenderness ( lower abdomen) Musculoskeletal: Yes: Back Pain, Muscle Weakness Extremities: Yes: WNL Edema: Yes Edema: LLE: Trace, RLE: Trace Neurological: Yes: Alert, Oriented Psychiatric: Yes: Alert, Oriented Labs: CBC, BMP 10/21/19 06:00 10/21/19 06:00 Imaging - Results Cat Scan: Report Reviewed Problem List - Problems (1) Chest pain Assessment/Plan: -Cardiology consult -trop neg x 2 -tele monitoring -EKG NSR Code(s): R07.9 - CHEST PAIN, UNSPECIFIED Qualifiers: Chest pain type: unspecified Qualified Code(s): R07.9 - Chest pain, unspecified (2) Back pain Assessment/Plan: -Neurology consult -pain control -fall precaution Code(s): M54.9 - DORSALGIA, UNSPECIFIED Qualifiers: Back pain location: thoracic back pain Chronicity: chronic Back pain laterality: bilateral Qualified Code(s): M54.6 - Pain in thoracic spine; G89.29 - Other chronic pain (3) Diabetes Assessment/Plan: -BGM ACHS -ISS -Metformin, Januvia, Amaryl -Levemir -ISS -HgA1c -diabetic diet Code(s): E11.9 - TYPE 2 DIABETES MELLITUS WITHOUT COMPLICATIONS Qualifiers: Diabetes mellitus type: type 2 (4) HLD (hyperlipidemia) Assessment/Plan: -Atorvastatin Code(s): E78.5 - HYPERLIPIDEMIA, UNSPECIFIED (5) HTN (hypertension) Assessment/Plan: -monitor BP -low Na diet Code(s): I10 - ESSENTIAL (PRIMARY) HYPERTENSION (6) Abdominal pain Assessment/Plan: -Abdominal US -Creon and Xifaxin Code(s): R10.9 - UNSPECIFIED ABDOMINAL PAIN (7) Diabetic neuropathy Assessment/Plan: -Gabapentin TID -Pramiprexole Code(s): E11.40 - TYPE 2 DIABETES MELLITUS WITH DIABETIC NEUROPATHY, UNSP Qualifiers: Diabetes mellitus type: type 2 (8) Spinal stenosis, lumbar region without neurogenic claudication Assessment/Plan: -Neurology consult -pain control -PT Code(s): M48.061 - SPINAL STENOSIS, LUMBAR REGION WITHOUT NEUROGENIC DHRUV (9) Dizziness Assessment/Plan: -Head CT scan shows no evidence of acute intracranial hemorrhage, edema, midline shift, mass effect, or skull fracture -fall precaution -Cardiology consult Code(s): R42 - DIZZINESS AND GIDDINESS Assessment/Plan see problem list dvt ppx
[2019-10-21] MEDS ORDERED: hydrOXYzine PAMOATE 25 MG CAPSULE (FP) PO PRN (16:27)
[2019-10-21] MEDS: metFORMIN HCL 500 MG TABLET (FP) PO SCH (17:18)
--- NOTE | 2019-10-21 21:21 | CONSULT ---
Consult Consult Specialty:: endocrine Referred by:: ta beltran Reason for Consultation:: dmt2, - History of Present Illness Chief Complaint: weak and neckpain History of Present Illness: 74 y/o female with past medical history of DMT2,CAD, HTN, HLD, COPD, Migraines, RLS, GERD, and Cervical Spinal stenosis. Patient presented with L sided chest pain , Pain described as sharp and radiates to back and down to legs. SHe stated experiencing 2 episodes of vomiting accompanied with SOB, she has had long history of osteoarthritis of spine and back. 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 Cardio/Vascular: Yes: HTN, Hyperlipdemia Pulmonary: Yes: COPD Gastrointestinal: Yes: Gastritis, GERD Musculoskeletal: Yes: Other (S/P right total knee replacement Disc Disease) Endocrine: Yes: Diabetes Mellitus - Past Surgical History Past Surgical History: Yes: Joint Replacement - Alcohol/Substance Use Hx Alcohol Use: No History of Substance Use: reports: None - Smoking History Smoking history: Former smoker Have you smoked in the past 12 months: No Aproximately how many cigarettes per day: 0 If you are a former smoker, when did you quit?: 1979 - Social History Usual Living Arrangement: Other (lives with son in house with 12 steps to enter but none inside; she reports being previously Independent in ADLs/ IADLs without Assistive Device) ADL: Independent History of Recent Travel: No Home Medications - Allergies Allergies/Adverse Reactions: Allergies Allergy/AdvReac Type Severity Reaction Status Date / Time No Known Allergies Allergy Verified 10/21/19 01:09 - Home Medications Home Medications: Ambulatory Orders Amitriptyline HCl [Elavil -] 25 mg PO DAILY 02/26/19 Aspirin [Aspirin EC] 81 mg PO DAILY 02/26/19 Atorvastatin Ca [Lipitor] 40 mg PO HS 02/26/19 Famotidine [Pepcid -] 20 mg PO BID 02/26/19 Glimepiride 2 mg PO DAILY 05/12/19 Oxycodone HCl/Acetaminophen [Percocet 5-325 mg Tablet] 1 - 2 tab PO Q4H PRN #20 tablet MDD 6 07/19/19 hydrOXYzine PAMOATE [Vistaril -] 25 mg PO QID PRN #20 capsule 07/19/19 Acetaminophen [Tylenol .Regular Strength -] 650 mg PO Q6H PRN tablet 07/30/19 Docusate Sodium [Colace -] 100 mg PO TID #90 capsule 07/30/19 Gabapentin [Neurontin -] 100 mg PO TID #90 capsule 07/30/19 Insulin (Levemir) [Levemir Vial] 30 units SQ AM #1 vial 07/30/19 Lidocaine 5% Patch [Lidoderm -] 1 patch TP DAILY #30 patch 07/30/19 Lipase/Protease/Amylase [Marla Hendricks 36,000 Units Capsule] 1 cap PO TIDCM #90 capsule. 07/30/19 Nystatin/Triamcinolone Top Oin [Mycolog II -] 1 applic TP BID #1 tube 07/30/19 Pantoprazole Sodium 40 mg PO DAILY #30 tablet. 07/30/19 Pramipexole Dihydrochloride [Mirapex -] 0.5 mg PO TID #90 tablet 07/30/19 Rifaximin [Xifaxan -] 550 mg PO TID #21 tablet 07/30/19 Sitagliptin Phosphate [Januvia -] 100 mg PO DAILY@0700 #30 tab 07/30/19 metFORMIN HCL [Glucophage -] 1,000 mg PO BID@0700,1630 #60 tablet 07/30/19 Tramadol HCl 50 mg PO Q6H PRN #16 tablet MDD 4 07/31/19 Review of Systems - Review of Systems Constitutional: reports: Lethargy Eyes: reports: No Symptoms HENT: reports: Throat Pain Neck: reports: Swollen Glands Cardiovascular: reports: Shortness of Breath Respiratory: reports: Exercise Intolerance, SOB on Exertion Gastrointestinal: reports: Bloating, Constipation Genitourinary: reports: Frequency Breasts: reports: No Symptoms Reported Musculoskeletal: reports: Decreased ROM, Extremity Pain, Joint Swelling, Muscle Pain, Muscle Weakness Integumentary: reports: No Symptoms Neurological: reports: Numbness, Unsteady Gait, Weakness Endocrine: reports: Unexplained Weight Gain Physical Exam Vital Signs: Vital Signs Temperature 97.8 F 10/21/19 19:55 Pulse Rate 78 10/21/19 19:55 Respiratory Rate 18 10/21/19 14:30 Blood Pressure 125/81 10/21/19 19:55 O2 Sat by Pulse Oximetry (%) 94 L 10/21/19 19:55 Constitutional: Yes: Anxious Eyes: Yes: EOM Intact HENT: Yes: Normocephalic Neck: Yes: Trachea Midline, Thyromegaly Cardiovascular: Yes: Regular Rate and Rhythm Respiratory: Yes: CTA Bilaterally Gastrointestinal: Yes: Normal Bowel Sounds ...Rectal Exam: Yes: Deferred Renal/: Yes: WNL Musculoskeletal: Yes: Joint Stiffness, Joint Swelling, Muscle Pain, Muscle Weakness Extremities: Yes: WNL Edema: No Neurological: Yes: Alert, Oriented Labs: CBC, BMP 10/21/19 06:00 10/21/19 06:00 Problem List - Problems (1) Chest pain Code(s): R07.9 - CHEST PAIN, UNSPECIFIED Qualifiers: Chest pain type: unspecified Qualified Code(s): R07.9 - Chest pain, unspecified (2) Abdominal pain Code(s): R10.9 - UNSPECIFIED ABDOMINAL PAIN (3) Anxiousness Code(s): F41.9 - ANXIETY DISORDER, UNSPECIFIED (4) Back pain Code(s): M54.9 - DORSALGIA, UNSPECIFIED Qualifiers: Back pain location: thoracic back pain Chronicity: chronic Back pain laterality: bilateral Qualified Code(s): M54.6 - Pain in thoracic spine; G89.29 - Other chronic pain (5) Cellulitis Code(s): L03.90 - CELLULITIS, UNSPECIFIED (6) Chest wall contusion Code(s): S20.219A - CONTUSION OF UNSPECIFIED FRONT WALL OF THORAX, INIT ENCNTR (7) Diabetes Code(s): E11.9 - TYPE 2 DIABETES MELLITUS WITHOUT COMPLICATIONS Qualifiers: Diabetes mellitus type: type 2 Assessment/Plan Current Active Problems Chest pain (Acute) Thyoid nodule family history thyroid cancer dm t2, htn obesity diet noncompliant Abnormal Lab Results 10/21/19 06:00 Anion Gap 6 L Random Glucose 183 H B-Natriuretic Peptide 181.3 H Laboratory Results - last 24 hr 10/21/19 10/21/19 10/21/19 06:00 06:00 10:30 WBC 5.9 RBC 3.88 Hgb 11.7 Hct 35.3 MCV 90.9 MCH 30.1 MCHC 33.1 RDW 15.4 Plt Count 204 MPV 9.6 D Absolute Neuts (auto) 4.2 Neutrophils % 71.6 Lymphocytes % 20.3 Monocytes % 5.3 Eosinophils % 1.7 Basophils % 1.1 Nucleated RBC % 0 Sodium 139 Potassium 4.3 Chloride 107 Carbon Dioxide 27 Anion Gap 6 L BUN 12.2 Creatinine 0.6 Est GFR (CKD-EPI)AfAm 104.07 Est GFR (CKD-EPI)NonAf 89.79 POC Glucometer Random Glucose 183 H Calcium 8.5 Total Bilirubin 0.2 AST 23 ALT 20 Alkaline Phosphatase 67 Creatine Kinase 85 Troponin I < 0.02 < 0.02 B-Natriuretic Peptide 181.3 H Total Protein 6.4 Albumin 3.6 10/21/19 10/21/19 10:52 17:15 WBC RBC Hgb Hct MCV MCH MCHC RDW Plt Count MPV Absolute Neuts (auto) Neutrophils % Lymphocytes % Monocytes % Eosinophils % Basophils % Nucleated RBC % Sodium Potassium Chloride Carbon Dioxide Anion Gap BUN Creatinine Est GFR (CKD-EPI)AfAm Est GFR (CKD-EPI)NonAf POC Glucometer 289 148 Random Glucose Calcium Total Bilirubin AST ALT Alkaline Phosphatase Creatine Kinase Troponin I B-Natriuretic Peptide Total Protein Albumin plan: diet consult [id number] januvia 100mg daily [id number] entconsult [id number] novolog scale levemir 30 units daily
[2019-10-21] MEDS ORDERED: GABAPENTIN 100 MG CAPSULE ONE (22:37)
[2019-10-21 23:29] VITALS: BMI 37.2
[2019-10-21] MEDS: ATORVASTATIN CA 40 MG TABLET (FP) PO SCH (23:41)
[2019-10-21] MEDS: LIDOCAINE PATCH REMOVAL MC SCH (23:49)
[2019-10-22] MEDS: traMADol HCL 50 MG TABLET PO PRN (00:22)
[2019-10-22] MEDS: RIFAXIMIN 550 MG TABLET (UD) PO SCH ×3 (06:35→21:31)
[2019-10-22] MEDS: DOCUSATE SODIUM 100 MG CAPSULE (FP) PO SCH ×3 (06:35→21:31)
[2019-10-22] MEDS: PRAMIPEXOLE DIHYDROCHLORIDE 0.5 MG TABLET PO SCH ×3 (06:37→21:32)
[2019-10-22] MEDS: GLIMEPIRIDE 2 MG TABLET PO SCH (06:37)
[2019-10-22] MEDS: metFORMIN HCL 500 MG TABLET (FP) PO SCH ×2 (06:37→18:15)
[2019-10-22] MEDS: INSULIN (LEVEMIR) 100 UNITS/ML UNITS SQ SCH (06:38)
[2019-10-22] MEDS: INSULIN SLIDING SCALE (NOVOLOG) 1 VIAL SQ SCH ×4 (06:39→21:36)
[2019-10-22] MEDS: GABAPENTIN 100 MG CAPSULE PO SCH ×3 (06:45→21:31)
[2019-10-22 07:16] LABS: BASO % 1.2 % (0-2.0); HEMATOCRIT 36.3 % (32.4-45.2); HEMOGLOBIN 11.8 GM/dL (10.7-15.3); LYMPH % 29.8 % (8-40); MCH 29.8 pg (25.7-33.7); MCHC 32.6 g/dl (32.0-36.0); MEAN CELL VOLUME 91.5 fl (80-96); MEAN PLT VOLUME 8.9 fl (7.5-11.1); MONO % 6.1 % (3.8-10.2); NEUT % 60.9 % (42.8-82.8); PLATELET COUNT 187 K/MM3 (134-434); RBC 3.97 M/mm3 (3.60-5.2); RDW 15.3 % (11.6-15.6); WHITE BLOOD COUNT 4.9 K/mm3 (4.0-10.0)
[2019-10-22 07:54] LABS: ALBUMIN 3.2 g/dl (3.4-5.0); ALK PHOS 63 U/L (45-117); ANION GAP 5 MMOL/L (8-16); BILIRUBIN,TOTAL 0.4 mg/dL (0.2-1); BLOOD UREA NITROGEN 16.3 mg/dL (7-18); CALCIUM 8.3 mg/dL (8.5-10.1); CHLORIDE 106 mmol/L (98-107); CHOLESTEROL 168 mg/dL (50-200); CO2 29 mmol/L (21-32); CREATININE 0.8 mg/dL (0.55-1.3); GLUCOSE,RANDOM 144 mg/dL (74-106); HDL CHOLESTEROL 38 mg/dL (40-60); LDL CHOLESTEROL (ONLY SJRH) 83 mg/dL (5-100); MAGNESIUM 1.9 mg/dL (1.8-2.4); PHOSPHOROUS 4.3 mg/dL (2.5-4.9); POTASSIUM 3.9 mmol/L (3.5-5.1); SGOT/AST 12 U/L (15-37); SGPT/ALT 18 U/L (13-61); SODIUM 140 mmol/L (136-145); TRIGLYCERIDES 417 mg/dL (0-150)
--- NOTE | 2019-10-22 08:56 | DS ---
Physical Examination Vital Signs: Vital Signs Temperature 97.5 F L 10/22/19 05:15 Pulse Rate 79 10/22/19 05:15 Respiratory Rate 18 10/22/19 05:15 Blood Pressure 113/72 10/22/19 05:15 O2 Sat by Pulse Oximetry (%) 95 10/21/19 23:15 Cardiovascular: Yes: Regular Rate and Rhythm Respiratory: Yes: Regular, CTA Bilaterally Gastrointestinal: Yes: Normal Bowel Sounds, Soft. No: Tenderness Labs: CBC, BMP 10/22/19 05:30 10/22/19 05:30 Discharge Summary Problems reviewed: Yes Reason For Visit: CHEST PAIN Current Active Problems Chest pain (Acute) Hospital Course: - Problems (1) Chest pain Assessment/Plan: -Resolved -Cardiology consult noted -trop neg x 2 -tele monitoring -EKG NSR Code(s): R07.9 - CHEST PAIN, UNSPECIFIED Qualifiers: Chest pain type: unspecified Qualified Code(s): R07.9 - Chest pain, unspecified (2) Back pain Assessment/Plan: -Neurology consult -pain control -fall precaution Code(s): M54.9 - DORSALGIA, UNSPECIFIED Qualifiers: Back pain location: thoracic back pain Chronicity: chronic Back pain laterality: bilateral Qualified Code(s): M54.6 - Pain in thoracic spine; G89.29 - Other chronic pain (3) Diabetes Assessment/Plan: -BGM ACHS -ISS -Metformin, Januvia, Amaryl -Levemir -ISS -HgA1c -diabetic diet Code(s): E11.9 - TYPE 2 DIABETES MELLITUS WITHOUT COMPLICATIONS Qualifiers: Diabetes mellitus type: type 2 (4) HLD (hyperlipidemia) Assessment/Plan: -Atorvastatin Code(s): E78.5 - HYPERLIPIDEMIA, UNSPECIFIED (5) HTN (hypertension) Assessment/Plan: -monitor BP -low Na diet Code(s): I10 - ESSENTIAL (PRIMARY) HYPERTENSION (6) Abdominal pain Assessment/Plan: -Abdominal US nad -Creon and Xifaxin Code(s): R10.9 - UNSPECIFIED ABDOMINAL PAIN (7) Diabetic neuropathy Assessment/Plan: -Gabapentin TID -Pramiprexole Code(s): E11.40 - TYPE 2 DIABETES MELLITUS WITH DIABETIC NEUROPATHY, UNSP Qualifiers: Diabetes mellitus type: type 2 (8) Spinal stenosis, lumbar region without neurogenic claudication Assessment/Plan: -Neurology consult -pain control -PT Code(s): M48.061 - SPINAL STENOSIS, LUMBAR REGION WITHOUT NEUROGENIC DHRUV (9) Dizziness Assessment/Plan: -Resolved -Head CT scan shows no evidence of acute intracranial hemorrhage, edema, midline shift, mass effect, or skull fracture -fall precaution -Cardiology consult appreciated Code(s): R42 - DIZZINESS AND GIDDINESS Condition: Stable - Instructions Referrals: Basilio Machado MD [Staff Physician] - 1 Week Kaiser Bertrand MD [Primary Care Provider] - - Home Medications Comprehensive Discharge Medication List: Ambulatory Orders Amitriptyline HCl [Elavil -] 25 mg PO DAILY 02/26/19 Aspirin [Aspirin EC] 81 mg PO DAILY 02/26/19 Atorvastatin Ca [Lipitor] 40 mg PO HS 02/26/19 Famotidine [Pepcid -] 20 mg PO BID 02/26/19 Glimepiride 2 mg PO DAILY 05/12/19 Oxycodone HCl/Acetaminophen [Percocet 5-325 mg Tablet] 1 - 2 tab PO Q4H PRN #20 tablet MDD 6 07/19/19 hydrOXYzine PAMOATE [Vistaril -] 25 mg PO QID PRN #20 capsule 07/19/19 Acetaminophen [Tylenol .Regular Strength -] 650 mg PO Q6H PRN tablet 07/30/19 Docusate Sodium [Colace -] 100 mg PO TID #90 capsule 07/30/19 Gabapentin [Neurontin -] 100 mg PO TID #90 capsule 07/30/19 Insulin (Levemir) [Levemir Vial] 30 units SQ AM #1 vial 07/30/19 Lidocaine 5% Patch [Lidoderm -] 1 patch TP DAILY #30 patch 07/30/19 Lipase/Protease/Amylase [Marla Hendricks 36,000 Units Capsule] 1 cap PO TIDCM #90 capsule. 07/30/19 Nystatin/Triamcinolone Top Oin [Mycolog II -] 1 applic TP BID #1 tube 07/30/19 Pantoprazole Sodium 40 mg PO DAILY #30 tablet. 07/30/19 Pramipexole Dihydrochloride [Mirapex -] 0.5 mg PO TID #90 tablet 07/30/19 Rifaximin [Xifaxan -] 550 mg PO TID #21 tablet 07/30/19 Sitagliptin Phosphate [Januvia -] 100 mg PO DAILY@0700 #30 tab 07/30/19 metFORMIN HCL [Glucophage -] 1,000 mg PO BID@0700,1630 #60 tablet 07/30/19 Tramadol HCl 50 mg PO Q6H PRN #16 tablet MDD 4 07/31/19
[2019-10-22] MEDS: LIPASE/PROTEASE/AMYLASE 36,000 UNIT CAPSULE PO SCH ×3 (09:00→18:15)
[2019-10-22] MEDS ORDERED: PT OWN MED DRAWER 7, Y5N ONE ×3 (09:10→15:17)
[2019-10-22] MEDS: LIDOCAINE 5% TOPICAL PATCH TP SCH (09:46)
[2019-10-22] MEDS: AMITRIPTYLINE HCL 25 MG TABLET PO SCH (09:46)
[2019-10-22] MEDS: ASPIRIN COATED 81 MG TABLET.EC PO SCH (09:46)
[2019-10-22] MEDS: HEPARIN NA (PORCINE) 5,000 UNITS/ML 1ML VIAL SQ SCH ×2 (09:46→21:32)
[2019-10-22] MEDS: PANTOPRAZOLE 40 MG TABLET PO SCH (09:47)
[2019-10-22] MEDS: NYSTATIN/TRIAMCINOLONE TOPICAL OINTMENT 15 GM TUBE TP SCH ×2 (10:00→23:19)
[2019-10-22] MEDS: ATORVASTATIN CA 40 MG TABLET (FP) PO SCH (21:31)
[2019-10-22] MEDS: LIDOCAINE PATCH REMOVAL MC SCH (21:37)
--- NOTE | 2019-10-22 22:06 | CON.NEURO ---
Consult Consult Specialty:: NEUROLOGY-[facility] - History of Present Illness History of Present Illness: Patient informs me she is being treated by my colleague Dr. Sevilla, will request Dr. Sevilla to see this lady in am. 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 Cardio/Vascular: Yes: HTN, Hyperlipdemia Pulmonary: Yes: COPD Gastrointestinal: Yes: Gastritis, GERD Musculoskeletal: Yes: Other (S/P right total knee replacement Disc Disease) Endocrine: Yes: Diabetes Mellitus - Past Surgical History Past Surgical History: Yes: Joint Replacement - Alcohol/Substance Use Hx Alcohol Use: No History of Substance Use: reports: None - Smoking History Smoking history: Former smoker Have you smoked in the past 12 months: No Aproximately how many cigarettes per day: 0 If you are a former smoker, when did you quit?: 1979 - Social History Usual Living Arrangement: Other (lives with son in house with 12 steps to enter but none inside; she reports being previously Independent in ADLs/ IADLs without Assistive Device) ADL: Independent History of Recent Travel: No Home Medications - Allergies Allergies/Adverse Reactions: Allergies Allergy/AdvReac Type Severity Reaction Status Date / Time No Known Allergies Allergy Verified 10/21/19 01:09 - Home Medications Home Medications: Ambulatory Orders Amitriptyline HCl [Elavil -] 25 mg PO DAILY 02/26/19 Aspirin [Aspirin EC] 81 mg PO DAILY 02/26/19 Atorvastatin Ca [Lipitor] 40 mg PO HS 02/26/19 Famotidine [Pepcid -] 20 mg PO BID 02/26/19 Glimepiride 2 mg PO DAILY 05/12/19 Oxycodone HCl/Acetaminophen [Percocet 5-325 mg Tablet] 1 - 2 tab PO Q4H PRN #20 tablet MDD 6 07/19/19 hydrOXYzine PAMOATE [Vistaril -] 25 mg PO QID PRN #20 capsule 07/19/19 Acetaminophen [Tylenol .Regular Strength -] 650 mg PO Q6H PRN tablet 07/30/19 Docusate Sodium [Colace -] 100 mg PO TID #90 capsule 07/30/19 Gabapentin [Neurontin -] 100 mg PO TID #90 capsule 07/30/19 Insulin (Levemir) [Levemir Vial] 30 units SQ AM #1 vial 07/30/19 Lidocaine 5% Patch [Lidoderm -] 1 patch TP DAILY #30 patch 07/30/19 Lipase/Protease/Amylase [Marla Hendricks 36,000 Units Capsule] 1 cap PO TIDCM #90 capsule. 07/30/19 Nystatin/Triamcinolone Top Oin [Mycolog II -] 1 applic TP BID #1 tube 07/30/19 Pantoprazole Sodium 40 mg PO DAILY #30 tablet. 07/30/19 Pramipexole Dihydrochloride [Mirapex -] 0.5 mg PO TID #90 tablet 07/30/19 Rifaximin [Xifaxan -] 550 mg PO TID #21 tablet 07/30/19 Sitagliptin Phosphate [Januvia -] 100 mg PO DAILY@0700 #30 tab 07/30/19 metFORMIN HCL [Glucophage -] 1,000 mg PO BID@0700,1630 #60 tablet 07/30/19 Tramadol HCl 50 mg PO Q6H PRN #16 tablet MDD 4 07/31/19 Physical Exam-Neuro Vital Signs: Vital Signs Temperature 98.4 F 10/22/19 21:15 Pulse Rate 76 10/22/19 21:15 Respiratory Rate 20 10/22/19 21:15 Blood Pressure 141/64 10/22/19 21:15 O2 Sat by Pulse Oximetry (%) 94 L 10/22/19 20:32 Labs: CBC, BMP 10/22/19 05:30 10/22/19 05:30
[2019-10-23] MEDS: NYSTATIN/TRIAMCINOLONE TOPICAL OINTMENT 15 GM TUBE TP SCH ×2 (00:27→10:00)
[2019-10-23] MEDS: GABAPENTIN 100 MG CAPSULE PO SCH ×2 (06:19→13:23)
[2019-10-23] MEDS: RIFAXIMIN 550 MG TABLET (UD) PO SCH ×2 (06:19→13:22)
[2019-10-23] MEDS: metFORMIN HCL 500 MG TABLET (FP) PO SCH (06:19)
[2019-10-23] MEDS: PRAMIPEXOLE DIHYDROCHLORIDE 0.5 MG TABLET PO SCH ×2 (06:19→13:23)
[2019-10-23] MEDS: DOCUSATE SODIUM 100 MG CAPSULE (FP) PO SCH ×2 (06:19→13:23)
[2019-10-23] MEDS: INSULIN (LEVEMIR) 100 UNITS/ML UNITS SQ SCH (06:20)
[2019-10-23] MEDS: INSULIN SLIDING SCALE (NOVOLOG) 1 VIAL SQ SCH ×2 (06:20→12:00)
[2019-10-23] MEDS: GLIMEPIRIDE 2 MG TABLET PO SCH (06:34)
--- NOTE | 2019-10-23 07:22 | DS ---
Physical Examination Vital Signs: Vital Signs Temperature 98.2 F 10/23/19 05:00 Pulse Rate 79 10/23/19 05:00 Respiratory Rate 18 10/23/19 05:00 Blood Pressure 136/80 10/23/19 05:00 O2 Sat by Pulse Oximetry (%) 94 L 10/22/19 20:32 Cardiovascular: Yes: Regular Rate and Rhythm Respiratory: Yes: Regular, CTA Bilaterally Gastrointestinal: Yes: Normal Bowel Sounds, Soft Labs: CBC, BMP 10/22/19 05:30 10/22/19 05:30 Discharge Summary Problems reviewed: Yes Reason For Visit: CHEST PAIN Current Active Problems Chest pain (Acute) Hospital Course: - Problems (1) Chest pain Assessment/Plan: -Resolved -Cardiology consult noted -trop neg x 2 -tele monitoring -EKG NSR Code(s): R07.9 - CHEST PAIN, UNSPECIFIED Qualifiers: Chest pain type: unspecified Qualified Code(s): R07.9 - Chest pain, unspecified (2) Back pain Assessment/Plan: -Neurology consult -pain control -fall precaution Code(s): M54.9 - DORSALGIA, UNSPECIFIED Qualifiers: Back pain location: thoracic back pain Chronicity: chronic Back pain laterality: bilateral Qualified Code(s): M54.6 - Pain in thoracic spine; G89.29 - Other chronic pain (3) Diabetes Assessment/Plan: -BGM ACHS -ISS -Metformin, Januvia, Amaryl -Levemir -ISS -HgA1c -diabetic diet Code(s): E11.9 - TYPE 2 DIABETES MELLITUS WITHOUT COMPLICATIONS Qualifiers: Diabetes mellitus type: type 2 (4) HLD (hyperlipidemia) Assessment/Plan: -Atorvastatin Code(s): E78.5 - HYPERLIPIDEMIA, UNSPECIFIED (5) HTN (hypertension) Assessment/Plan: -monitor BP -low Na diet Code(s): I10 - ESSENTIAL (PRIMARY) HYPERTENSION (6) Abdominal pain Assessment/Plan: -Abdominal US nad -Creon and Xifaxin Code(s): R10.9 - UNSPECIFIED ABDOMINAL PAIN (7) Diabetic neuropathy Assessment/Plan: -Gabapentin TID -Pramiprexole Code(s): E11.40 - TYPE 2 DIABETES MELLITUS WITH DIABETIC NEUROPATHY, UNSP Qualifiers: Diabetes mellitus type: type 2 (8) Spinal stenosis, lumbar region without neurogenic claudication Assessment/Plan: -Neurology consult -pain control -PT Code(s): M48.061 - SPINAL STENOSIS, LUMBAR REGION WITHOUT NEUROGENIC DHRUV (9) Dizziness Assessment/Plan: -Resolved -Head CT scan shows no evidence of acute intracranial hemorrhage, edema, midline shift, mass effect, or skull fracture -fall precaution -Cardiology consult appreciated Code(s): R42 - DIZZINESS AND GIDDINESS DC HOME IF STRESS NEGATIVE Condition: Stable - Instructions Referrals: Kaiser Bertrand MD [Primary Care Provider] - Basilio Machado MD [Staff Physician] - 1 Week - Home Medications Comprehensive Discharge Medication List: Ambulatory Orders Amitriptyline HCl [Elavil -] 25 mg PO DAILY 02/26/19 Aspirin [Aspirin EC] 81 mg PO DAILY 02/26/19 Atorvastatin Ca [Lipitor] 40 mg PO HS 02/26/19 Famotidine [Pepcid -] 20 mg PO BID 02/26/19 Glimepiride 2 mg PO DAILY 05/12/19 Oxycodone HCl/Acetaminophen [Percocet 5-325 mg Tablet] 1 - 2 tab PO Q4H PRN #20 tablet MDD 6 07/19/19 hydrOXYzine PAMOATE [Vistaril -] 25 mg PO QID PRN #20 capsule 07/19/19 Acetaminophen [Tylenol .Regular Strength -] 650 mg PO Q6H PRN tablet 07/30/19 Docusate Sodium [Colace -] 100 mg PO TID #90 capsule 07/30/19 Gabapentin [Neurontin -] 100 mg PO TID #90 capsule 07/30/19 Insulin (Levemir) [Levemir Vial] 30 units SQ AM #1 vial 07/30/19 Lidocaine 5% Patch [Lidoderm -] 1 patch TP DAILY #30 patch 07/30/19 Lipase/Protease/Amylase [Marla Hendricks 36,000 Units Capsule] 1 cap PO TIDCM #90 capsule. 07/30/19 Nystatin/Triamcinolone Top Oin [Mycolog II -] 1 applic TP BID #1 tube 07/30/19 Pantoprazole Sodium 40 mg PO DAILY #30 tablet. 07/30/19 Pramipexole Dihydrochloride [Mirapex -] 0.5 mg PO TID #90 tablet 07/30/19 Rifaximin [Xifaxan -] 550 mg PO TID #21 tablet 07/30/19 Sitagliptin Phosphate [Januvia -] 100 mg PO DAILY@0700 #30 tab 07/30/19 metFORMIN HCL [Glucophage -] 1,000 mg PO BID@0700,1630 #60 tablet 07/30/19 Tramadol HCl 50 mg PO Q6H PRN #16 tablet MDD 4 07/31/19
[2019-10-23] MEDS: LIPASE/PROTEASE/AMYLASE 36,000 UNIT CAPSULE PO SCH ×2 (09:00→13:19)
[2019-10-23] MEDS: HEPARIN NA (PORCINE) 5,000 UNITS/ML 1ML VIAL SQ SCH (10:00)
[2019-10-23] MEDS ORDERED: REGADENOSON 0.4 MG/5 ML PRE-FILLED SYRINGE IVPUSH ONE ×2 (10:02→10:30)
[2019-10-23] MEDS: ASPIRIN COATED 81 MG TABLET.EC PO SCH (13:19)
[2019-10-23] MEDS: AMITRIPTYLINE HCL 25 MG TABLET PO SCH (13:19)
[2019-10-23] MEDS: PANTOPRAZOLE 40 MG TABLET PO SCH (13:20)
[2019-10-23] MEDS: LIDOCAINE 5% TOPICAL PATCH TP SCH (13:23)
[2019-10-23] MEDS: traMADol HCL 50 MG TABLET PO PRN (15:28)
[2019-10-23 15:32] VITALS: BP 112/74; PULSE 89; TEMP 98.7
== END 2019-10-23 16:31 | disposition home or self-care (01) ==
LOC: JER 00:59 → JERBED 08:24 → J4W 23:16
PROVIDERS: ADMIT Family Medicine; ATTEND Family Medicine
PROC: 3E033GC Introduction of Other Therapeutic Substance into Peripheral Vein, Percutaneous Approach (ICD-10-PCS; principal; 2019-10-21)
PROC: 3E033NZ Introduction of Analgesics, Hypnotics, Sedatives into Peripheral Vein, Percutaneous Approach (ICD-10-PCS; 2019-10-21)
DX: R07.89 Other chest pain (principal); I10 Essential (primary) hypertension; E78.5 Hyperlipidemia, unspecified; E11.40 Type 2 diabetes mellitus with diabetic neuropathy, unspecified; I25.10 Atherosclerotic heart disease of native coronary artery without angina pectoris; J44.9 Chronic obstructive pulmonary disease, unspecified; G25.81 Restless legs syndrome; K21.9 Gastro-esophageal reflux disease without esophagitis; M48.061 Spinal stenosis, lumbar region without neurogenic claudication; M48.02 Spinal stenosis, cervical region; M54.6 Pain in thoracic spine; F41.9 Anxiety disorder, unspecified; R10.9 Unspecified abdominal pain; R42 Dizziness and giddiness; E66.9 Obesity, unspecified; Z68.37 Body mass index [BMI] 37.0-37.9, adult; Z79.82 Long term (current) use of aspirin; Z79.4 Long term (current) use of insulin; Z96.651 Presence of right artificial knee joint; Z87.891 Personal history of nicotine dependence
CPT/HCPCS: 36415; 70450-TC; 71045-TC-FY; 72125-TC; 76700-TC; 78452-TC; 80053; 80061; 82550; 82962; 83036; 83721; 83735; 83880; 84100; 84443; 84484; 85025; 93005; 93010; 93017; 96365; 96375; 99284-25; A9502; G0378; J0131; J1644; J2785

== ENCOUNTER 2020-03-23 16:18 | Emergency (ER) | payer OTHER ==
[2020-03-23 16:35] VITALS: BP 122/74; PULSE 86; TEMP 98.1; BMI 36.0
[2020-03-23] MEDS ORDERED: METOCLOPRAMIDE HCL INJECTION 10 MG/2 ML VIAL IVPUSH ONE (16:41)
--- NOTE | 2020-03-23 17:06 | PDOC ---
Documentation entered by Josue Calloway SCRIBE, acting as scribe for Bina Sanchez MD. Bina Sanchez MD: This documentation has been prepared by the Elli esqueda Angel, SCRIBE, under my direction and personally reviewed by me in its entirety. I confirm that the documentation accurately reflects all work, treatment, procedures, and medical decision making performed by me. History of Present Illness - General Chief Complaint: Headache Stated Complaint: HEADACHE History Source: Patient Exam Limitations: No Limitations - History of Present Illness Initial Comments: 03/23/20 16:48 The patient is a 74 year old female with a significant past medical history of CAD, HTN, HLD, DM, COPD, Migraines, RLS, GERD, and Cervical Spinal Stenosis who presents to the ED with a gradual onset of constant headaches for 8 days. The patient endorses associated nausea but no vomiting. The patient states she takes Excedrin for her headaches with minimal relief. The patient is not on any anticoagulants but takes a daily aspirin. The patient states she has a history o f migraines, she would get about 2 migraines a week but then didn't get many headaches for about 10 years. She states she thinks this feels similar to previous migraines. The patient denies any dizziness, recent change in medications or vomiting. Past History - Medical History Allergies/Adverse Reactions: Allergies Allergy/AdvReac Type Severity Reaction Status Date / Time No Known Allergies Allergy Verified 10/21/19 01:09 Home Medications: Ambulatory Orders Aspirin [Aspirin EC] 81 mg PO DAILY 02/26/19 Atorvastatin Ca [Lipitor] 40 mg PO HS 02/26/19 Sitagliptin Phosphate [Januvia -] 100 mg PO DAILY@0700 #30 tab 07/30/19 metFORMIN HCL [Glucophage -] 1,000 mg PO BID@0700,1630 #60 tablet 07/30/19 Aspirin/Acetaminophen/Caffeine [Excedrin Migraine Caplet] 1 each PO ONCE PRN 03/23/20 Empagliflozin [Jardiance] 25 mg PO DAILY 03/23/20 Folic Acid 1 mg PO DAILY 03/23/20 Furosemide 40 mg PO DAILY 03/23/20 Ropinirole HCl [Ropinirole ER] 2 mg PO TID 03/23/20 Sitagliptin Phosphate [Januvia] 100 mg PO DAILY 03/23/20 Tramadol HCl 100 mg PO BID MDD 4 03/23/20 Anemia: No Asthma: No Cancer: No Cardiac Disorders: Yes CVA: No COPD: No CHF: No Dementia: No Diabetes: Yes GI Disorders: Yes (GERD GASTRITIS) Disorders: No HTN: Yes Hypercholesterolemia: Yes Kidney Stones: Yes Liver Disease: No Seizures: No Thyroid Disease: No - Surgical History Abdominal Surgery: No Appendectomy: No Cardiac Surgery: No Cholecystectomy: No GI Surgery: Yes (bladder 15 years ago) Lung Surgery: No Neurologic Surgery: No Orthopedic Surgery: Yes (r knee replacement 03/11/14) - Immunization History Immunization Up to Date: Yes - Psycho-Social/Smoking History Smoking Status: No Smoking History: Former smoker Have you smoked in the past 12 months: No Number of Cigarettes Smoked Daily: 0 If you are a former smoker, when did you quit?: 1979 Review of Systems - Review of Systems Able to Perform ROS?: Yes Comments:: 03/23/20 16:48 GENERAL/CONSTITUTIONAL: No fever or chills. No weakness. HEAD, EYES, EARS, NOSE AND THROAT: No change in vision. No ear pain or discharge. No sore throat. CARDIOVASCULAR: No chest pain or shortness of breath. RESPIRATORY: No cough, wheezing, or hemoptysis. GASTROINTESTINAL: No nausea, vomiting, diarrhea or constipation. GENITOURINARY: No dysuria, frequency, or change in urination. MUSCULOSKELETAL: No joint or muscle swelling or pain. No neck or back pain. SKIN: No rash NEUROLOGIC: +Headache. No vertigo, loss of consciousness, or change in strength/sensation. ENDOCRINE: No increased thirst. No abnormal weight change. HEMATOLOGIC/LYMPHATIC: No anemia, easy bleeding, or history of blood clots. ALLERGIC/IMMUNOLOGIC: No hives or skin allergy. *Physical Exam - Physical Exam 03/23/20 16:51 GENERAL: Awake, alert, and fully oriented, in no acute distress HEAD: No signs of trauma EYES: No nystagmus. Extraocular movements intact. ENT: Auricles normal inspection, hearing grossly normal, nares patent, oropharynx clear without exudates. Moist mucosa NECK: Normal ROM, supple, no lymphadenopathy, JVD, or masses LUNGS: Breath sounds equal, clear to auscultation bilaterally. No wheezes, and no crackles HEART: Regular rate and rhythm, normal S1 and S2, no murmurs, rubs or gallops ABDOMEN: Soft, nontender, normoactive bowel sounds. No guarding, no rebound. No masses EXTREMITIES: Normal range of motion, no edema. No clubbing or cyanosis. No cords, erythema, or tenderness NEUROLOGICAL: Cranial nerves II through XII grossly intact. Normal speech, ambulatory with steady gait. Finger to nose symmetry intact bilaterally. Negative rhomberg. Aox3. Responds to questions appropriately, no focal deficits SKIN: Warm, Dry, normal turgor, no rashes or lesions noted. ED Treatment Course - LABORATORY CBC & Chemistry Diagram: 03/23/20 17:30 03/23/20 17:30 Medical Decision Making - Medical Decision Making 03/23/20 16:59 74 yo F h/o migraines p/w gradual onset headache similar to previous migraines, no infectious complaints and no nuchal rigidity, no red flags concerning for ICH and more likely migraine given hx and exam however given persistence of complaints will do CT head to r/o mass and eval for subacute ICH. Plan: -labs -CT head -reglan -reassess This clinical encounter is taking place during a federal and state health care emergency attributable to the novel Villanueva Virus pandemic. The [place] of the Department of Health and Human Services has declared, pursuant to the Public Health Service Act 319F-3 (42 U.S.C. 247d-6d), that a covered persons activities related to medical countermeasures against COVID-19 will be immune from liability under Federal and State law. 03/23/20 18:20 Labs and imaging reviewed. Patient with resolution of pain after reglan and tylenol. Will d/c with return precautions, recommend PMD f/u and tylenol at home as needed for pain and Po hydration. Discharge - Discharge Information Problems reviewed: Yes Clinical Impression/Diagnosis: Headache Qualifiers: Headache type: unspecified Headache chronicity pattern: acute headache Intractability: not intractable Qualified Code(s): R51 - Headache Condition: Improved Disposition: HOME - Admission No - Follow up/Referral - Patient Discharge Instructions Patient Printed Discharge Instructions: DI for Migraine Additional Instructions: Your labs and CT scan did not show any concerning findings. You should make sure to stay well hydrated at home. You can take tylenol every 6 hours as needed for pain. You should follow up with your PMD. Return to the ED for new or worsening symptoms. Print Language: [place] - Post Discharge Activity
[2020-03-23] MEDS ORDERED: METOCLOPRAMIDE HCL INJECTION 10 MG/2 ML VIAL ONE (17:08)
[2020-03-23] MEDS ORDERED: ACETAMINOPHEN 325 MG TABLET (FP) PO ONE (17:44)
[2020-03-23] MEDS ORDERED: ACETAMINOPHEN 325 MG TABLET (FP) ONE (17:50)
[2020-03-23 18:00] LABS: BASO % 0.6 % (0-2.0); EOS % 1.2 % (0-4.5); HEMATOCRIT 40.7 % (32.4-45.2); HEMOGLOBIN 13.5 GM/dl (10.7-15.3); MCHC 33.3 g/dl (32.0-36.0); MEAN CELL VOLUME 87.3 fl (80-96); MEAN PLT VOLUME 8.1 fl (7.5-11.1); NEUT % 70.2 % (42.8-82.8); PLATELET COUNT 266 K/MM3 (134-434); RBC 4.66 M/mm3 (3.60-5.2); RDW 15.2 % (11.6-15.6); WHITE BLOOD COUNT 8.9 K/mm3 (4.0-10.8)
[2020-03-23 18:04] LABS: ALBUMIN 3.7 g/dl (3.4-5.0); BILIRUBIN,TOTAL 0.6 mg/dl (0.2-1); CALCIUM 8.4 mg/dl (8.5-10); CREATININE 0.7 mg/dl (0.55-1.3); POTASSIUM 4.3 mmol/L (3.5-5.1); TOT PROT 6.3 g/dl (6.4-8.2)
[2020-03-23] MEDS ORDERED: IBUPROFEN 400 MG TABLET (FP) PO ONE ×2 (18:37)
== END 2020-03-23 18:44 | disposition home or self-care (01) ==
LOC: FER 16:18
PROC: 3E033NZ Introduction of Analgesics, Hypnotics, Sedatives into Peripheral Vein, Percutaneous Approach (ICD-10-PCS; principal; 2020-03-23)
DX: R51 Headache (principal)
CPT/HCPCS: 36415; 70450-TC; 80053; 85025; 96372; 99284-25

== ENCOUNTER 2020-07-29 23:03 | Emergency (ER) | payer OTHER ==
[2020-07-29 23:09] VITALS: TEMP 98.6; BMI 32.9
--- OUTSIDE RECORDS SUMMARY | 2020-07-29 23:19 | XMS ---
:1945 Author Organization [facility] Support Name Relationship Address Phone UE, UNEMPLOYED Unavailable Unavailable Unavailable UE Unavailable Unavailable Unavailable EMILIO PEREZ SON [address] [place] [address] RE Unavailable Unavailable Unavailable MICHELLE PEREZ [id number] [phone] [place] [address] YULIANA PEREZ SON [address] [place] [address] YULIANA PEREZ Child [address] [place] [address] Re-disclosure Warning The records that you are about to access may contain information from federally- assisted alcohol or drug abuse programs. If such information is present, then the following federally mandated warning applies: This information has been disclosed to you from records protected by federal confidentiality rules (42 CFR part 2). The federal rules prohibit you from making any further disclosure of this information unless further disclosure is expressly permitted by the written consent of the person to whom it pertains or as otherwise permitted by 42 CFR part 2. A general authorization for the release of medical or other information is NOT sufficient for this purpose. The Federal rules restrict any use of the information to criminally investigate or prosecute any alcohol or drug abuse patient.The records that you are about to access may contain highly sensitive health information, the redisclosure of which is protected by Article 27-F of the [place] State Public Health law. If you continue you may haveaccess to information: Regarding HIV / AIDS; Provided by facilities licensed or operated by the [facility] Office of Mental Health; or Provided by the [facility] Office for People With Developmental Disabilities. If such information is present, then the following [facility] mandated warning applies: This information has been disclosed to you from confidential records which are protected by state law. State law prohibits you from making any further disclosure of this information without the specific written consent of the person to whom it pertains, or as otherwise permitted by law. Any unauthorized further disclosure in violation of state law may result in a fine or [place] [facility] sentence or both. A general authorization for the release of medical or other information is NOT sufficient authorization for further disclosure. Insurance Providers Payer name Policy type Policy ID Covered Covered libertarian's Policy P wilfredo / Coverage libertarian ID relationship to [place] [employer] type [place] MED[place] [id number] SP [id number] MEDICARE [id number] SP [id number] [place] [id number] SP [id number] [employer] [place] [id number] SP [id number] [facility] MEDICAID [id number] SP [id number] MEDICAID [id number] SP [id number] MEDICARE [id number] SP [id number] A MEDICARE [id number] SP [id number] A MEDICAID [id number] SP [id number] MEDICARE [id number] SP [id number] MEDICARE [id number] SP [id number] Results ID Date Data Source [id number] 04/08/2020 12:00:00 AM EDT [facility] Name Value Range Interpretation Code Description Data Estefany rce(s) Supporting Document(s ) SARS- [facility] CoV-2 RT-PCR This lab was ordered by [facility] and reported by [facility]. Procedure
[2020-07-30] MEDS ORDERED: ACETAMINOPHEN 1000 MG/100 ML VIAL (NON FORMULARY) IVPB STA (00:36)
--- NOTE | 2020-07-30 00:36 | PDOC ---
History of Present Illness <Ai Neff - Last Filed: 07/30/20 03:20> - History of Present Illness Initial Comments: 74yo F with PMHx of HTN, HLD, CAD, DM, COPD, RLS, GERD, migraines, and cervical spine stenosis who presents with abdominal/back pain that radiates down her right leg. The pain started about 2 hours ago and has since gotten worse so her son brought her to the ED. The pain is towards the right upper and lower abdomen, right lower back, with radiation down the right leg. She said she has never had this type of pain before. Of note, patient does not take her medications as prescribed. Yesterday, her doctor prescribed nitrofurantoin for a UTI. She also has a prescription for metronidazole TID but she stopped taking it because she thought it was giving her an infection. Also, she has a prescription for losartan daily which he does not take regularly as she feels her blood pressure is better controlled. Current home meds per patient (she had her pill jars with her): - tramadol 50 TID - linaclotide 290 BID - losasrtan daily - nitrofurantoin 250 BID (first dose taken this morning) - metronidazole 250 TID - Ropinirole 2 TID (2 tabs in am, 1 tab in pm) <Blessing Hough - Last Filed: 07/30/20 04:07> - General Chief Complaint: Pain, Acute Stated Complaint: RT SIDE ABD PAIN Time Seen by Provider: 07/29/20 23:39 Past History <Ai Neff - Last Filed: 07/30/20 03:20> - Medical History Anemia: No Asthma: No Cancer: No Cardiac Disorders: Yes CVA: No COPD: No CHF: No Dementia: No Diabetes: Yes GI Disorders: Yes (GERD GASTRITIS) Disorders: No HTN: Yes Hypercholesterolemia: Yes Kidney Stones: Yes Liver Disease: No Seizures: No Thyroid Disease: No - Surgical History Abdominal Surgery: No Appendectomy: No Cardiac Surgery: No Cholecystectomy: No GI Surgery: Yes (bladder 15 years ago) Lung Surgery: No Neurologic Surgery: No Orthopedic Surgery: Yes (r knee replacement 03/11/14) - Immunization History Immunization Up to Date: Yes - Psycho-Social/Smoking History Smoking Status: No Smoking History: Former smoker Have you smoked in the past 12 months: No Number of Cigarettes Smoked Daily: 0 If you are a former smoker, when did you quit?: 16 yrs Information on smoking cessation initiated: No - Substance Abuse Hx (Audit-C & DAST Scrn) How often the patient has a drink containing alcohol: Never Score: In Men: 4 or > Positive; In Women: 3 or > Positive: 0 Screen Result (Pos requires Nsg. Audit-10AR): Negative In the last yr the pt used illegal drug/Rx for NonMed reason: No Score: Yes response is considered Positive: 0 Screen Result (Positive result requires Nsg. DAST-10): Negative <Blessing Hough - Last Filed: 07/30/20 04:07> - Medical History Allergies/Adverse Reactions: Allergies Allergy/AdvReac Type Severity Reaction Status Date / Time No Known Allergies Allergy Verified 07/30/20 01:22 Home Medications: Ambulatory Orders Aspirin [Aspirin EC] 81 mg PO DAILY 02/26/19 Atorvastatin Ca [Lipitor] 40 mg PO HS 02/26/19 Sitagliptin Phosphate [Januvia -] 100 mg PO DAILY@0700 #30 tab 07/30/19 metFORMIN HCL [Glucophage -] 1,000 mg PO BID@0700,1630 #60 tablet 07/30/19 Aspirin/Acetaminophen/Caffeine [Excedrin Migraine Caplet] 1 each PO ONCE PRN 03/23/20 Empagliflozin [Jardiance] 25 mg PO DAILY 03/23/20 Folic Acid 1 mg PO DAILY 03/23/20 Furosemide 40 mg PO DAILY 03/23/20 Ropinirole HCl [Ropinirole ER] 2 mg PO TID 03/23/20 Sitagliptin Phosphate [Januvia] 100 mg PO DAILY 03/23/20 Tramadol HCl 100 mg PO BID MDD 4 03/23/20 Review of Systems - Review of Systems Comments:: Constitutional: denied fevers, chills, diaphoresis, changes in appetite/PO intake, weight gain/loss HEENTM: denied headaches, changes in vision/hearing/tasting/smelling, runny nose, sore throat Respiratory: denied SOB, CP, dry/productive cough, congestion Cardiac: denied palpitations Abdomen/GI: endorsed nausea and constipation, endorsed pain, denied diarrhea, vomiting : endorsed dysuria, urinary frequency/urgency MSK: endorsed back pain <Blessing Hough - Last Filed: 07/30/20 04:07> *Physical Exam - Vital Signs Last Vital Signs Temp Pulse Resp BP Pulse Ox 98.6 F 92 H 19 110/55 L 96 07/29/20 23:05 07/29/20 23:05 07/29/20 23:05 07/29/20 23:05 07/29/20 23:05 <Ai Neff - Last Filed: 07/30/20 03:20> - Vital Signs Last Vital Signs Temp Pulse Resp BP Pulse Ox 98.6 F 92 H 19 110/55 L 96 07/29/20 23:05 07/29/20 23:05 07/29/20 23:05 07/29/20 23:05 07/29/20 23:05 - Physical Exam GENERAL: F, appears stated age, obese body habitus, AAOx4 showing signs of acute distressdue to pain HEAD: Normal with no signs of trauma, poor dentition EYES: PERRL, extraocular movements intact bilaterally EARS, NOSE, THROAT: mildly dry mucous membranes NECK: No lymphadenopathy or masses LUNGS: CTAB. No wheezes, and no crackles. No accessory muscle use HEART: RRR, normal S1 and S2 with systolic murmur ABDOMEN: Soft, tender on palpation on R quadrants, protuberant, hyperactive bowel sounds MUSCULOSKELETAL: No CVA tenderness, tenderness to palpation of R lower back EXTREMITIES: warm to touch bilaterally, tender to palpation of R upper leg, no peripheral edema appreciated NEUROLOGICAL: Cranial nerves II-XII grossly intact. Normal speech with symmetricalfacial movements PSYCHIATRIC: Cooperative and interactive but in apparent pain, responds appropriately. Good eye contact SKIN: Warm, no rashes or lesions noted <Blessing Hough - Last Filed: 07/30/20 04:07> ED Treatment Course - LABORATORY CBC & Chemistry Diagram: 07/30/20 00:50 07/30/20 00:50 - ADDITIONAL ORDERS Additional order review: Laboratory Results 07/30/20 07/30/20 07/30/20 02:00 00:50 00:50 Sodium 140 Potassium 3.8 Chloride 108 H Carbon Dioxide 26 Anion Gap 6 L BUN 23.9 H Creatinine 0.8 Est GFR (CKD-EPI)AfAm 84.18 Est GFR (CKD-EPI)NonAf 72.63 Random Glucose 162 H Lactic Acid 1.0 Calcium 8.3 L Total Bilirubin 0.2 AST 12 L ALT 18 Alkaline Phosphatase 67 Creatine Kinase 83 Troponin I < 0.02 Total Protein 6.2 L Albumin 3.5 Lipase 230 Urine Color Yellow Urine Appearance Clear Urine pH 5.5 D Ur Specific [place] 1.031 Urine Protein Negative Urine Glucose (UA) 2+ H Urine Ketones Trace H Urine Blood Negative Urine Nitrite Negative Urine Bilirubin Negative Urine Urobilinogen 0.2 Ur Leukocyte Esterase 2+ H Urine WBC (Auto) 292 Urine RBC (Auto) 26 Urine Casts (Auto) 5 U Epithel Cells (Auto) 32 Urine Bacteria (Auto) 136 07/30/20 00:50 RBC 4.13 MCV 91.3 MCHC 32.5 RDW 15.7 H MPV 9.1 Neutrophils % 72.5 Lymphocytes % 19.0 D Monocytes % 6.7 Eosinophils % 1.1 Basophils % 0.7 - Medications Given in the ED: ED Medications Discontinued Medications Generic Name Dose Route Start Last Admin Trade Name Ivanq PRN Reason Stop Dose Admin Acetaminophen 1,000 mg 07/30/20 00:36 07/30/20 00:57 Ofirmev Injection - IVPB 07/30/20 00:37 1,000 mg ONCE STA Administration <Ai Neff - Last Filed: 07/30/20 03:20> - LABORATORY CBC & Chemistry Diagram: 07/30/20 00:50 07/30/20 00:50 <Blessing Hough - Last Filed: 07/30/20 04:07> Medical Decision Making - Medical Decision Making 74yo F with PMHx of HTN, HLD, CAD, DM, COPD, RLS, GERD, migraines, and cervical spine stenosis who presents with abdominal/back pain that radiates down her right leg. - CBC, CMP, EKG, trop, UA, urine cx, lactic acid, lipase - ofirmev - considering CT to further investigate: gallstones, cholecystitis, urolithiasis, appendicitis, constipation etc 07/30/20 03:02 - CBC and CMP unremarkable - UA showing leuk est - patient already taking nitrofurantoin - patient able to ambulate well, pain improved s/p ofirmev <Blessing Hough - Last Filed: 07/30/20 04:07> Discharge <MartinAi dotson - Last Filed: 07/30/20 03:20> - Discharge Information Problems reviewed: Yes <Blessing Hough - Last Filed: 07/30/20 04:07> - Discharge Information Clinical Impression/Diagnosis: Back pain, Abdominal pain, Sciatic leg pain - Follow up/Referral Referrals: Levi Saab [Primary Care Provider] - - Patient Discharge Instructions Additional Instructions: Discharge Instructions: You were seen in the emergency department for back and side pain. Your pain improved with acetaminophen. Your blood tests did not show any concerning findi ngs. Home Care and Follow Up: - You may use over the counter medications as needed for pain at home. 650- 1000mg acetaminophen (Tylenol) or 600mg ibuprofen (Motrin or Advil) can be used every 6-8 hours. If needed for continued pain, these medications may be alternated every 3-4 hours. For example, if you take ibuprofen at 9am, you may take acetaminophen at noon, ibuprofen at 3pm, etc. - It is strongly recommended that you take ibuprofen with food to help prevent stomach irritation. - Make sure you are drinking plenty of fluids - You may buy a numbing patch that contains lidocaine (the patch is 4% lidocaine) that can be placed over the areas of greatest pain. The lidocaine patch may be placed for 12 hours then removed for 12 hours. - Try using an ice pack for 20 minutes every hour or a heating pad for additional pain control. These should NOT be used over the lidocaine patch, but you may place them over the areas of pain while the patch is off. - Do not stop moving around. As much as you can tolerate, continue to do light exercise and stretching exercises. Increase your activity level as much as you can tolerate daily. - You have been referred to a neurosurgeon, Dr Awad, for follow up. Make an appointment within the next few weeks. - Seek immediate medical care if you have significant worsening of your symptoms, you are unable to walk, you have new weakness, you have incontinence, you have numbness in your buttocks or legs, or you have any other medical emergency. - Post Discharge Activity
[2020-07-30] MEDS ORDERED: ACETAMINOPHEN INJECTION 100 ML IVPB ONE (00:55)
[2020-07-30 01:31] LABS: BASO % 0.7 % (0-2.0); EOS % 1.1 % (0-4.5); HEMATOCRIT 37.7 % (32.4-45.2); HEMOGLOBIN 12.2 GM/dL (10.7-15.3); MCH 29.6 pg (25.7-33.7); MCHC 32.5 g/dl (32.0-36.0); MEAN CELL VOLUME 91.3 fl (80-96); MEAN PLT VOLUME 9.1 fl (7.5-11.1); MONO % 6.7 % (3.8-10.2); NEUT % 72.5 % (42.8-82.8); PLATELET COUNT 181 K/MM3 (134-434); RBC 4.13 M/mm3 (3.60-5.2); RDW 15.7 % (11.6-15.6); WHITE BLOOD COUNT 7.6 K/mm3 (4.0-10.0)
--- NOTE | 2020-07-30 01:44 | PDOC ---
Attending Attestation - Resident Resident Name: Blessing Hough - ED Attending Attestation I have performed the following: I have examined & evaluated the patient, The case was reviewed & discussed with the resident, I agree w/resident's findings & plan, Exceptions are as noted - HPI HPI: 07/30/20 05:00 See resident HPI - Physicial Exam PE: 07/30/20 05:00 Agree with documented exam - Medical Decision Making 07/30/20 05:00 74F extensive pmh with back px radiating down her right leg and towards abdomen No CVAT, distractable abd tenderness consider sciatica, consider nephrolithiasis, less likely jennifer, appy, pancreatitis, pyelo f/u labs, ua, ucx, symptomatic tx re-eval dispo per clinical course Discharge - Discharge Information Problems reviewed: Yes Clinical Impression/Diagnosis: Back pain, Abdominal pain, Sciatic leg pain - Follow up/Referral Referrals: Levi Saab [Primary Care Provider] - - Patient Discharge Instructions Additional Instructions: Discharge Instructions: You were seen in the emergency department for back and side pain. Your pain improved with acetaminophen. Your blood tests did not show any concerning findings. Home Care and Follow Up: - You may use over the counter medications as needed for pain at home. 650- 1000mg acetaminophen (Tylenol) or 600mg ibuprofen (Motrin or Advil) can be used every 6-8 hours. If needed for continued pain, these medications may be alternated every 3-4 hours. For example, if you take ibuprofen at 9am, you may take acetaminophen at noon, ibuprofen at 3pm, etc. - It is strongly recommended that you take ibuprofen with food to help prevent stomach irritation. - Make sure you are drinking plenty of fluids - You may buy a numbing patch that contains lidocaine (the patch is 4% lidocaine) that can be placed over the areas of greatest pain. The lidocaine patch may be placed for 12 hours then removed for 12 hours. - Try using an ice pack for 20 minutes every hour or a heating pad for additional pain control. These should NOT be used over the lidocaine patch, but you may place them over the areas of pain while the patch is off. - Do not stop moving around. As much as you can tolerate, continue to do light e xercise and stretching exercises. Increase your activity level as much as you can tolerate daily. - You have been referred to a neurosurgeon, Dr Awad, for follow up. Make an appointment within the next few weeks. - Seek immediate medical care if you have significant worsening of your symptoms, you are unable to walk, you have new weakness, you have incontinence, you have numbness in your buttocks or legs, or you have any other medical emergency. - Post Discharge Activity
[2020-07-30 01:51] LABS: CHLORIDE 108 mmol/L (98-107); POTASSIUM 3.8 mmol/L (3.5-5.1); SODIUM 140 mmol/L (136-145)
[2020-07-30 01:55] LABS: ALBUMIN 3.5 g/dl (3.4-5.0)
[2020-07-30 01:56] LABS: CALCIUM 8.3 mg/dL (8.5-10.1); GLUCOSE,RANDOM 162 mg/dL (74-106); LIPASE 230 U/L (73-393)
[2020-07-30 01:57] LABS: ANION GAP 6 MMOL/L (8-16); BLOOD UREA NITROGEN 23.9 mg/dL (7-18); CO2 26 mmol/L (21-32)
[2020-07-30 01:58] LABS: SGOT/AST 12 U/L (15-37); SGPT/ALT 18 U/L (13-61)
[2020-07-30 01:59] LABS: BILIRUBIN,TOTAL 0.2 mg/dL (0.2-1); CREATININE 0.8 mg/dL (0.55-1.3); TOT PROT 6.2 g/dl (6.4-8.2)
[2020-07-30 02:00] LABS: ALK PHOS 67 U/L (45-117)
[2020-07-30 02:39] LABS: EPI CELLS 32 /uL (0-25.1); HYALINE CASTS 5 /uL (0-3.1); PH,URINE 5.5 (5.0-8.0); URINE APPEARANCE CLEAR; URINE BACTERIA 136 /uL (0-1359); URINE BILIRUBIN NEGATIVE (NEGATIVE); URINE COLOR YELLOW; URINE GLUCOSE (UA) 2+ (NEGATIVE); URINE KETONE TRACE (NEGATIVE); URINE LEUK ESTERASE 2+ (NEGATIVE); URINE NITRITE NEGATIVE (NEGATIVE); URINE PROTEIN NEGATIVE (NEGATIVE); URINE RBC 26 /uL (0-23.9); URINE UROBILINOGEN 0.2 mg/dL (0.2-1.0); URINE WBC 292 /uL (0-25.8)
[2020-07-30 03:51] VITALS: BP 103/59; PULSE 73
--- NOTE | 2020-07-30 12:34 | EKG ---
Test Reason : Blood Pressure : / mmHG Vent. Rate : 078 BPM Atrial Rate : 078 BPM P-R Int : 174 ms QRS Dur : 088 ms QT Int : 398 ms P-R-T Axes : 040 -02 001 degrees QTc Int : 453 ms NORMAL SINUS RHYTHM INFERIOR INFARCT , AGE UNDETERMINED POOR R WAVE PROGRESSION ABNORMAL ECG WHEN COMPARED WITH ECG OF 07-APR-2020 13:53, NO SIGNIFICANT CHANGE WAS FOUND Confirmed by VANGIE BLAND MD ([id number]) on 07/30/2020 12:34:24 PM Referred By: Confirmed By:VANGIE BLAND MD
== END 2020-07-30 04:07 ==
LOC: JER 23:03
PROC: 3E033NZ Introduction of Analgesics, Hypnotics, Sedatives into Peripheral Vein, Percutaneous Approach (ICD-10-PCS; principal; 2020-07-30)
DX: M54.41 Lumbago with sciatica, right side (principal); R10.9 Unspecified abdominal pain
CPT/HCPCS: 36415; 80053; 81003; 82550; 83605; 83690; 84484; 85025; 87086; 93005; 93010; 99284-25; J0131

== ENCOUNTER 2020-10-06 11:18 | Emergency (ER) | payer OTHER | END 2020-10-06 14:02 | disposition home or self-care (01) | LOC: JVIRT 11:18 | DX: U07.1 COVID-19 (principal) | CPT/HCPCS: C9803; Q3014-GT; U0003 ==

== ENCOUNTER 2020-10-24 12:13 | Inpatient (IN) | payer OTHER ==
[2020-10-24] MEDS ORDERED: ACETAMINOPHEN 1000 MG/100 ML VIAL (NON FORMULARY) IVPB ONE (12:57)
[2020-10-24] MEDS ORDERED: SODIUM CHLORIDE 0.9% 500 ML INFUS.BAG IV ONE (13:01)
[2020-10-24] MEDS ORDERED: ONDANSETRON 4 MG/2 ML VIAL IVPUSH ONE (13:04)
[2020-10-24 13:22] LABS: BASO % 0.3 % (0-2.0); HEMATOCRIT 38.6 % (32.4-45.2); HEMOGLOBIN 12.7 GM/dL (10.7-15.3); LYMPH % 4.6 % (8-40); MCH 29.2 pg (25.7-33.7); MCHC 32.8 g/dl (32.0-36.0); MONO % 7.8 % (3.8-10.2); NEUT % 87.3 % (42.8-82.8); PLATELET COUNT 166 K/MM3 (134-434); RBC 4.34 M/mm3 (3.60-5.2); RDW 15.2 % (11.6-15.6); WHITE BLOOD COUNT 7.1 K/mm3 (4.0-10.0)
[2020-10-24] MEDS ORDERED: ACETAMINOPHEN INJECTION 100 ML IVPB ONE (13:26)
[2020-10-24] MEDS ORDERED: ONDANSETRON 4 MG/2 ML VIAL ONE ×2 (13:26→18:38)
[2020-10-24 13:29] LABS: INR 1.08 (0.83-1.09)
[2020-10-24 13:31] LABS: ACTIVATED PTT 28.6 SECONDS (25.2-36.5)
[2020-10-24 13:40] LABS: CHLORIDE 97 mmol/L (98-107); POTASSIUM 3.6 mmol/L (3.5-5.1); SODIUM 135 mmol/L (136-145)
[2020-10-24 13:42] LABS: CALCIUM 8.5 mg/dL (8.5-10.1)
[2020-10-24 13:43] LABS: ALBUMIN 3.2 g/dl (3.4-5.0); ANION GAP 10 MMOL/L (8-16); BLOOD UREA NITROGEN 14.8 mg/dL (7-18); CO2 28 mmol/L (21-32); GLUCOSE,RANDOM 241 mg/dL (74-106)
[2020-10-24 13:45] LABS: BILIRUBIN,DIRECT 0.1 mg/dL (0.0-0.2)
[2020-10-24 13:46] LABS: CREATININE 0.9 mg/dL (0.55-1.3); SGOT/AST 19 U/L (15-37); SGPT/ALT 19 U/L (13-61)
[2020-10-24 13:47] LABS: BILIRUBIN,TOTAL 0.4 mg/dL (0.2-1); LDH 190 U/L (84-246); TOT PROT 6.8 g/dl (6.4-8.2)
[2020-10-24 13:48] LABS: ALK PHOS 72 U/L (45-117)
[2020-10-24] MEDS ORDERED: rOPINIRole HCL 2 MG TABLET (FP) PO ONE (14:23)
[2020-10-24] MEDS ORDERED: MECLIZINE HCL 25 MG TABLET (FP) PO ONE (15:14)
[2020-10-24] MEDS ORDERED: MECLIZINE HCL 25 MG TABLET (FP) ONE (15:16)
[2020-10-24 16:42] LABS: EPI CELLS 4 /uL (0-25.1); HYALINE CASTS 2 /uL (0-3.1); PH,URINE 5.5 (5.0-8.0); URINE APPEARANCE CLOUDY; URINE BACTERIA >9,000 /uL (0-1359); URINE BILIRUBIN NEGATIVE (NEGATIVE); URINE COLOR DK YELLOW; URINE GLUCOSE (UA) 3+ (NEGATIVE); URINE KETONE NEGATIVE (NEGATIVE); URINE LEUK ESTERASE 2+ (NEGATIVE); URINE NITRITE POSITIVE (NEGATIVE); URINE PROTEIN 1+ (NEGATIVE); URINE RBC 24 /uL (0-23.9); URINE WBC 783 /uL (0-25.8)
[2020-10-24] MEDS ORDERED: CEFTRIAXONE 1 GM in DEXTROSE 5%-WATER - 100 ML IVPB ONE (16:56)
[2020-10-24] MEDS ORDERED: CEFTRIAXONE 1 GM/50 ML BAG ONE ×2 (17:20→17:27)
[2020-10-24] MEDS ORDERED: ENOXAPARIN NA (PORCINE) 40 MG/0.4 ML DISP.SYRIN SQ ONE (17:43)
[2020-10-24] MEDS: ENOXAPARIN NA (PORCINE) 40 MG/0.4 ML DISP.SYRIN SQ SCH (17:45)
[2020-10-24] MEDS ORDERED: ONDANSETRON 4 MG/2 ML VIAL IVPUSH PRN (18:00)
[2020-10-24] MEDS ORDERED: ACETAMINOPHEN 500 MG TABLET (FP) PO ONE (18:30)
[2020-10-24] MEDS ORDERED: ACETAMINOPHEN 325 MG TABLET (FP) ONE (18:38)
[2020-10-24] MEDS ORDERED: LIDOCAINE HCL 5% TOP OINTMENT 50 GM TUBE TP ONE (23:58)
[2020-10-25] MEDS: ATORVASTATIN CA 40 MG TABLET (FP) PO SCH ×2 (00:12→21:26)
[2020-10-25] MEDS ORDERED: ACETAMINOPHEN 325 MG TABLET (FP) PO ONE (00:20)
[2020-10-25 03:34] LABS: LIPASE 216 U/L (73-393)
[2020-10-25 07:50] LABS: BASO % 0.3 % (0-2.0); EOS % 0.2 % (0-4.5); HEMATOCRIT 36.2 % (32.4-45.2); HEMOGLOBIN 12.2 GM/dL (10.7-15.3); LYMPH % 7.5 % (8-40); MCH 29.3 pg (25.7-33.7); MCHC 33.6 g/dl (32.0-36.0); MEAN CELL VOLUME 87.2 fl (80-96); MEAN PLT VOLUME 8.8 fl (7.5-11.1); MONO % 8.2 % (3.8-10.2); NEUT % 83.8 % (42.8-82.8); PLATELET COUNT 153 K/MM3 (134-434); RBC 4.15 M/mm3 (3.60-5.2); RDW 15.4 % (11.6-15.6); WHITE BLOOD COUNT 6.7 K/mm3 (4.0-10.0)
[2020-10-25 08:01] LABS: CHLORIDE 101 mmol/L (98-107); POTASSIUM 3.4 mmol/L (3.5-5.1); SODIUM 138 mmol/L (136-145)
[2020-10-25 08:11] LABS: CALCIUM 8.3 mg/dL (8.5-10.1)
[2020-10-25 08:12] LABS: ALBUMIN 2.8 g/dl (3.4-5.0); ALK PHOS 64 U/L (45-117); ANION GAP 7 MMOL/L (8-16); BLOOD UREA NITROGEN 13.3 mg/dL (7-18); CO2 30 mmol/L (21-32); GLUCOSE,RANDOM 165 mg/dL (74-106); MAGNESIUM 2.1 mg/dL (1.8-2.4)
[2020-10-25 08:14] LABS: CREATININE 0.6 mg/dL (0.55-1.3); HDL CHOLESTEROL 33 mg/dL (40-60); SGOT/AST 42 U/L (15-37); SGPT/ALT 23 U/L (13-61)
[2020-10-25 08:15] LABS: BILIRUBIN,TOTAL 0.4 mg/dL (0.2-1); CHOLESTEROL 158 mg/dL (50-200); LDH 193 U/L (84-246); LDL CHOLESTEROL (ONLY SJRH) 83 mg/dL (5-100); PHOSPHOROUS 2.8 mg/dL (2.5-4.9); TOT PROT 5.9 g/dl (6.4-8.2); TRIGLYCERIDES 267 mg/dL (0-150)
[2020-10-25] MEDS ORDERED: DEXTROSE 5%-WATER 100 ML IVPB ONE (08:18)
[2020-10-25] MEDS: ENOXAPARIN NA (PORCINE) 40 MG/0.4 ML DISP.SYRIN SQ SCH (09:25)
[2020-10-25] MEDS: ASPIRIN COATED 81 MG TABLET.EC PO SCH (09:25)
[2020-10-25] MEDS: CEFTRIAXONE 2 GM in DEXTROSE 5%-WATER 2 GM/100 ML BAG IVPB SCH (09:26)
[2020-10-25] MEDS ORDERED: ACETAMINOPHEN 325 MG TABLET (FP) PO PRN (14:39)
[2020-10-25] MEDS ORDERED: POTASSIUM CHLORIDE TABS 20 MEQ TABLET.ER (FP) PO ONE (15:00)
[2020-10-25] MEDS ORDERED: MELATONIN 5 MG TABLETS PO PRN (21:08)
[2020-10-26] MEDS ORDERED: traMADol HCL 50 MG TABLET PO ONE (00:37)
[2020-10-26] MEDS ORDERED: traMADol HCL 50 MG TABLET ONE (00:50)
[2020-10-26 08:03] LABS: BASO % 0.6 % (0-2.0); EOS % 0.2 % (0-4.5); HEMOGLOBIN 11.9 GM/dL (10.7-15.3); LYMPH % 12.6 % (8-40); MCHC 33.1 g/dl (32.0-36.0); MEAN CELL VOLUME 87.5 fl (80-96); MEAN PLT VOLUME 8.8 fl (7.5-11.1); MONO % 8.6 % (3.8-10.2); PLATELET COUNT 146 K/MM3 (134-434); RBC 4.12 M/mm3 (3.60-5.2); RDW 15.1 % (11.6-15.6); WHITE BLOOD COUNT 5.8 K/mm3 (4.0-10.0)
[2020-10-26 08:26] LABS: POTASSIUM 3.8 mmol/L (3.5-5.1)
[2020-10-26 08:37] LABS: CALCIUM 8.2 mg/dL (8.5-10.1)
[2020-10-26 08:39] LABS: ALBUMIN 2.8 g/dl (3.4-5.0)
[2020-10-26 08:41] LABS: CREATININE 0.6 mg/dL (0.55-1.3)
[2020-10-26 08:43] LABS: BILIRUBIN,TOTAL 0.5 mg/dL (0.2-1)
[2020-10-26] MEDS ORDERED: sitaGLIPtin PHOSPHATE 50 MG TABLET PO SCH (09:32)
[2020-10-26] MEDS ORDERED: DEXTROSE 5%-WATER 100 ML IVPB ONE (09:40)
[2020-10-26] MEDS: ENOXAPARIN NA (PORCINE) 40 MG/0.4 ML DISP.SYRIN SQ SCH (09:53)
[2020-10-26] MEDS: ASPIRIN COATED 81 MG TABLET.EC PO SCH (09:54)
[2020-10-26] MEDS: CEFTRIAXONE 2 GM in DEXTROSE 5%-WATER 2 GM/100 ML BAG IVPB SCH (09:54)
[2020-10-26] MEDS ORDERED: DEXAMETHASONE SOD PHOSPHATE 4 MG/1 ML VIAL IVPUSH SCH ×2 (10:30→14:24)
[2020-10-26] MEDS ORDERED: INSULIN SLIDING SCALE (NOVOLOG) 1 VIAL SQ SCH (11:00)
[2020-10-26] MEDS ORDERED: ONDANSETRON 4 MG/2 ML VIAL IVPUSH PRN (21:14)
[2020-10-26] MEDS: ACETAMINOPHEN 325 MG TABLET (FP) PO PRN (22:21)
[2020-10-26] MEDS: GABAPENTIN 300 MG CAPSULE PO SCH (22:21)
[2020-10-26] MEDS: ATORVASTATIN CA 40 MG TABLET (FP) PO SCH (22:22)
[2020-10-26] MEDS: MELATONIN 5 MG TABLETS PO PRN (22:22)
[2020-10-27] MEDS: INSULIN SLIDING SCALE (NOVOLOG) 1 VIAL SQ SCH ×3 (06:49→16:20)
[2020-10-27] MEDS: ASPIRIN COATED 81 MG TABLET.EC PO SCH (09:11)
[2020-10-27] MEDS: ENOXAPARIN NA (PORCINE) 40 MG/0.4 ML DISP.SYRIN SQ SCH (09:11)
[2020-10-27] MEDS: GABAPENTIN 300 MG CAPSULE PO SCH ×2 (09:11→21:14)
[2020-10-27] MEDS ORDERED: DEXTROSE 5%-WATER 100 ML IVPB ONE (09:43)
[2020-10-27] MEDS: DEXAMETHASONE SOD PHOSPHATE 4 MG/1 ML VIAL IVPUSH SCH (09:46)
[2020-10-27] MEDS: CEFTRIAXONE 2 GM in DEXTROSE 5%-WATER 2 GM/100 ML BAG IVPB SCH (09:46)
[2020-10-27] MEDS ORDERED: PT OWN MED DRAWER 7, Y5N ONE (16:18)
[2020-10-27] MEDS: ACETAMINOPHEN 325 MG TABLET (FP) PO PRN (21:13)
[2020-10-27] MEDS: ATORVASTATIN CA 40 MG TABLET (FP) PO SCH (21:14)
[2020-10-27] MEDS: MELATONIN 5 MG TABLETS PO PRN (21:14)
[2020-10-28] MEDS: INSULIN SLIDING SCALE (NOVOLOG) 1 VIAL SQ SCH ×3 (06:39→16:15)
[2020-10-28] MEDS ORDERED: PT OWN MED DRAWER 7, Y5N ONE ×2 (06:41→16:25)
[2020-10-28] MEDS ORDERED: DEXTROSE 5%-WATER 100 ML IVPB ONE (09:39)
[2020-10-28] MEDS: CEFTRIAXONE 2 GM in DEXTROSE 5%-WATER 2 GM/100 ML BAG IVPB SCH (09:42)
[2020-10-28] MEDS: DEXAMETHASONE SOD PHOSPHATE 4 MG/1 ML VIAL IVPUSH SCH (09:43)
[2020-10-28] MEDS: ASPIRIN COATED 81 MG TABLET.EC PO SCH (09:43)
[2020-10-28] MEDS: GABAPENTIN 300 MG CAPSULE PO SCH ×2 (09:43→22:17)
[2020-10-28] MEDS: ENOXAPARIN NA (PORCINE) 40 MG/0.4 ML DISP.SYRIN SQ SCH (09:43)
[2020-10-28] MEDS: ACETAMINOPHEN 325 MG TABLET (FP) PO PRN (22:16)
[2020-10-28] MEDS: ATORVASTATIN CA 40 MG TABLET (FP) PO SCH (22:17)
[2020-10-28] MEDS: MELATONIN 5 MG TABLETS PO PRN (22:17)
[2020-10-28 23:59] VITALS: BMI 39.4
[2020-10-29] MEDS: NYSTATIN 500,000 UNITS/5 ML SUSPENSION PO SCH ×3 (00:30→11:59)
[2020-10-29] MEDS ORDERED: PT OWN MED DRAWER 7, Y5N ONE (05:59)
[2020-10-29] MEDS: INSULIN SLIDING SCALE (NOVOLOG) 1 VIAL SQ SCH ×2 (06:05→11:18)
[2020-10-29] MEDS ORDERED: DEXTROSE 5%-WATER 100 ML IVPB ONE (09:06)
[2020-10-29] MEDS: GABAPENTIN 300 MG CAPSULE PO SCH (09:09)
[2020-10-29] MEDS: DEXAMETHASONE SOD PHOSPHATE 4 MG/1 ML VIAL IVPUSH SCH (09:09)
[2020-10-29] MEDS: CEFTRIAXONE 2 GM in DEXTROSE 5%-WATER 2 GM/100 ML BAG IVPB SCH (09:09)
[2020-10-29] MEDS: ENOXAPARIN NA (PORCINE) 40 MG/0.4 ML DISP.SYRIN SQ SCH (09:09)
[2020-10-29] MEDS: ASPIRIN COATED 81 MG TABLET.EC PO SCH (09:10)
[2020-10-29 15:04] VITALS: BP 132/67; PULSE 85; TEMP 97
== END 2020-10-29 17:04 | disposition home or self-care (01) | DRG 690 ==
LOC: JER 12:13 → JERBED 13:23 → J4W 22:02 → J6S 10-26 20:58
PROVIDERS: ADMIT Family Medicine; ATTEND Family Medicine
DX: N39.0 Urinary tract infection, site not specified (principal); J98.11 Atelectasis; I25.10 Atherosclerotic heart disease of native coronary artery without angina pectoris; E78.5 Hyperlipidemia, unspecified; I10 Essential (primary) hypertension; J44.9 Chronic obstructive pulmonary disease, unspecified; K21.9 Gastro-esophageal reflux disease without esophagitis; G25.81 Restless legs syndrome; B94.8 Sequelae of other specified infectious and parasitic diseases; R11.2 Nausea with vomiting, unspecified; M48.02 Spinal stenosis, cervical region; R55 Syncope and collapse; F41.9 Anxiety disorder, unspecified; M54.9 Dorsalgia, unspecified; R10.9 Unspecified abdominal pain; G43.909 Migraine, unspecified, not intractable, without status migrainosus; E11.65 Type 2 diabetes mellitus with hyperglycemia; W18.30XA Fall on same level, unspecified, initial encounter; B96.20 Unspecified Escherichia coli [E. coli] as the cause of diseases classified elsewhere; Y92.098 Other place in other non-institutional residence as the place of occurrence of the external cause; Z86.16 Personal history of COVID-19; Z96.651 Presence of right artificial knee joint
CPT/HCPCS: 36415; 70450-TC; 70551-TC; 71045-TC-FY; 71275-TC; 72125-TC; 74174-TC; 80053; 80061; 81003; 82248; 82550; 82553; 82607; 82728; 82962; 83036; 83605; 83615; 83690; 83721; 83735; 84100; 84443; 84484; 85025; 85379; 85610; 85730; 86140; 86769; 86850; 86900; 86901; 87040; 87086; 87186; 87804; 93005; 93010; 97116-GP; 97161-GP; 99291; C9803; J0131; Q9967; U0003

== ENCOUNTER 2022-04-25 19:34 | Observation (INO) | payer OTHER ==
[2022-04-25 20:47] LABS: HEMATOCRIT 40.1 % (32.4-45.2); HEMOGLOBIN 13.5 G/dL (10.7-15.3); MCH 30.3 pg (25.7-33.7); MCHC 33.8 g/dl (32.0-36.0); MEAN CELL VOLUME 89.8 fl (80-96); MEAN PLT VOLUME 8.2 fl (7.5-11.1); PLATELET COUNT 195.3 10^3/uL (134-434); RBC 4.47 10^6/uL (3.60-5.2); RDW 14.5 % (11.6-15.6); WHITE BLOOD COUNT 6.5 10^3/uL (4.0-10.8)
[2022-04-25] MEDS ORDERED: ACETAMINOPHEN 500 MG TABLET (FP) PO ONE (20:53)
[2022-04-25] MEDS ORDERED: ACETAMINOPHEN 500 MG TABLET (FP) ONE (21:03)
[2022-04-25 21:04] LABS: ALBUMIN 3.8 g/dl (3.4-5.0); BILIRUBIN,TOTAL 0.7 mg/dl (0.2-1); CALCIUM 8.9 mg/dl (8.5-10); CREATININE 0.7 mg/dl (0.55-1.3); TOT PROT 6.6 g/dl (6.4-8.2)
[2022-04-25 21:06] LABS: PLATELET ESTIMATE ADEQUATE
[2022-04-25] MEDS ORDERED: NITROFURANTOIN MACROCRYSTAL 50 MG CAPSULE (FP) PO SCH (21:15)
[2022-04-25] MEDS ORDERED: MELATONIN 5 MG TABLETS PO PRN (23:44)
[2022-04-25] MEDS ORDERED: ATORVASTATIN CA 40 MG TABLET (FP) PO SCH (23:45)
[2022-04-26 01:32] VITALS: BMI 35.5
[2022-04-26 06:38] VITALS: TEMP 97.6
[2022-04-26] MEDS ORDERED: metFORMIN HCL 500 MG TABLET (FP) PO SCH (07:00)
[2022-04-26] MEDS ORDERED: sitaGLIPtin PHOSPHATE 50 MG TABLET PO SCH (08:00)
[2022-04-26 08:15] LABS: ALBUMIN 3.7 g/dl (3.4-5.0); BILIRUBIN,TOTAL 0.5 mg/dl (0.2-1); CREATININE 0.8 mg/dl (0.55-1.3); TOT PROT 6.3 g/dl (6.4-8.2)
[2022-04-26] MEDS ORDERED: LOSARTAN 50MG/HCTZ 12.5MG 1 TAB PO SCH (10:00)
[2022-04-26] MEDS ORDERED: CEFTRIAXONE 1 GM in DEXTROSE 5%-WATER - 50 ML IVPB SCH (10:00)
[2022-04-26] MEDS ORDERED: GABAPENTIN 300 MG CAPSULE PO SCH (10:00)
[2022-04-26] MEDS ORDERED: FOLIC ACID 1 MG TABLET (FP) PO SCH (10:00)
[2022-04-26 11:12] LABS: HEMATOCRIT 39.8 % (32.4-45.2); MCH 29.1 pg (25.7-33.7); MCHC 32.6 g/dl (32.0-36.0); MEAN CELL VOLUME 89.3 fl (80-96); MEAN PLT VOLUME 8.5 fl (7.5-11.1); PLATELET COUNT 192 10^3/uL (134-434); RBC 4.45 M/mm3 (3.60-5.2); RDW 15.5 % (11.6-15.6)
[2022-04-26 12:04] LABS: ANISOCYTOSIS 0; HELMET CELLS 0; HOWELL-JOLLY BODIES 0; MACROCYTOSIS 0; OVALOCYTE 0; ROULEAU 0; SICKELED CELLS 0; TARGET CELLS 0; TEAR DROP CELLS 0; TOXIC GRANULATION 0
[2022-04-26 14:04] VITALS: BP 111/59; PULSE 80; RESP 17
[2022-04-26] MEDS ORDERED: NITROFURANTOIN MACROCRYSTAL 50 MG CAPSULE (FP) PO ONE (21:15)
== END 2022-04-26 16:17 | disposition home or self-care (01) ==
LOC: FER 19:34 → FM/S 21:15
PROVIDERS: ADMIT Internal Medicine; ATTEND Family Medicine
DX: R07.89 Other chest pain (principal); I10 Essential (primary) hypertension; K21.9 Gastro-esophageal reflux disease without esophagitis; E78.5 Hyperlipidemia, unspecified; E11.9 Type 2 diabetes mellitus without complications; Z79.84 Long term (current) use of oral hypoglycemic drugs; N30.01 Acute cystitis with hematuria
CPT/HCPCS: 0241U-QW; 36415; 70450-TC; 71045-TC-FY; 80053; 81003; 81015; 82550; 82962; 83735; 84443; 84484; 85025; 85027; 87086; 93005; 96374; 99285-25; G0378

== ENCOUNTER 2023-07-30 13:30 | Inpatient (IN) | payer OTHER ==
[2023-07-30 13:59] VITALS: PULSE 92; BMI 32.8
[2023-07-30 16:40] LABS: BASO % 1.4 % (0-2.0); EOS % 1.6 % (0-4.5); HEMATOCRIT 38.6 % (32.4-45.2); HEMOGLOBIN 12.8 GM/dL (10.7-15.3); LYMPH % 25.5 % (8-40); MCH 29.8 pg (25.7-33.7); MCHC 33.3 g/dl (32.0-36.0); MEAN CELL VOLUME 89.6 fl (80-96); MEAN PLT VOLUME 7.9 fl (7.5-11.1); MONO % 5.4 % (3.8-10.2); NEUT % 66.1 % (42.8-82.8); PLATELET COUNT 255 10^3/uL (134-434); RBC 4.31 M/mm3 (3.60-5.2); RDW 15.7 % (11.6-15.6); WHITE BLOOD COUNT 6.1 K/mm3 (4.0-10.0)
[2023-07-30 16:52] LABS: INR 0.94 (0.83-1.09); PROTHROMBIN TIME (PATIENT) 10.9 SEC (9.7-13.0)
[2023-07-30 16:55] LABS: ACTIVATED PTT 30.2 SECONDS (25.2-36.5)
[2023-07-30 16:58] LABS: POTASSIUM 3.8 mmol/L (3.5-5.1)
[2023-07-30 17:00] LABS: CALCIUM 9.1 mg/dL (8.5-10.1)
[2023-07-30 17:01] LABS: ALBUMIN 3.6 g/dl (3.4-5.0); BLOOD UREA NITROGEN 23.5 mg/dL (7-18)
[2023-07-30 17:04] LABS: CREATININE 1.1 mg/dL (0.55-1.3)
[2023-07-30 17:05] LABS: BILIRUBIN,TOTAL 0.3 mg/dL (0.2-1)
[2023-07-30 17:55] LABS: PH,URINE 5.5 (5.0-8.0); URINE APPEARANCE CLEAR; URINE BILIRUBIN NEGATIVE (NEGATIVE); URINE COLOR YELLOW; URINE GLUCOSE (UA) NEGATIVE (NEGATIVE); URINE KETONE NEGATIVE (NEGATIVE); URINE LEUK ESTERASE NEGATIVE (NEGATIVE); URINE NITRITE NEGATIVE (NEGATIVE); URINE PROTEIN NEGATIVE (NEGATIVE); URINE UROBILINOGEN 0.2 mg/dL (0.2-1.0)
[2023-07-30] MEDS ORDERED: VANCOMYCIN 1,000 MG in DEXTROSE 5%-WATER - 250 ML IVPB ONE (17:55)
[2023-07-30] MEDS ORDERED: VANCOMYCIN 1 GRAM (PRE-DOCKED) 1,000 MG/250 ML BAG IVPB ONE (18:33)
[2023-07-30] MEDS ORDERED: PIPERACILLIN/TAZOB 4.5 GM 4.5 GM in DEXTROSE 5%-WATER 100 ML IVPB ONE (22:20)
[2023-07-30] MEDS ORDERED: PIPERACILLIN/TAZOB 4.5 GM 4.5 GM/100 ML BAG IVPB ONE (22:21)
[2023-07-31 01:56] VITALS: BP 124/64; RESP 75; TEMP 97.5
[2023-07-31] MEDS ORDERED: ALPRAZolam 0.25 MG TABLET PO STA (06:36)
[2023-07-31] MEDS ORDERED: INSULIN SLIDING SCALE (NOVOLOG) 1 VIAL SQ SCH (07:00)
[2023-07-31] MEDS ORDERED: PIPERACILLIN/TAZOB 3.375 GM 3.375 GM in DEXTROSE 5%-WATER - 50 ML IVPB SCH (10:00)
[2023-07-31] MEDS ORDERED: ENOXAPARIN NA (PORCINE) 40 MG/0.4 ML DISP.SYRIN SQ SCH (10:00)
== END 2023-07-31 07:11 | disposition left against medical advice (07) | DRG 603 ==
LOC: JER 13:30 → JERBED 22:20
PROVIDERS: ADMIT Internal Medicine; ATTEND Family Medicine
DX: L02.92 Furuncle, unspecified (principal); L03.90 Cellulitis, unspecified; J44.9 Chronic obstructive pulmonary disease, unspecified; I10 Essential (primary) hypertension; E11.9 Type 2 diabetes mellitus without complications; G43.909 Migraine, unspecified, not intractable, without status migrainosus; E78.5 Hyperlipidemia, unspecified; K21.9 Gastro-esophageal reflux disease without esophagitis; I25.10 Atherosclerotic heart disease of native coronary artery without angina pectoris
CPT/HCPCS: 36415; 71045-TC-FY; 74177-TC; 80053; 81003; 84484; 85025; 85610; 85730; 87040; 87086; 93005; 93010; 99285-25

== ENCOUNTER 2023-12-15 22:00 | Observation (INO) | payer OTHER ==
[2023-12-15 23:13] LABS: EPITHELIAL CELLS 0-5 /hpf
[2023-12-15 23:17] LABS: HEMATOCRIT 39.5 % (32.4-45.2); HEMOGLOBIN 13.2 G/dL (10.7-15.3); MCH 30.9 pg (25.7-33.7); MCHC 33.4 g/dl (32.0-36.0); MEAN CELL VOLUME 92.2 fl (80-96); PLATELET COUNT 173.5 10^3/uL (134-434); RBC 4.28 10^6/uL (3.60-5.2); RDW 14.9 % (11.6-15.6); WHITE BLOOD COUNT 8.2 10^3/uL (4.0-10.8)
[2023-12-15] MEDS: SODIUM CHLORIDE 1,000 ML IV ONE (23:19)
[2023-12-15 23:35] LABS: ALBUMIN 4.3 g/dl (3.4-5.0); BILIRUBIN,TOTAL 0.4 mg/dl (0.2-1); CALCIUM 9.5 mg/dl (8.5-10.1); CREATININE 0.8 mg/dl (0.6-1.3); PHOSPHOROUS 3.5 (2.5-4.9); TOT PROT 6.4 g/dl (6.4-8.2)
[2023-12-16 05:46] VITALS: BMI 32.9
[2023-12-16] MEDS: LOSARTAN 50MG/HCTZ 12.5MG 1 TAB PO SCH (11:38)
[2023-12-16] MEDS: ACETAMINOPHEN 1000 MG/100 ML BAG IVPB PRN (11:38)
[2023-12-16] MEDS: POTASSIUM CHLORIDE ORAL LIQUID 20 MEQ/15 ML PO ONE (11:38)
[2023-12-16] MEDS: SODIUM CHLORIDE 0.45% 1,000 ML IV SCH (11:38)
[2023-12-16] MEDS ORDERED: ROPINIROLE HCL 2 MG PO SCH (14:00)
[2023-12-16] MEDS: rOPINIRole HCL 1 MG TABLET (FP) PO SCH (14:19)
[2023-12-16] MEDS: ATORVASTATIN CA 40 MG TABLET (FP) PO SCH (21:07)
[2023-12-16] MEDS: GABAPENTIN 300 MG CAPSULE PO SCH (21:07)
[2023-12-16] MEDS: traMADol HCL 50 MG TABLET PO SCH (21:08)
[2023-12-17 09:49] LABS: BASO % 1.2 % (0-2.0); EOS % 1.3 % (0-4.5); HEMATOCRIT 37.6 % (32.4-45.2); HEMOGLOBIN 12.4 GM/dL (10.7-15.3); LYMPH % 36.3 % (8-40); MCHC 32.9 g/dl (32.0-36.0); MEAN PLT VOLUME 8.7 fl (7.5-11.1); MONO % 5.5 % (3.8-10.2); NEUT % 55.7 % (42.8-82.8); PLATELET COUNT 181 10^3/uL (134-434); RBC 4.14 M/mm3 (3.60-5.2); RDW 14.7 % (11.6-15.6); WHITE BLOOD COUNT 5.6 K/mm3 (4.0-10.0)
[2023-12-17 10:12] LABS: POTASSIUM 3.9 mmol/L (3.5-5.1)
[2023-12-17 10:23] LABS: CALCIUM 8.8 mg/dL (8.5-10.1)
[2023-12-17 10:24] LABS: ALBUMIN 3.3 g/dl (3.4-5.0); BLOOD UREA NITROGEN 18.6 mg/dL (7-18)
[2023-12-17 10:27] LABS: CREATININE 0.9 mg/dL (0.55-1.3)
[2023-12-17 10:28] LABS: BILIRUBIN,TOTAL 0.4 mg/dL (0.2-1); TOT PROT 6.3 g/dl (6.4-8.2)
[2023-12-17] MEDS: FOLIC ACID 1 MG TABLET (FP) PO SCH (10:38)
[2023-12-19 09:46] VITALS: BP 110/60; PULSE 70; RESP 20; TEMP 98.3
== END 2023-12-19 14:29 | disposition home or self-care (01) ==
LOC: FER 22:00 → FM/S 12-16 04:56 → INTOOBSV 12-16 10:20 → OBSVTOIN 12-16 10:20
PROVIDERS: ADMIT Internal Medicine; ATTEND Family Medicine
PROC: 3E033NZ Introduction of Analgesics, Hypnotics, Sedatives into Peripheral Vein, Percutaneous Approach (ICD-10-PCS; principal; 2023-12-16)
PROC: 3E0337Z Introduction of Electrolytic and Water Balance Substance into Peripheral Vein, Percutaneous Approach (ICD-10-PCS; 2023-12-16)
DX: N39.0 Urinary tract infection, site not specified (principal); K52.9 Noninfective gastroenteritis and colitis, unspecified; R55 Syncope and collapse; S00.03XA Contusion of scalp, initial encounter; K21.9 Gastro-esophageal reflux disease without esophagitis; R10.9 Unspecified abdominal pain; E11.40 Type 2 diabetes mellitus with diabetic neuropathy, unspecified; M79.671 Pain in right foot; M79.672 Pain in left foot; Z96.651 Presence of right artificial knee joint; W18.39XA Other fall on same level, initial encounter; Y93.89 Activity, other specified; Y92.89 Other specified places as the place of occurrence of the external cause; I73.9 Peripheral vascular disease, unspecified; N20.0 Calculus of kidney; Z87.891 Personal history of nicotine dependence
CPT/HCPCS: 0241U-QW; 36415; 70450-TC; 71045-TC-FY; 74177-TC; 80053; 81003; 81015; 82550; 82962; 83735; 84100; 84484; 85025; 85027; 87086; 93005; 93306-TC; 93880-TC; 96361; 96374; 97116-GP; 97162-GP; 99285-25; G0378; J0131; Q9967

== ENCOUNTER 2024-06-06 09:14 | Inpatient (IN) | payer OTHER ==
[2024-06-06 10:26] LABS: ALBUMIN 4.4 g/dl (3.4-5.0); BILIRUBIN,TOTAL 0.4 mg/dl (0.2-1); CALCIUM 9.1 mg/dl (8.5-10.1); CREATININE 0.7 mg/dl (0.6-1.3); HEMATOCRIT 39.1 % (32.4-45.2); HEMOGLOBIN 12.3 G/dL (10.7-15.3); MCHC 31.4 g/dl (32.0-36.0); MEAN CELL VOLUME 92.4 fl (80-96); MEAN PLT VOLUME 9.6 fl (7.5-11.1); PLATELET COUNT 149.7 10^3/uL (134-434); POTASSIUM 5.2 mmol/L (3.5-5.1); RBC 4.23 10^6/uL (3.60-5.2); TOT PROT 6.8 g/dl (6.4-8.2); WHITE BLOOD COUNT 6.8 10^3/uL (4.0-10.8)
[2024-06-06 10:31] LABS: PLATELET ESTIMATE ADEQUATE
[2024-06-06 10:47] LABS: EPITHELIAL CELLS 0-5 /hpf
[2024-06-06] MEDS ORDERED: cefTRIAXone SODIUM 1 GM VIAL ONE (10:59)
[2024-06-06] MEDS: CEFTRIAXONE 1,000 MG in DEXTROSE 5%-WATER - 50 ML IVPB ONE (11:05)
[2024-06-06 11:55] LABS: N-TERMINAL BNP 157.2 pg/ml (5-450)
[2024-06-06] MEDS ORDERED: ACETAMINOPHEN INJECTION 100 ML ONE (12:12)
[2024-06-06] MEDS: ACETAMINOPHEN 1000 MG/100 ML BAG IVPB ONE (12:18)
[2024-06-06 17:50] VITALS: BMI 35.9
[2024-06-06] MEDS: ROSUVASTATIN CA 10 MG TABLET PO SCH (21:38)
[2024-06-06] MEDS: GABAPENTIN 400 MG CAPSULE PO SCH (21:38)
[2024-06-06] MEDS: PRAMIPEXOLE DIHYDROCHLORIDE 1 MG TABLET PO SCH (21:38)
[2024-06-06] MEDS ORDERED: GABAPENTIN 400 MG CAPSULE PO SCH (22:00)
[2024-06-07] MEDS ORDERED: cefTRIAXone SODIUM 1 GM VIAL ONE (06:32)
[2024-06-07] MEDS: CEFTRIAXONE 1 GM in DEXTROSE 5%-WATER - 50 ML IVPB SCH (06:36)
[2024-06-07 09:16] LABS: ALBUMIN 4.1 g/dl (3.4-5.0); BILIRUBIN,TOTAL 0.4 mg/dl (0.2-1); CREATININE 0.6 mg/dl (0.6-1.3); PHOSPHOROUS 4.2 (2.5-4.9); POTASSIUM 4.2 mmol/L (3.5-5.1); TOT PROT 6.2 g/dl (6.4-8.2)
[2024-06-07] MEDS ORDERED: FUROSEMIDE 20 MG TABLET (FP) PO SCH (10:00)
[2024-06-07] MEDS: FUROSEMIDE 40 MG/4 ML INJECTABLE VIAL IVPUSH SCH (10:14)
[2024-06-07 10:16] LABS: BASO % 0.8 % (0-2.0); EOS % 1.9 % (0-4.5); HEMATOCRIT 35.1 % (32.4-45.2); HEMOGLOBIN 11.4 GM/dL (10.7-15.3); LYMPH % 20.9 % (8-40); MCH 29.9 pg (25.7-33.7); MCHC 32.6 g/dl (32.0-36.0); MEAN CELL VOLUME 91.8 fl (80-96); MEAN PLT VOLUME 8.8 fl (7.5-11.1); MONO % 6.3 % (3.8-10.2); NEUT % 70.1 % (42.8-82.8); PLATELET COUNT 184 10^3/uL (134-434); RBC 3.82 M/mm3 (3.60-5.2); RDW 15.8 % (11.6-15.6); WHITE BLOOD COUNT 5.1 K/mm3 (4.0-10.0)
[2024-06-07] MEDS: CYANOCOBALAMIN (VITAMIN B-12) 1000 MCG/1 ML VIAL IM SCH (18:26)
[2024-06-07] MEDS: THIAMINE HCL 200 MG/2 ML VIAL IVPB SCH (18:27)
[2024-06-07] MEDS: FOLIC ACID 1 MG TABLET (FP) PO SCH (18:27)
[2024-06-09 08:04] LABS: HEMOGLOBIN 13.5 G/dL (10.7-15.3); MCH 28.9 pg (25.7-33.7); MCHC 31.4 g/dl (32.0-36.0); MEAN CELL VOLUME 92.1 fl (80-96); MEAN PLT VOLUME 8.4 fl (7.5-11.1); RBC 4.67 10^6/uL (3.60-5.2); RDW 15.1 % (11.6-15.6)
[2024-06-09 09:00] LABS: CALCIUM 9.6 mg/dl (8.5-10.1); CREATININE 0.8 mg/dl (0.6-1.3); MAGNESIUM 2.2 mg/dL (1.8-2.4); POTASSIUM 4.4 mmol/L (3.5-5.1)
[2024-06-09] MEDS: FUROSEMIDE 20 MG TABLET (FP) PO SCH (09:27)
[2024-06-09 10:02] VITALS: RESP 18; TEMP 98.2
[2024-06-09] MEDS: POLYETHYLENE GLYCOL (HEALTHYLAX) 3350 17 GM PACKET PO ONE (14:04)
[2024-06-09 14:25] VITALS: BP 121/83; PULSE 80
== END 2024-06-09 17:32 | disposition home or self-care (01) | DRG 690 ==
LOC: FER 09:14 → FM/S 13:08
PROVIDERS: ADMIT Internal Medicine; ATTEND Internal Medicine
DX: N39.0 Urinary tract infection, site not specified (principal); I10 Essential (primary) hypertension; G25.81 Restless legs syndrome; I87.2 Venous insufficiency (chronic) (peripheral); I35.0 Nonrheumatic aortic (valve) stenosis; J44.9 Chronic obstructive pulmonary disease, unspecified; R60.0 Localized edema; E11.40 Type 2 diabetes mellitus with diabetic neuropathy, unspecified; F41.9 Anxiety disorder, unspecified; K21.9 Gastro-esophageal reflux disease without esophagitis; Z79.84 Long term (current) use of oral hypoglycemic drugs
CPT/HCPCS: 36415; 71045-TC-FY; 80048; 80053; 80061; 81003; 81015; 82728; 83036; 83540; 83550; 83735; 83880; 84100; 84443; 84466; 84484; 85025; 85027; 87086; 93005; 97116-GP; 97162-GP; 99285-25; J0131

== ENCOUNTER 2024-11-28 08:28 | Inpatient (IN) | payer OTHER ==
[2024-11-28] MEDS ORDERED: ACETAMINOPHEN 500 MG TABLET (FP) ONE (09:05)
[2024-11-28] MEDS: ACETAMINOPHEN 500 MG TABLET (FP) PO ONE (09:07)
[2024-11-28 11:10] LABS: HEMATOCRIT 34.9 % (32.4-45.2); HEMOGLOBIN 11.4 G/dL (10.7-15.3); INR 0.93 (0.83-1.09); MCH 29.5 pg (25.7-33.7); MCHC 32.6 g/dl (32.0-36.0); MEAN CELL VOLUME 90.6 fl (80-96); MEAN PLT VOLUME 9.4 fl (7.5-11.1); PLATELET COUNT 219.6 10^3/uL (134-434); PROTHROMBIN TIME (PATIENT) 10.6 SEC (9.7-13.0); RBC 3.85 10^6/uL (3.60-5.2); RDW 15.3 % (11.6-15.6); WHITE BLOOD COUNT 6.5 10^3/uL (4.0-10.8)
[2024-11-28 11:13] LABS: ACTIVATED PTT 29.9 SECONDS (25.2-36.5)
[2024-11-28 11:18] LABS: ALBUMIN 4.2 g/dl (3.4-5.0); ALK PHOS 58 U/L (45-117); ANION GAP 9 mmol/L (4-13); BILIRUBIN,TOTAL 0.3 mg/dl (0.2-1); CALCIUM 9.4 mg/dl (8.5-10.1); CHLORIDE 101 mmol/L (98-107); CO2 28 mmol/L (21-32); CREATININE 0.8 mg/dl (0.6-1.3); GLUCOSE,RANDOM 329 mg/dl (74-106); POTASSIUM 4.5 mmol/L (3.5-5.1); SGOT/AST 13 U/L (15-37); SGPT/ALT 9 U/L (7-52); SODIUM 138 mmol/L (136-145); TOT PROT 6.4 g/dl (6.4-8.2)
[2024-11-28 14:07] LABS: ANISOCYTOSIS 1+; PLATELET ESTIMATE ADEQUATE
[2024-11-28] MEDS ORDERED: ACETAMINOPHEN 1000 MG/100 ML BAG IVPB PRN (16:33)
[2024-11-28 19:25] VITALS: BMI 36.1
[2024-11-28] MEDS: DEXAMETHASONE SOD PHOSPHATE 10 MG/1 ML VIAL IVPUSH SCH (20:20)
[2024-11-28] MEDS: METHOCARBAMOL 500 MG TABLET PO SCH (21:25)
[2024-11-28] MEDS: INSULIN (LEVEMIR) 100 UNITS/ML UNITS SQ SCH (21:27)
[2024-11-28] MEDS: INSULIN ASPART SLIDING SCALE (NOVOLOG) 1 VIAL SQ SCH (21:28)
[2024-11-28] MEDS ORDERED: CycloBENZAprine HCL 10 MG TABLET (FP) PO SCH (22:00)
[2024-11-29] MEDS: KETOROLAC TROMETHAMINE 30 MG/1 ML VIAL IVPUSH PRN (00:11)
[2024-11-29] MEDS: EMPAGLIFLOZIN (JARDIANCE) 25 MG TABLET PO SCH (09:24)
[2024-11-29] MEDS ORDERED: HEPARIN NA (PORCINE) 5,000 UNITS/ML 1ML VIAL IVPUSH PRN ×2 (12:59)
[2024-11-29] MEDS ORDERED: HEPARIN - 25,000 UNIT in SODIUM CHLORIDE 495 ML IV SCH (13:00)
[2024-11-29] MEDS: GABAPENTIN 300 MG CAPSULE PO SCH (14:29)
[2024-11-29] MEDS: INSULIN (LEVEMIR) 100 UNITS/ML UNITS SQ SCH (20:43)
[2024-11-30] MEDS: morphine SULFATE 4 MG/ML VIAL IVPUSH PRN (03:54)
[2024-11-30] MEDS: HYDROmorphone HCL CARPU-JECT 2 MG/1 ML DISP.SYRIN IVPUSH ONE (05:15)
[2024-11-30 07:29] LABS: HEMATOCRIT 34.6 % (32.4-45.2); HEMOGLOBIN 11.3 GM/dL (10.7-15.3); LYMPH % 9.4 % (8-40); MCH 29.1 pg (25.7-33.7); MCHC 32.6 g/dl (32.0-36.0); MEAN CELL VOLUME 89.1 fl (80-96); MONO % 2.1 % (3.8-10.2); NEUT % 88.5 % (42.8-82.8); PLATELET COUNT 250 10^3/uL (134-434); RBC 3.88 M/mm3 (3.60-5.2); WHITE BLOOD COUNT 8.3 K/mm3 (4.0-10.0)
[2024-11-30 07:39] LABS: POTASSIUM 4.2 mmol/L (3.5-5.1)
[2024-11-30 07:47] LABS: ALBUMIN 3.8 g/dl (3.4-5.0); BLOOD UREA NITROGEN 42.1 mg/dL (7-18)
[2024-11-30 07:51] LABS: CREATININE 0.9 mg/dL (0.55-1.3)
[2024-11-30 07:52] LABS: BILIRUBIN,TOTAL 0.4 mg/dL (0.2-1)
[2024-11-30] MEDS ORDERED: morphine SULFATE 4 MG/ML VIAL IVPUSH PRN (08:07)
[2024-11-30] MEDS: DEXAMETHASONE SOD PHOSPHATE 10 MG/1 ML VIAL IVPUSH SCH (09:26)
[2024-11-30] MEDS: METHOCARBAMOL 500 MG TABLET PO SCH (09:36)
[2024-11-30] MEDS: EMPAGLIFLOZIN (JARDIANCE) 25 MG TABLET PO SCH (09:36)
[2024-11-30] MEDS: INSULIN ASPART SLIDING SCALE (NOVOLOG) 1 VIAL SQ SCH (11:45)
[2024-11-30] MEDS: GABAPENTIN 300 MG CAPSULE PO SCH (13:33)
[2024-11-30] MEDS: metFORMIN HCL 500 MG TABLET (FP) PO SCH (16:59)
[2024-11-30] MEDS: traMADol HCL 50 MG TABLET PO PRN (21:24)
[2024-11-30] MEDS: INSULIN (LEVEMIR) 100 UNITS/ML UNITS SQ SCH (21:25)
[2024-12-01] MEDS: EMPAGLIFLOZIN (JARDIANCE) 25 MG TABLET PO SCH (06:16)
[2024-12-01 12:32] VITALS: TEMP 98.2
[2024-12-01 14:04] VITALS: BP 126/78; PULSE 84; RESP 20
== END 2024-12-01 15:03 | disposition home health service (06) | DRG 552 ==
LOC: FER 08:28 → FM/S 16:33 → J4W 11-30 03:11
PROVIDERS: ADMIT Family Medicine; ATTEND Family Medicine
DX: M48.062 Spinal stenosis, lumbar region with neurogenic claudication (principal); I10 Essential (primary) hypertension; J44.9 Chronic obstructive pulmonary disease, unspecified; E11.42 Type 2 diabetes mellitus with diabetic polyneuropathy; M51.26 Other intervertebral disc displacement, lumbar region; I70.202 Unspecified atherosclerosis of native arteries of extremities, left leg
CPT/HCPCS: 36415; 72131-TC; 72146-TC; 72148-TC; 75635-TC; 80053; 82962; 83036; 83605; 85025; 85027; 85610; 85730; 93922; 93926-TC; 97116-GP; 99285-25; J1100; Q9967

== ENCOUNTER 2024-12-16 22:18 | Emergency (ER) | payer OTHER ==
[2024-12-16 22:28] VITALS: BMI 33.6
[2024-12-16 22:46] LABS: ABSOLUTE IMMATURE GRANULOCYTES 0.01 x10^3/uL (0.0-0.031); BASOPHILS # 0.04 x10^3/uL (0.01-0.08); EOSINOPHIL % 1.8 % (0.7-5.8); EOSINOPHILS # 0.12 x10^3/uL (0.04-0.36); HEMOGLOBIN 11.9 g/dL (11.2-15.7); MCHC 32.2 g/dl (32.2-35.5); MEAN CELL VOLUME 93.4 fl (79.4-94.8); MEAN PLT VOLUME 10.1 fl (9.4-12.3); MONOCYTE # 0.34 x10^3/uL (0.24-0.86); MONOCYTE % 5.2 % (4.7-12.5); PLATELET COUNT 178 x10^3/uL (182-369); RDW 14.8 % (12.4-16.6)
[2024-12-16 23:09] LABS: ALK PHOS 62 U/L (45-117); ANION GAP 9 mmol/L (4-13); BILIRUBIN,TOTAL 0.3 mg/dl (0.2-1); CALCIUM 9.2 mg/dl (8.5-10.1); CHLORIDE 99 mmol/L (98-107); CO2 28 mmol/L (21-32); CREATININE 0.6 mg/dl (0.6-1.3); GLUCOSE,RANDOM 282 mg/dl (74-106); MAGNESIUM 1.9 mg/dL (1.8-2.4); POTASSIUM 4.1 mmol/L (3.5-5.1); SGOT/AST 15 U/L (15-37); SGPT/ALT 13 U/L (7-52); SODIUM 136 mmol/L (136-145); TOT PROT 6.1 g/dl (6.4-8.2)
[2024-12-16] MEDS: morphine CARPU-JECT 2 MG/1 ML DISP.SYRIN IVPUSH ONE (23:28)
[2024-12-17 00:29] VITALS: BP 124/68; PULSE 93; RESP 18; TEMP 98.1
[2024-12-17] MEDS ORDERED: morphine SULFATE 4 MG/ML VIAL ONE (00:45)
[2024-12-17] MEDS: morphine CARPU-JECT 4 MG/1 ML DISP.SYRIN IVPUSH ONE (01:04)
== END 2024-12-17 01:50 | disposition short-term general hospital (02) ==
LOC: FER 22:18
PROC: 3E033NZ Introduction of Analgesics, Hypnotics, Sedatives into Peripheral Vein, Percutaneous Approach (ICD-10-PCS; principal; 2024-12-16)
PROC: 3E033NZ Introduction of Analgesics, Hypnotics, Sedatives into Peripheral Vein, Percutaneous Approach (ICD-10-PCS; 2024-12-17)
DX: T24.231A Burn of second degree of right lower leg, initial encounter (principal); T24.232A Burn of second degree of left lower leg, initial encounter
CPT/HCPCS: 36415; 80053; 83735; 85025; 99285-25